=== PATIENT | male | born 1970 | race Caucasian/White ===

== ENCOUNTER 2025-03-04 07:06 | Observation (INO) | payer BC, SELFPAY ==
[2025-03-04] VITALS (16 sets, daily range): BP systolic 165–215; BP diastolic 61–99; PULSE 50–78; RESP 11–19; TEMP 36.4–37.2; O2SAT 96–99; BMI 27.1; BMI 26.1
--- NOTE | 2025-03-04 07:17 | CT_ITS ---
PROCEDURE: STROKE CTA HEAD AND NECK W/CON 03/04/2025 REASON FOR EXAM: NEURO DEFICIT, ACUTE, STROKE SUSPECTED TECHNIQUE: CTA imaging of the head and neck from the aortic arch to the skull vertex with intravenous contrast. Coronal and Sagittal reconstruction series were provided. 3D, 3D post processing, 3D reconstructions, Maximum intensity projection (MIPs) Volume rendering and Shaded surface rendering was provided. CONTRAST: Isovue 370 VOLUME: 100 mL Gauge IV One or more dose reduction techniques were used (e.g., Automated exposure control, adjustment of the mA and/or kV according to patient size, use of iterative reconstruction technique). # of known CTs in the past 12 months: 0 # of known Cardiac Nuclear Medicine Studies in the past 12 months: 0 RADIATION DOSE SUMMARY: DLP: 1505 mGycm COMPARISON: CT head performed on same date. FINDINGS: No large filling defects seen within the intracranial vessels. No evidence of thrombosis. No hemodynamically significant stenosis seen within the bilateral ICA. CT/STROKE CTA Head AND Neck W/Con IMPRESSION: No large filling defects seen within the intracranial vessels. No evidence of thrombosis. No hemodynamically significant stenosis seen within the bilateral ICA. Reading Location: [id number]
--- NOTE | 2025-03-04 07:17 | EKG12_ITS ---
Test Reason : HTN Blood Pressure : */* mmHG Vent. Rate : 58 BPM Atrial Rate : 58 BPM P-R Int : 136 ms QRS Dur : 94 ms QT Int : 458 ms P-R-T Axes : 53 9 102 degrees QTcB Int : 449 ms Sinus bradycardia Septal infarct , age undetermined T wave abnormality, consider lateral ischemia Abnormal ECG Confirmed by BENJA DUNHAM, DALLIN ([id number]), newspaper editor managing JE NG ([id number]) on 03/05/2025 8:36:03 AM Referred By: Confirmed By: DALLIN YOUSIF MD
--- NOTE | 2025-03-04 07:17 | CT_ITS ---
PROCEDURE: STROKE BRAIN/HEAD WITHOUT CONT 03/04/2025 REASON FOR EXAM: NEURO DEFICIT, ACUTE, STROKE SUSPECTED TECHNIQUE: Head CT without intravenous contrast. Coronal and Sagittal reconstruction series were provided. One or more dose reduction techniques were used (e.g., Automated exposure control, adjustment of the mA and/or kV according to patient size, use of iterative reconstruction technique. RADIATION DOSE SUMMARY: DLP: 1505 mGycm COMPARISON: None. FINDINGS: Hypodensity are seen within the left subcortical white matter best seen on image 22/43 could represent area of acute infarct. There is no intracranial hemorrhage, mass effect or midline shift. There are no abnormal extra-axial fluid collections present. The the ventricles and sulci are within normal limits. Calvarium intact intact. Visualized paranasal sinuses are unremarkable. : CT/STROKE Brain/Head without Cont IMPRESSION: Hypodensity within the left subcortical white matter could represent acute to s ubacute infarct. Correlate with MR. No intracranial hemorrhage, mass effect or midline shift. Reading Location: [id number]
--- NOTE | 2025-03-04 07:18 | EDS_ITS ---
HPI History of Present Illness Chief Complaint: Neuro S/Sx Informant: patient Onset/Context/Timing Onset: Days Context: Gradual Onset Timing: Continuous Quality and Location: Positive for Slurred Speech Onset: Sunday morning around 5:30 AM. Current Severity: Moderate Maximum Severity: Moderate Associated Symptoms Associated Symptoms: Negative for Nausea, Vomiting or Chest Pain Narrative Narrative: 54-year-old male prior history of epilepsy. But he says he has not seen a doctor or been in the hospital for years. According to his she said around 5:30 AM on Sunday the seventh 3 days ago she noticed that he started having significantly slurred speech. He denies any other complaints. No prior history of this. Occasionally has a headache. Denies any fall or head trauma. No history of stroke or mini stroke. They have also noticed recently he has elevated blood pressure but he is on no blood pressure medication. Prior similar symptoms: No Recent Illness/Hospitalization: [facility] Medical History Epilepsy Home Medications ?Medication ?Instructions ?Recorded ?Last Taken ?Type NK 03/04/25 Unknown History Allergy/AdvReac Type Severity Reaction Status Date / Time No Known Allergies Allergy Verified 03/04/25 07:07 Social History Smoking Status: Current every day smoker tobacco type: cigarettes ROS ROS ED ROS Narrative Denies recent illness. Constitutional Constitutional ED: Denies chills or fever(s) Eyes Eyes: Denies blurry vision, change in vision or diplopia ENT ENT ED: Denies ear pain Cardiovascular Cardiovascular: Denies chest pain Respiratory/Chest Respiratory/Chest: Denies cough or dyspnea Gastrointestinal Gastrointestinal: Denies abdominal pain Genitourinary Genitourinary ED: Denies dysuria Musculoskeletal Musculoskeletal: Denies arthralgias Integumentary Denies abscess Neurologic Neurologic: Reports headache(s) Psychiatric Psychiatric: Denies anxiety Endocrine Endocrinology: Denies polydipsia Hematologic/Lymphatic Hematologic/Lymphatic: Denies easy bleeding Allergic/Immunologic Allergic/Immunologic ED: Denies mouth swelling EXAM Physical Exam Narrative Exam Narrative: Well-appearing male sitting upright in bed. Vital signs are stable his blood pressure is elevated 215/96. at bedside. H EENT exam pupils round reactive light. Extra motions are intact. No facial droop. Tongue midline. O bviously slurred speech. No signs of trauma. Neck nontender. No lymphadenopathy. Lungs clear to auscultation bilaterally. Heart regular rhythm rate about 70 no murmur. Chest wall ribs nontender. Abdomen soft nontender. Moving all 4 extremities. 5 out of 5 hoop expander strength. Dorsi plantarflexion intact. Normal strength. Normal sensation. Nontender. No edema. Back nontender. Neurologically is awake and alert. Answering questions and following commands. He is obvious slurred speech. However he is no facial droop. He has normal fingertip to nose. Normal [id number]-otxy. No drift. N ormal rapid hand movements. NIH score is 1. Const Vital Signs: 03/04/25 07:07 03/04/25 07:19 03/04/25 07:19 Temperature 98.2 F 98.9 F Temperature Source Oral Oral Pulse Rate 68 62 Respiratory Rate 19 H 14 Blood Pressure 215/96 H 211/94 H Blood Pressure Mean 135 133 Pulse Ox 97 98 Oxygen Delivery Method Room Air Room Air Room Air 03/04/25 07:47 03/04/25 08:02 Temperature 98.6 F Temperature Source Oral Pulse Rate 78 64 Respiratory Rate 16 18 Blood Pressure 211/76 H 203/81 H Blood Pressure Mean 121 121 Pulse Ox 98 98 Oxygen Delivery Method Room Air Room Air Positive well nourished and well developed; Negative for obese, cachectic, contractures or unkempt General Appearance ED: well developed and NAD; Negative for unkempt, cachectic or contractures Nutritional Appearance: Negative for cachectic or obese HEENT Reports moist mucous membranes atraumatic Eyes PERRL and EOMs intact bilaterally General Eye ED: Negative for pale conjunctiva or scleral icterus Neck no lymphadenopathy, supple and no JVD General: Negative for tenderness Chest Wall inspection of chest normal and palpation of chest normal Resp normal respiratory effort and clear to auscultation bilaterally Effort and Inspection: Negative for retractions Auscultation: Negative for rales, rhonchi, wheezes or diminished lung sounds Cardio no murmurs Rate: regular rate Rhythm: regular rhythm GI normal to inspection, nondistended, normoactive bowel sounds, soft to palpation, non-tender, non-distended and no masses Palpation: Negative for tender, guarding or rebound tenderness present Back/Spine no CVA tenderness General Back: Negative for CVA tenderness or other Cervical Spine: Negative for cervical spine tenderness Thoracic Spine / Upper Back: Negative for thoracic spinal tenderness Extremity normal to inspection General Extremety ED: Negative for deformity or edema General Extremity: Negative for deformity or edema Neuro oriented x3, CN's II-XII intact bilaterally and no sensory deficits noted Neuro Narrative: Slurred speech. Sensorium / Orientation: alert, oriented to person, oriented to place and oriented to time; Negative for orientation impaired, confused or stuporous Speech: Negative for speech normal Motor Exam: strength 5/5 throughout Psych mental status grossly normal Appearance: Negative for unkempt Attitude: No agitated Mood & Affect: Negative for depressed, anxious or tearful Skin no wounds General Skin Exam: Negative for jaundice Lesions: no lesions Rashes: no rashes NIHSS NIHSS Initial: 1a Level of Consciousness: 0 1b LOC Questions (Score 2 if aphasic/stupor): 0 1c LOC Commands (Only score 1st attempt): 0 2 Best Gaze (If aphasic, use reflexive mvmts.): 0 3 Visual: 0 4 Facial Palsy: 0 5 Motor Arm Right (UN = amputation/fusion): 0 5 Motor Arm Left: 0 6 Motor Leg Right: 0 6 Motor Leg Left: 0 7 Limb ataxia (Only + if out of proportion): 0 8 Sensory (Aphasia/stupor=0 or 1, coma=2): 0 9 Best Language: 1 10 Dysarthria (mute, coma=2, intubated=UN): 0 11 Extinction and Inattention (only scored if +): 0 Total Score: 1 MDM MDM MDM Narrative Medical decision making narrative: 54-year-old male who does not have a primary care physician. Presents with 3- day history of slurred speech. Concern obviously is for stroke versus intracranial bleed. Also may have new onset hypertension. He will go through a stroke workup. Most likely need to be admitted. Repeat exam at 8:17 a.m. patient doing well. Sitting upright in bed. No change in his exam. Slurred speech has not changed. I discussed all test results about he and his . Explained him that clinically I think he had a stroke and there is findings on the plain CT. He will be admitted I have the hospitalist on page. Patient did receive labetalol for his elevated blood pressure. History & Record Review Discussion w/independent historian: Patient and Family Lab Data Lab results narrative: CBC normal. White count 8. H&H 16 and 46. Platelets 258. Chemistries show a gap of 11. BUN and creatinine are 12 and 1. Glucose 110. Initial troponin 11. Labs: Laboratory Results - last 24 hr 03/04/25 07:22 WBC 8.3 RBC 5.07 Hgb 16.3 Hct 46.2 MCV 91.1 MCH 32.1 H MCHC 35.3 RDW Std Deviation 44.8 H RDW Coeff of Juan 13.5 Plt Count 258 MPV 10.1 Immature Gran % (Auto) 0.500 Neut % (Auto) 67.2 Lymph % (Auto) 21.5 [place] % (Auto) 9.5 Eos % (Auto) 0.7 Baso % (Auto) 0.6 Absolute Neuts (auto) 5.6 Absolute Lymphs (auto) 1.79 Nucleated RBC % 0 Sodium 136 Potassium 4.1 Chloride 100 Carbon Dioxide 23.7 Anion Gap 11 BUN 12 Creatinine 1.00 Estim Creat Clear Calc 78.03 Est GFR (MDRD) Non-Af 89 BUN/Creatinine Ratio 12.0 Glucose 110 H Calcium 9.2 Troponin T High Sens 11 Radiography Chest X-Ray - ED: 2 View, Read by ED Physician, Heart, Lungs, Mediastinum, Bony Structures, No Acute Disease and Chronic Changes Diagnostic Testing: Clinical Impression(s) from Imaging Studies Brain CT 03/04/25 07:17 IMPRESSION: Hypodensity within the left subcortical white matter could represent acute to subacute infarct. Correlate with MR. No intracranial hemorrhage, mass effect or midline shift. Reading Location: [facility] Head/Neck CTA 03/04/25 07:17 IMPRESSION: No large filling defects seen within the intracranial vessels. No evidence of thrombosis. No hemodynamically significant stenosis seen within the bilateral ICA. Reading Location: [id number] Chest X-Ray 03/04/25 07:35 IMPRESSION: Mild pulmonary vascular congestion. 1 cm nodule seen within the right lower lobe. Follow-up as per Fleischner society criteria. Reading Location: [facility] Chest x-ray, 2 views, AP and lateral, interpreted by myself shows no acute abnormality. Normal cardiac silhouette. Normal mediastinum. Normal lung lopez. Chronic changes. No acute process. Rhythm Strip Rhythm Strip: Sinus bradycardia Rate: 58 Ectopy: None EKG Initial EKG: Attestation: I personally reviewed and interpreted this EKG as follows: Interpretation: No Acute Injury Pattern and Sinus Bradycardia Comments: Sinus bradycardia rate of 58 no acute signs of OR or ischemia. No ST elevation. No depression. Discharge Plan Triage Chief Complaint: Neuro S/Sx ED Provider: Cruzito Bailey Dx/Rx/DC Orders Clinical Impression: Slurred speech, Acute stroke due to ischemia, Hypertension Prescriptions: No Action NK Primary Care Provider: Care Physician,No Primary Referrals: Care Physician,No Primary [Primary Care Provider] - Print Language: Japanese
[2025-03-04 07:30] LABS: Absolute Lymphocyte Count 1.79 X10^3/uL (0.83-4.51); Absolute Neutrophil Count 5.6 X10^3/uL (2.0-7.7); Basophil# 0.05 X10^3/uL; Basophil% 0.6 % (0-1); Eosinophil# 0.06 X10^3/uL; Eosinophils% 0.7 % (0-5); Hematocrit 46.2 % (40-54); Hemoglobin 16.3 g/dL (13.0-16.5); Lymphocyte # 1.79 X10^3/ul (0.83-4.51); Lymphocyte % 21.5 % (19-41); Mean Corp Hgb Conc 35.3 g/dL (32-36); Mean Corpuscular Hgb 32.1 pg (27.0-32.0); Mean Corpuscular Volume 91.1 fL (80-94); Mean Platelet Vol. 10.1 fl (6.2-12.0); Monocyte# 0.79 X10^3/uL; Monocyte% 9.5 % (0-10); NRBC Flagged by Analyzer 0 % (0-5); Neutrophil # 5.61 X10^3/uL (2.7-7.7); Neutrophil % 67.2 % (47-70); Platelet Count 258 K/mm3 (150-450); RBC Distribution Width CV 13.5 % (11.6-14.6); RBC Distribution Width SD 44.8 fl (35.1-43.9); Red Blood Count 5.07 M/mm3 (4.6-6.2); White Blood Count 8.3 K/mm3 (4.4-11.0)
--- NOTE | 2025-03-04 07:35 | RAD_ITS ---
PROCEDURE: CHEST PA AND LATERAL 03/04/2025 REASON FOR EXAM: HIGH BP AND SLURRED SPEECH TECHNIQUE: Frontal and lateral views of the chest. COMPARISON: None. FINDINGS: The cardiac silhouette is prominent. There is mild pulmonary vascular congestion. 1 cm nodule seen within the right lower lung zone. Recommend follow-up as per Fleischner society criteria. RAD/Chest PA and Lateral IMPRESSION: Mild pulmonary vascular congestion. 1 cm nodule seen within the right lower lobe. Follow-up as per Fleischner soci ety criteria. Reading Location: [id number]
[2025-03-04 08:07] LABS: Anion Gap 11 (5-15); BUN 12 mg/dL (4-19); Calcium,Total 9.2 mg/dL (7.6-11.0); Carbon Dioxide 23.7 mmol/L (21.0-32.0); Chloride 100 mmol/L (98-108); EST Glomerular Filtration Rate 89 (>60); Estimated Creatinine Clearance 78.03 ml/min (50-250); Glucose 110 mg/dL (70-99); Potassium 4.1 mmol/L (3.3-5.1); Sodium Level 136 mmol/L (133-145); Troponin T High Sensitivity 11 ng/L (<=22)
--- NOTE | 2025-03-04 08:45 | PCM.HP.STD ---
HPI - General General Date of Service: 03/04/25 Chief Complaint: slurred speech HPI Narrative MARY ALICE NAIK, is a 54 M who presents with slurred speech. Symptoms were noticed at 0530 on March 02. Had no other symptoms. But given the lack of improvement, patient was taken to the emergency room for evaluation. Patient had a CAT scan that showed hypodensity with in the left subcortical white matter that could represent acute or subacute infarct. CTA of the head and neck showed no LVO. Given his strokelike symptoms and concern for stroke on his CAT scan, the hospital service was contacted for admission. Patient denies ever having had a stroke before. [facility] Medical History Epilepsy Home Medications ?Medication ?Instructions ?Recorded ?Last Taken ?Type NK 03/04/25 Unknown History Allergy/AdvReac Type Severity Reaction Status Date / Time No Known Allergies Allergy Verified 03/04/25 07:07 Social History (Updated 03/04/25 @ 08:[address] Todd Alfonso DO) Smoking Status: Heavy Smoker (>10/day) alcohol intake: current alcohol intake frequency: a few times a month substance use type: marijuana Vital Signs Vital Signs Vital Signs: 03/04/25 07:07 03/04/25 07:19 03/04/25 07:19 Temperature 36.8 C 37.2 C Temperature Source Oral Oral Pulse Rate 68 62 Respiratory Rate 19 H 14 Blood Pressure 215/96 H 211/94 H Blood Pressure Mean 135 133 Pulse Ox 97 98 Oxygen Delivery Method Room Air Room Air Room Air 03/04/25 07:47 03/04/25 08:02 Temperature 37.0 C Temperature Source Oral Pulse Rate 78 64 Respiratory Rate 16 18 Blood Pressure 211/76 H 203/81 H Blood Pressure Mean 121 121 Pulse Ox 98 98 Oxygen Delivery Method Room Air Room Air Weight Weight: 78.8 kg Body Mass Index (BMI) 27.1 Physical Exam Narrative - Physical Exam General: Alert, Oriented x3, Cooperative HEENT: Atraumatic, PERRLA, EOMI, Normocephalic Oral: Moist Mucosa, No Gingival or Mucosal Lesions/ Ulcerations edentulous. Neck: Supple, No JVD, Negative Carotid Bruits Lungs: Clear to auscultation, Normal air movement Cardiovascular: Regular rate, Normal S1, Normal S2, No murmurs Abdomen: Bowel Sounds Present, Soft, Non Tender, Non-Distended, No Hepato-splenomegaly Extremities: No clubbing, No cyanosis, No edema, Capillary Refill Less than 3 Seconds Skin: No rashes, No breakdown Musculoskeletal: No Tenderness to Palpation of Joints or Extremities Neurological: Cranial nerves II through XII gross intact. Strength 5-5 in upper and lower extremities bilaterally. Knqliu-ha-saal and ybqc-dv-sftn within normal limits. Sensation grossly intact. Patient does have some slurred speech but follows commands appropriately. Psych/Mental Status: Normal Affect, Appropriate Results Lab / Micro Data Attestation: I reviewed the patient's lab results. 03/04/25 07:22 03/04/25 07:22 Labs: Laboratory Results - last 24 hr 03/04/25 07:22: WBC 8.3, RBC 5.07, Hgb 16.3, Hct 46.2, MCV 91.1, MCH 32.1 H, MCHC 35.3, RDW Std Deviation 44.8 H, RDW Coeff of Juan 13.5, Plt Count 258, MPV 10.1, Immature Gran % (Auto) 0.500, Neut % (Auto) 67.2, Lymph % (Auto) 21.5, [place] % (Auto) 9.5, Eos % (Auto) 0.7, Baso % (Auto) 0.6, Absolute Neuts (auto) 5.6, Absolute Lymphs (auto) 1.79, Nucleated RBC % 0, Sodium 136, Potassium 4.1, Chloride 100, Carbon Dioxide 23.7, Anion Gap 11, BUN 12, Creatinine 1.00, Estim Creat Clear Calc 78.03, Est GFR (MDRD) Non-Af 89, BUN/Creatinine Ratio 12.0, Glucose 110 H, Calcium 9.2, Troponin T High Sens 11 Rhythm Strip Rhythm Strip: Sinus bradycardia Rate: 58 Ectopy: None EKG Initial EKG: Attestation: I personally reviewed and interpreted this EKG as follows: Prior EKG tracings: available for review EKG Rhythm Intrepretation: Sinus Bradycardia Imaging Radiology Impression Brain CT 03/04/25 07:17 IMPRESSION: Hypodensity within the left subcortical white matter could represent acute to subacute infarct. Correlate with MR. No intracranial hemorrhage, mass effect or midline shift. Reading Location: [id number] Head/Neck CTA 03/04/25 07:17 IMPRESSION: No large filling defects seen within the intracranial vessels. No evidence of thrombosis. No hemodynamically significant stenosis seen within the bilateral ICA. Reading Location: [id number] Chest X-Ray 03/04/25 07:35 IMPRESSION: Mild pulmonary vascular congestion. 1 cm nodule seen within the right lower lobe. Follow-up as per Fleischner society criteria. Reading Location: [facility] Assessment & Plan Assessment/Plan (1) CVA (cerebral vascular accident): PLAN: Patient is out of the window for TNK given delayed presentation CAT scan already showing signs of stroke in the left subcortical region. Will check an MRI to further characterize this. Additionally check an echocardiogram. PT, OT and speech therapy. Start aspirin and high intensity statin. (2) Hypertension: PLAN: Given that patient is well over 24 hours after presentation, will start initiating treatment. Patient's blood pressure is currently in the 190s. Will start amlodipine. Available as needed antihypertensives as well. PLAN: Plan Tobacco abuse: Cessation recommended VTE prophylaxis not indicated given observation status CODE STATUS: Just with the patient and his significant other. Patient is full code. Patient does not have a primary care. He will need to establish upon discharge. Charges/Coding Visit Charges Inpatient E&M: 66091 Init Hosp L3
[2025-03-04 09:40] LABS: Prothrombin Time (Protime)PT. 13.6 SECONDS (11.7-14.9)
--- NOTE | 2025-03-04 10:24 | ECHOD_ITS ---
Reason For Study Reason For Study: TIA/CVA Procedure This was a 2D Doppler, Color Flow transthoracic echocardiogram. Exam performed portable in ICU/CCU. Left Ventricle Normal LV size. Left ventricular systolic function is normal. The left ventricular ejection fraction is 60 %. Stage 1 diastolic dysfunction. No regional wall motion abnormalities noted. Right Ventricle Normal RV size. Normal systolic function. Atria The left atrium is mildly enlarged. Normal right atrium. Bubble contrast study negative for right to left interatrial shunt. Mitral Valve Bileaflet diffuse mitral valve thickening. Tricuspid Valve Normal tricuspid valve. Aortic Valve Trisinus/trileaflet aortic valve. Pulmonic Valve Normal pulmonic valve. Great Vessels Normal aortic root. The pulmonary artery is normal size. Inferior vena cava collapse with respiration. Pericardium/Pleural No pericardial effusion. Medication Performed a rapid injection of agitated mix of 9 cc saline and 1cc air to assess for atrial septal defect. MMode/2D Measurements & Calculations LVIDd: 5.5 cm IVSd: 1.2 cm Ao root diam: 3.3 cm LVIDs: 3.7 cm LVPWd: 0.93 cm RVDd: 3.0 cm FS: 32.4 % LAV(MOD-bp): 64.6 ml LVAd ap4: 35.3 cm2 SV(MOD-sp4): 77.2 ml LAV(MOD-bp) Indexed: 33.9 ml/m2 LVLd ap4: 8.8 cm SI(MOD-sp4): 40.5 ml/m2 LAV(MOD-sp2): 58.7 ml EDV(MOD-sp4): 115.1 ml LAV(MOD-sp4): 63.1 ml EDV(sp4-el): 120.1 ml LVAs ap4: 18.2 cm2 LVLs ap4: 7.3 cm ESV(MOD-sp4): 37.9 ml ESV(sp4-el): 38.4 ml EF(MOD-sp4): 67.1 % EF(sp4-el): 68.0 % SV(sp4-el): 81.7 ml LA A4 area: 21.1 cm2 LA dimension(2D): 4.1 cm RA A4 area: 16.4 cm2 TAPSE: 2.5 cm Time Measurements MV dec time: 0.20 sec Doppler Measurements & Calculations MV E max benjie: 61.2 cm/sec Lat Peak E' Benjie: 8.7 cm/sec Med Peak E' Benjie: 8.5 cm/sec MV A max benjie: 66.5 cm/sec E/E' lat: 7.0 E/E' med: 7.2 MV E/A: 0.92 MV V2 max: 89.8 cm/sec MV dec slope: 311.6 cm/sec2 Ao V2 max: 149.6 cm/sec MV max P.2 mmHg Ao max P.0 mmHg MV V2 mean: 41.2 cm/sec Ao V2 mean: 96.7 cm/sec MV mean P.81 mmHg Ao mean P.4 mmHg MV V2 VTI: 24.3 cm Ao V2 VTI: 35.0 cm AV (velocity ratio): 0.63 LV V1 max: 94.8 cm/sec PA V2 max: 93.1 cm/sec LV V1 max P.6 mmHg PA V2 mean: 66.0 cm/sec LV V1 mean P.9 mmHg LV V1 mean: 64.8 cm/sec LV V1 VTI: 22.0 cm ECHO/Echo Complete Interpretation Summary Normal LV size. Left ventricular systolic function is normal. The left ventricular ejection fraction is 60 %. The left atrium is mildly enlarged. Stage 1 diastolic dysfunction. Bubble contrast study negative for right to left interatrial shunt. Ordering Physician: Todd Alfonso Referring Physician: MICHAEL PCP Performed By: Savannah Mccoy, EM, RVT
[2025-03-04 10:42] LABS: Troponin T High Sens 2 HR 10 ng/L (<=22)
[2025-03-04] MEDS: amLODIPine 5 MG Tablet PO (11:28)
[2025-03-04] MEDS: Aspirin 325 MG Tablet PO (11:28)
--- NOTE | 2025-03-04 17:45 | STROKE.CONS ---
Assessment and Plan: Stroke Assessment/Plan Ischemic stroke, likely small vessel in etiology. Uncontrolled hypertension and smoking are likely underlying cause. Plan: Aspirin 81, clopidogrel 300mg now. Continue clopidogrel 75mg and aspirin 81mg daily x 21 days then stop clopidogrel. Continue aspirin 81mg daily indefinitely. Start atorvastatin 80mg daily. Send lipid panel and hemoglobin A1c. Obtain TTE. No need for MRI as stroke clearly seen on CT head. PT/OT/[facility]. Goal BP < 130/80. Plan for 30 day panel monitor on discharge to screen for atrial fibrillation. Follow up with neurologist as an outpatient. HPI Consult Data Date of Consult: 03/04/25 HPI Narrative HPI Narrative: MARY ALICE NAIK, is a 54M w/ epilepsy, tobacco use, previously undiagnosed HTN. 03/02/25 acute dysarthria. CTH w/ L subcortical hypodensity c/w subacute infarct. CTA negative. BP 215/96 on admission. SBP is typically in the 180s at home. [facility] Medical History Epilepsy Home Medications ?Medication ?Instructions ?Recorded ?Last Taken ?Type NK 03/04/25 Unknown History Allergy/AdvReac Type Severity Reaction Status Date / Time No Known Allergies Allergy Verified 03/04/25 07:07 Social History (Updated 03/04/25 @ 08:[address] Todd Alfonso, ) Smoking Status: Current every day smoker tobacco type: cigarettes alcohol intake: current alcohol intake frequency: a few times a month substance use type: marijuana Vital Signs Vital Signs Vital Signs: 03/04/25 07:07 03/04/25 07:19 03/04/25 07:19 Temperature 98.2 F 98.9 F Temperature Source Oral Oral Pulse Rate 68 62 Respiratory Rate 19 H 14 Blood Pressure 215/96 H 211/94 H Blood Pressure Mean 135 133 Blood Pressure Source Blood Pressure Position Blood Pressure Location Pulse Ox 97 98 Oxygen Delivery Method Room Air Room Air Room Air 03/04/25 07:47 03/04/25 08:02 03/04/25 09:46 Temperature 98.6 F 98.7 F Temperature Source Oral Pulse Rate 78 64 64 Respiratory Rate 16 18 18 Blood Pressure 211/76 H 203/81 H 180/76 H Blood Pressure Mean 121 121 110 Blood Pressure Source Blood Pressure Position Blood Pressure Location Pulse Ox 98 98 99 Oxygen Delivery Method Room Air Room Air 03/04/25 10:00 03/04/25 10:24 03/04/25 10:39 Temperature Temperature Source Pulse Rate 50 L 56 L 52 L Respiratory Rate 14 16 11 L Blood Pressure 183/61 H 192/90 H 183/81 H Blood Pressure Mean 101 124 115 Blood Pressure Source Monitor Monitor Blood Pressure Position Semi-Fowlers Semi-Fowlers Blood Pressure Location Left Arm Left Arm Pulse Ox 99 98 99 Oxygen Delivery Method Room Air Room Air Room Air 03/04/25 10:54 03/04/25 11:09 03/04/25 11:30 Temperature 98.1 F Temperature Source Temporal Pulse Rate 52 L 50 L 55 L Respiratory Rate 16 18 17 Blood Pressure 196/83 H 177/99 H 175/84 H Blood Pressure Mean 120 125 114 Blood Pressure Source Monitor Monitor Monitor Blood Pressure Position Semi-Fowlers Semi-Fowlers Semi-Fowlers Blood Pressure Location Left Arm Left Arm Left Arm Pulse Ox 98 98 99 Oxygen Delivery Method Room Air Room Air Room Air 03/04/25 12:00 03/04/25 15:07 03/04/25 17:22 Temperature 98.1 F 97.6 F L Temperature Source Temporal Temporal Pulse Rate 54 L 51 L Respiratory Rate 16 15 Blood Pressure 184/73 H 178/74 H Blood Pressure Mean 110 108 Blood Pressure Source Monitor Monitor Blood Pressure Position Semi-Fowlers Semi-Fowlers Blood Pressure Location Left Arm Left Arm Pulse Ox 99 96 98 Oxygen Delivery Method Room Air Room Air Room Air Weight Weight: 75.568 kg Body Mass Index (BMI) 26.1 EEG Results Procedure Details EEG Procedure Details: MARY ALICE NAIK is a 54 year old M with a past medical history of , who presents for evaluation of Electroencephalogram on DATE at TIME NIHSS NIHSS Nursing Documentation NIHSS Nursing Documentation: NIHSS: Ischemic Stroke/TIA Start: 03/04/25 10:24 Text: For ICU Patients: NIH sroke scale at Status: Complete presentation and every 2 hours or with change in RN caregiver Freq: [id number] Protocol: Activity Type Activity Date Activity User E-sign Co-sign Detail Recorded Client Recorded Date Recorded By Document 03/04/25 11:50 F desktop 03/04/25 11:51 [facility] 04/09/25 11:50 NIH Stroke Scale [NIHSS] A score of 0 is normal or asymptomatic . Total possible score is 42. Inpatient: RN or Physician to activate a stroke alert for onset of new stroke symptoms or with NIHSS increase >/= 3 points. Following change in neurological status, NIHSS will be performed per physician order or more frequently PRN. -1a. Level of Consciousness Alert; keenly responsive -1b. LOC Questions Answers BOTH questions correctly. -1c. LOC Commands Performs both tasks correctly . -2. Best Gaze Normal -3. Visual No visual loss -4. Facial Palsy Normal symmetrical movements -5a. Left Arm No drift; arm holds 90 (or 45 ) degrees for full 10 seconds -5b. Right Arm No drift; arm holds 90 (or 45 ) degrees for full 10 seconds -6a. Left Leg No drift; leg holds 30-degree position for full 5 seconds -6b. Right Leg No drift; leg holds 30-degree position for full 5 seconds -7. Limb Ataxia Absent -8. Sensory Normal; no sensory loss -9. Best Language No aphasia; normal -10. Dysarthria Normal -11. Extinction and Inattention No abnormality -Total 0 Query Text:A score of 0 is normal or asymptomatic. Total possible score is 42 . ED: Notify Physician for NIHSS increase by > / = 3 points. Inpatient: RN or Physician to activate a stroke alert for NIHSS increase of > / = 3 points. Physical Exam Narrative No aphasia or neglect. Conversational. Dysarthria present. Orbiting around RUE. Finger tapping symmetric. No drift in extremities. No ataxia. Sensation equal bilaterally. NIHSS 1 (dysarthria). Lab / Micro Data 03/04/25 07:22 03/04/25 07:22 Labs: Laboratory Results - last 24 hr 03/04/25 07:22: WBC 8.3, RBC 5.07, Hgb 16.3, Hct 46.2, MCV 91.1, MCH 32.1 H, MCHC 35.3, RDW Std Deviation 44.8 H, RDW Coeff of Juan 13.5, Plt Count 258, MPV 10.1, Immature Gran % (Auto) 0.500, Neut % (Auto) 67.2, Lymph % (Auto) 21.5, Nye % (Auto) 9.5, Eos % (Auto) 0.7, Baso % (Auto) 0.6, Absolute Neuts (auto) 5.6, Absolute Lymphs (auto) 1.79, Nucleated RBC % 0, PT 13.6, INR 1.0, APTT 26.0, Sodium 136, Potassium 4.1, Chloride 100, Carbon Dioxide 23.7, Anion Gap 11, BUN 12, Creatinine 1.00, Estim Creat Clear Calc 78.03, Est GFR (MDRD) Non-Af 89, BUN/Creatinine Ratio 12.0, Glucose 110 H, Calcium 9.2, Troponin T High Sens 11 03/04/25 09:55: Troponin T Hi Sens 2 Hr 10 Rhythm Strip Rhythm Strip: Sinus bradycardia Rate: 58 Ectopy: None Imaging Radiology Impression Brain CT 03/04/25 07:17 IMPRESSION: Hypodensity within the left subcortical white matter could represent acute to subacute infarct. Correlate with MR. No intracranial hemorrhage, mass effect or midline shift. Reading Location: [id number] Head/Neck CTA 03/04/25 07:17 IMPRESSION: No large filling defects seen within the intracranial vessels. No evidence of thrombosis. No hemodynamically significant stenosis seen within the bilateral ICA. Reading Location: [id number] Chest X-Ray 03/04/25 07:35 IMPRESSION: Mild pulmonary vascular congestion. 1 cm nodule seen within the right lower lobe. Follow-up as per Fleischner society criteria. Reading Location: [facility] Active Medications Active Medications Active Medications: Current Medications Generic Name Dose Route Start Last Admin Trade Name Freq PRN Reason Stop Dose Admin Acetaminophen 650 mg 03/04/25 10:24 Acetaminophen 325 Mg Tablet PO Q6H PRN PRN Pain 1-10 Or Fever>100.7 Amlodipine Besylate 5 mg 03/04/25 10:24 03/04/25 11:28 Amlodipine 5 Mg Tablet PO 5 mg DAILY [facility] Administration Protocol Aspirin 81 mg 03/05/25 08:00 Aspirin 81 Mg Tab.Chew PO BREAKFAST [facility] Atorvastatin Calcium 80 mg 03/04/25 22:00 Atorvastatin Calcium 80 Mg Tablet PO QHS [facility] Hydralazine HCl 5 mg 03/04/25 10:24 Hydralazine 20 Mg/Ml Vial IV 03/05/25 10:24 Q30M PRN maintain BP parameters with HR <60 Labetalol HCl 20 mg 03/04/25 07:17 03/04/25 07:59 Labetalol 20mg/4ml Syringe IV 03/05/25 07:17 20 mg X1 PRN Administration BLOOD PRESSURE Labetalol HCl 10 - 20 mg 03/04/25 10:24 Labetalol 20mg/4ml Syringe IV 03/05/25 10:24 Q10M PRN PRN maintain BP parameters with HR >/=60 Ondansetron HCl 4 mg 03/04/25 10:24 Ondansetron 4 Mg/2 Ml Vial IV Q8H PRN PRN NAUSEA/VOMITING Sodium Chloride 10 - 40 ml 03/04/25 10:41 0.9% Saline Lock 10 Ml Syringe IV UD PRN SALINE FLUSH
[2025-03-04] MEDS: Atorvastatin Calcium 80 MG Tablet PO (20:31)
[2025-03-05 04:18] VITALS: BP 163/63; PULSE 59; RESP 15; TEMP 36.6; O2SAT 97
[2025-03-05 05:37] LABS: Cholesterol 181 mg/dL (<=200); High Density Lipoprotein 42 mg/dL; Low Density Lipoprotein Calc. 116 mg/dL; Triglycerides 116 mg/dL; Very Low Density Lipoprotein 23 mg/dL (5-40); cholesterol:hdl ratio screen 4.34
[2025-03-05 07:00] VITALS: PULSE 56
[2025-03-05 07:17] VITALS: BMI 26.1
--- NOTE | 2025-03-05 07:23 | PCM.PN.HOSP ---
Reason for Visit Reason for Visit: Diagnoses Essential (primary) hypertension (03/04/25) Cerebral infarction, unspecified (03/04/25) Subjective Subjective Still with slurred speech, but improved. Objective Data Objective Data Vital Signs: Vital Signs Temp Pulse Resp BP Pulse Ox O2 Del Method 36.6 C 59 L 15 163/63 H 97 Room Air 03/05/25 04:18 03/05/25 04:18 03/05/25 04:18 03/05/25 04:18 03/05/25 04:18 03/05/25 04:18 Oxygen Delivery Method Room Air Weight: 75.568 kg Body Mass Index (BMI) 26.1 Intake & Output: Intake and Output for Last 24 Hours 03/03/25 03/04/25 03/05/25 23:59 23:59 23:59 Intake Total 960 / 960 480 / 480 Balance 960 / 960 480 / 480 Lab / Micro Data 03/04/25 07:22 03/04/25 07:22 Labs: Laboratory Results - last 24 hr 03/04/25 07:22: WBC 8.3, RBC 5.07, Hgb 16.3, Hct 46.2, MCV 91.1, MCH 32.1 H, MCHC 35.3, RDW Std Deviation 44.8 H, RDW Coeff of Juan 13.5, Plt Count 258, MPV 10.1, Immature Gran % (Auto) 0.500, Neut % (Auto) 67.2, Lymph % (Auto) 21.5, [place] % (Auto) 9.5, Eos % (Auto) 0.7, Baso % (Auto) 0.6, Absolute Neuts (auto) 5.6, Absolute Lymphs (auto) 1.79, Nucleated RBC % 0, PT 13.6, INR 1.0, APTT 26.0, Sodium 136, Potassium 4.1, Chloride 100, Carbon Dioxide 23.7, Anion Gap 11, BUN 12, Creatinine 1.00, Estim Creat Clear Calc 78.03, Est GFR (MDRD) Non-Af 89, BUN/Creatinine Ratio 12.0, Glucose 110 H, Calcium 9.2, Troponin T High Sens 11 03/04/25 09:55: Troponin T Hi Sens 2 Hr 10 03/05/25 04:12: Triglycerides 116, Cholesterol 181, LDL Cholesterol, Calc 116, VLDL Cholesterol 23, HDL Cholesterol 42, Cholesterol/HDL Ratio 4.34 Radiography Diagnostic Testing: Radiology Impression Brain CT 03/04/25 07:17 IMPRESSION: Hypodensity within the left subcortical white matter could represent acute to subacute infarct. Correlate with MR. No intracranial hemorrhage, mass effect or midline shift. Reading Location: [facility] Head/Neck CTA 03/04/25 07:17 IMPRESSION: No large filling defects seen within the intracranial vessels. No evidence of thrombosis. No hemodynamically significant stenosis seen within the bilateral ICA. Reading Location: [facility] Chest X-Ray 03/04/25 07:35 IMPRESSION: Mild pulmonary vascular congestion. 1 cm nodule seen within the right lower lobe. Follow-up as per Fleischner society criteria. Reading Location: [facility] Echocardiogram 03/04/25 10:24 Interpretation Summary Normal LV size. Left ventricular systolic function is normal. The left ventricular ejection fraction is 60 %. The left atrium is mildly enlarged. Stage 1 diastolic dysfunction. Bubble contrast study negative for right to left interatrial shunt. Ordering Physician: Todd Alfonso Referring Physician: NO PCP Performed By: Savannah Mccoy, EM, RVT Rhythm Strip Rhythm Strip: Sinus bradycardia Rate: 58 Ectopy: None Physical Exam Const alert and no apparent distress Constitutional Narrative: slurred speech, but more coherent today. edentulous. HEENT head/scalp atraumatic and moist oral mucous membranes Resp normal respiratory effort and no retractions Assessment & Plan Assessment/Plan (1) CVA (cerebral vascular accident): PLAN: Patient presented out of the window for TNK given delayed presentation CAT scan already showing signs of stroke in the left subcortical region. PT, OT and speech therapy. Start aspirin and high intensity statin. Neurology did not feel the need for MRI as CVA already present on CT, so MRI was cancelled. 2d echo unremarkable. (2) Hypertension: PLAN: Given that patient is well over 24 hours after presentation, will start initiating treatment. Patient's admission blood pressure in the 190s, since improved to 160s. Will start amlodipine 5mg/day. Add HCTZ 25 mg/d. Increase amlodipine to 10mg/d. PLAN: Plan Tobacco abuse: Cessation recommended VTE prophylaxis not indicated given observation status CODE STATUS: Just with the patient and his significant other. Patient is full code. Patient does not have a primary care. He will need to establish upon discharge. As well as follow up with neurology as outpt.
[2025-03-05] MEDS: amLODIPine 5 MG Tablet PO (07:58)
[2025-03-05] MEDS: Aspirin 81 MG TAB.CHEW PO (07:58)
[2025-03-05 08:00] VITALS: BP 187/76; PULSE 60; RESP 14; TEMP 36.2; O2SAT 97
[2025-03-05] MEDS: hydroCHLOROthiazide 25 MG Tablet PO (08:53)
[2025-03-05 13:28] VITALS: BP 173/86; PULSE 51; RESP 15; TEMP 36.6; O2SAT 98
--- NOTE | 2025-03-05 13:33 | DS.PCM_ITS ---
Providers Date of Admission: 03/04/25 Primary Care Physician: Naya Primary Care Phys Consultations 03/04/25 10:24 Consult: Tele-Neurology Routine Consulting Provider: [facility] Reason for Consult: Acute Ischemic Stroke/TIA EMERGENT Consult: No MD Notified: Yes Date Notified: 03/04/25 Time Notified: 08:41 Method of Notification: Answering Service Nursing Unit Staff Notify [facility] of Tele-Neurology Consult: Yes Reason For Visit: CVA Diagnosis Discharge Diagnosis (1) CVA (cerebral vascular accident): Status: Acute Code(s): I63.9 - Cerebral infarction, unspecified Plan: Patient presented out of the window for TNK given delayed presentation CAT scan already showing signs of stroke in the left subcortical region. PT, OT and speech therapy. Start aspirin and high intensity statin. Neurology did not feel the need for MRI as CVA already present on CT, so MRI was cancelled. 2d echo unremarkable. (2) Hypertension: Status: Chronic Code(s): I10 - Essential (primary) hypertension Plan: Given that patient is well over 24 hours after presentation, will start initiating treatment. Patient's admission blood pressure in the 190s, since improved to 160s. Will start amlodipine 5mg/day. Add HCTZ 25 mg/d. Increase amlodipine to 10mg/d. Plan Tobacco abuse: Cessation advised. Pt states that he plans on quitting. Advised his significant other to quit, too. VTE prophylaxis not indicated given observation status CODE STATUS: Just with the patient and his significant other. Patient is full code. Patient does not have a primary care. He will need to establish upon discharge. As well as follow up with neurology as outpt. Medications at Discharge Home Medications NK 03/04/25 amlodipine 10 mg tablet 10 mg PO DAILY #30 tabs 03/05/25 aspirin 81 mg chewable tablet 81 mg PO BREAKFAST #0 tabs 03/05/25 atorvastatin 80 mg tablet 80 mg PO QHS #30 tabs 03/05/25 hydrochlorothiazide 25 mg tablet 25 mg PO DAILY #30 tabs 03/05/25 Hospital Course Operations None Procedures 2-D Echocardiogram Summary of Care Provided Minutes Spent on Discharge: 32 Weight / BMI Weight Weight: 75.568 kg Body Mass Index (BMI) 26.1 ABG / Lab / Microbiology Data 03/04/25 07:22 03/04/25 07:22 Laboratory: Laboratory Results - last 24 hr 03/05/25 04:12: Triglycerides 116, Cholesterol 181, LDL Cholesterol, Calc 116, VLDL Cholesterol 23, HDL Cholesterol 42, Cholesterol/HDL Ratio 4.34 Radiography Diagnostic Testing: Radiology Impression Echocardiogram 03/04/25 10:24 Interpretation Summary Normal LV size. Left ventricular systolic function is normal. The left ventricular ejection fraction is 60 %. The left atrium is mildly enlarged. Stage 1 diastolic dysfunction. Bubble contrast study negative for right to left interatrial shunt. Ordering Physician: Todd Alfonso Referring Physician: NAYA PCP Performed By: Savannah Mccoy, EM, RVT D/C Instructions Discharge Diet: Low fat / Low cholesterol DC O2, CPAP, BIPAP Needs Home O2 Discharge instructions: No Meaningful Use Info Meaningful Use Meaningful Use Diagnoses (Choose all that apply): Ischemic CVA CVA Therapy Assessed for PT,OT and/or ST?: Yes Ischemic Stroke Antithrombotic order at d/c?: Yes Dx of Atrial fib/flutter?: No Anticoagulant at discharge?: No Reason anticoagulant not ordered: Treatment not Indicated Statin Dosing Therapy Reference: STATIN DOSE THERAPY REFERENCE: * Patients > 75 years receive moderate or high dose statin therapy. * Patients 75 years or YOUNGER should receive HIGH intensity statin dose unless contraindicated. You will be required to document reason for non-treatment if statin daily dose does not meet guidelines. HIGH DOSE STATIN THERAPY DAILY Atorvastatin > than or = to 40 mg Rosuvastatin > than or = to 20 mg Amlodipine + Atorvastatin > than or = to 2.5/40 mg Ezetimibe + Simvastatin 10/80 mg Simvastatin 80mg Statins at discharge?: Yes If patient is 75 or younger, pt will be discharged on HIGH intensity statin.: Y es Primary Dx Acute Ischemic CVA?: Yes IV thrombolytic ordered during stay?: No Reason IV thrombolytic not ordered: Treatment not Indicated Discharge Plan Admission Admit Date/Time: 03/04/25 08:40 Primary Reason for Your Visit: stroke Attending Provider: Todd Alfonso Primary Care Provider: Care Physician,No Primary Consulting Providers: Preston Ibarra; Ilya Brewer; Shelbi Talbot; Tati Olmstead; Mary Nettles; Jayro Skelton; Caity Daniels; Will Schroeder; Davon Lopez; Porfirio Valle; Elizabeth Arellano; Clayton Ruby; Marivel Flores; Jair Lynn; Danita Mckeon; Adan Field; Lina Bob; Mikael Hightower; Paula Ceballos; Lorelei Corona Discharge Orders/Prescriptions Prescriptions: New aspirin 81 mg Tablet,Chewable 81 mg PO BREAKFAST Qty: 0 0RF atorvastatin 80 mg Tablet 80 mg PO QHS Qty: 30 1RF hydrochlorothiazide 25 mg Tablet 25 mg PO DAILY Qty: 30 1RF amlodipine 10 mg tablet 10 mg PO DAILY Qty: 30 1RF No Action NK Referrals / Follow Up: [facility] [Provider Group] - Within 1 Month [facility] [Provider Group] - Within 2 Weeks Care Physician,No Primary [Primary Care Provider] - Disposition Disposition (needs filled in before D/C Order can be placed): Home, Self Care Charges/Coding Visit Charges Inpatient E&M: 93585 Disch Hosp >30min
--- NOTE | 2025-03-05 14:25 | CASEMGMT ---
Pt has an order for DC placed. RN CM to pt room at this time. Pt SO @ bedside. Pt up independent in the room. Pt states that he feels safe returning home today with his SO. Pt states that he is willing to attend OP ST as recommended. Pt states that he plans to go to . Pt states that he prefers to call to make his own appt. Rx signed by Dr. Alfonso and Rx given to the pt at this time. Pt denies any further DC needs. Pt RN notified.
== END 2025-03-05 14:20 | disposition home or self-care (01) ==
LOC: ED 07:54 → ICU 09:22
PROVIDERS: Emergency Provider Emergency Medicine
DX: I63.9 Cerebral infarction, unspecified (principal); G40.909 Epilepsy, unspecified, not intractable, without status epilepticus; R47.81 Slurred speech; I10 Essential (primary) hypertension; F17.210 Nicotine dependence, cigarettes, uncomplicated; Z79.82 Long term (current) use of aspirin; Z79.899 Other long term (current) drug therapy
CPT/HCPCS: 70450; 70496; 70498; 71046; 80048; 80061; 84484; 85025; 85610; 85730; 92522; 93005; 93306; 94762; 96374; 97802; 99221; 99285; 99406; Q9957; Q9967; A4216; G0378

== ENCOUNTER 2025-03-20 13:50 | Outpatient (RCR) | payer BC, SELFPAY ==
--- NOTE | 2025-03-20 15:14 | HP.SP.EVAL ---
Visit History Visit Info Date of Eval: 03/20/25 Visit: 1 Unattended Ground Sensor Specialist: AVIVA History Attending Doctor: Referring Doctor: Reason for Referral: CVA/PT HAS RX Medical Diagnosis: CVA; Dysarthria Date of Onset of Diagnosis: 03/04/25 Previous speech therapy: Yes Smoking Status: Former smoker Diagnosis Diagnosis: CVA; dysarthria Pain Is pain an issue with your current prescribed condition?: No Personal Preferred language: Thai Patient Allergies Allergies Allergies: Allergies No Known Allergies Allergy (Verified 03/19/25 10:51) N-SCARLET [place] Dysarthria Assessment Tool Intelligibility:: Intelligible w/some difficulty Phonation: Phonation: Adequate Pitch: Adequate Maximum Phonation Time: 13 S/Z Ratio: 1 Sustained Volume: Able Pitch Peyton: Able Pitch Range: Adequate Pitch Glides: Adequate Resonance: Resonance: Nasality: Adequate Prosody: Prosody: Ability to vary: Yes Articulation: Rate of speech: Adequate Phrase length: Adequate Rate of Movement: Number of repetitions in 5 seconds: 12 Sequential Motion Rates: Number of repetitions in 5 seconds: 13 Additional Information: Comment: Pt stated that he experienced some slurred speech prior to his CVA. He also stated that he does not wear dentures (edentulous) which he feels contributes to his level of intelligibility as well. Pt stated that he and his believe that his speech has improved greatly since coming home from the hospital and he feels like he is at his premorbid state. Reference: Neuro-QoL instrument Radiation Oncology Patient Plan Plan Plan: At this time, due to patient request, skilled speech therapy is not recommended. Recommendations Treatment Warranted: No Education Patient Instruction Patient Education: Diagnosis Person Taught: Patient Teaching Method: Discussion Response to teaching: Verbalize Understanding
== END 2025-03-20 19:00 | disposition home or self-care (01) ==
LOC: SP 13:50
DX: Z86.73 Personal history of transient ischemic attack (TIA), and cerebral infarction without residual deficits (principal); R47.81 Slurred speech
CPT/HCPCS: 92522

== ENCOUNTER → 2025-03-23 | Outpatient (CLI) | payer BC, SELFPAY ==
[2025-03-23 19:04] LABS: Erythrocyte Sedimentation Rate 3 mm/hr (0-20)
[2025-03-23 19:23] LABS: Hemoglobin A1c 5.8 % (<=5.6)
[2025-03-23 19:39] LABS: CRP 3.17 mg/L (0.0-3.0); Vitamin B12 408 pg/mL (180-914)
[2025-03-25 12:08] LABS: ANTINUCLEAR ANTIBODIES DIRECT Negative (Negative); HOMOCYSTEINE 27.3 umol/L (0.0-14.5)
== END | disposition home or self-care (01) ==
LOC: MTLAB 15:37
DX: G40.909 Epilepsy, unspecified, not intractable, without status epilepticus (principal); R47.81 Slurred speech; Z86.73 Personal history of transient ischemic attack (TIA), and cerebral infarction without residual deficits
CPT/HCPCS: 36415; 81240; 81241; 82607; 82747; 83036; 83090; 84425; 84443; 85014; 85300; 85301; 85302; 85303; 85305; 85306; 85652; 86038; 86140; 86147; 86160; 86162; 86225; 86235

== ENCOUNTER 2025-04-10 07:28 | Emergency (ER) | payer BC, SELFPAY ==
[2025-04-10 07:28] VITALS: BP 112/64; PULSE 62; RESP 18; TEMP 36.4; O2SAT 97; BMI 26.4
--- NOTE | 2025-04-10 07:30 | EKG12_ITS ---
Test Reason : SYNCOPE Blood Pressure : */* mmHG Vent. Rate : 63 BPM Atrial Rate : 63 BPM P-R Int : 146 ms QRS Dur : 94 ms QT Int : 450 ms P-R-T Axes : 26 25 53 degrees QTcB Int : 460 ms Normal sinus rhythm Normal ECG Confirmed by BENJA DUNHAM, DALLIN ([id number]), writer editor KAYLEIGH SANCHEZ ([id number]) on 04/13/2025 8:44:53 AM Referred By: TL Confirmed By: DALLIN YOUSIF MD
--- NOTE | 2025-04-10 07:40 | EX.ED.DYSGE1 ---
HPI History of Present Illness Chief Complaint: Syncope Informant: patient Narrative Narrative: Sent from sleep lab for concern for syncope. He was getting a sleep deprived EEG coming at 7 AM this morning less than half hour prior to arrival. Reported syncope by staff members. Lasted 45 seconds he had difficulty arousing he was sweaty. Patient feels he was just asleep. He denies chest pains. Denies cough. Denies vomiting or diarrhea. Denies any urinary symptoms. He states had a recent stroke leading to his workup. After evaluation reviewing records subacute stroke last month with hypertension back on medications.. History of epilepsy as a child follow with neurology here recently due to his epilepsy history not on medications today ordered sleep deprived EEG for further evaluation as he is hesitant to be on any medications. Apparently has history of described tonic-clonic activities. Prior similar symptoms: No PFSH PFSH Medical History Hypertension Foreign body of orbit CVA (cerebral vascular accident) Epilepsy Home Medications ?Medication ?Instructions ?Recorded ?Last Taken ?Type amlodipine 10 mg tablet 10 mg PO DAILY #30 tabs 03/05/25 Unknown Rx aspirin 81 mg chewable tablet 81 mg PO BREAKFAST #0 tabs 03/05/25 Unknown Rx atorvastatin 80 mg tablet 80 mg PO QHS #30 tabs 03/05/25 Unknown Rx hydrochlorothiazide 25 mg tablet 25 mg PO DAILY #30 tabs 03/05/25 Unknown Rx lisinopril 10 mg tablet 10 mg PO QDAY 03/19/25 Unknown History Allergy/AdvReac Type Severity Reaction Status Date / Time No Known Allergies Allergy Verified 04/10/25 07:32 Family History Mother , 65 Cancer lung & brain Social History household members: spouse current occupational 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 pets and animals: Yes pets and animals: cat(s) and dog(s) Smoking Status: Current every day smoker tobacco type: cigarettes alcohol intake: current details: on avg 1-2 a wk substance use type: marijuana caffeine: Yes Type: coffee Number of servings: 6 do you feel safe at home: Yes ROS ROS ED Constitutional Constitutional ED: Denies chills, fever(s) or sweats ENT ENT ED: Denies sore throat Cardiovascular Cardiovascular: Denies chest pain, leg edema, palpitations or racing heartbeat Respiratory/Chest Respiratory/Chest: Denies cough, dyspnea or dyspnea on exertion Gastrointestinal Gastrointestinal: Denies abdominal pain, diarrhea, nausea or vomiting Genitourinary Genitourinary ED: Denies dysuria, hematuria or urinary frequency Musculoskeletal Musculoskeletal: Denies back pain, extremity pain or neck pain Integumentary Denies rash or wounds Neurologic Neurologic: Denies headache(s), paresthesias or weakness EXAM Physical Exam Const Vital Signs: 04/10/25 07:28 04/10/25 07:35 04/10/25 07:50 Temperature 97.6 F L Temperature Source Oral Pulse Rate 62 16 L Respiratory Rate 18 62 H Respiratory Effort Normal Non-Labored Respiratory Pattern Normal Blood Pressure 112/64 112/67 Blood Pressure Mean 80 82 Pulse Ox 97 96 Oxygen Delivery Method Room Air Room Air 04/10/25 08:28 04/10/25 09:00 04/10/25 10:00 Temperature Temperature Source Pulse Rate 72 68 73 Respiratory Rate 14 16 14 Respiratory Effort Respiratory Pattern Blood Pressure 110/64 120/68 101/81 H Blood Pressure Mean 79 85 87 Pulse Ox 98 99 98 Oxygen Delivery Method Room Air Room Air Positive well nourished and well developed General Appearance ED: well developed and NAD HEENT Reports moist mucous membranes normocephalic and atraumatic Eyes General Eye ED: Yes normal appearance of both eyes Neck full ROM Chest Wall Chest: Negative for tenderness Resp normal respiratory effort and normal air movement Effort and Inspection: symmetric chest movement; Negative for respiratory distress Cardio regular rate, regular rhythm and no murmurs Peripheral Pulses: pulses 2+ throughout GI normal to inspection, nondistended, normoactive bowel sounds and non-tender Palpation: Negative for guarding or rebound tenderness present Extremity normal to inspection General Extremety ED: Negative for edema or tenderness General Extremity: Negative for edema Neuro oriented x3, CN's II-XII intact bilaterally and no sensory deficits noted Neuro Narrative: No focal deficits. Sensorium / Orientation: awake and alert Skin no rashes or lesions noted and no wounds MDM MDM MDM Narrative Medical decision making narrative: Interventions / MDM: Differential diagnosis: Syncope, sleep deprivation, hyponatremia Diagnosis considered but do not suspect: ACS however EKG and troponins negative. My EKG interpretation: Sinus rhythm 63, no ST changes. QTc 460. Imaging independently reviewed and interpreted by myself: N/A External documents reviewed: Discharge summary from hospitalization last month for stroke on CT. Neurology no March 19, 2025, seizures after head injury when he was younger. No antiepileptics. History of tobacco and marijuana. Test considered but not ordered:N/A ED course: Vital signs stable no complaints.Questionable syncope versus sleep deprivation and falling asleep this time. Reported there was diaphoresis upon awakening. He has no chest pain no shortness of breath. EKG normal with a normal QTc. Will check basic labs and cardiac labs. Will reevaluate. Stable on reevaluation troponin negative x 2. Labs significant for sodium 126 however he is asymptomatic. He is on hydrochlorothiazide which likely is causing the abnormalities. We did speak with EEG department, they can take him back up after being discharged for his EEG study. Patient agrees with this plan. He will hold his hydrochlorothiazide. All his questions were answered. I discussed with his primary care team at [facility] with Dianne, who knows the patient. She will recheck labs in the outpatient in his blood pressure of other medications needs to be added. Re-evaluation: stable Disposition discussed with patient/family/significant other: Patient and family Case discussed with consulting clinician: N/A This note was generated with [employer] dictation software. It may contain incorrect words, spelling, and punctuation that were not noted in checking the note before signing. Lab Data Labs: Laboratory Results - last 24 hr 04/10/25 04/10/25 07:30 09:30 WBC 12.3 H RBC 4.73 Hgb 14.9 Hct 39.7 L MCV 83.9 MCH 31.5 MCHC 37.5 H RDW Std Deviation 36.2 RDW Coeff of Juan 11.9 Plt Count 416 MPV 8.7 Immature Gran % (Auto) 0.700 Neut % (Auto) 61.3 Lymph % (Auto) 25.1 [place] % (Auto) 11.2 H Eos % (Auto) 1.0 Baso % (Auto) 0.7 Absolute Neuts (auto) 7.5 Absolute Lymphs (auto) 3.09 Nucleated RBC % 0 Sodium 126 L Potassium 3.4 Chloride 88 L Carbon Dioxide 26.2 Anion Gap 12 BUN 12 Creatinine 1.05 Estim Creat Clear Calc 74.32 Est GFR (MDRD) Non-Af 84 BUN/Creatinine Ratio 11.2 Glucose 131 H Calcium 9.2 Troponin T High Sens 7 D Troponin T Hi Sens 2 Hr 7 POC Glucose 133 H Discharge Plan Triage Chief Complaint: Syncope ED Provider: Kev Nash Dx/Rx/DC Orders Clinical Impression: Syncope, Epilepsy, Sleep deprivation, Acute hyponatremia Instructions: Hyponatremia Dc, ED Fainting, Uncertain Cause Prescriptions: No Action lisinopril 10 mg tablet 10 mg PO QDAY aspirin 81 mg Tablet,Chewable 81 mg PO BREAKFAST Qty: 0 0RF atorvastatin 80 mg Tablet 80 mg PO QHS Qty: 30 1RF hydrochlorothiazide 25 mg Tablet 25 mg PO DAILY Qty: 30 1RF amlodipine 10 mg tablet 10 mg PO DAILY Qty: 30 1RF Primary Care Provider: Care Physician,No Primary Referrals: Care Physician,No Primary [Primary Care Provider] - Dianne Mcknight NP-C [Non-Staff] - 3-5 Days Activity Restrictions/Additional Instructions: Cardiac workup negative. Labs sodium 126, likely from your hydrochlorothiazide. Hold this medication at this time. Monitor your blood pressure and write it down. Blood pressure in the emergency department 120/68. Follow-up with Dianne recheck blood pressure and blood work. History could be from passing out or falling asleep as you did not sleep throughout the night for your testing. Print Language: Yoruba Disposition Disposition: Home, Self Care Discharge Date/Time: 04/10/25 10:18
[2025-04-10 07:48] LABS: Bedside Glucose 133 mg/dL (74-106)
--- NOTE | 2025-04-10 07:49 | ED.RN ---
pt color imporved. calmyness gone. states feels fine
[2025-04-10 07:50] VITALS: BP 112/67; PULSE 16; RESP 62; O2SAT 96
[2025-04-10 07:51] LABS: Absolute Lymphocyte Count 3.09 X10^3/uL (0.83-4.51); Absolute Neutrophil Count 7.5 X10^3/uL (2.0-7.7); Basophil# 0.09 X10^3/uL; Basophil% 0.7 % (0-1); Eosinophil# 0.12 X10^3/uL; Hematocrit 39.7 % (40-54); Hemoglobin 14.9 g/dL (13.0-16.5); Lymphocyte # 3.09 X10^3/ul (0.83-4.51); Lymphocyte % 25.1 % (19-41); Mean Corp Hgb Conc 37.5 g/dL (32-36); Mean Corpuscular Hgb 31.5 pg (27.0-32.0); Mean Corpuscular Volume 83.9 fL (80-94); Mean Platelet Vol. 8.7 fl (6.2-12.0); Monocyte# 1.38 X10^3/uL; Monocyte% 11.2 % (0-10); NRBC Flagged by Analyzer 0 % (0-5); Neutrophil # 7.53 X10^3/uL (2.7-7.7); Neutrophil % 61.3 % (47-70); Platelet Count 416 K/mm3 (150-450); RBC Distribution Width CV 11.9 % (11.6-14.6); RBC Distribution Width SD 36.2 fl (35.1-43.9); Red Blood Count 4.73 M/mm3 (4.6-6.2); White Blood Count 12.3 K/mm3 (4.4-11.0)
[2025-04-10 08:28] VITALS: BP 110/64; PULSE 72; RESP 14; O2SAT 98
[2025-04-10 08:39] LABS: Anion Gap 12 (5-15); BUN 12 mg/dL (4-19); BUN/Creat Ratio 11.2 RATIO (10-20); Calcium,Total 9.2 mg/dL (7.6-11.0); Carbon Dioxide 26.2 mmol/L (21.0-32.0); Chloride 88 mmol/L (98-108); Creatinine, Serum 1.05 mg/dL (0.70-1.20); EST Glomerular Filtration Rate 84 (>60); Estimated Creatinine Clearance 74.32 ml/min (50-250); Glucose 131 mg/dL (70-99); Potassium 3.4 mmol/L (3.3-5.1); Sodium Level 126 mmol/L (133-145); Troponin T High Sensitivity 7 ng/L (<=22)
[2025-04-10] MEDS: 0.9% Normal Saline (500mL Bag) 500 ML 999 ML IV (08:56)
[2025-04-10 09:00] VITALS: BP 120/68; PULSE 68; RESP 16; O2SAT 99
[2025-04-10 09:57] LABS: Troponin T High Sens 2 HR 7 ng/L (<=22)
[2025-04-10 10:00] VITALS: BP 101/81; PULSE 73; RESP 14; O2SAT 98
--- NOTE | 2025-04-10 10:01 | ED.RN ---
called repiratory they are still able to to eeg. to come get pt.
== END 2025-04-10 10:18 | disposition home or self-care (01) ==
PROVIDERS: Emergency Provider Emergency Medicine; Visit Provider Emergency Medicine
DX: R55 Syncope and collapse (principal); G40.909 Epilepsy, unspecified, not intractable, without status epilepticus; I10 Essential (primary) hypertension; Z72.820 Sleep deprivation; E87.1 Hypo-osmolality and hyponatremia; Z86.73 Personal history of transient ischemic attack (TIA), and cerebral infarction without residual deficits
CPT/HCPCS: 80048; 82962; 84484; 85025; 93005; 96360; 99284; A4216

== ENCOUNTER → 2025-04-10 | Outpatient (CLI) | payer BC, SELFPAY ==
--- NOTE | 2025-04-10 07:35 | CPS ---
Patient arrived for an out patient sleep deprived EEG testing. Patient was pleasant and talkative during the 20 mins. of interaction prior to event. I transferred patient from chair to bed, about 5 feet. Patient was sitting upright on the bed as I turned my back to wash my hands. When I turned back the patient was slumped to the side and unresponsive. I was calling patient name with no response, I called for a rapid however as the repeater operator was trying to figure out location, patient came to and was responsive ultimately canceling the rapid response. Directly following the event, the patient became diaphoretic and boogie in the face. Patient was oriented to person, time and place also answered questions appropriately and states he remembered me washing my hands. Due to such change in status, it was encouraged that the patient get checked out at ER for further evaluation. Patient was brought to the ER in a wheelchair and report given to nurses.
--- NOTE | 2025-04-10 08:06 | CPS ---
Patient arrived for a scheduled sleep deprived out patient EEG. Patient was pleasant and talkative for the 20 mins. prior to the event. Patient was transferred from the chair to the bed, aprox. 5ft and was sitting in an upright position. I turned to wash my hands, as I turned back around to the patient he was slummed to the side and unresponsive. A rapid was called however as the folding rules printing machine operator was trying to pinpoint where neuro exam room 2 was, the patient came to and was responsive ultimately canceling the rapid response. Patient was diaphoretic and boogie/lose of color following the event but was oriented to person, time and place. He stated the last thing he remembered was me washing my hands which was what was happening prior/during to event. It was encouraged to the patient to get checked out at the ER for further evaluation due to change in status which he agreed. Patient was taken to ER in wheelchair and report given to ER nurses.
== END | disposition home or self-care (01) ==
LOC: PSN 06:42
DX: Z86.73 Personal history of transient ischemic attack (TIA), and cerebral infarction without residual deficits (principal); G40.909 Epilepsy, unspecified, not intractable, without status epilepticus; R47.81 Slurred speech
CPT/HCPCS: 95819

== ENCOUNTER → 2025-04-30 | Outpatient (CLI) | payer BC, SELFPAY ==
[2025-04-30 16:31] LABS: Absolute Lymphocyte Count 2.95 X10^3/uL (0.83-4.51); Absolute Neutrophil Count 6.2 X10^3/uL (2.0-7.7); Basophil# 0.05 X10^3/uL; Basophil% 0.5 % (0-1); Hematocrit 34.5 % (40-54); Hemoglobin 12.1 g/dL (13.0-16.5); Lymphocyte # 2.95 X10^3/ul (0.83-4.51); Lymphocyte % 28.1 % (19-41); Mean Corp Hgb Conc 35.1 g/dL (32-36); Mean Corpuscular Hgb 31.7 pg (27.0-32.0); Mean Corpuscular Volume 90.3 fL (80-94); Mean Platelet Vol. 9.7 fl (6.2-12.0); Monocyte# 1.02 X10^3/uL; Monocyte% 9.7 % (0-10); NRBC Flagged by Analyzer 0 % (0-5); Neutrophil # 6.22 X10^3/uL (2.7-7.7); Neutrophil % 59.3 % (47-70); Platelet Count 338 K/mm3 (150-450); RBC Distribution Width CV 13.4 % (11.6-14.6); RBC Distribution Width SD 43.9 fl (35.1-43.9); Red Blood Count 3.82 M/mm3 (4.6-6.2); White Blood Count 10.5 K/mm3 (4.4-11.0)
[2025-04-30 16:50] LABS: Hemoglobin A1c 6.3 % (<=5.6)
[2025-04-30 16:52] LABS: ALB/GLOB Ratio 1.6 RATIO (0.9-2.4); AST(SGOT) 24 U/L (<=37); Alanine Aminotransfer ALT/SGPT 21 U/L (<=46); Albumin, Serum 4.4 g/dL (3.5-5.0); Alkaline Phosphatase 74 U/L (40-129); Anion Gap 14 (5-15); BUN 12 mg/dL (4-19); BUN/Creat Ratio 10.7 RATIO (10-20); Carbon Dioxide 21.2 mmol/L (21.0-32.0); Chloride 102 mmol/L (98-108); Cholesterol 108 mg/dL (<=200); Creatinine, Serum 1.12 mg/dL (0.70-1.20); EST Glomerular Filtration Rate 78 (>60); Globulin 2.7 g/dL (2.2-4.2); Glucose 98 mg/dL (70-99); High Density Lipoprotein 51 mg/dL; Low Density Lipoprotein Calc. 40 mg/dL; Potassium 3.7 mmol/L (3.3-5.1); Protein, Total 7.1 g/dL (5.9-8.4); Sodium Level 137 mmol/L (133-145); Triglycerides 84 mg/dL; Very Low Density Lipoprotein 17 mg/dL (5-40); cholesterol:hdl ratio screen 2.11
--- OUTSIDE RECORDS SUMMARY | 2025-04-30 21:55 | XMS RPT_ITS | CCD ---
Author Organization [facility] CliniSywv Care Team Providers Care Online Content Editor Name Role Phone Care Physician, No Primary Primary Care Provider Unavailable Leo DUNHAM, Dr. East Emergency Provider Naty RUBIO, Dr. Brooks Admit Provider Dr. Todd Alfonso DO Attending Provider Stacey DUNHAM, Preston Other Provider Unavailable Osman DUNHAM, Dr. Caraballo Other Provider Antione DUNHAM, Shelbi Other Provider Unavailable Dr. Tati Olmstead DO Other Provider Tho DUNHAM, Dr. Hernandez Other Provider Costa DUNHAM, Dr. Dial Other Provider Jeremiah DUNHAM, Dr. Carolina Other Provider Dr. Will Schroeder MD Other Provider Dr. Davon Lopez MD Other Provider Leonard DUNHAM, Dr. Monroy Other Provider [phone] Elizabeth Arellano MD Other Provider Dr. Clayton Ruby MD Other Provider Mark DUNHAM, Dr. Orta Other Provider Shane DUNHAM, Dr. Adam Other Provider Dr. Danita Mckeon MD Other Provider Emir DUNHAM, Dr. Arellano Other Provider [phone] Paulino DUNHAM, Dr. Mills Other Provider [phone] Katja DUNHAM, Dr. Youssef Other Provider Tucker DUNHAM, Dr. Mitchell Other Provider Unavailable Lorelei Corona MD Other Provider Unavailable Nora DUNHAM, Dr. Bosch Attending Provider [phone] Naty RUBIO, Dr. Brooks Other Provider Care Physician, No Primary Referring Provider Un available Anton BUTTON BRADDER-C, Keyanna Attending Provider [phone] Todd Alfonso DO Referring Provider Borgregg BUTTON BRADDER-C, Keyanna Referring Provider Charity RUBIO, Dr. Angulo Emergency Provider Charity DO, Dr. Angulo Attending Provider Care Physician, No Primary Primary Care Unava ilable Todd Alfonso Referring Unavailable Todd Alfonso Attending Unavailable Keyanna Walton Referring Unavailable Keyanna Walton Attending Unavailable Care Physician, No Primary Primary Care Unava ilable Keyanna Walton Attending Unavailable Keyanna Walton Referring Unavailable Care Physician, No Primary Primary Care Unava ilable Care Physician, No Primary Primary Care Unava ilable Kev Nash Attending Unavailable Care Physician, No Primary Primary Care Unava ilable Todd Alfonso Attending Unavailable Todd Alfonso Admitting Unavailable Preston Ibarra Consulting Unavailable Adeli, Amir Consulting Unavailable Hinduja, Shelbi Consulting Unavailable Ishan, Tati Consulting Unavailable Zha, Mary Consulting Unavailable Costa, Jayro Consulting Unavailable Jeremiah, Caity Consulting Unavailable Bittar, Will Consulting Unavailable Davon Lopez Consulting Unavailable Porfirio Valle Consulting Unavailable Elizabeth Arellano Consulting Unavailable Clayton Ruby Consulting Unavailable Marivel Flores Consulting Unavailable Jair Lynn Consulting Unavailable Danita Mckeon Consulting UnavailAdan Gauthier Consulting Unavailable Paulino, Lina Consulting Unavailable Mikael Hightower Consulting Unavailable Paula Ceballos Consulting Unavailable Lorelei Corona Consulting Unavailable Keyanna Walton Referring Unavailable Keyanna Walton Attending Unavailable Care Physician, No Primary Primary Care Unava ilable Keyanna Walton Attending Unavailable Keyanna Walton Referring Unavailable Care Physician, No Primary Primary Care Unava ilable Care Physician, No Primary Primary Care Unava ilable Hiro Melendez Attending Unavailable Care Physician, No Primary Primary Care Unava ilable Todd Alfonso Attending Unavailable Care Physician, No Primary Primary Care Unava ilable Naty Todd Admitting Unavailable Todd Alfonso Attending Unavailable Preston Ibarra Consulting Unavailable AdeIlya cortes Consulting Unavailable Shelbi Talbot Consulting Unavailable Tati Olmstead Consulting Unavailable Mary Nettles Consulting Unavailable Jayro Skelton Consulting Unavailable Caity Daniels Consulting Unavailable Will Schroeder Consulting Unavailable Davon Lopez Consulting Unavailable Porfirio Valle Consulting Unavailable Elizabeth Arellano Consulting Unavailable Clayton Ruby Consulting Unavailable Marivel Flores Consulting Unavailable Jair Lynn Consulting Unavailable Danita Mckeon Consulting UnavailAdan Gauthier Consulting Unavailable Lina Bob Consulting Unavailable Mikael Hightower Consulting Unavailable Paula Ceballos Consulting Unavailable Lorelei Corona Consulting Unavailable Todd Alfonso Consulting Unavailable Care Physician, No Primary Referring Unava ilable Care Physician, No Primary Primary Care Unava ilable Keyanna Walton Attending Unavailable Medications Current Medications Medication Drug Class(es) Dates Sig (Normalized) Sig (Original) amLODIPine 10 mg oral tablet (3 sources) Dihydropyridine Calcium Channel Kimi Start: 03-05-20 take 1 tablet by mouth once daily Amlodipine 10 mg tablet Active 10 mg PO DAILY March 05, 2025 12:00am aspirin 81 mg chewable tablet (3 sources) Platelet Aggregation Inhibitor, Nonsteroidal Anti-inflammatory Drug Start: 03-05-20 take 1 tablet by mouth at breakfast Aspirin 81 mg Tablet,Chewable Active 81 mg PO WITH BREAKFAST March 05, 2025 12:00am atorvastatin 80 mg oral tablet (3 sources) HMG-CoA Reductase Inhibitor Start: 03-05-20 take 1 tablet by mouth at bedtime Atorvastatin 80 mg Tablet Active 80 mg PO AT BEDTIME March 05, 2025 12:00am hydroCHLOROthiazide 25 mg oral tablet (3 sources) Thiazide Diuretic Start: 03-05-20 take 1 tablet by mouth once daily Hydrochlorothiazide 25 mg Tablet Active 25 mg PO DAILY March 05, 2025 12:00am lisinopril 10 mg oral tablet (2 sources) Angiotensin Converting Enzyme Inhibitor Start: 03-19-20 take 1 tablet by mouth once daily Lisinopril 10 mg tablet Active 10 mg PO daily March 19, 2025 12:00am [place] (Nk) (1 source) Start: 03-04-20 [place] (Nk) Active March 04, 2025 12:00am Problems Problem Classification Problem Date Documented Date Episodic/Chronic Acute cerebrovascular disease (20 sources) Ischemic stroke; Translations: [Cerebral infarction, unspecified] Onset: 04-14-2025 03-04-2025 Chronic Comment on above: Ischemic stroke in t he left subcortical white matter with symptoms of dysarthria likely occurring in the beginning of February 2025.At this point in time, the etiology of his stroke is cryptogenic. Atrial fibrillation and a hypercoagulable state will need to be ruled out. Epilepsy; convulsions (5 sources) Epilepsy; Translations: [Epilepsy, unspecified, not intractable, without status epilepticus] Onset: 03-26-2025 03-19-2025 Chronic Comment on above: The patient reports an onset of seizures following a head injury as a child. He was never on medication to treat his epilepsy. He had them monthly as a child and he estimates once every couple of years now. He smokes marijuana daily. His last reported seizure was 1 year ago. The seizures are described as full body tremors followed by a postictal state of drowsiness and weakness.Given his seizure frequency and description, he likely will need managed with an AED. The patient is apprehensive to begin medication. We will obtain further diagnostics at this time to identify any pathological structures. Essential hypertension (11 sources) Hypertensive disorder; Translations: [Essential (primary) hypertension] Onset: 03-05-2025 03-04-2025 Chronic Comment on above: This is newly diagno sed as the patient has not had medical care in quite some time. His systolic blood pressure was maintaining>200 prior to starting antihypertensive medications. Fluid and electrolyte disorders (2 sources) Acute hyponatremia; Translations: [Hypo-osmolality and hyponatremia] 04-10-2025 Episodic Open wounds of head; neck; and trunk (2 sources) Orbital foreign body; Translations: [Penetrating wound of orbit with or without foreign body, unspecified eye, initial encounter] 03-19-2025 Episodic Other circulatory disease (1 source) Personal history of transient ischemic attack (TIA), and cerebral infarction without residual deficits; Translations: [Personal history of transient ischemic attack (TIA), and cerebral infarction without residual deficits] Onset: 04-15-2025 Episodic Other nervous system disorders (10 sources) Slurred speech; Translations: [Slurred speech] 03-04-2025 Episodic Comment on above: The patient had dysa rthria after his stroke, which has nearly resolved at present time. Other nervous system disorders (1 source) Slurred speech; Translations: [Slurred speech] Onset: 03-19-2025 Episodic Residual codes; unclassified (2 sources) Sleep deprivation; Translations: [Sleep deprivation] 04-10-2025 Episodic Substance-related disorders (4 sources) Nicotine dependence; Translations: [Nicotine dependence, unspecified, uncomplicated] 03-19-2025 Chronic Comment on above: The patient was smok ing up to 1 pack/day of cigarettes but he reduced to 2 cigarettes/day following his recent stroke. He also smokes marijuana daily. Syncope (3 sources) Syncope; Translations: [Syncope and collapse] Onset: 04-14-2025 04-10-2025 Episodic Results Test Name Value Interpretation Reference Range Facility 12 Lead EKGon 04-10-2025 12 Lead EKG [facility] [address] [place] [id number] 12 Lead EKG 04/10/25 0729 MR#: [id number] Acct: [id number] Name: MARY ALICE ESCALANTE Jr. Rep #: [id number] : 1970 54 From: Hiro Melendez MD Attending Dr: Status: DEP ER Ordering Dr: Kev Nash DO Date: 04/10/25 Location: ED Sex: M C Admitted: Test Reason : SYNCOPE Blood Pressure : */* mmHG Vent. Rate : 63 BPM Atrial Rate : 63 BPM P-R Int : 146 ms QRS Dur : 94 ms QT Int : 450 ms P-R-T Axes : 26 25 53 degrees QTcB Int : 460 ms Normal sinus rhythm Normal ECG Confirmed by HIRO MELENDEZ MD ([id number]), assignment desk editor KAYLEIGH SANCHEZ ([id number]) on 04/13/2025 8:44:53 AM Referred By: TL Confirmed By: HIRO MELENDEZ MD 04/13/25 0844 Date Hiro Melendez MD CC: Dr. Kev Nash, DO; No Primary Care Physician Signed Normal [facility] Absolute lymphocyte countOrd ered By: Kev Nash on 04-10-2025 Lymphocytes Auto (Unsp spec) [#/Vol] 3.09 10*3/uL 0.83-4.51 [facility] Absolute neutrophil countOrd ered By: Kev Nash on 04-10-2025 Neutrophils (Bld) [#/Vol] 7.5 10*3/uL 2.0-7.7 [facility] Anion gap in Serum or Plasma Ordered By: Kev Nash on 04-10-2025 Anion gap [Moles/Vol] 12 mmol/L - [facility] Automated lymphocyte count a s percentage of total leukocytesOrdered By: Kev Nash on 04-10-2025 Lymphocytes/100 WBC Auto (Unsp spec) 25.1 % - [facility] BUN/creatinine ratioOrdered By: Kev Nash on 04-10-2025 Urea nitrogen/Creatinine [Mass ratio] 11.2 mg/mg - [facility] Basic Metabolic Profile (BMP )on 04-10-2025 BUN/CRE 11.2 RATIO Normal - [facility] Comment on above: Performed By: #### L 501.4021, L500.2500, L100.0100 #### [facility] [address] [place], [address] Calcium [Mass/Vol] 9.2 mg/dL Normal 7.6-11.0 [facility] Comment on above: Performed By: #### L 501.4021, L500.2500, L100.0100 #### [facility] [address] [place], [address] Chloride [Moles/Vol] 88 mmol/L Low 98-108 [facility] Comment on above: Performed By: #### L 501.4021, L500.2500, L100.0100 #### [facility] [address], [address] CO2 [Moles/Vol] 26.2 mmol/L Normal 21.0-32.0 [facility] Comment on above: Performed By: #### L 501.4021, L500.2500, L100.0100 #### [facility] [address] [place], [address] Creatinine [Mass/Vol] 1.05 mg/dL Normal 0.70-1.20 [facility] Comment on above: Performed By: #### L 501.4021, L500.2500, L100.0100 #### [facility] [address] [place], [address] ECRCL 74.32 ml/min Normal 50-250 [facility] Comment on above: Performed By: #### L 501.4021, L500.2500, L100.0100 #### [facility] [address] [place], [address] GAP 12 Normal 5-15 [facility] Comment on above: Performed By: #### L 501.4021, L500.2500, L100.0100 #### [facility] [address] [place], [address] GFR/1.73 sq M.predicted among non-blacks MDRD (S/P/Bld) [Vol rate/Area] 84 mL/min/{1.73_m2} Normal >60 [facility] Comment on above: Result Comment: mL/m in/1.73m2 CKD-EPI Creatinine Equation (2020) Performed By: #### L 501.4021, L500.2500, L100.0100 #### [facility] [address] [place], [address] Glucose [Mass/Vol] 131 mg/dL High 70-99 [facility] Comment on above: Performed By: #### L 501.4021, L500.2500, L100.0100 #### [facility] [address] [place], [address] Potassium [Moles/Vol] 3.4 mmol/L Normal 3.3-5.1 [facility] Comment on above: Performed By: #### L 501.4021, L500.2500, L100.0100 #### [facility] [address] [place], [address] Sodium [Moles/Vol] 126 mmol/L Low 133-145 [facility] Comment on above: Performed By: #### L 501.4021, L500.2500, L100.0100 #### [facility] [address] [place], [address] Urea nitrogen [Mass/Vol] 12 mg/dL Normal 4-19 [facility] Comment on above: Performed By: #### L 501.4021, L500.2500, L100.0100 #### [facility] [address] [place], [address] Basophil percentageOrdered B y: Kev Nash on 04-10-2025 Basophils/100 WBC (Bld) 0.7 % 0-1 [facility] Bedside Glucoseon 04-10-2025 FINGERSTICK GLU 133 mg/dL High 74-106 [facility] Comment on above: Result Comment: FABÁIN FERRER OF PATIENT CARE PER NURSING PROTOCOL Performed By: #### L 500.4100 #### [facility] [address] [place], [address] CBC W/Diff, Automatedon 03-26 Absolute Lymph 3.09 X10 3/uL Normal 0.83-4.51 [facility] Comment on above: Performed By: #### L 501.4021, L500.2500, L100.0100 #### [facility] [address] [place], [address] Absolute Neut 7.5 X10 3/uL Normal 2.0-7.7 [facility] Comment on above: Performed By: #### L 501.4021, L500.2500, L100.0100 #### [facility] [address] [place], [address] Basophils/100 WBC (Bld) 0.7 % Normal 0-1 [facility] Comment on above: Performed By: #### L 501.4021, L500.2500, L100.0100 #### [facility] [address] [place], [address] Eosinophils/100 WBC (Bld) 1.0 % Normal 0-5 [facility] Comment on above: Performed By: #### L 501.4021, L500.2500, L100.0100 #### [facility] [address] [place], [address] Erythrocyte distribution width (RBC) [Ratio] 11.9 % Normal 11.6-14.6 [facility] Comment on above: Performed By: #### L 501.4021, L500.2500, L100.0100 #### [facility] [address] [place], [address] Hematocrit (Bld) [Volume fraction] 39.7 % Low 40-54 [facility] Comment on above: Performed By: #### L 501.4021, L500.2500, L100.0100 #### [facility] [address] [place], [address] Hemoglobin (Bld) [Mass/Vol] 14.9 g/dL Normal 13.0-16.5 [facility] Comment on above: Performed By: #### L 501.4021, L500.2500, L100.0100 #### [facility] [address] [place], [address] IG% 0.700 Normal 0.0-0.9 [facility] Comment on above: Result Comment: IG% - Immature Granulocytes (promyelocytes, myelocytes and metamyelocytes) > 1% indicates that a LEFT SHIFT is Present. Performed By: #### L 501.4021, L500.2500, L100.0100 #### [facility] [address] [place], [address] Lymphocytes/100 WBC (Bld) 25.1 % Normal 19-41 [facility] Comment on above: Performed By: #### L 501.4021, L500.2500, L100.0100 #### [facility] [address] [place], [address] MCH (RBC) [Entitic mass] 31.5 pg Normal 27.0-32.0 [facility] Comment on above: Performed By: #### L 501.4021, L500.2500, L100.0100 #### [facility] [address] [place], [address] MCHC (RBC) [Mass/Vol] 37.5 g/dL High 32-36 [facility] Comment on above: Performed By: #### L 501.4021, L500.2500, L100.0100 #### [facility] [address] [place], [address] MCV (RBC) [Entitic vol] 83.9 fL Normal 80-94 [facility] Comment on above: Performed By: #### L 501.4021, L500.2500, L100.0100 #### [facility] [address] [place], [address] Monocytes/100 WBC (Bld) 11.2 % High 0-10 [facility] Comment on above: Performed By: #### L 501.4021, L500.2500, L100.0100 #### [facility] [address] [place], [address] Neutrophils/100 WBC (Bld) 61.3 % Normal 47-70 [facility] Comment on above: Performed By: #### L 501.4021, L500.2500, L100.0100 #### [facility] [address] [place], [address] Nucleated RBC (Bld) [#/Vol] 0 10*3/uL Normal 0-5 [facility] Comment on above: Performed By: #### L 501.4021, L500.2500, L100.0100 #### [facility] [address] [place], [address] Platelet mean volume (Bld) [Entitic vol] 8.7 fL Normal 6.2-12.0 [facility] Comment on above: Performed By: #### L 501.4021, L500.2500, L100.0100 #### [facility] [address] [place], [address] Platelets (Bld) [#/Vol] 416 10*3/uL Normal 150-450 [facility] Comment on above: Performed By: #### L 501.4021, L500.2500, L100.0100 #### [facility] [address] [place], [address] RBC (Bld) [#/Vol] 4.73 10*6/uL Normal 4.6-6.2 [facility] Comment on above: Performed By: #### L 501.4021, L500.2500, L100.0100 #### [facility] [address] [place], [address] RDW SD 36.2 fl Normal 35.1-43.9 [facility] Comment on above: Performed By: #### L 501.4021, L500.2500, L100.0100 #### [facility] [address] [place], [address] WBC (Bld) [#/Vol] 12.3 10*3/uL High 4.4-11.0 [facility] Comment on above: Performed By: #### L 501.4021, L500.2500, L100.0100 #### [facility] [address] [place], [address] Carbon dioxide, total [Moles /volume] in Central venous bloodOrdered By: Kev Nash on 04-10-2025 CO2 [Moles/Vol] 26.2 mmol/L 21.0-32.0 [facility] Chloride assayOrdered By: Jaya Nash on 04-10-2025 Chloride [Moles/Vol] 88 mmol/L Low 98-108 [facility] Emergency Department Summary on 04-10-2025 Emergency Department Summary [facility] Medical Records Department [address] [place] [address] Emergency Department Summary 04/10/25 MR#: [id number] Acct: [id number] Name: MARY ALICE ESCALANTE JrEmily Rep #: [id number] : 1970 54 From: Kev Conklin PCP: Care Physician,No Primary Status:DEP ER Location: ED HPI History of Present Illness Chief Complaint: Syncope Informant: patient Narrative Narrative: Sent from sleep lab for concern for syncope. He was getting a sleep deprived EEG coming at 7 AM this morning less than half hour prior to arrival. Reported syncope by staff members. Lasted 45 seconds he had difficulty arousing he was sweaty. Patient feels he was just asleep. He denies chest pains. Denies cough. Denies vomiting or diarrhea. Denies any urinary symptoms. He states had a recent stroke leading to his workup. After evaluation reviewing records subacute stroke last month with hypertension back on medications.. History of epilepsy as a child follow with neurology here recently due to his epilepsy history not on medications today ordered sleep deprived EEG for further evaluation as he is hesitant to be on any medications. Apparently has history of described tonic-clonic activities. Prior similar symptoms: No PFSH PFSH Medical History Hypertension Foreign body of orbit CVA (cerebral vascular accident) Epilepsy Home Medications ???Medication ???Instructions ???Recorded ???Last Taken ???Type amlodipine 10 mg tablet 10 mg PO DAILY #30 tabs 03/05/25 U nknown Rx aspirin 81 mg chewable tablet 81 mg PO BREAKFAST #0 tabs 5 Unknown Rx atorvastatin 80 mg tablet 80 mg PO QHS #30 tabs 03/05/25 Unk nown Rx hydrochlorothiazide 25 mg tablet 25 mg PO DAILY #30 tabs 03/05/25 U nknown Rx lisinopril 10 mg tablet 10 mg PO QDAY 03/19/25 Unknown His tory Allergy/AdvReac Type Severity Reaction Status Date / Time No Known Allergies Allergy Verified 04/10/25 07:32 Family History Mother , 65 Cancer lung brain Social History household members: spouse current occupational 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 pets and animals: Yes pets and animals: cat(s) and dog(s) Smoking Status: Current every day smoker tobacco type: cigarettes alcohol intake: current details: on avg 1-2 a wk substance use type: marijuana caffeine: Yes Type: coffee Number of servings: 6 do you feel safe at home: Yes ROS ROS ED Constitutional Constitutional ED: Denies chills, fever(s) or sweats ENT ENT ED: Denies sore throat Cardiovascular Cardiovascular: Denies chest pain, leg edema, palpitations or racing heartbeat Respiratory/Chest Respiratory/Chest: Denies cough, dyspnea or dyspnea on exertion Gastrointestinal Gastrointestinal: Denies abdominal pain, diarrhea, nausea or vomiting Genitourinary Genitourinary ED: Denies dysuria, hematuria or urinary frequency Musculoskeletal Musculoskeletal: Denies back pain, extremity pain or neck pain Integumentary Denies rash or wounds Neurologic Neurologic: Denies headache(s), paresthesias or weakness EXAM Physical Exam Const Vital Signs: 04/10/25 07:28 04/10/25 07:35 04/10/25 07:50 Temperature 97.6 F L Temperature Source Oral Pulse Rate 62 16 L Respiratory Rate 18 62 H Respiratory Effort Normal Non-Labored Respiratory Pattern Normal Blood Pressure 112/64 112/67 Blood Pressure Mean 80 82 Pulse Ox 97 96 Oxygen Delivery Method Room Air Room Air 04/10/25 08:28 04/10/25 09:00 04/10/25 10:00 Temperature Temperature Source Pulse Rate 72 68 73 Respiratory Rate 14 16 14 Respiratory Effort Respiratory Pattern Blood Pressure 110/64 120/68 101/81 H Blood Pressure Mean 79 85 87 Pulse Ox 98 99 98 Oxygen Delivery Method Room Air Room Air Positive well nourished and well developed General Appearance ED: well developed and NAD HEENT Reports moist mucous membranes normocephalic and atraumatic Eyes General Eye ED: Yes normal appearance of both eyes Neck full ROM Chest Wall Chest: Negative for tenderness Resp normal respiratory effort and normal air movement Effort and Inspection: symmetric chest movement; Negative for respiratory distress Cardio regular rate, regular rhythm and no murmurs Peripheral Pulses: pulses 2+ throughout GI normal to inspection, nondistended, normoactive bowel sounds and non-tender Palpation: Negative for guarding or rebound tenderness present Extremity normal to inspection General Extremety ED: Negative for edema or tenderness General Extremity: Negative for edema Neuro oriented x3, CN's II-XII intact bilaterally and no sensory deficits (more content not included)... Normal [facility] Eosinophil percentageOrdered By: Kev Nash on 04-10-2025 Eosinophils/100 WBC (Bld) 1.0 % 0-5 [facility] Erythrocyte distribution wid th ratioOrdered By: Kev Nash on 04-10-2025 Erythrocyte distribution width (RBC) [Ratio] 11.9 % 11.6-14.6 [facility] Erythrocyte distribution wid th standard deviationOrdered By: Kev Nash on 04-10-2025 Erythrocyte distribution width (RBC) [Ratio] 36.2 fl 35.1-43.9 [facility] Glomerular filtration rate ( GFR) estimation/1.73 sq m using serum, plasma, or whole bOrdered By: Kev Nash on 04-10-2025 GFR/1.73 sq M.predicted among non-blacks MDRD (S/P/Bld) [Vol rate/Area] 84 mL/min/{1.73_m2} >60 [facility] Comment on above: mL/min/1.73m2 CKD-EP I Creatinine Equation (2020) Glucose measurement at [facility] deOrdered By: Kev Nash on 04-10-2025 Glucose [Mass/Vol] 133 mg/dL High 74-106 [facility] Comment on above: MANAGEMENT OF PATIEN T CARE PER NURSING PROTOCOL Hematocrit Auto (Bld) [Volum e fraction]Ordered By: Kev Nash on 04-10-2025 Hematocrit (Bld) [Volume fraction] 39.7 % Low 40-54 [facility] Hemoglobin measurementOrdere d By: Kev Nash on 04-10-2025 Hemoglobin (Bld) [Mass/Vol] 14.9 g/dL 13.0-16.5 [facility] Immature granulocytes/100 WB C Auto (Bld)Ordered By: Kev Nash on 04-10-2025 Immature granulocytes/100 WBC (Bld) 0.700 % 0.0-0.9 [facility] Comment on above: IG% - Immature Granu locytes (promyelocytes, myelocytes and metamyelocytes) > 1% indicates that a LEFT SHIFT is Present. L499.0042on 04-10-2025 Trop T High Sen 7 ng/L Normal <=22 [facility] Comment on above: Performed By: #### L 499.0042 ####[facility] [address] [place], [address] L499.0043on 04-10-2025 Trop T High Sen Normal <=22 [facility] Comment on above: Result Comment: Canc elled via OM: Order cancelled - Patient discharged Performed By: #### L 499.0043 #### [facility] [address] [place], [address] L501.4021on 04-10-2025 Trop T High Sen 7 ng/L Normal <=22 [facility] Comment on above: Performed By: #### L 501.4021, L500.2500, L100.0100 #### [facility] [address] [place], [address] MCV (mean corpuscular volume ) determinationOrdered By: Kev Nash on 04-10-2025 MCV (RBC) [Entitic vol] 83.9 fL 80-94 [facility] Mean corpuscular hemoglobin (MCH) determinationOrdered By: Kev Nash on 04-10-2025 MCH (RBC) [Entitic mass] 31.5 pg 27.0-32.0 [facility] Mean corpuscular hemoglobin concentration (MCHC) determinationOrdered By: Kev Nash on 04-10-2025 MCHC (RBC) [Mass/Vol] 37.5 g/dL High 32-36 [facility] Mean platelet volume determi nationOrdered By: Kev Nash on 04-10-2025 Platelet mean volume (Bld) [Entitic vol] 8.7 fL 6.2-12.0 [facility] Monocyte percentageOrdered B y: Kev Nash on 04-10-2025 Monocytes/100 WBC (Bld) 11.2 % High 0-10 [facility] Neutrophil percentageOrdered By: Kev Nash on 04-10-2025 Neutrophils/100 WBC (Bld) 61.3 % 47-70 [facility] Nucleated red blood cell per centageOrdered By: Kev Nash on 04-10-2025 Nucleated RBC/100 WBC (Bld) [Ratio] 0 % 0-5 [facility] Platelet countOrdered By: Jaya Nash on 04-10-2025 Platelets (Bld) [#/Vol] 416 10*3/uL 150-450 [facility] Potassium measurement (mass/ volume)Ordered By: Kev Nash on 04-10-2025 Potassium (Unsp spec) [Mass/Vol] 3.4 mmol/L 3.3-5.1 [facility] RBC Auto (Bld) [#/Vol]Ordere d By: Kev Nash on 04-10-2025 RBC (Bld) [#/Vol] 4.73 10*6/uL 4.6-6.2 [facility] Serum creatinine measurement (mass/volume)Ordered By: Kev Nash on 04-10-2025 Creatinine [Mass/Vol] 1.05 mg/dL 0.70-1.20 [facility] Serum glucose measurement (m ass/volume)Ordered By: Kev Nash on 04-10-2025 Glucose [Mass/Vol] 131 mg/dL High 70-99 [facility] Serum or plasma calcium rachelle urement (mass/volume)Ordered By: Kev Nash on 04-10-2025 Calcium [Mass/Vol] 9.2 mg/dL 7.6-11.0 [facility] Serum or plasma urea nitroge n measurement (mass/volume)Ordered By: Kev Nash on 04-10-2025 Urea nitrogen [Mass/Vol] 12 mg/dL 4-19 [facility] Sodium levelOrdered By: Kev Nash on 04-10-2025 Sodium [Moles/Vol] 126 mmol/L Low 133-145 [facility] Troponin T.cardiac [Mass/vol ume] in Serum or Plasma by High sensitivity methodOrdered By: Kev Nash on 04-10-2025 Troponin T.cardiac High sensitivity method [Mass/Vol] 7 ng/L <22 [facility] Troponin T.cardiac High sensitivity method [Mass/Vol] 7 ng/L <22 [facility] Comment on above: Delta: 11 on 5-0722 White blood cell (WBC) count Ordered By: Kev Nash on 04-10-2025 WBC (Bld) [#/Vol] 12.3 10*3/uL High 4.4-11.0 [facility] AT III Func / Immunolon 05-0 AT3 AG, IMMUNOL 104 Normal 72-124 [facility] Comment on above: Order Comment: Test( s) 778151-Ouopmtljsetl Antigenwas developed and its performance characteristicsdetermined by [facility]. It has not been cleared or approvedby the Food and Drug Administration. Performed By: #### L 3100.8408, L501.9985, L101.9900, L4500.0100, L501.6710, L3100.7250, L501.9520, L803.0600, L3100.7050, L3100.5800, L4500.2000, L503.0106, L3300.0450, L3100.7325, L3100.7300, L3100.5450, L3300.8000, L3100.1725, L4500.5000, L3100.5600, L3100.5700 ####[facility] [address] [place], [address] AT3 FUNCTIONAL 116 Normal 75-135 [facility] Comment on above: Order Comment: Test( s) 601393-Wrwubywpilqj Antigenwas developed and its performance characteristicsdetermined by [facility]. It has not been cleared or approvedby the Food and Drug Administration. Result Comment: Dire ct Xa inhibitor anticoagulants such as rivaroxaban, apixaban and edoxaban will lead to spuriously elevated antithrombin activity levels possibly masking a deficiency. Performed By: #### L 3100.8408, L501.9985, L101.9900, L4500.0100, L501.6710, L3100.7250, L501.9520, L803.0600, L3100.7050, L3100.5800, L4500.2000, L503.0106, L3300.0450, L3100.7325, L3100.7300, L3100.5450, L3300.8000, L3100.1725, L4500.5000, L3100.5600, L3100.5700 ####[facility] [address] [place], [place], [id number] Anticardiolipin IgA,G,Mon ANTICARDIO IgA < 9 Normal 0-11 [facility] Comment on above: Order Comment: Comme nts: NPO at [place] prior to lipid panel Result Comment: Nega tive: <12 Indeterminate: 12 - 20 Low-Med Positive: >20 - 80 High Positive: >80 Performed By: #### L 500.4100 #### [facility] [address] [place], [address] ANTICARDIO IgG < 9 Normal 0-14 [facility] Comment on above: Order Comment: Comme nts: NPO at [place] prior to lipid panel Result Comment: Nega tive: <15 Indeterminate: 15 - 20 Low-Med Positive: >20 - 80 High Positive: >80 Performed By: #### L 500.4100 #### [facility] [address] [place], [address] Anticardio.IgM 14 MPL U/mL High 0-12 [facility] Comment on above: Order Comment: Comme nts: NPO at [place] prior to lipid panel Result Comment: Nega tive: <13 Indeterminate: 13 - 20 Low-Med Positive: >20 - 80 High Positive: >80 Performed By: #### L 500.4100 #### [facility] [address] [place], [address] Complement C3on 03-30-2025 COMP C3 114 mg/dL Normal 82-167 [facility] Comment on above: Order Comment: Comme nts: NPO at [place] prior to lipid panel Performed By: #### L 500.4100 #### [facility] [address] [place], [address] Complement C4on 03-30-2025 COMPLEMENT, C4 20 mg/dL Normal 12-38 [facility] Comment on above: Order Comment: Comme nts: NPO at [place] prior to lipid panel Performed By: #### L 500.4100 #### [facility] [address] [place], [address] Complement CH50on 03-30-2025 COMPLEMENT,CH50 54 U/mL Normal >41 [facility] Comment on above: Order Comment: Test( s) 454491-Ybwxsaeqzfvm Antigenwas developed and its performance characteristicsdetermined by [facility]. It has not been cleared or approvedby the Food and Drug Administration. Result Comment: Age Male Female 1 - 30 days Not Estab. Not Estab. 31 days - 6 months >32 >20 7 months - 17 years >39 >39 >17 years >41 >41 NOTE: The adult (>17 years) reference interval range is used to flag abnormals on this report. If the patient is 17 years old or younger, use the table above to determine out of range values. Performed By: #### L 3100.8408, L501.9985, L101.9900, L4500.0100, L501.6710, L3100.7250, L501.9520, L803.0600, L3100.7050, L3100.5800, L4500.2000, L503.0106, L3300.0450, L3100.7325, L3100.7300, L3100.5450, L3300.8000, L3100.1725, L4500.5000, L3100.5600, L3100.5700 ####[facility] [address] [place], [address] Fact V Leiden Mutationon FACTOR V LEIDEN Comment Normal . [facility] Comment on above: Order Comment: Test( s) 920389-Dwqwtybtdzfc Antigenwas developed and its performance characteristicsdetermined by [facility]. It has not been cleared or approvedby the Food and Drug Administration. Result Comment: Resu lt: c.1601G>A (p.Fuo184Prh) - Not Detected This result is not associated with an increased risk for venous thromboembolism. See Additional Clinical Information and Comments. Additional Clinical Information: Venous thromboembolism is a multifactorial disease influenced by genetic, environmental, and circumstantial risk factors. The c.1601G>A (p. Nqz241Tnu) variant in the F5 gene, commonly referred to as Factor V Leiden, is a genetic risk factor for venous thromboembolism. Heterozygous carriers of this variant have a 6- to 8-fold increased risk for venous thromboembolism. Individuals homozygous for this variant (ie, with a copy of the variant on each chromosome) have an approximately 80-fold increased risk for venous thromboembolism. Individuals who carry both a c.*97G>A variant in the F2 gene and Factor V Leiden have an approximately 20-fold increased risk for venous thromboembolism. Risks are likely to be even higher in more complex genotype combinations involving the F2 c.*97G>A variant and Factor V Leiden (PMID: 57931178). Additional risk factors include but are not limited to: deficiency of protein C, protein S, or antithrombin III, age, male sex, personal or family history of deep vein thromboembolism, smoking, surgery, prolonged immobilization, malignant neoplasm, tamoxifen treatment, raloxifene treatment, oral contraceptive use, hormone replacement therapy, and . Management of thrombotic risk and thrombotic events should follow established guidelines and fit the clinical circumstance. This result cannot predict the occurrence or recurrence of a thrombotic event. Comment: Genetic counseling is recommended to discuss the potential clinical implications of positive results, as well as recommendations for testing family members. Genetic Coordinators are available for health care providers to discuss results at [phone] Test Details: Variant Analyzed: c.1601G>A (p. Fph083Ahm), referred to as Factor V Leiden Methods/Limitations: DNA analysis of the F5 gene (NM_000130.5) was performed by PCR amplification followed by restriction enzyme analysis. The diagnostic sensitivity is >99%. Results must be combined with clinical information for the most accurate interpretation. Molecular-based testing is highly accurate, but as in any laboratory test, diagnostic errors may occur. False positive or false negative results may occur for reasons that include genetic variants, blood transfusions, bone marrow transplantation, somatic or tissue-specific mosaicism, mislabeled samples, or erroneous representation of family relationships. This test was developed and its performance characteristics determined by [facility]. It has not been cleared or approved by the Food and Drug Administration. References: Alen S, Janice CASTILLO, Jesus R, Zelda WW, Thee JH; [employer] Professional Practice and Guidelines Committee. Addendum: [employer] consensus statement on factor V Leiden mutation testing. [employer]. 2020Jan 28. doi: 10.1038/[id number]-e. PMID: 63208491. Mickey SIDHU. Factor V Leiden Thrombophilia. 1998April 08 (Updated 2017Nov 29). In: Jose D MP, Jaquelin HH, Miri RA, et al., editors. Faustino(R) (Internet). [place] ([place]): [facility]; 1329-2078. Available from: https://www.ncbi.nlm.nih.gov/books/TRL0766/ Krishna Brannon, Janice CASTILLO, Mannie X, Ernesto B, Stephanie EB, Isabel P, Javi CS; [employer] Laboratory Elevator Constructor Supervisor Committee. Venous thromboembolism laboratory testing (factor V Leiden and factor II c.*97G>A), 2018 update: a technical standard of the [employer] ([employer]). [employer] Med. 2017;20(12):6173-6028. doi: 10.1038/[id number]-n. Epub 2017Aug 30. PMID: 74706755. Performed By: #### L 3100.8408, L501.9985, L101.9900, L4500.0100, L501.6710, L3100.7250, L501.9520, L803.0600, L3100.7050, L3100.5800, L4500.2000, L503.0106, L3300.0450, L3100.7325, L3100.7300, L3100.5450, L3300.8000, L3100.1725, L4500.5000, L3100.5600, L3100.5700 ####[facility] [address] [place], [address] Reviewed By Comment Normal . [facility] Comment on above: Order Comment: Test( s) 585001-Ooydkdntiong Antigenwas developed and its performance characteristicsdetermined by [facility]. It has not been cleared or approvedby the Food and Drug Administration. Result Comment: Tech nical Component performed at [facility] [place] Professional Component performed by: Martha Kaufman, PhD, [facility] [id number], [facility], [address] [place] [address] Performed By: #### L 3100.8408, L501.9985, L101.9900, L4500.0100, L501.6710, L3100.7250, L501.9520, L803.0600, L3100.7050, L3100.5800, L4500.2000, L503.0106, L3300.0450, L3100.7325, L3100.7300, L3100.5450, L3300.8000, L3100.1725, L4500.5000, L3100.5600, L3100.5700 ####[facility] [address] [place], [address] Factor II, DNA Analysison FACTOR II, DNA Comment Normal . [facility] Comment on above: Order Comment: Test( s) 380723-Cwvrumtlxbog Antigenwas developed and its performance characteristicsdetermined by [facility]. It has not been cleared or approvedby the Food and Drug Administration. Result Comment: Resu lt: c.*97G>A - Not Detected This result is not associated with an increased risk for venous thromboembolism. See Additional Clinical Information and Comments. Additional Clinical Information: Venous thromboembolism is a multifactorial disease influenced by genetic, environmental, and circumstantial risk factors. The c.*97G>A variant in the F2 gene is a genetic risk factor for venous thromboembolism. Heterozygous carriers have a 2- to 4-fold increased risk for venous thromboembolism. Homozygotes for the c.*97G>A variant are rare. The annual risk of VTE in homozygotes has been reported to be 1.1%/year. Individuals who carry both a c.*97G>A variant in the F2 gene and a c.1601G>A (p. Zys393Dch) variant in the F5 gene (commonly referred to as Factor V Leiden) have an approximately 20- fold increased risk for venous thromboembolism. Risks are likely to be even higher in more complex genotype combinations involving the F2 c.*97G>A variant and Factor V Leiden (PMID: 14501568). Additional risk factors include but are not limited to: deficiency of protein C, protein S, or antithrombin III, age, male sex, personal or family history of deep vein thromboembolism, smoking, surgery, prolonged immobilization, malignant neoplasm, tamoxifen treatment, raloxifene treatment, oral contraceptive use, hormone replacement therapy, and . Management of thrombotic risk and thrombotic events should follow established guidelines and fit the clinical circumstance. This result cannot predict the occurrence or recurrence of a thrombotic event. Comments: Genetic counseling is recommended to discuss the potential clinical implications of positive results, as well as recommendations for testing family members. Genetic Coordinators are available for health care providers to discuss results at [phone] Test Details: Variant analyzed: c.*97G>A, previously referred to as C85509D Methods/Limitations: DNA analysis of the F2 gene (NM_000506.5) was performed by PCR amplification followed by restriction enzyme analysis. The diagnostic sensitivity is >99%. Results must be combined with clinical information for the most accurate interpretation. Molecular-based testing is highly accurate, but as in any laboratory test, diagnostic errors may occur. False positive or false negative results may occur for reasons that include genetic variants, blood transfusions, bone marrow transplantation, somatic or tissue-specific mosaicism, mislabeled samples, or erroneous representation of family relationships. This test was developed and its performance characteristics determined by [facility]. It has not been cleared or approved by the Food and Drug Administration. References: Alen Brannon, Janice CASTILLO, Jesus R, Zelda WW, Thee JH; [employer] Professional Practice and Guidelines Committee. Addendum: [employer] consensus statement on factor V Leiden mutation testing. [employer] Med. 2020Jan 28. doi: 10.1038/[id number]-r. PMID: 06503096. Mickey SIDHU. Prothrombin Thrombophilia. 2005Jun 19 [Updated 2020Dec 30]. In: Jose D MP, Jaquelin HH, Miri RA, et al., editors. Faustino(R) [Internet]. [place] ([place]): [facility]; 6234-8467. Available from: https://www.ncbi.nlm.nih.gov/books/XWM8701/ Krishna S, Janice CASTILLO, Mannie X, Ernesto B, Stephanie EB, Isabel P, Javi CS; [employer] Laboratory Elevator Constructor Supervisor Committee. Venous thromboembolism laboratory testing (factor V Leiden and factor II c.*97G>A), 2018 update: a technical standard of the [employer] ([employer]). [employer] Med. 2018 Oct;20(12):7864-2327. doi: 10.1038/[id number]-q. Epub 2017Aug 30. PMID: 50850808. Performed By: #### L 3100.8408, L501.9985, L101.9900, L4500.0100, L501.6710, L3100.7250, L501.9520, L803.0600, L3100.7050, L3100.5800, L4500.2000, L503.0106, L3300.0450, L3100.7325, L3100.7300, L3100.5450, L3300.8000, L3100.1725, L4500.5000, L3100.5600, L3100.5700 ####[facility] [address] [place], [address] Folates, RBCon 03-30-2025 Fol.,Hemolysate 289.0 ng/mL Normal Not Estab. [facility] Comment on above: Order Comment: Test( s) 883204-Gshaxbgdhcme Antigenwas developed and its performance characteristicsdetermined by [facility]. It has not been cleared or approvedby the Food and Drug Administration. Performed By: #### L 3100.8408, L501.9985, L101.9900, L4500.0100, L501.6710, L3100.7250, L501.9520, L803.0600, L3100.7050, L3100.5800, L4500.2000, L503.0106, L3300.0450, L3100.7325, L3100.7300, L3100.5450, L3300.8000, L3100.1725, L4500.5000, L3100.5600, L3100.5700 ####[facility] [address] [place], [address] Folate, RBC 626 ng/mL Normal >498 [facility] Comment on above: Order Comment: Test( s) 510648-Morfsspsdznw Antigenwas developed and its performance characteristicsdetermined by [facility]. It has not been cleared or approvedby the Food and Drug Administration. Performed By: #### L 3100.8408, L501.9985, L101.9900, L4500.0100, L501.6710, L3100.7250, L501.9520, L803.0600, L3100.7050, L3100.5800, L4500.2000, L503.0106, L3300.0450, L3100.7325, L3100.7300, L3100.5450, L3300.8000, L3100.1725, L4500.5000, L3100.5600, L3100.5700 ####[facility] [address] [place], [address] Hematocrit (Bld) [Volume fraction] 46.2 % Normal 37.5-51.0 [facility] Comment on above: Order Comment: Test( s) 566682-Gyobbioopooe Antigenwas developed and its performance characteristicsdetermined by [facility]. It has not been cleared or approvedby the Food and Drug Administration. Performed By: #### L 3100.8408, L501.9985, L101.9900, L4500.0100, L501.6710, L3100.7250, L501.9520, L803.0600, L3100.7050, L3100.5800, L4500.2000, L503.0106, L3300.0450, L3100.7325, L3100.7300, L3100.5450, L3300.8000, L3100.1725, L4500.5000, L3100.5600, L3100.5700 ####[facility] [address] [place], [address] Lupus Anticoagulant Compon 0 03-30-2025 aPTT Coag (Bld) [Time] 35.5 s Normal 0.0-43.5 [facility] Comment on above: Order Comment: Test( s) 735285-Whcmizzynyxi Antigenwas developed and its performance characteristicsdetermined by [facility]. It has not been cleared or approvedby the Food and Drug Administration. Performed By: #### L 3100.8408, L501.9985, L101.9900, L4500.0100, L501.6710, L3100.7250, L501.9520, L803.0600, L3100.7050, L3100.5800, L4500.2000, L503.0106, L3300.0450, L3100.7325, L3100.7300, L3100.5450, L3300.8000, L3100.1725, L4500.5000, L3100.5600, L3100.5700 ####[facility] [address] [place], [address] DILUTE PT (dPT) 37.5 sec Normal 0.0-47.6 [facility] Comment on above: Order Comment: Test( s) 977719-Ibtprbwxatwl Antigenwas developed and its performance characteristicsdetermined by [facility]. It has not been cleared or approvedby the Food and Drug Administration. Performed By: #### L 3100.8408, L501.9985, L101.9900, L4500.0100, L501.6710, L3100.7250, L501.9520, L803.0600, L3100.7050, L3100.5800, L4500.2000, L503.0106, L3300.0450, L3100.7325, L3100.7300, L3100.5450, L3300.8000, L3100.1725, L4500.5000, L3100.5600, L3100.5700 ####[facility] [address] [facility] [place], [address] dPT Conf. Ratio 1.19 Ratio Normal 0.00-1.34 [facility] Comment on above: Order Comment: Test( s) 314002-Pcslgtallunf Antigenwas developed and its performance characteristicsdetermined by [facility]. It has not been cleared or approvedby the Food and Drug Administration. Performed By: #### L 3100.8408, L501.9985, L101.9900, L4500.0100, L501.6710, L3100.7250, L501.9520, L803.0600, L3100.7050, L3100.5800, L4500.2000, L503.0106, L3300.0450, L3100.7325, L3100.7300, L3100.5450, L3300.8000, L3100.1725, L4500.5000, L3100.5600, L3100.5700 ####[facility] [address] [place], [address] DRVVT 40.9 sec Normal 0.0-47.0 [facility] Comment on above: Order Comment: Test( s) 201795-Bhqwnwpwlwey Antigenwas developed and its performance characteristicsdetermined by [facility]. It has not been cleared or approvedby the Food and Drug Administration. Performed By: #### L 3100.8408, L501.9985, L101.9900, L4500.0100, L501.6710, L3100.7250, L501.9520, L803.0600, L3100.7050, L3100.5800, L4500.2000, L503.0106, L3300.0450, L3100.7325, L3100.7300, L3100.5450, L3300.8000, L3100.1725, L4500.5000, L3100.5600, L3100.5700 ####[facility] [address] [place], [address] Interpretation Comment: Normal . [facility] Comment on above: Order Comment: Test( s) 853092-Tyymuzfqheez Antigenwas developed and its performance characteristicsdetermined by [facility]. It has not been cleared or approvedby the Food and Drug Administration. Result Comment: No l upus anticoagulant was detected. Performed By: #### L 3100.8408, L501.9985, L101.9900, L4500.0100, L501.6710, L3100.7250, L501.9520, L803.0600, L3100.7050, L3100.5800, L4500.2000, L503.0106, L3300.0450, L3100.7325, L3100.7300, L3100.5450, L3300.8000, L3100.1725, L4500.5000, L3100.5600, L3100.5700 ####[facility] [address] [place], [address] THROMBIN TIME 19.6 sec Normal 0.0-23.0 [facility] Comment on above: Order Comment: Test( s) 368497-Cgyjdoygvmdd Antigenwas developed and its performance characteristicsdetermined by [facility]. It has not been cleared or approvedby the Food and Drug Administration. Performed By: #### L 3100.8408, L501.9985, L101.9900, L4500.0100, L501.6710, L3100.7250, L501.9520, L803.0600, L3100.7050, L3100.5800, L4500.2000, L503.0106, L3300.0450, L3100.7325, L3100.7300, L3100.5450, L3300.8000, L3100.1725, L4500.5000, L3100.5600, L3100.5700 ####[facility] [address] [place], [address] Protein C Antigenon 03-30-20 25 PROTEIN C Ag 92 Normal 60-150 [facility] Comment on above: Order Comment: Comme nts: NPO at [place] prior to lipid panel Performed By: #### L 500.4100 #### [facility] [address] [place], [address] Protein C, Functionalon 05-0 PROTEIN C,FUNC 93 Normal 73-180 [facility] Comment on above: Order Comment: Comme nts: NPO at MN prior to lipid panel Result Comment: Perf ormed at: - [facility] [id number] Food Beverage Attendant: Kajal Butler MD, Phone: [phone] Performed at: - [facility] [id number] Food Beverage Attendant: Edwardo Lopez PhD, Phone: [phone] Performed at: - [facility] [address] [place] [id number] Food Beverage Attendant: Ekta Adler [facility], Phone: [phone] Performed By: #### L 500.0660 #### [facility] [address] [place], [address] Protein S Antigenon 03-30-20 25 PROTEIN S, FREE 129 Normal 61-136 [facility] Comment on above: Order Comment: Comme nts: NPO at [place] prior to lipid panel Performed By: #### L 500.4100 #### [facility] [address] [place], [address] PROTEIN S,TOTAL 90 Normal 60-150 [facility] Comment on above: Order Comment: Comme nts: NPO at MN prior to lipid panel Result Comment: This test was developed and its performance characteristics determined by [facility]. It has not been cleared or approved by the Food and Drug Administration. Performed By: #### L 500.4100 #### [facility] [address] [place], [address] Protein S, Functionalon 05- PROTEIN S, FUNC 110 Normal 63-140 [facility] Comment on above: Order Comment: Comme nts: NPO at [place] prior to lipid panel Result Comment: Prot ein S activity may be falsely increased (masking an abnormal, low result) in patients receiving direct Xa inhibitor (e.g., rivaroxaban, apixaban, edoxaban) or a direct thrombin inhibitor (e.g., dabigatran) anticoagulant treatment due to assay interference by these drugs. Performed By: #### L 500.4100 #### [facility] [address] [place], [address] Vitamin B1, Thiamineon 03-30 VIT B1 THIAMINE 124.4 nmol/L Normal 66.5-200.0 [facility] Comment on above: Order Comment: Test( s) [id number] Antigenwas developed and its performance characteristicsdetermined by [facility]. It has not been cleared or approvedby the Food and Drug Administration. Performed By: #### L 3100.8408, L501.9985, L101.9900, L4500.0100, L501.6710, L3100.7250, L501.9520, L803.0600, L3100.7050, L3100.5800, L4500.2000, L503.0106, L3300.0450, L3100.7325, L3100.7300, L3100.5450, L3300.8000, L3100.1725, L4500.5000, L3100.5600, L3100.5700 ####[facility] [address] [place], [place], [id number] SEPIDEH w/ Reflex Mult Confirmon 03-26-2025 ANTI-DNA (DS)AB TNP Normal [facility] Comment on above: Order Comment: Reaso n for Exam: Cryptogenic stroke Performed By: #### L 3100.8408, L501.9985, L101.9900, L4500.0100, L501.6710, L3100.7250, L501.9520, L803.0600, L3100.7050, L3100.5800, L4500.2000, L503.0106, L3300.0450, L3100.7325, L3100.7300, L3100.5450, L3300.8000, L3100.1725, L4500.5000, L3100.5600, L3100.5700 ####[facility] [address] [place], [address] L803.0600on 03-25-2025 HOMOCYSTEINE 27.3 umol/L Abnormal 0.0-14.5 [facility] Comment on above: Order Comment: Reaso n for Exam: Cryptogenic stroke Performed By: #### L 3100.8408, L501.9985, L101.9900, L4500.0100, L501.6710, L3100.7250, L501.9520, L803.0600, L3100.7050, L3100.5800, L4500.2000, L503.0106, L3300.0450, L3100.7325, L3100.7300, L3100.5450, L3300.8000, L3100.1725, L4500.5000, L3100.5600, L3100.5700 ####[facility] [address] [place], [address] Blood or tissue coagulation factor II targeted mutation analysis by molecular geneticOrdered By: Keyanna Walton on 03-23-2025 F2 gene targeted mutation analysis Molgen Nom (Bld/Tiss) Comment . [facility] Comment on above: Result: c.*97G>A - N ot DetectedThis result is not associated with an increased risk for venousthromboembolism. See Additional Clinical Information andComments.Additional Clinical Information:Venous thromboembolism is a multifactorial disease influenced bygenetic, environmental, and circumstantial risk factors. The c.*97G>Avariant in the F2 gene is a genetic risk factor for venousthromboembolism. Heterozygous carriers have a 2- to 4-fold increasedrisk for venous thromboembolism. Homozygotes for the c.*97G>A variantare rare. The annual risk of VTE in homozygotes has been reported celia 1.1%/year. Individuals who carry both a c.*97G>A variant in theF2 gene and a c.1601G>A (p. Xvo417Saj) variant in the F5 gene(commonly referred to as Factor V Leiden) have an approximately 20-fold increased risk for venous thromboembolism. Risks are likely celia even higher in more complex genotype combinations involving theF2 c.*97G>A variant and Factor V Leiden (PMID: 86999329). Additionalrisk factors include but are not limited to: deficiency of protein C,protein S, or antithrombin III, age, male sex, personal or familyhistory of deep vein thromboembolism, smoking, surgery, prolongedimmobilization, malignant neoplasm, tamoxifen treatment, raloxifenetreatment, oral contraceptive use, hormone replacement therapy, andpregnancy. Management of thrombotic risk and thrombotic events shouldfollow established guidelines and fit the clinical circumstance. Thisresult cannot predict the occurrence or recurrence of a thromboticevent.Comments:Genetic counseling is recommended to discuss the potential clinicalimplications of positive results, as well as recommendations fortesting family members.Genetic Coordinators are available for health care providers to discussresults at [phone] ([phone]).Test Details:Variant analyzed: c.*97G>A, previously referred to as [id number]/Limitations:DNA analysis of the F2 gene (NM_000506.5) was performed by PCRamplification followed by restriction enzyme analysis. The diagnosticsensitivity is >99%. Results must be combined with clinicalinformation for the most accurate interpretation. Molecular-basedtesting is highly accurate, but as in any laboratory test, diagnosticerrors may occur. False positive or false negative results may occurfor reasons that include genetic variants, blood transfusions, bonemarrow transplantation, somatic or tissue-specific mosaicism,mislabeled samples, or erroneous representation of familyrelationships.This test was developed and its performance characteristics determinedby [employer]. It has not been cleared or approved by the Food and DrugAdministration.References:Alen S, Janice CASTILLO, Jesus R, Zelda WW, Thee JH; ACMG ProfessionalPractice and Guidelines Committee. Addendum: [place] [employer] consensus statement on factor V Leiden mutationtesting. Yessica Med. 2020Jan 28. doi: 10.1038/f06326-001-17107-f.PMID: 45900141.Mickey SIDHU. Prothrombin Thrombophilia. 2005Jun 19[Updated 2020Dec 30]. In: Jose D MP, Jaquelin HH, Miri RA, et al.,editors. Faustino(R) [Internet]. [place] ([place]): [facility]; 9860-0633. Available from:https://www.ncbi.nlm.nih.gov/books/IDG0554/Krishna S, Janice CASTILLO, Mannie X, Ernesto B, Stephanie EB, Isabel P, Javi CS;AC Laboratory Elevator Constructor Supervisor Committee. Venous thromboembolismlaboratory testing (factor V Leiden and factor II c.*97G>A),2018 update: a technical standard of the [place] [employer] and [employer] (ACMG). Yessica Med. 2018 Oct;20(12):2986-2511.doi: 10.1038/w63449-529-3567-u. Epub 2017Aug 30. PMID: 61719604. CRPon 03-23-2025 C-REACTIVE PROT 3.17 mg/L High 0.0-3.0 [facility] Comment on above: Performed By: #### L 3100.8408, L501.9985, L101.9900, L4500.0100, L501.6710, L3100.7250, L501.9520, L803.0600, L3100.7050, L3100.5800, L4500.2000, L503.0106, L3300.0450, L3100.7325, L3100.7300, L3100.5450, L3300.8000, L3100.1725, L4500.5000, L3100.5600, L3100.5700 ####[facility] [address] [place], [place], [id number] Dilute Venkatesh's viper venom timeOrdered By: Keyanna Walton on 03-23-2025 dRVVT Coag (PPP) [Time] 40.9 s 0.0-47.0 [facility] Erythrocyte Sed Rateon 03-23 SED RATE 3 mm/hr Normal 0-20 [facility] Comment on above: Performed By: #### L 3100.8408, L501.9985, L101.9900, L4500.0100, L501.6710, L3100.7250, L501.9520, L803.0600, L3100.7050, L3100.5800, L4500.2000, L503.0106, L3300.0450, L3100.7325, L3100.7300, L3100.5450, L3300.8000, L3100.1725, L4500.5000, L3100.5600, L3100.5700 ####[facility] [address] [place], [place], [id number] Erythrocyte folate measureme nt with hematocritOrdered By: Keyanna Walton on 03-23-2025 Hematocrit (Bld) [Volume fraction] 46.2 % 37.5-51.0 [facility] Erythrocyte sedimentation ra teOrdered By: Keyanna Walton on 03-23-2025 ESR (Bld) [Velocity] 3 mm/h 0-20 [facility] Functional protein C measure mentOrdered By: Keyanna Walton on 03-23-2025 Protein C actual/normal Chromogenic method (PPP) [Rel catalytic activity/Vol] 93 % 73-180 [facility] Comment on above: Performed at: [facility] Carlie pereira [address] [id number] Director: Kajal Butler MD, Phone: [phone] at: - [facility] [address] [id number] Director: Edwardo Lopez PhD, Phone: [phone] at: TG - [facility] [id number] [place], [place] [id number] Director: Ekta Adler [facility], Phone: [phone] Hemoglobin A1con 03-23-2025 HbA1c (Bld) [Mass fraction] 5.8 % High <=5.6 [facility] Comment on above: Result Comment: Norm al < 5.7 % Prediabetic 5.7 - 6.4 % Diabetic >or= 6.5 % Please note range changes. Performed By: #### L 3100.8408, L501.9985, L101.9900, L4500.0100, L501.6710, L3100.7250, L501.9520, L803.0600, L3100.7050, L3100.5800, L4500.2000, L503.0106, L3300.0450, L3100.7325, L3100.7300, L3100.5450, L3300.8000, L3100.1725, L4500.5000, L3100.5600, L3100.5700 ####[facility] [address] [place], [address] Hemoglobin A1c percentageOrd ered By: Keyanna Walton on 03-23-2025 HbA1c (Bld) [Mass fraction] 5.8 % High <5.7 [facility] Comment on above: Normal < 5.7 % Predi abetic 5.7 - 6.4 % Diabetic >or= 6.5 % Please note range changes. Platelet poor plasma antithr ombin actual/normal ratio by chromogenic method (relativeOrdered By: Keyanna Walton on 03-23-2025 Antithrombin actual/normal Chromogenic method (PPP) [Rel catalytic activity/Vol] 116 % 75-135 [facility] Comment on above: Direct Xa inhibitor anticoagulants such as rivaroxaban,apixaban and edoxaban will lead to spuriously elevatedantithrombin activity levels possibly masking a deficiency. Platelet poor plasma antithr ombin antigen detection by immunoassayOrdered By: Keyanna Walton on 03-23-2025 Antithrombin Ag IA Ql (PPP) 104 % 72-124 [facility] Platelet poor plasma protein S actual/normal ratio (relative time)Ordered By: Keyanna Walton on 03-23-2025 Protein S actual/normal Coag (PPP) [Relative time] 110 % 63-140 [facility] Comment on above: Protein S activity m ay be falsely increased (masking anabnormal, low result) in patients receiving direct Xainhibitor (e.g., rivaroxaban, apixaban, edoxaban) or adirect thrombin inhibitor (e.g., dabigatran) anticoagulanttreatment due to assay interference by these drugs. Protein C antigen assayOrder ed By: Keyanna Walton on 03-23-2025 Protein C Ag actual/normal IA (PPP) [Relative mass conc] 92 % 60-150 [facility] Protein S measurement in sonja telet poor plasma by coagulation assay (units/volume)Ordered By: Keyanna Walton on 03-23-2025 Protein S Coag Qn (PPP) 90 % 60-150 [facility] Comment on above: This test was develo ped and its performance characteristicsdetermined by [employer]. It has not been cleared orapproved by the Food and Drug Administration. Protein S, freeOrdered By: Rhys Walton on 03-23-2025 Protein S Free Ag IA Qn (PPP) 129 % 61-136 [facility] Serum DNA double strand anti body assay (units/volume)Ordered By: Keyanna Walton on 03-23-2025 DNA double strand Ab Qn (S) [facility] Comment on above: Test not performed Serum Scl-70 antibody assay (units/volume)Ordered By: Keyanna Walton on 03-23-2025 SCL-70 extractable nuclear Ab Qn (S) [facility] Comment on above: Test not performed Serum cardiolipin IgG antibo dy assay by immunoassay (units/volume)Ordered By: Keyanna Walton on 03-23-2025 Cardiolipin IgG IA Qn (S) < 9 GPL U/mL 0-14 [facility] Comment on above: Negative: <15 Indete rminate: 15 - 20 Low-Med Positive: >20 - 80 High Positive: >80 Serum or plasma C reactive p rotein measurement (mass/volume)Ordered By: Keyanna Walton on 03-23-2025 CRP [Mass/Vol] 3.17 mg/L High 0.0-3.0 [facility] Serum or plasma cardiolipin IgA antibody assay (units/volume)Ordered By: Keyanna Walton on 03-23-2025 Cardiolipin IgA Qn < 9 APL U/mL 0-11 [facility] Comment on above: Negative: <12 Indete rminate: 12 - 20 Low-Med Positive: >20 - 80 High Positive: >80 Serum or plasma complement C 4 measurement (mass/volume)Ordered By: Keyannaellen Walton on 03-23-2025 Complement C4 [Mass/Vol] 20 mg/dL 12-38 [facility] Serum or plasma thiamine paulette surement (mass/volume)Ordered By: Keyannaellen Walton on 03-23-2025 Thiamine [Mass/Vol] 124.4 nmol/L 66.5-200.0 [facility] TSH DL <= 0.005 mIU/L QnOrde red By: Keyanna Walton on 03-23-2025 TSH Qn 1.160 uIU/mL 0.300-4.200 [facility] Thrombin timeOrdered By: Sanya Walton on 03-23-2025 Thrombin time Coag (PPP) [Time] 19.6 sec 0.0-23.0 [facility] Thyroid Stim Hormone (TSH)on 03-23-2025 TSH 1.160 uIU/mL Normal 0.300-4.200 [facility] Comment on above: Performed By: #### L 3100.8408, L501.9985, L101.9900, L4500.0100, L501.6710, L3100.7250, L501.9520, L803.0600, L3100.7050, L3100.5800, L4500.2000, L503.0106, L3300.0450, L3100.7325, L3100.7300, L3100.5450, L3300.8000, L3100.1725, L4500.5000, L3100.5600, L3100.5700 ####[facility] [address] [place], [place], [id number] Total hemolytic (CH50) compl ement assayOrdered By: Keyanna Walton on 03-23-2025 Total hemolytic (CH50) complement assay 54 U/mL >41 [facility] Comment on above: Age Male Female 1 - 30 days Not Estab. Not Estab. 31 days - 6 months >32 >20 7 months - 17 years >39 >39 >17 years >41 >41 NOTE: The adult (>17 years) reference interval range is used to flag abnormals on this report. If the patient is 17 years old or younger, use the table above to determine out of range values. Vitamin B12on 03-23-2025 Cobalamin (Vitamin B12) [Mass/Vol] 408 pg/mL Normal 180-914 [facility] Comment on above: Performed By: #### L 3100.8408, L501.9985, L101.9900, L4500.0100, L501.6710, L3100.7250, L501.9520, L803.0600, L3100.7050, L3100.5800, L4500.2000, L503.0106, L3300.0450, L3100.7325, L3100.7300, L3100.5450, L3300.8000, L3100.1725, L4500.5000, L3100.5600, L3100.5700 ####[facility] [address] [place], [place], [id number] Vitamin B12 ser/plasOrdered By: Keyanna Walton on 03-23-2025 Cobalamin (Vitamin B12) [Mass/Vol] 408 pg/mL 180-914 [facility] SP/HP.SP.Andra 03-20-2025 SP/HP.SP.EV [facility] [place] [address] / REHABILITATION SERVICES INITIAL EVALUATION MR#: [id number] Acct: [id number] Name: MARY ALICE ESCALANTE JR Rep #: [id number] : 1970 54 From: Keo Raya Referring Dr.: Dr. Todd Alfonso DO Status: REG RCR Insurance: [employer] INSURANCE Visit History Visit Info Date of Eval: 03/20/25 Visit: 1 Client Manager: AVIVA History Attending Doctor: Referring Doctor: Reason for Referral: CVA/PT HAS RX Medical Diagnosis: CVA; Dysarthria Date of Onset of Diagnosis: 03/04/25 Previous speech therapy: Yes Smoking Status: Former smoker Diagnosis Diagnosis: CVA; dysarthria Pain Is pain an issue with your current prescribed condition?: No Personal Preferred language: Danish Patient Allergies Allergies Allergies: Allergies No Known Allergies Allergy (Verified 03/19/25 10:51) N-SCARLET [place] Dysarthria Assessment Tool Intelligibility:: Intelligible w/some difficulty Phonation: Phonation: Adequate Pitch: Adequate Maximum Phonation Time: 13 S/Z Ratio: 1 Sustained Volume: Able Pitch Concrete: Able Pitch Range: Adequate Pitch Glides: Adequate Resonance: Resonance: Nasality: Adequate Prosody: Prosody: Ability to vary: Yes Articulation: Rate of speech: Adequate Phrase length: Adequate Rate of Movement: Number of repetitions in 5 seconds: 12 Sequential Motion Rates: Number of repetitions in 5 seconds: 13 Additional Information: Comment: Pt stated that he experienced some slurred speech prior to his CVA. He also stated that he does not wear dentures (edentulous) which he feels contributes to his level of intelligibility as well. Pt stated that he and his believe that his speech has improved greatly since coming home from the hospital and he feels like he is at his premorbid state. Reference: Neuro-QoL instrument Radiation Oncology Patient Plan Plan Plan: At this time, due to patient request, skilled speech therapy is not recommended. Recommendations Treatment Warranted: No Education Patient Instruction Patient Education: Diagnosis Person Taught: Patient Teaching Method: Discussion Response to teaching: Verbalize Understanding 03/20/25 6592 CC: Dr. Todd Alfonso DO; No Primary Care Physician [facility] Signed Normal [facility] Neurology Visit Reporton Neurology Visit Report [facility] [address], [address] [place] [id number] OFFICE VISIT Date of Service: 03/19/25 MR#: [id number] Acct: [id number] Name: MARY ALICE ESCALANTE JR Rep #: [id number] : 1970 Provider: ROBERTA carlos Age/Sex: 54/M Location: [facility] [place] Status: Signed HPI HPI Chief Complaint: Establish Care Details: Mr. Escalante is a 54-year-old male who presents to neurology today to establish care following an ischemic stroke.??? He was referred by [facility] on 03/05/2025.??? He is accompanied by his significant other. The symptom onset was 03/02/2025 of acute dysarthria.??? His symptoms did not improve and he ultimately decided to present to the emergency room at [facility] on 03/04/2025.??? A CT brain was conducted demonstrating hypodensity within the left subcortical white matter, consistent with a subacute infarct.??? CTA head/neck did not demonstrate LVO, thrombosis, or hemodynamically significant stenosis within the bilateral ICAs. Given his delayed presentation, he was out of the window for antithrombotic therapy.??? An MRI was not indicated due to stroke confirmation on CT imaging. His ECG rhythm was sinus bradycardia. His transthoracic echocardiogram was unremarkable. ???There was no evidence of valve disease, PFO's, or atrial septal defects. His blood pressure was 215/96 on initial hospital presentation and he maintained hypertensive throughout his admission.??? Antihypertensive medications were initiated at discharge (amlodipine and HCTZ) and lisinopril was recently added by his newly established primary care physician. Today his blood pressure is 136/78; he has been monitoring it daily at home. He was discharged on DAPT x 21 days (aspirin 81 mg daily and clopidogrel 75 mg daily).??? He is to continue aspirin after this course is complete. A high intensity statin was also prescribed. ???His LDL is 116.??? Total cholesterol is 181. He is to continue atorvastatin to maintain an LDL goal <70. This is being monitored by his primary care. The patient has a history of epilepsy. The patient states he had a head injury from a fall at 4 or 5 years old that resulted in seizures. He states that he had seizures approximately once a month throughout his childhood. He was never on medication. He states later in life he began smoking marijuana which decreased his seizure frequency stating that he rarely has seizures now. His significant other reports that his last seizure was approximately 1 year ago. He described it as full body tremors lasting 2 minutes. Precipitating factors include stress or flashing lights. In the postictal state, he states he experiences weakness and drowsiness. He says he is usually amnesic to the 3 hours before seizure occurrence. He is a current smoker, both nicotine and marijuana.??? He consumes EtOH a few times a month which was a significant decrease.??? His BMI is 26.3%. He does not get headaches or migraines. Other past medical history is limited as he has not sought medical care in several years. He established with a primary care physician after his recent hospital stay. There is a family history of unspecified cancers. There is no family history of any neurological disorders. On exam today, there are no appreciated deficits. His NIHSS is 0. His dysarthria has improved. He does not have teeth making it more difficult to assess; however, his significant other states this is his normal speech pattern. When his stroke initially occurred, he stated that his tongue felt swollen and difficult to move. It has since returned to normal. He has no focal signs. ROS: General: No fatigue. No recent weight loss/gain. No recent illness. No fevers. No recent falls. Neuro: No headaches. No dizziness. No numbness/tingling. No weakness. No tremors. Seizure 1 year ago. Psych: No insomnia or hypersomnia. No agitation. No depressive symptoms. No memory difficulties. Cardio: No palpitations. No chest pain or discomfort. No edema. Respiratory: Current smoker. No cough. No shortness of breath. No wheezing. Musculoskeletal: No use of assistive devices. No neck pain. No back pain. HEENT: No hearing loss. No blurry vision. No diplopia. No dysphagia. GI: No hematochezia. No NVD. No constipation. No abdominal pain or discomfort. : No hematuria. No frequency or urgency. No incontinence. No dysuria. Skin: No ecchymosis. No wounds, rashes, or lesions. Physical Exam: Constitutional: Well-developed, well-nourished male in no acute distress. Psych: Cooperative. Judgement and insight good. HEENT: Normocephalic. Atraumatic. Hearing grossly normal bilaterally. Periorbital findings are normal. He has no teeth (more content not included)... Normal [facility] Calculated very low density lipoprotein (VLDL) cholesterol measurementOrdered By: Todd Alfonso on 03-05-2025 Calculated very low density lipoprotein (VLDL) cholesterol measurement 23 mg/dL 5-40 [facility] VLDL Cholesterol 23 mg/dL -40 [facility] Electrocardiogram reportOrde red By: Hiro Melendez on 03-05-2025 EKG study [facility] Cardiovascular Services [address] [place] [address] 12 Lead EKG 03/04/25 0742 MR#: [id number] Acct: [id number] Name: MARY ALICE ESCALANTE Rep #:[id number] : 1970 54 From: Hiro Melendez MD Attending Dr: Dr. Todd Alfonso, DO Status: ADM JEVON Ordering Dr: Cruzito Bailey MD Date: 08/20 Location: ICU Sex: M C Admitted: 03/04/25 Test Reason : HTN Blood Pressure : */* mmHG Vent. Rate : 58 BPM Atrial Rate : 58 BPM P-R Int : 136 ms QRS Dur : 94 ms QT Int : 458 ms P-R-T Axes : 53 9 102 degrees QTcB Int : 449 ms Sinus bradycardia Septal infarct , age undetermined T wave abnormality, consider lateral ischemia Abnormal ECG Confirmed by HIRO MELENDEZ MD ([id number]), assignment desk editor JE NG ([id number]) on 58:36:03 AM Referred By: Confirmed By: HIRO MELENDEZ MD 03/05/25 0836 Date _ Hiro Melendez MD CC: Dr. Todd Alfonso DO; Dr. Cruzito Bailey MD; No Primary Care Physician ~ Signed [facility] Work Phone: LDL calc ser/plasOrdered By: Todd Alfonso on 03-05-2025 Cholesterol in LDL [Mass/Vol] 116 mg/dL [facility] Comment on above: Kizlayoipi=097-379 m g/dL & Higher Xyay=391 mg/dL or greater LDL Cholesterol, Calculated 116 mg/dL [facility] Comment on above: Mvsmfktjmw=731-009 m g/dL & Higher Fcct=998 mg/dL or greater Lipid Profileon 03-05-2025 CHOL:HDL 4.34 Normal [facility] Comment on above: Order Comment: Comme nts: NPO at [place] prior to lipid panel Performed By: #### L 500.4100 #### [facility] [address] [place], [place], [id number] Cholesterol [Mass/Vol] 181 mg/dL Normal <=200 [facility] Comment on above: Order Comment: Comme nts: NPO at [place] prior to lipid panel Result Comment: Chol esterol level, Desirable <200 mg/dL Borderline high cholesterol 200-239 mg/dL High cholesterol >=240 mg/dL Recommendations of the NCEP Adult Treatment Panel for the following risk-cutoff thresholds for the [place] population. Performed By: #### L 500.4100 #### [facility] [address] [place], [place], [id number] Cholesterol in HDL [Mass/Vol] 42 mg/dL Normal [facility] Comment on above: Order Comment: Comme nts: NPO at [place] prior to lipid panel Result Comment: Izabel onal Cholesterol Education Program (NCEP) guidelines: <40 mg/dL: Low HDL-cholesterol (major risk factor for CHD) >= 60 mg/dL: High HDL-cholesterol (negative risk factor for CHD) HDL-cholesterol is affected by a number of factors, e.g. smoking, exercise, hormones, sex and age. Performed By: #### L 500.4100 #### [facility] [address] [place], [address] Cholesterol in LDL [Mass/Vol] 116 mg/dL Normal [facility] Comment on above: Order Comment: Comme nts: NPO at [place] prior to lipid panel Result Comment: Bord nbrzqf=489-770 mg/dL Higher Umxk=974 mg/dL or greater Performed By: #### L 500.4100 #### [facility] [address] [place], [address] Cholesterol in VLDL [Mass/Vol] 23 mg/dL Normal 5-40 [facility] Comment on above: Order Comment: Comme nts: NPO at [place] prior to lipid panel Performed By: #### L 500.4100 #### [facility] [address] [place], [address] Triglyceride [Mass/Vol] 116 mg/dL Normal [facility] Comment on above: Order Comment: Comme nts: NPO at [place] prior to lipid panel Result Comment: The drugs N-Acetylcysteine and Metamizole may falsely depress this assay. Normal range: <150 mg/dL Borderline High: 150-199 mg/dL High: 200-499 mg/dL Very High: >500 mg/dL Performed By: #### L 500.4100 #### [facility] [address] [place], [address] Screening total cholesterol/ high density lipoprotein (HDL) cholesterol ratioOrdered By: Todd Alfonso on 03-05-2025 Cholesterol.total/Chol esterol in HDL [Mass ratio] 4.34 {ratio} [facility] Serum or plasma cholesterol in HDL measurement (mass/volume)Ordered By: Todd Alfonso on 03-05-2025 Cholesterol in HDL [Mass/Vol] 42 mg/dL >40 [facility] Comment on above: National Cholesterol Education Program (NCEP) guidelines:<40 mg/dL: Low HDL-cholesterol (major risk factor for CHD)>= 60 mg/dL: High HDL-cholesterol (negative risk factor for CHD)HDL-cholesterol is affected by a number of factors, e.g. smoking, exercise, hormones, sex and age. Serum or plasma cholesterol measurement (mass/volume)Ordered By: Todd Alfonso on 03-05-2025 Cholesterol [Mass/Vol] 181 mg/dL <201 [facility] Comment on above: Cholesterol level, D esirable <200 mg/dLBorderline high cholesterol 200-239 mg/dLHigh cholesterol >=240 mg/dLRecommendations of the NCEP Adult Treatment Panel for the following risk-cutoff thresholds for the [place] population. Triglycerides measurementOrd ered By: Todd Alfonso on 03-05-2025 Triglyceride [Mass/Vol] 116 mg/dL <199 [facility] Comment on above: The drugs N-Acetylcy steine and Metamizole may falsely depress this assay. Normal range: <150 mg/dLBorderline High: 150-199 mg/dLHigh: 200-499 mg/dLVery High: >500 mg/dL 12 Lead EKGon 03-04-2025 12 Lead EKG [facility] [address] [place] [address] 12 Lead EKG 03/04/25 0742 MR#: [id number] Acct: [id number] Name: MARY ALICE ESCALANTE Rep #: [id number] : 1970 54 From: Hiro Melendez MD Attending Dr: Dr. Todd Alfonso, DO Status: ADM JEVON Ordering Dr: Cruzito Bailey MD Date: 03/04/25 Location: ICU Sex: M C Admitted: 03/04/25 Test Reason : HTN Blood Pressure : */* mmHG Vent. Rate : 58 BPM Atrial Rate : 58 BPM P-R Int : 136 ms QRS Dur : 94 ms QT Int : 458 ms P-R-T Axes : 53 9 102 degrees QTcB Int : 449 ms Sinus bradycardia Septal infarct , age undetermined T wave abnormality, consider lateral ischemia Abnormal ECG Confirmed by HIRO MELENDEZ MD ([id number]), assignment desk editor JE NG ([id number]) on 03/05/2025 8:36:03 AM Referred By: Confirmed By: HIRO MELENDEZ MD 03/05/25835 Date Hiro Melendez MD CC: Dr. Todd Alfonso DO; Dr. Cruzito Bailey MD; No Primary Care Physician Signed Normal [facility] Absolute lymphocyte countOrd ered By: Cruzito Bailey on 03-04-2025 Lymphocytes Auto (Unsp spec) [#/Vol] 1.79 10*3/uL 0.83-4.51 [facility] Absolute neutrophil countOrd ered By: Cruzito Bailey on 03-04-2025 Neutrophils (Bld) [#/Vol] 5.6 10*3/uL 2.0-7.7 [facility] Activated partial thrombopla stin time (aPTT) in platelet poor plasma by coagulation aOrdered By: Cruzito Bailey on 03-04-2025 aPTT Coag (PPP) [Time] 26.0 s 24.1-36.2 [facility] Anion gap in Serum or Plasma Ordered By: Cruzito Bailey on 03-04-2025 Anion gap [Moles/Vol] 11 mmol/L 5- [facility] Automated lymphocyte count a s percentage of total leukocytesOrdered By: Cruzito Bailey on 03-04-2025 Lymphocytes/100 WBC Auto (Unsp spec) 21.5 % - [facility] BUN/creatinine ratioOrdered By: Cruzito Bailey on 03-04-2025 Urea nitrogen/Creatinine [Mass ratio] 12.0 mg/mg - [facility] Basic Metabolic Profile (BMP )on 03-04-2025 BUN/CRE 12.0 RATIO Normal 09-14 [facility] Comment on above: Performed By: #### L 500.2500, L300.4310, L100.0100, L501.4021, L300.3900 ####[facility] [address], [address] Calcium [Mass/Vol] 9.2 mg/dL Normal 7.6-11.0 [facility] Comment on above: Performed By: #### L 500.2500, L300.4310, L100.0100, L501.4021, L300.3900 ####[facility] [address] [place], [address] Chloride [Moles/Vol] 100 mmol/L Normal 98-108 [facility] Comment on above: Performed By: #### L 500.2500, L300.4310, L100.0100, L501.4021, L300.3900 ####[facility] [address] [place], [address] CO2 [Moles/Vol] 23.7 mmol/L Normal 21.0-32.0 [facility] Comment on above: Performed By: #### L 500.2500, L300.4310, L100.0100, L501.4021, L300.3900 ####[facility] [address] [place], [address] Creatinine [Mass/Vol] 1.00 mg/dL Normal 0.70-1.20 [facility] Comment on above: Performed By: #### L 500.2500, L300.4310, L100.0100, L501.4021, L300.3900 ####[facility] [address] [place], [address] ECRCL 78.03 ml/min Normal 50-250 [facility] Comment on above: Performed By: #### L 500.2500, L300.4310, L100.0100, L501.4021, L300.3900 ####[facility] [address], [address] GAP 11 Normal 5-15 [facility] Comment on above: Performed By: #### L 500.2500, L300.4310, L100.0100, L501.4021, L300.3900 ####[facility] [address] [place], [address] GFR/1.73 sq M.predicted among non-blacks MDRD (S/P/Bld) [Vol rate/Area] 89 mL/min/{1.73_m2} Normal >60 [facility] Comment on above: Result Comment: mL/m in/1.73m2 CKD-EPI Creatinine Equation (2020) Performed By: #### L 500.2500, L300.4310, L100.0100, L501.4021, L300.3900 ####[facility] [address] [place], [address] Glucose [Mass/Vol] 110 mg/dL High 70-99 [facility] Comment on above: Performed By: #### L 500.2500, L300.4310, L100.0100, L501.4021, L300.3900 ####[facility] [address] [place], [address] Potassium [Moles/Vol] 4.1 mmol/L Normal 3.3-5.1 [facility] Comment on above: Performed By: #### L 500.2500, L300.4310, L100.0100, L501.4021, L300.3900 ####[facility] [address] [place], [address] Sodium [Moles/Vol] 136 mmol/L Normal 133-145 [facility] Comment on above: Performed By: #### L 500.2500, L300.4310, L100.0100, L501.4021, L300.3900 ####[facility] [address] [place], [address] Urea nitrogen [Mass/Vol] 12 mg/dL Normal 4-19 [facility] Comment on above: Performed By: #### L 500.2500, L300.4310, L100.0100, L501.4021, L300.3900 ####[facility] [address] [place], [address] Basophil percentageOrdered B y: Cruzito Bailey on 03-04-2025 Basophils/100 WBC (Bld) 0.6 % 0-1 [facility] CBC W/Diff, Automatedon Absolute Lymph 1.79 X10 3/uL Normal 0.83-4.51 [facility] Comment on above: Performed By: #### L 500.2500, L300.4310, L100.0100, L501.4021, L300.3900 ####[facility] [address] [place], [address] Absolute Neut 5.6 X10 3/uL Normal 2.0-7.7 [facility] Comment on above: Performed By: #### L 500.2500, L300.4310, L100.0100, L501.4021, L300.3900 ####[facility] [address] [place], [address] Basophils/100 WBC (Bld) 0.6 % Normal 0-1 [facility] Comment on above: Performed By: #### L 500.2500, L300.4310, L100.0100, L501.4021, L300.3900 ####[facility] [address] [place], [address] Eosinophils/100 WBC (Bld) 0.7 % Normal 0-5 [facility] Comment on above: Performed By: #### L 500.2500, L300.4310, L100.0100, L501.4021, L300.3900 ####[facility] [address] [place], [address] Erythrocyte distribution width (RBC) [Ratio] 13.5 % Normal 11.6-14.6 [facility] Comment on above: Performed By: #### L 500.2500, L300.4310, L100.0100, L501.4021, L300.3900 ####[facility] [address] [place], [address] Hematocrit (Bld) [Volume fraction] 46.2 % Normal 40-54 [facility] Comment on above: Performed By: #### L 500.2500, L300.4310, L100.0100, L501.4021, L300.3900 ####[facility] [address] [place], [address] Hemoglobin (Bld) [Mass/Vol] 16.3 g/dL Normal 13.0-16.5 [facility] Comment on above: Performed By: #### L 500.2500, L300.4310, L100.0100, L501.4021, L300.3900 ####[facility] [address] [place], [address] IG% 0.500 Normal 0.0-0.9 [facility] Comment on above: Result Comment: IG% - Immature Granulocytes (promyelocytes, myelocytes and metamyelocytes) > 1% indicates that a LEFT SHIFT is Present. Performed By: #### L 500.2500, L300.4310, L100.0100, L501.4021, L300.3900 ####[facility] [address] [place], [address] Lymphocytes/100 WBC (Bld) 21.5 % Normal 19-41 [facility] Comment on above: Performed By: #### L 500.2500, L300.4310, L100.0100, L501.4021, L300.3900 ####[facility] [address] [place], [address] MCH (RBC) [Entitic mass] 32.1 pg High 27.0-32.0 [facility] Comment on above: Performed By: #### L 500.2500, L300.4310, L100.0100, L501.4021, L300.3900 ####[facility] [address] [place], [address] MCHC (RBC) [Mass/Vol] 35.3 g/dL Normal 32-36 [facility] Comment on above: Performed By: #### L 500.2500, L300.4310, L100.0100, L501.4021, L300.3900 ####[facility] [address] [place], [address] MCV (RBC) [Entitic vol] 91.1 fL Normal 80-94 [facility] Comment on above: Performed By: #### L 500.2500, L300.4310, L100.0100, L501.4021, L300.3900 ####[facility] [address] [place], [address] Monocytes/100 WBC (Bld) 9.5 % Normal 0-10 [facility] Comment on above: Performed By: #### L 500.2500, L300.4310, L100.0100, L501.4021, L300.3900 ####[facility] [address] [place], [address] Neutrophils/100 WBC (Bld) 67.2 % Normal 47-70 [facility] Comment on above: Performed By: #### L 500.2500, L300.4310, L100.0100, L501.4021, L300.3900 ####[facility] [address] [place], [address] Nucleated RBC (Bld) [#/Vol] 0 10*3/uL Normal 0-5 [facility] Comment on above: Performed By: #### L 500.2500, L300.4310, L100.0100, L501.4021, L300.3900 ####[facility] [address] [place], [address] Platelet mean volume (Bld) [Entitic vol] 10.1 fL Normal 6.2-12.0 [facility] Comment on above: Performed By: #### L 500.2500, L300.4310, L100.0100, L501.4021, L300.3900 ####[facility] [address] [place], [address] Platelets (Bld) [#/Vol] 258 10*3/uL Normal 150-450 [facility] Comment on above: Performed By: #### L 500.2500, L300.4310, L100.0100, L501.4021, L300.3900 ####[facility] [address] [place], [address] RBC (Bld) [#/Vol] 5.07 10*6/uL Normal 4.6-6.2 [facility] Comment on above: Performed By: #### L 500.2500, L300.4310, L100.0100, L501.4021, L300.3900 ####[facility] [address] [place], [address] RDW SD 44.8 fl High 35.1-43.9 [facility] Comment on above: Performed By: #### L 500.2500, L300.4310, L100.0100, L501.4021, L300.3900 ####[facility] [address] [place], [address] WBC (Bld) [#/Vol] 8.3 10*3/uL Normal 4.4-11.0 [facility] Comment on above: Performed By: #### L 500.2500, L300.4310, L100.0100, L501.4021, L300.3900 ####[facility] [address] [place], [address] Carbon dioxide, total [Moles /volume] in Central venous bloodOrdered By: Cruzito Bailey on 03-04-2025 CO2 [Moles/Vol] 23.7 mmol/L 21.0-32.0 [facility] Chest PA and Lateralon 03-04 Chest PA and Lateral [facility] Imaging Services [address] [place] [address] Chest PA and Lateral MR#: [id number] Acct: [id number] Name: MARY ALICE ESCALANTE Rep #: [id number] : 1970 M 54 From: Shan Reyna i, MD PCP: Care Physician,No Primary Status: REG ER Study: Chest PA and Lateral Date of Exam: 03/04/25 Exam# [id number] Ordering Dr: Cruzito Bailey MD PROCEDURE: CHEST PA AND LATERAL 03/04/2025 REASON FOR EXAM: HIGH BP AND SLURRED SPEECH TECHNIQUE: Frontal and lateral views of the chest. COMPARISON: None. FINDINGS: The cardiac silhouette is prominent. There is mild pulmonary vascular congestion. 1 cm nodule seen within the right lower lung zone. Recommend follow-up as per Fleischner society criteria. RAD/Chest PA and Lateral IMPRESSION: Mild pulmonary vascular congestion. 1 cm nodule seen within the right lower lobe. Follow-up as per Fleischner society criteria. Reading Location: [id number] CC: Dr. Cruzito Bailey MD; No Primary Care Physician Rn Transfer: Signed Normal [facility] Chloride assayOrdered By: Omer Bailey on 03-04-2025 Chloride [Moles/Vol] 100 mmol/L 98-108 [facility] Echo Completeon 03-04-2025 Echo Complete [facility] [address] [place] [address] Echo Complete 03/04/25 1516 MR#: [id number] Acct: [id number] Name: MARY ALICE ESCALANTE Rep #: [id number] : 1970 54 From: Hiro Melendez MD Attending Dr: Dr. Todd Alfonso, DO Status: ADM JEVON Ordering Dr: Todd Alfonso DO Date: 03/04/25 Location: ICU Sex: M C Admitted: 03/04/25 Reason For Study Reason For Study: TIA/CVA Procedure This was a 2D Doppler, Color Flow transthoracic echocardiogram. Exam performed portable in ICU/CCU. Left Ventricle Normal LV size. Left ventricular systolic function is normal. The left ventricular ejection fraction is 60 %. Stage 1 diastolic dysfunction. No regional wall motion abnormalities noted. Right Ventricle Normal RV size. Normal systolic function. Atria The left atrium is mildly enlarged. Normal right atrium. Bubble contrast study negative for right to left interatrial shunt. Mitral Valve Bileaflet diffuse mitral valve thickening. Tricuspid Valve Normal tricuspid valve. Aortic Valve Trisinus/trileaflet aortic valve. Pulmonic Valve Normal pulmonic valve. Great Vessels Normal aortic root. The pulmonary artery is normal size. Inferior vena cava collapse with respiration. Pericardium/Pleural No pericardial effusion. Medication Performed a rapid injection of agitated mix of 9 cc saline and 1cc air to assess for atrial septal defect. MMode/2D Measurements Calculations LVIDd: 5.5 cm IVSd: 1.2 cm Ao root diam: 3.3 cm LVIDs: 3.7 cm LVPWd: 0.93 cm RVDd: 3.0 cm FS: 32.4 % LAV(MOD-bp): 64.6 ml LVAd ap4: 35.3 cm2 SV(MOD-sp4): 77.2 ml LAV(MOD-bp) Indexed: 33.9 ml/m2 LVLd ap4: 8.8 cm SI(MOD-sp4): 40.5 ml/m2 LAV(MOD-sp2): 58.7 ml EDV(MOD-sp4): 115.1 ml LAV(MOD-sp4): 63.1 ml EDV(sp4-el): 120.1 ml LVAs ap4: 18.2 cm2 LVLs ap4: 7.3 cm ESV(MOD-sp4): 37.9 ml ESV(sp4-el): 38.4 ml EF(MOD-sp4): 67.1 % EF(sp4-el): 68.0 % SV(sp4-el): 81.7 ml LA A4 area: 21.1 cm2 LA dimension(2D): 4.1 cm RA A4 area: 16.4 cm2 TAPSE: 2.5 cm Time Measurements MV dec time: 0.20 sec Doppler Measurements Calculations MV E max denilson: 61.2 cm/sec Lat Peak E' Denilson: 8.7 cm/sec Med Peak E' Denilson: 8.5 cm/sec MV A max denilson: 66.5 cm/sec E/E' lat: 7.0 E/E' med: 7.2 MV E/A: 0.92 MV V2 max: 89.8 cm/sec MV dec slope: 311.6 cm/sec2 Ao V2 max: 149.6 cm/sec MV max P.2 mmHg Ao max P.0 mmHg MV V2 mean: 41.2 cm/sec Ao V2 mean: 96.7 cm/sec MV mean P.81 mmHg Ao mean P.4 mmHg MV V2 VTI: 24.3 cm Ao V2 VTI: 35.0 cm AV (velocity ratio): 0.63 LV V1 max: 94.8 cm/sec PA V2 max: 93.1 cm/sec LV V1 max P.6 mmHg PA V2 mean: 66.0 cm/sec LV V1 mean P.9 mmHg LV V1 mean: 64.8 cm/sec LV V1 VTI: 22.0 cm ECHO/Echo Complete Interpretation Summary Normal LV size. Left ventricular systolic function is normal. The left ventricular ejection fraction is 60 %. The left atrium is mildly enlarged. Stage 1 diastolic dysfunction. Bubble contrast study negative for right to left interatrial shunt. Ordering Physician: Todd Alfonso Referring Physician: MICHAEL PCP Performed By: Savannah Mccoy RDCS, RVT 03/04/25 1827 Date Hiro Melendez MD CC: Dr. Todd Alfonso DO; No Primary Care Physician Date Dictated: 03/04/251515 Date Transcribed: 03/04/25 182 Rn Transfer: Signed Normal [facility] Echocardiogram study reportO rdered By: Hiro Melendez on 03-04-2025 Study report [facility] [address] [place] [address] Echo Complete 03/04/251515 MR#: [id number] Acct: [id number] Name: MARY ALICE ESCALANTE Rep #:[id number] : 1970 54 From: Hiro Torres Attending Dr: Dr. Todd Alfonso DO Status: ADM JEVON Ordering Dr: Todd Alfonso DO Date: Location: ICU Sex: M C Admitted: 03/04/25 Reason For Study Reason For Study: TIA/CVA Procedure This was a 2D Doppler, Color Flow transthoracic echocardiogram. Exam performed portable in ICU/CCU. Left Ventricle Normal LV size. Left ventricular systolic function is normal. The left ventricular ejection fraction is 60 %. Stage 1 diastolic dysfunction. No regional wall motion abnormalities noted. Right Ventricle Normal RV size. Normal systolic function. Atria The left atrium is mildly enlarged. Normal right atrium. Bubble contrast study negative for right to left interatrial shunt. Mitral Valve Bileaflet diffuse mitral valve thickening. Tricuspid Valve Normal tricuspid valve. Aortic Valve Trisinus/trileaflet aortic valve. Pulmonic Valve Normal pulmonic valve. Great Vessels Normal aortic root. The pulmonary artery is normal size. Inferior vena cava collapse with respiration. Pericardium/Pleural No pericardial effusion. Medication Performed a rapid injection of agitated mix of 9 cc saline and 1cc air to assessfor atrial septal defect. MMode/2D Measurements & Calculations LVIDd: 5.5 cm IVSd: 1.2 cm Ao root diam: 3.3 cm LVIDs: 3.7 cm LVPWd: 0.93 cm RVDd: 3.0 cm FS: 32.4 % LAV(MOD-bp): 64.6 ml LVAd ap4: 35.3 cm2 SV(MOD-sp4): 77.2 ml LAV(MOD-bp) Indexed: 33.9 ml/m2 LVLd ap4: 8.8 cm SI(MOD-sp4): 40.5 ml/m2 LAV(MOD-sp2): 58.7 ml EDV(MOD-sp4): 115.1 ml LAV(MOD-sp4): 63.1 ml EDV(sp4-el): 120.1 ml LVAs ap4: 18.2 cm2 LVLs ap4: 7.3 cm ESV(MOD-sp4): 37.9 ml ESV(sp4-el): 38.4 ml EF(MOD-sp4): 67.1 % EF(sp4-el): 68.0 % SV(sp4-el): 81.7 ml LA A4 area: 21.1 cm2 LA dimension(2D): 4.1 cm RA A4 area: 16.4 cm2 TAPSE: 2.5 cm Time Measurements MV dec time: 0.20 sec Doppler Measurements & Calculations MV E max denilson: 61.2 cm/sec Lat Peak E' Denilson: 8.7 cm/sec Med Peak E' Denilson: 8.5 cm/sec MV A max denilson: 66.5 cm/sec E/E' lat: 7.0 E/E' med: 7.2 MV E/A: 0.92 MV V2 max: 89.8 cm/sec MV dec slope: 311.6 cm/sec2 Ao V2 max: 149.6 cm/sec MV max P.2 mmHg Ao max P.0 mmHg MV V2 mean: 41.2 cm/sec Ao V2 mean: 96.7 cm/sec MV mean P.81 mmHg Ao mean P.4 mmHg MV V2 VTI: 24.3 cm Ao V2 VTI: 35.0 cm AV (velocity ratio): 0.63 LV V1 max: 94.8 cm/sec PA V2 max: 93.1 cm/sec LV V1 max P.6 mmHg PA V2 mean: 66.0 cm/sec LV V1 mean P.9 mmHg LV V1 mean: 64.8 cm/sec LV V1 VTI: 22.0 cm ECHO/Echo Complete Interpretation Summary Normal LV size. Left ventricular systolic function is normal. The left ventricular ejection fraction is 60 %. The left atrium is mildly enlarged. Stage 1 diastolic dysfunction. Bubble contrast study negative for right to left interatrial shunt. Ordering Physician: Todd Alfonso Referring Physician: MICHAEL PCP Performed By: Savannah Mccoy, EM, RVT 03/04/251826 Date _ Hiro Melendez MD CC: Dr. Todd Alfonso DO; No Primary Care Physician ~ Date Dictated: 03/04/25 1516 Date Transcribed: 03/04/251826 Rn Transfer: Signed [facility] Work Phone: Emergency Department Summary on 03-04-2025 Emergency Department Summary [facility] Medical Records Department [address] [place] [address] Emergency Department Summary 03/04/25 MR#: [id number] Acct: [id number] Name: MARY ALICE ESCALANTE Rep #: [id number] : 1970 54 From: Cruzito Bailey MD PCP: Care Physician,No Primary Status:REG ER Location: ED HPI History of Present Illness Chief Complaint: Neuro S/Sx Informant: patient Onset/Context/Timing Onset: Days Context: Gradual Onset Timing: Continuous Quality and Location: Positive for Slurred Speech Onset: Sunday morning around 5:30 AM. Current Severity: Moderate Maximum Severity: Moderate Associated Symptoms Associated Symptoms: Negative for Nausea, Vomiting or Chest Pain Narrative Narrative: 54-year-old male prior history of epilepsy. But he says he has not seen a doctor or been in the hospital for years. According to his she said around 5:30 AM on Sunday the seventh 3 days ago she noticed that he started having significantly slurred speech. He denies any other complaints. No prior history of this. Occasionally has a headache. Denies any fall or head trauma. No history of stroke or mini stroke. They have also noticed recently he has elevated blood pressure but he is on no blood pressure medication. Prior similar symptoms: No Recent Illness/Hospitalization: No [facility] Medical History Epilepsy Home Medications ???Medication ???Instructions ???Recorded ???Last Taken ???Type NK 03/04/25 Unknown History Allergy/AdvReac Type Severity Reaction Status Date / Time No Known Allergies Allergy Verified 03/04/25 07:07 Social History Smoking Status: Current every day smoker tobacco type: cigarettes ROS ROS ED ROS Narrative Denies recent illness. Constitutional Constitutional ED: Denies chills or fever(s) Eyes Eyes: Denies blurry vision, change in vision or diplopia ENT ENT ED: Denies ear pain Cardiovascular Cardiovascular: Denies chest pain Respiratory/Chest Respiratory/Chest: Denies cough or dyspnea Gastrointestinal Gastrointestinal: Denies abdominal pain Genitourinary Genitourinary ED: Denies dysuria Musculoskeletal Musculoskeletal: Denies arthralgias Integumentary Denies abscess Neurologic Neurologic: Reports headache(s) Psychiatric Psychiatric: Denies anxiety Endocrine Endocrinology: Denies polydipsia Hematologic/Lymphatic Hematologic/Lymphatic: Denies easy bleeding Allergic/Immunologic Allergic/Immunologic ED: Denies mouth swelling EXAM Physical Exam Narrative Exam Narrative: Well-appearing male sitting upright in bed. Vital signs are stable his blood pressure is elevated 215/96. at bedside. H EENT exam pupils round reactive light. Extra motions are intact. No facial droop. Tongue midline. Obviously slurred speech. No signs of trauma. Neck nontender. No lymphadenopathy. Lungs clear to auscultation bilaterally. Heart regular rhythm rate about 70 no murmur. Chest wall ribs nontender. Abdomen soft nontender. Moving all 4 extremities. 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 Dorsi plantarflexion intact. Normal strength. Normal sensation. Nontender. No edema. Back nontender. Neurologically is awake and alert. Answering questions and following commands. He is obvious slurred speech. However he is no facial droop. He has normal fingertip to nose. Normal [id number]. No drift. Normal rapid hand movements. NIH score is 1. Const Vital Signs: 03/04/25 07:07 03/04/25 07:19 03/04/25 07:19 Temperature 98.2 F 98.9 F Temperature Source Oral Oral Pulse Rate 68 62 Respiratory Rate 19 H 14 Blood Pressure 215/96 H 211/94 H Blood Pressure Mean 135 133 Pulse Ox 97 98 Oxygen Delivery Method Room Air Room Air Room Air 03/04/25 07:47 03/04/25 08:02 Temperature 98.6 F Temperature Source Oral Pulse Rate 78 64 Respiratory Rate 16 18 Blood Pressure 211/76 H 203/81 H Blood Pressure Mean 121 121 Pulse Ox 98 98 Oxygen Delivery Method Room Air Room Air Positive well nourished and well developed; Negative for obese, cachectic, contractures or unkempt General Appearance ED: well developed and NAD; Negative for unkempt, cachectic or contractures Nutritional Appearance: Negative for cachectic or obese HEENT Reports moist mucous membranes atraumatic Eyes PERRL and EOMs intact bilaterally General Eye ED: Negative for pale conjunctiva or scleral icterus Neck no lymphadenopathy, supple and no JVD General: Negative for tenderness Chest Wall inspection of chest normal and palpation of chest normal Resp normal respiratory effort and clear to auscultation bilaterally Effort and Inspection: Negative for retractions Auscultation: Negative for rales, rhonchi, wheezes or dimini (more content not included)... Normal [facility] Eosinophil percentageOrdered By: Cruzito Bailey on 03-04-2025 Eosinophils/100 WBC (Bld) 0.7 % 0-5 [facility] Erythrocyte distribution wid th (RBC) [Ratio]Ordered By: Cruzito Bailey on 03-04-2025 Erythrocyte distribution width (RBC) [Entitic vol] 44.8 fL High 35.1-43.9 [facility] Erythrocyte distribution wid th ratioOrdered By: Cruzito Bailey on 03-04-2025 Erythrocyte distribution width (RBC) [Ratio] 13.5 % 11.6-14.6 [facility] Erythrocyte distribution wid th standard deviationOrdered By: Cruzito Bailey on 03-04-2025 Erythrocyte distribution width (RBC) [Ratio] 44.8 fl High 35.1-43.9 [facility] Estimation of creatinine germán aranceOrdered By: Cruzito Bailey on 03-04-2025 Estimated Creatinine Clearance Calc 78.03 ml/min 50-250 [facility] GFR/1.73 sq M.predicted guillermina g non-blacks MDRD (S/P/Bld) [Vol rate/Area]Ordered By: Cruzito Bailey on 03-04-2025 Estimated GFR (MDRD) Non-Af Amer 89 >60 [facility] Comment on above: mL/min/1.73m2 CKD-EP I Creatinine Equation (2020) Glomerular filtration rate ( GFR) estimation/1.73 sq m using serum, plasma, or whole bOrdered By: Cruzito Bailey on 03-04-2025 GFR/1.73 sq M.predicted among non-blacks MDRD (S/P/Bld) [Vol rate/Area] 89 mL/min/{1.73_m2} >60 [facility] Comment on above: mL/min/1.73m2 CKD-EP I Creatinine Equation (2020) H AND P Exam - [facility] 03-04-2025 H&P Exam - Hospitalist [facility] Medical Records Department [address] [place] [address] H P Exam - Hospitalist 03/04/25 0845 MR#: [id number] Acct: [id number] Name: MARY ALICE ESCALANTE Rep #: [id number] : 1970 54 From: Todd Alfonso DO PCP: Care Physician,No Primary Status:REG ER Location: ED HPI - General General Date of Service: 03/04/25 Chief Complaint: slurred speech HPI Narrative MARY ALICE ESCALANTE, is a 54 M who presents with slurred speech. Symptoms were noticed at 0530 on March 02. Had no other symptoms. But given the lack of improvement, patient was taken to the emergency room for evaluation. Patient had a CAT scan that showed hypodensity with in the left subcortical white matter that could represent acute or subacute infarct. CTA of the head and neck showed no LVO. Given his strokelike symptoms and concern for stroke on his CAT scan, the hospital service was contacted for admission. Patient denies ever having had a stroke before. [facility] Medical History Epilepsy Home Medications ???Medication ???Instructions ???Recorded ???Last Taken ???Type NK 03/04/25 Unknown History Allergy/AdvReac Type Severity Reaction Status Date / Time No Known Allergies Allergy Verified 03/04/25 07:07 Social History (Updated 03/04/25 @ 08:[address] Todd Alfonso, ) Smoking Status: Heavy Smoker (>10/day) alcohol intake: current alcohol intake frequency: a few times a month substance use type: marijuana Vital Signs Vital Signs Vital Signs: 03/04/25 07:07 03/04/25 07:19 03/04/25 07:19 Temperature 36.8 C 37.2 C Temperature Source Oral Oral Pulse Rate 68 62 Respiratory Rate 19 H 14 Blood Pressure 215/96 H 211/94 H Blood Pressure Mean 135 133 Pulse Ox 97 98 Oxygen Delivery Method Room Air Room Air Room Air 03/04/25 07:47 03/04/25 08:02 Temperature 37.0 C Temperature Source Oral Pulse Rate 78 64 Respiratory Rate 16 18 Blood Pressure 211/76 H 203/81 H Blood Pressure Mean 121 121 Pulse Ox 98 98 Oxygen Delivery Method Room Air Room Air Weight Weight: 78.8 kg Body Mass Index (BMI) 27.1 Physical Exam Narrative - Physical Exam General: Alert, Oriented x3, Cooperative HEENT: Atraumatic, PERRLA, EOMI, Normocephalic Oral: Moist Mucosa, No Gingival or Mucosal Lesions/ Ulcerations edentulous. Neck: Supple, No JVD, Negative Carotid Bruits Lungs: Clear to auscultation, Normal air movement Cardiovascular: Regular rate, Normal S1, Normal S2, No murmurs Abdomen: Bowel Sounds Present, Soft, Non Tender, Non-Distended, No Hepato-splenomegaly Extremities: No clubbing, No cyanosis, No edema, Capillary Refill Less than 3 Seconds Skin: No rashes, No breakdown Musculoskeletal: No Tenderness to Palpation of Joints or Extremities Neurological: Cranial nerves II through XII gross intact. Strength 5-5 in upper and lower extremities bilaterally. [id number] and [id number] within normal limits. Sensation grossly intact. Patient does have some slurred speech but follows commands appropriately. Psych/Mental Status: Normal Affect, Appropriate Results Lab / Micro Data Attestation: I reviewed the patient's lab results. 03/04/25 07:22 03/04/25 07:22 Labs: Laboratory Results - last 24 hr 03/04/25 07:22: WBC 8.3, RBC 5.07, Hgb 16.3, Hct 46.2, MCV 91.1, MCH 32.1 H, MCHC 35.3, RDW Std Deviation 44.8 H, RDW Coeff of Juan 13.5, Plt Count 258, MPV 10.1, Immature Gran % (Auto) 0.500, Neut % (Auto) 67.2, Lymph % (Auto) 21.5, [place] % (Auto) 9.5, Eos % (Auto) 0.7, Baso % (Auto) 0.6, Absolute Neuts (auto) 5.6, Absolute Lymphs (auto) 1.79, Nucleated RBC % 0, Sodium 136, Potassium 4.1, Chloride 100, Carbon Dioxide 23.7, Anion Gap 11, BUN 12, Creatinine 1.00, Estim Creat Clear Calc 78.03, Est GFR (MDRD) Non-Af 89, BUN/Creatinine Ratio 12.0, Glucose 110 H, Calcium 9.2, Troponin T High Sens 11 Rhythm Strip Rhythm Strip: Sinus bradycardia Rate: 58 Ectopy: None EKG Initial EKG: Attestation: I personally reviewed and interpreted this EKG as follows: Prior EKG tracings: available for review EKG Rhythm Intrepretation: Sinus Bradycardia Imaging Radiology Impression Brain CT 03/04/25 07:17 IMPRESSION: Hypodensity within the left subcortical white matter could represent acute to subacute infarct. Correlate with MR. No intracranial hemorrhage, mass effect or midline shift. Reading Location: [id number] Head/Neck CTA 03/04/25 07:17 IMPRESSION: No large filling defects seen within the intracranial vessels. No evidence of thrombosis. No hemodynamically significant stenosis seen within the bilateral ICA. Reading Loc (more content not included)... Normal [facility] Hematocrit Auto (Bld) [Volum e fraction]Ordered By: Cruzito Bailey on 03-04-2025 Hematocrit (Bld) [Volume fraction] 46.2 % 40-54 [facility] Hemoglobin measurementOrdere d By: Cruzito Bailey on 03-04-2025 Hemoglobin (Bld) [Mass/Vol] 16.3 g/dL 13.0-16.5 [facility] Immature granulocytes/100 WB C Auto (Bld)Ordered By: Cruzito Bailey on 03-04-2025 Immature granulocytes/100 WBC (Bld) 0.500 % 0.0-0.9 [facility] Comment on above: IG% - Immature Granu locytes (promyelocytes, myelocytes and metamyelocytes) > 1% indicates that a LEFT SHIFT is Present. International normalized rat io (INR) calculationOrdered By: Cruzito Bailey on 03-04-2025 INR Coag (Bld) [Relative time] 1.0 {INR} [facility] L499.0042on 03-04-2025 Trop T High Sen 10 ng/L Normal <=22 [facility] Comment on above: Performed By: #### L 499.0042 #### [facility] Laboratory [address] [place], [address] L499.0043on 03-04-2025 Trop T High Sen Normal <=22 [facility] Comment on above: Result Comment: REQU EST TO CANCEL PER ICU STAFF Performed By: #### L 499.0043 #### [facility] [address] [place], [address] L501.4021on 03-04-2025 Trop T High Sen 11 ng/L Normal <=22 [facility] Comment on above: Performed By: #### L 500.2500, L300.4310, L100.0100, L501.4021, L300.3900 ####[facility] [id number] [facility] [place], [address] Lymphocytes Auto (Unsp spec) [#/Vol]Ordered By: Cruzito Bailey on 03-04-2025 Lymphocytes (Bld) [#/Vol] 1.79 10*3/uL 0.83-4.51 [facility] Lymphocytes/100 WBC Auto (Un sp spec)Ordered By: Cruzito Bailey on 03-04-2025 Lymphocytes/100 WBC (Bld) 21.5 % 19-41 [facility] MCV (mean corpuscular volume ) determinationOrdered By: Cruzito Bailey on 03-04-2025 MCV (RBC) [Entitic vol] 91.1 fL 80-94 [facility] MR/CON.PCM.NEon 03-04-2025 MR/CON.PCM.NE [facility] Medical Records Department [address] [place] [address] Consultation - Neurology 03/04/25 2535 MR#: [id number] Acct: [id number] Name: MARY ALICE ESCALANTE Rep #: [id number] : 1970 54 From: Clayton Ruby MD PCP: Care Physician,No Primary Status:ADM JEVON Location: ICU ICU- Assessment and Plan: Stroke Assessment/Plan Ischemic stroke, likely small vessel in etiology. Uncontrolled hypertension and smoking are likely underlying cause. Plan: Aspirin 81, clopidogrel 300mg now. Continue clopidogrel 75mg and aspirin 81mg daily x 21 days then stop clopidogrel. Continue aspirin 81mg daily indefinitely. Start atorvastatin 80mg daily. Send lipid panel and hemoglobin A1c. Obtain TTE. No need for MRI as stroke clearly seen on CT head. 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 Goal BP < 130/80. Plan for 30 day engineering and development director on discharge to screen for atrial fibrillation. Follow up with neurologist as an outpatient. HPI Consult Data Date of Consult: 03/04/25 HPI Narrative HPI Narrative: MARY ALICE ESCALANTE, is a 54M w/ epilepsy, tobacco use, previously undiagnosed HTN. 03/02/25 acute dysarthria. CTH w/ L subcortical hypodensity c/w subacute infarct. CTA negative. BP 215/96 on admission. SBP is typically in the 180s at home. [facility] Medical History Epilepsy Home Medications ???Medication ???Instructions ???Recorded ???Last Taken ???Type NK 03/04/25 Unknown History Allergy/AdvReac Type Severity Reaction Status Date / Time No Known Allergies Allergy Verified 03/04/25 07:07 Social History (Updated 03/04/25 @ 08:[address] Todd Alfonso, DO) Smoking Status: Current every day smoker tobacco type: cigarettes alcohol intake: current alcohol intake frequency: a few times a month substance use type: marijuana Vital Signs Vital Signs Vital Signs: 03/04/25 07:07 03/04/25 07:19 03/04/25 07:19 Temperature 98.2 F 98.9 F Temperature Source Oral Oral Pulse Rate 68 62 Respiratory Rate 19 H 14 Blood Pressure 215/96 H 211/94 H Blood Pressure Mean 135 133 Blood Pressure Source Blood Pressure Position Blood Pressure Location Pulse Ox 97 98 Oxygen Delivery Method Room Air Room Air Room Air 03/04/25 07:47 03/04/25 08:02 03/04/25 09:46 Temperature 98.6 F 98.7 F Temperature Source Oral Pulse Rate 78 64 64 Respiratory Rate 16 18 18 Blood Pressure 211/76 H 203/81 H 180/76 H Blood Pressure Mean 121 121 110 Blood Pressure Source Blood Pressure Position Blood Pressure Location Pulse Ox 98 98 99 Oxygen Delivery Method Room Air Room Air 03/04/25 10:00 03/04/25 10:24 03/04/25 10:39 Temperature Temperature Source Pulse Rate 50 L 56 L 52 L Respiratory Rate 14 16 11 L Blood Pressure 183/61 H 192/90 H 183/81 H Blood Pressure Mean 101 124 115 Blood Pressure Source Monitor Monitor Blood Pressure Position Semi-Fowlers Semi-Fowlers Blood Pressure Location Left Arm Left Arm Pulse Ox 99 98 99 Oxygen Delivery Method Room Air Room Air Room Air 03/04/25 10:54 03/04/25 11:09 03/04/25 11:30 Temperature 98.1 F Temperature Source Temporal Pulse Rate 52 L 50 L 55 L Respiratory Rate 16 18 17 Blood Pressure 196/83 H 177/99 H 175/84 H Blood Pressure Mean 120 125 114 Blood Pressure Source Monitor Monitor Monitor Blood Pressure Position Semi-Fowlers Semi-Fowlers Semi-Fowlers Blood Pressure Location Left Arm Left Arm Left Arm Pulse Ox 98 98 99 Oxygen Delivery Method Room Air Room Air Room Air 03/04/25 12:00 03/04/25 15:07 03/04/25 17:22 Temperature 98.1 F 97.6 F L Temperature Source Temporal Temporal Pulse Rate 54 L 51 L Respiratory Rate 16 15 Blood Pressure 184/73 H 178/74 H Blood Pressure Mean 110 108 Blood Pressure Source Monitor Monitor Blood Pressure Position Semi-Fowlers Semi-Fowlers Blood Pressure Location Left Arm Left Arm Pulse Ox 99 96 98 Oxygen Delivery Method Room Air Room Air Room Air Weight Weight: 75.568 kg Body Mass Index (BMI) 26.1 EEG Results Procedure Details EEG Procedure Details: MARY ALICE ESCALANTE is a 54 year old M with a past medical history of , who presents for evaluation of Electroencephalogram on DATE at TIME NIHSS NIHSS Nursing Documentation NIHSS Nursing Documentation: NIHSS: Ischemic Stroke/TIA Start: 03/04/25 10:24 Text: For ICU Patients: NIH sroke scale at Status: Complete presentation and every 2 hours or with change in RN caregiver Freq: [id number] Protocol: Activity Type Activity Date Activity User E-sign Co-sign Detail Recorded Client Recorded Date Recorded By Document 03/04/25 11:50 F desktop 03/04/25 11:51 F 03/04/25 11:50 NIH Stro (more content not included)... Normal [facility] Mean corpuscular hemoglobin (MCH) determinationOrdered By: Cruzito Bailey on 03-04-2025 MCH (RBC) [Entitic mass] 32.1 pg High 27.0-32.0 [facility] Mean corpuscular hemoglobin concentration (MCHC) determinationOrdered By: Cruzito Bailey on 03-04-2025 MCHC (RBC) [Mass/Vol] 35.3 g/dL 32-36 [facility] Mean platelet volume determi nationOrdered By: Cruzito Bailey on 03-04-2025 Platelet mean volume (Bld) [Entitic vol] 10.1 fL 6.2-12.0 [facility] Monocyte percentageOrdered B y: Cruzito Bailey on 03-04-2025 Monocytes/100 WBC (Bld) 9.5 % 0-10 [facility] Neutrophil percentageOrdered By: Cruzito Bailey on 03-04-2025 Neutrophils/100 WBC (Bld) 67.2 % 47-70 [facility] Nucleated red blood cell per centageOrdered By: Cruzito Bailey on 03-04-2025 Nucleated RBC/100 WBC (Bld) [Ratio] 0 % 0-5 [facility] Partial Thromboplast Timeon 03-04-2025 aPTT Coag (Bld) [Time] 26.0 s Normal 24.1-36.2 [facility] Comment on above: Performed By: #### L 500.2500, L300.4310, L100.0100, L501.4021, L300.3900 ####[facility] [id number] [place], [address] Platelet countOrdered By: Omer Bailey on 03-04-2025 Platelets (Bld) [#/Vol] 258 10*3/uL 150-450 [facility] Potassium (Unsp spec) [Mass/ Vol]Ordered By: Cruzito Bailey on 03-04-2025 Potassium [Moles/Vol] 4.1 mmol/L 3.3-5.1 [facility] Potassium measurement (mass/ volume)Ordered By: Cruzito Bailey on 03-04-2025 Potassium (Unsp spec) [Mass/Vol] 4.1 mmol/L 3.3-5.1 [facility] Prothrombin Time w/INRon INR Coag (PPP) [Relative time] 1.0 {INR} Normal [facility] Comment on above: Performed By: #### L 500.2500, L300.4310, L100.0100, L501.4021, L300.3900 ####[facility] [id number] [place], [address] PT Coag (PPP) [Time] 13.6 s Normal 11.7-14.9 [facility] Comment on above: Performed By: #### L 500.2500, L300.4310, L100.0100, L501.4021, L300.3900 ####[facility] [id number] [place], [address] Prothrombin timeOrdered By: Cruzito Bailey on 03-04-2025 PT Coag (PPP) [Time] 13.6 s 11.7-14.9 [facility] RBC Auto (Bld) [#/Vol]Ordere d By: Cruzito Bailey on 03-04-2025 RBC (Bld) [#/Vol] 5.07 10*6/uL 4.6-6.2 [facility] STROKE Brain/Head without Co nton 03-04-2025 STROKE Brain/Head without Cont [facility] Imaging Services [address] [place] [address] STROKE Brain/Head without Cont MR#: [id number] Acct: [id number] Name: MARY ALICE ESCALANTE Rep #: [id number] : 1970 M 54 From: Shan Reyna i, MD PCP: Care Physician,No Primary Status: REG ER Study: STROKE Brain/Head without Cont Date of Exam: 0 03/04/25 Exam# [id number] Ordering Dr: Cruzito Bailey MD PROCEDURE: STROKE BRAIN/HEAD WITHOUT CONT 03/04/2025 REASON FOR EXAM: NEURO DEFICIT, ACUTE, STROKE SUSPECTED TECHNIQUE: Head CT without intravenous contrast. Coronal and Sagittal reconstruction series were provided. One or more dose reduction techniques were used (e.g., Automated exposure control, adjustment of the mA and/or kV according to patient size, use of iterative reconstruction technique. RADIATION DOSE SUMMARY: DLP: 1505 mGycm COMPARISON: None. FINDINGS: Hypodensity are seen within the left subcortical white matter best seen on image 22/43 could represent area of acute infarct. There is no intracranial hemorrhage, mass effect or midline shift. There are no abnormal extra- axial fluid collections present. The the ventricles and sulci are within normal limits. Calvarium intact intact. Visualized paranasal sinuses are unremarkable. : CT/STROKE Brain/Head without Cont IMPRESSION: Hypodensity within the left subcortical white matter could represent acute to subacute infarct. Correlate with MR. No intracranial hemorrhage, mass effect or midline shift. Reading Location: [facility] CC: Dr. Cruzito Bailey MD; No Primary Care Physician Rn Transfer: Signed Normal [facility] STROKE CTA Head AND Neck W/C onon 03-04-2025 STROKE CTA Head AND Neck W/Con [facility] Imaging Services [address] [place] [id number] STROKE CTA Head AND Neck W/Con MR#: [id number] Acct: [id number] Name: MARY ALICE ESCALANTE Rep #: [id number] : 1970 M 54 From: Shan Reyna i, MD PCP: Care Physician,No Primary Status: REG ER Study: STROKE CTA Head AND Neck W/Con Date of Exam: 0 03/04/25 Exam# [id number] Ordering Dr: Cruzito Bailey MD PROCEDURE: STROKE CTA HEAD AND NECK W/CON 03/04/2025 REASON FOR EXAM: NEURO DEFICIT, ACUTE, STROKE SUSPECTED TECHNIQUE: CTA imaging of the head and neck from the aortic arch to the skull vertex with intravenous contrast. Coronal and Sagittal reconstruction series were provided. 3D, 3D post processing, 3D reconstructions, Maximum intensity projection (MIPs) Volume rendering and Shaded surface rendering was provided. CONTRAST: Isovue 370 VOLUME: 100 mL Gauge IV One or more dose reduction techniques were used (e.g., Automated exposure control, adjustment of the mA and/or kV according to patient size, use of iterative reconstruction technique). # of known CTs in the past 12 months: 0 # of known Cardiac Nuclear Medicine Studies in the past 12 months: 0 RADIATION DOSE SUMMARY: DLP: 1505 mGycm COMPARISON: CT head performed on same date. FINDINGS: No large filling defects seen within the intracranial vessels. No evidence of thrombosis. No hemodynamically significant stenosis seen within the bilateral ICA. CT/STROKE CTA Head AND Neck W/Con IMPRESSION: No large filling defects seen within the intracranial vessels. No evidence of thrombosis. No hemodynamically significant stenosis seen within the bilateral ICA. Reading Location: [facility] CC: Dr. Cruizto Bailey MD; No Primary Care Physician Rn Transfer: Signed Normal [facility] Serum creatinine measurement (mass/volume)Ordered By: Cruzito Bailey on 03-04-2025 Creatinine [Mass/Vol] 1.00 mg/dL 0.70-1.20 [facility] Serum glucose measurement (m ass/volume)Ordered By: Cruzito Bailey on 03-04-2025 Glucose [Mass/Vol] 110 mg/dL High 70-99 [facility] Serum or plasma calcium rachelle urement (mass/volume)Ordered By: Cruzito Bailey on 03-04-2025 Calcium [Mass/Vol] 9.2 mg/dL 7.6-11.0 [facility] Serum or plasma urea nitroge n measurement (mass/volume)Ordered By: Cruzito Bailey on 03-04-2025 Urea nitrogen [Mass/Vol] 12 mg/dL 4-19 [facility] Sodium levelOrdered By: Cruzito Bailey on 03-04-2025 Sodium [Moles/Vol] 136 mmol/L 133-145 [facility] Troponin T.cardiac High sens itivity method [Mass/Vol]Ordered By: Cruzito Bailey on 03-04-2025 Troponin T High Sensitivity 2 Hour 10 ng/L <22 [facility] Troponin T High Sensitivity 11 ng/L <22 [facility] Troponin T.cardiac [Mass/vol ume] in Serum or Plasma by High sensitivity methodOrdered By: Cruzito Bailey on 03-04-2025 Troponin T.cardiac High sensitivity method [Mass/Vol] 10 ng/L <22 [facility] [facility] Troponin T.cardiac High sensitivity method [Mass/Vol] 11 ng/L <22 [facility] White blood cell (WBC) count Ordered By: Cruzito Bailey on 03-04-2025 WBC (Bld) [#/Vol] 8.3 10*3/uL 4.4-11.0 [facility] aPTT Coag (PPP) [Time]Ordere d By: Cruzito Bailey on 03-04-2025 aPTT Coag (Bld) [Time] 26.0 s 24.1-36.2 [facility] Vital Signs Date Time Vital Sign Value Performing Clinician Syed león 04-10-2025 10:00-0400 Diastolic blood pressure 81 mm[Hg] No Primary Care Physician [facility] 04-10-2025 10:00-0400 Heart rate 73 /min No Primary Care Physician [facility] 04-10-2025 10:00-0400 Respiratory rate 14 /min No Primary Care Physician [facility] 04-10-2025 10:00-0400 SaO2% (BldA) [Mass fraction] 98 % No Primary Care Physician [facility] 04-10-2025 10:00-0400 Systolic blood pressure 101 mm[Hg] No Primary Care Physician [facility] 04-10-2025 07:28-0400 Body height 170.18 cm No Primary Care Physician [facility] 04-10-2025 07:28-0400 Body mass index (BMI) [Ratio] 26.4 kg/m2 No Primary Care Physician [facility] 04-10-2025 07:28-0400 Body temperature 97.6 [degF] No Primary Care Physician [facility] 04-10-2025 07:28-0400 Body weight 76.5 kg No Primary Care Physician [facility] 03-19-2025 10:47-0400 Body mass index (BMI) [Ratio] 26.3 kg/m2 No Primary Care Physician [facility] 03-19-2025 10:47-0400 Body temperature 98.6 [degF] No Primary Care Physician [facility] 03-19-2025 10:47-0400 Body weight 76.2 kg No Primary Care Physician [facility] 03-19-2025 10:47-0400 Diastolic blood pressure 78 mm[Hg] No Primary Care Physician [facility] 03-19-2025 10:47-0400 Heart rate 76 /min No Primary Care Physician [facility] 03-19-2025 10:47-0400 Respiratory rate 16 /min No Primary Care Physician [facility] 03-19-2025 10:47-0400 SaO2% (BldA) [Mass fraction] 97 % No Primary Care Physician [facility] 03-19-2025 10:47-0400 Systolic blood pressure 136 mm[Hg] No Primary Care Physician [facility] 03-05-2025 13:28-0400 Body temperature 97.8 [degF] No Primary Care Physician [facility] 03-05-2025 13:28-0400 Diastolic blood pressure 86 mm[Hg] No Primary Care Physician [facility] 03-05-2025 13:28-0400 Heart rate 51 /min No Primary Care Physician [facility] 03-05-2025 13:28-0400 Respiratory rate 15 /min No Primary Care Physician [facility] 03-05-2025 13:28-0400 SaO2% (BldA) [Mass fraction] 98 % No Primary Care Physician [facility] 03-05-2025 13:28-0400 Systolic blood pressure 173 mm[Hg] No Primary Care Physician [facility] 03-05-2025 07:17-0400 Body mass index (BMI) [Ratio] 26.1 kg/m2 No Primary Care Physician [facility] 03-04-2025 14:12-0400 Body height 170.18 cm No Primary Care Physician [facility] 03-04-2025 14:12-0400 Body weight 75.56 kg No Primary Care Physician [facility] 03-04-2025 10:00-0400 Diastolic blood pressure 61 mm[Hg] No Primary Care Physician [facility] 03-04-2025 10:00-0400 Heart rate 50 /min No Primary Care Physician [facility] 03-04-2025 10:00-0400 Respiratory rate 14 /min No Primary Care Physician [facility] 03-04-2025 10:00-0400 SaO2% (BldA) [Mass fraction] 99 % No Primary Care Physician [facility] 03-04-2025 10:00-0400 Systolic blood pressure 183 mm[Hg] No Primary Care Physician [facility] 03-04-2025 09:46-0400 Body temperature 98.7 [degF] No Primary Care Physician [facility] 03-04-2025 07:07-0400 Body height 170.18 cm No Primary Care Physician [facility] 03-04-2025 07:07-0400 Body mass index (BMI) [Ratio] 27.1 kg/m2 No Primary Care Physician [facility] 03-04-2025 07:07-0400 Body weight 78.8 kg No Primary Care Physician [facility] Encounters Encounter Date Encounter Type Care Provider Facility Start: 04-10-2025 End: 04-10-2025 Emergency department patient visit No Primary Care Physician -Emergency Department Work Phone: Start: 04-10-2025 End: 04-10-2025 ambulatory No Primary Care Physician [facility] Work Phone: Start: 04-10-2025 End: 04-10-2025 Patient encounter procedure Keyanna Walton BUTTON BRADDER-C -Pulmonary Services/Neurology Work Phone: Start: 04-10-2025 End: 04-10-2025 ambulatory Keyanna Walton Facility:[facility] Start: 03-27-2025 ambulatory Keyanna Walton Facility: [facility] Start: 03-27-2025 Registered Referred Keyanna Berrios -Cardiovascular Services Work Phone: Start: 03-23-2025 End: 03-23-2025 Patient encounter procedure Keyanna GRANADOS -[facility] Work Phone: Start: 03-23-2025 End: 03-23-2025 ambulatory Keyanna Walton Facility:[facility] Start: 03-20-[address] Todd Hale i DO -Speech Therapy Work Phone: Start: 03-20-2025 ambulatory No Primary Car e Physician Facility:[facility] Start: 03-19-2025 End: 03-19-2025 Patient encounter procedure Keyanna GRANADOS -[facility] Work Phone: Start: 03-19-2025 End: 03-19-2025 ambulatory No Primary Care Physician Facility[place] Start: 03-05-2025 Non-patient / Non-visit Dr. Todd casey DO -[facility] Work Phone: Start: 03-04-2025 ambulatory No Primary Car e Physician Facility:[facility] Start: 03-04-2025 Non-patient / Non-visit [facility]. James [facility] Start: 03-04-2025 Non-patient / Non-visit Dr. Todd casey DO -[facility] Work Phone: Start: 03-04-2025 End: 03-05-2025 ambulatory No Primary Care Physician Facility:[facility] Start: 03-04-2025 End: 03-05-2025 Evaluation and management of inpatient Dr. Todd Alfonso DO -Intensive Care Unit Work Phone: Start: 03-04-2025 End: 03-05-2025 observation encounter No Primary Care Physician [facility] Work Phone: Procedures Date Procedure Procedure Detail Performing Clinician Start: 04-10-2025 Estimated creatinine clearance No Primar y Care Physician Start: 03-23-2025 SEPIDEH measurement No Primary Care Physician Comment on above: Performed at: [address], [place], [place] [id number] Director: Edwardo Lopez PhD, Phone: [phone] Start: 03-23-2025 Antibody to extractable nuclear antigen measurement No Primary Care Physician Comment on above: Test not performed Start: 03-23-2025 Antibody to DAVID-1 measurement No Primary Care Physician Comment on above: Test not performed Start: 03-23-2025 Antibody to lupus La protein measurement No Primary Care Physician Comment on above: Test not performed Start: 03-23-2025 Antibody to SS-A measurement No Primary Care Physician Comment on above: Test not performed Start: 03-23-2025 Autoantibody measurement No Primary Care Physician Comment on above: Test not performed Start: 03-23-2025 C>3< complement assay No Primary Care Physician Start: 03-23-2025 Factor V Leiden genotype No Primary Care Physician Comment on above: Result: c.1601G>A (p.[id number]) - Not De tectedThis result is not associated with an increased risk for venousthromboembolism. See Additional Clinical Information andComments.Additional Clinical Information:Venous thromboembolism is a multifactorial diseaseinfluenced by genetic, environmental, and circumstantialrisk factors. The c.1601G>A (p. Elt314Mvp) variant in theF5 gene, commonly referred to as Factor V Leiden, is agenetic risk factor for venous thromboembolism.Heterozygous carriers of this variant have a 6- to 8-foldincreased risk for venous thromboembolism. Individualshomozygous for this variant (ie, with a copy of the varianton each chromosome) have an approximately 80-fold increasedrisk for venous thromboembolism. Individuals who carry chadwick c.*97G>A variant in the F2 gene and Factor V Leiden havean approximately 20-fold increased risk for venousthromboembolism. Risks are likely to be even higher in morecomplex genotype combinations involving the F2 c.*97G>Avariant and Factor V Leiden (PMID: 31823799). Additionalrisk factors include but are not limited to: deficiency ofprotein C, protein S, or antithrombin III, age, male sex,personal or family history of deep vein thromboembolism,smoking, surgery, prolonged immobilization, malignantneoplasm, tamoxifen treatment, raloxifene treatment, oralcontraceptive use, hormone replacement therapy, andpregnancy. Management of thrombotic risk and thromboticevents should follow established guidelines and fit theclinical circumstance. This result cannot predict theoccurrence or recurrence of a thrombotic event.Comment:Genetic counseling is recommended to discuss thepotential clinical implications of positive results, aswell as recommendations for testing family members.Genetic Coordinators are available for health careproviders to discuss results at [phone]).Test Details:Variant Analyzed: c.1601G>A (p. [id number]), referred toas Factor V LeidenMethods/Limitations:DNA analysis of the F5 gene (NM_000130.5) was performedby PCR amplification followed by restriction enzymeanalysis. The diagnostic sensitivity is >99%. Results mustbe combined with clinical information for the most accurateinterpretation. Molecular-based testing is highly accurate,but as in any laboratory test, diagnostic errors may occur.False positive or false negative results may occur forreasons that include genetic variants, blood transfusions,bone marrow transplantation, somatic or tissue-specificmosaicism, mislabeled samples, or erroneous representationof family relationships.This test was developed and its performance characteristicsdetermined by [employer]. It has not been cleared orapproved by the Food and Drug Administration.References:Alen Brannon, Janice CASTILLO, Jesus R, Zelda WW, Thee RUCKER; MGProfessional Practice and Guidelines Committee. Addendum:[employer] [employer] consensus statement onfactor V Leiden mutation testing. Yessica Med. 2020Jan 28.doi: 10.1038/g65705-913-10745-p. PMID: 61283955.Mickey SIDHU. Factor V Leiden Thrombophilia. 1998April 08(Updated 2017Nov 29). In: Jose D MP, Jaquelin HH, Miri RA,et al., editors. Faustino(R) (Internet). [place] ([place]):[facility], [place]; 2057-6754. Availablefrom: https://www.ncbi.nlm.nih.gov/books/YXT3868/Krishna Brannon, Janice CASTILLO, Mannie X, Ernesto B, Stephanie EB, Isabel P,Javi CS; [facility] Laboratory Elevator Constructor Supervisor Committee.Venous thromboembolism laboratory testing (factor V Leidenand factor II c.*97G>A), 2018 update: a technical standardof the [place] [employer] and [employer](ACMG). Yessica Med. 2018 Oct;20(12):3140-8802. doi:10.1038/y25205-563-2664-z. Epub 2017Aug 30. PMID: 36335983. Start: 03-23-2025 Folic acid measurement, RBC No Primary C are Physician Start: 03-23-2025 Homocysteine measurement No Primary Care Physician Start: 03-23-2025 Laboratory data interpretation No Primar y Care Physician Comment on above: No lupus anticoagulant was detected. Start: 03-23-2025 Lupus anticoagulant assay, platelet neutralization method No Primary Care Physician Start: 03-23-2025 Lupus anticoagulant screening test No Pr imary Care Physician Start: 03-23-2025 Prothrombin time No Primary Care Physician Start: 03-23-2025 PSYCHIATRIC CLINICAL NURSE SPECIALIST antibody measurement No Primary Care Physician Comment on above: Test not performed Start: 03-23-2025 Serum IgM anticardiolipin measurement No Primary Care Physician Comment on above: Negative: <13 Indeterminate: 13 - 20 Low -Med Positive: >20 - 80 High Positive: >80 Start: 03-04-2025 X-ray of chest, PA and lateral views No Primary Care Physician Start: 03-04-2025 Estimated creatinine clearance No Primar y Care Physician Start: 03-04-2025 CT angiography of head and neck No Prima ry Care Physician Start: 03-04-2025 CT of head without contrast No Primary C are Physician Plan of Treatment Date Care Activity Detail Author Start: 05-05-2025 ambulatory Ambulatory Facility:[facility] Start: 04-10-2025 [facility] Start: 04-10-2025 [facility] Start: 04-10-2025 Sleep electroencephalogram in sleep-deprived patient [facility] Start: 03-05-2025 Patient discharge [facility] Start: 03-04-2025 Following clinical pathway protocol [facility] Start: 03-04-2025 Ambulation without limitation [facility] Start: 03-04-2025 Assessment of risk of venous thromboembolism [facility] Start: 03-04-2025 Cardiac monitoring [facility] Start: 03-04-2025 Catheterization of vein [facility] Start: 03-04-2025 Consultation [facility] Start: 03-04-2025 Continuous pulse oximetry [facility] Start: 03-04-2025 Elevation of head of bed [facility] Start: 03-04-2025 Exercises [facility] Start: 03-04-2025 Insertion of catheter into peripheral vein [facility] Start: 03-04-2025 Measuring intake and output [facility] Start: 03-04-2025 Notification of physician [facility] Start: 03-04-2025 Oxygen therapy [facility] Start: 03-04-2025 Patient referral to dietitian [facility] Start: 03-04-2025 Providing care according to standard [facility] Start: 03-04-2025 Referral to occupational therapist [facility] Start: 03-04-2025 Referral to service [facility] Start: 03-04-2025 Speech therapy assessment [facility] Start: 03-04-2025 Telemedicine consultation with patient [facility] Start: 03-04-2025 Tobacco use cessation education [facility] Start: 03-04-2025 Vital signs measurements [facility] Start: 03-04-2025 End: 03-04-2025 [facility] Start: 03-04-2025 Verification routine [facility] Start: 03-04-2025 Admission procedure [facility] Start: 03-04-2025 Hospital admission, emergency, from emergency room, medical nature [facility] Start: 03-04-2025 Oxygen therapy [facility] Start: 03-04-2025 End: 03-04-2025 [facility] MR Brain WO and W contrast IV [facility] Patient Education Hyponatremia D c ED Fainting, Uncertain Cause [facility] Work Phone: Patient referral [facility] Work Phone: Troponin T.cardiac [Mass/volume] in Serum or Plasma by High sensitivity method [facility] Troponin T.cardiac [Mass/volume] in Serum or Plasma by High sensitivity method [facility] Vitamin B6 measurement [facility] XR Orbit - bilateral Views for foreign body [facility] Payers Date Payer Category Payer Self-pay 2024 Unknown [id number] Unknown [id number] 2.16.8 [id number] Unknown [id number] 2.16.8 [id number] Unknown [id number] 2.16.8 [id number] Unknown [id number] 2.16.8 [id number] Unknown [id number] 2.16.8 [id number] Unknown [id number] 2.16.8 [id number] Unknown [id number] 2.16.8 [id number] Unknown [id number] 2.16.8 [id number] Unknown [id number] 2.16.8 [id number] Unknown [id number] 2.16.8 [id number] Unknown [id number] 2.16.8 [id number] Social History Date Type Detail Facility Start: 03-04-2025 Tobacco smoking stat us [facility] Current Heavy tobacco smoker [facility] Start: 03-04-2025 End: 03-05-2025 Sex Male (finding) [facility] Start: 1970 Sex Assigned At Male [facility] Start: 03-05-2025 End: 04-10-2025 Tobacco smoking status FLIS Smokes tobacco daily (finding) [facility] Start: 03-05-2025 Cigarettes Cigarettes [facility] Goals Date Patient Goal Desired Activity /State Functional Status Date Assessment Result Facility 03-05-2025 Functional status Ambulates [facility] Work Phone: Mental Status Date Assessment Result Facility 04-10-2025 Cognitive function Level Of Consciousness Awake [facility] Work Phone: 03-05-2025 Cognitive function Voice/Name [facility] Work Phone: 03-04-2025 Cognitive function Voice/Name [facility] Work Phone: Clinical Notes 03-04-2025 to 03-05-2025 Note Date & Type Note Facility 03-05-2025 Discharge summary [facility] 03-05-2025 Note [facility] Medical Records Department [address] [place] [address] Discharge Summary 03/05/25 1333 MR#: [id number] Acct: [id number] Name: MAR YALICE ESCALANTE Rep #: [id number] : 1970 54 From: Todd Alfonso DO PCP: Care Physician,No Primary Status:ADM JEVON [facility] Prov[facility] Date of Admission: 03/04/25 Primary Care Physician: No Primary Care Phys Consultations 03/04/25 10:24 Consult: Tele-Neurology Routine Consulting Provider: [facility] Reason for Consult: Acute Ischemic Stroke/TIA EMERGENT Consult: No MD Notified: Yes Date Notified: 03/04/25 Time Notified: 08:41 Method of Notification: Answering Service Nursing Unit Staff Notify [facility] of Tele-Neurology Consult: Yes Reason For Visit: CVA Diagnosis Discharge Diagnosis (1) CVA (cerebral vascular accident): Status: Acute Code(s): I63.9 - Cerebral infarction, unspecified Plan: Patient presented out of the window for TNK given delayed presentation CAT scan already showing signs of stroke in the left subcortical region. PT, OT and speech therapy. Start aspirin and high intensity statin. Neurology did not feel the need for MRI as CVA already present on CT, so MRI was cancelled. 2d echo unremarkable. (2) Hypertension: Status: Chronic Code(s): I10 - Essential (primary) hypertension Plan: Given that patient is well over 24 hours after presentation, will start initiating treatment. Patient's admission blood pressure in the 190s, since improved to 160s. Will start amlodipine 5mg/day. Add HCTZ 25 mg/d. Increase amlodipine to 10mg/d. Plan Tobacco abuse: Cessation advised. Pt states that he plans on quitting. Advised his significant other to quit, too. VTE prophylaxis not indicated given observation status CODE STATUS: Just with the patient and his significant other. Patient is full code. Patient does not have a primary care. He will need to establish upon discharge. As well as follow up with neurology as outpt. Medications at Discharge Home Medications NK 03/04/25 amlodipine 10 mg tablet 10 mg PO DAILY #30 tabs 03/05/25 aspirin 81 mg chewable tablet 81 mg PO BREAKFAST #0 tabs 03/05/25 atorvastatin 80 mg tablet 80 mg PO QHS #30 tabs 03/05/25 hydrochlorothiazide 25 mg tablet 25 mg PO DAILY #30 tabs 03/05/25 Hospital Course Operations None Procedures 2-D Echocardiogram Summary of Care Provided Minutes Spent on Discharge: 32 Weight / BMI Weight Weight: 75.568 kg Body Mass Index (BMI) 26.1 ABG / Lab / Microbiology Data 03/04/25 07:22 03/04/25 07:22 Laboratory: Laboratory Results - last 24 hr 03/05/25 04:12: Triglycerides 116, Cholesterol 181, LDL Cholesterol, Calc 116, VLDL Cholesterol 23, HDL Cholesterol 42, Cholesterol/HDL Ratio 4.34 Radiography Diagnostic Testing: Radiology Impression Echocardiogram 03/04/25 10:24 Interpretation Summary Normal LV size. Left ventricular systolic function is normal. The left ventricular ejection fraction is 60 %. The left atrium is mildly enlarged. Stage 1 diastolic dysfunction. Bubble contrast study negative for right to left interatrial shunt. Ordering Physician: Todd Alfonso Referring Physician: NO PCP Performed By: Savannah Mccoy, EM, RVT D/C Instructions Discharge Diet: Low fat / Low cholesterol DC O2, CPAP, BIPAP Needs Home O2 Discharge instructions: No Meaningful Use Info Meaningful Use Meaningful Use Diagnoses (Choose all that apply): Ischemic CVA CVA Therapy Assessed for PT,OT and/or ST?: Yes Ischemic Stroke Antithrombotic order at d/c?: Yes Dx of Atrial fib/flutter?: No Anticoagulant at discharge?: No Reason anticoagulant not ordered: Treatment not Indicated Statin Dosing Therapy Reference: STATIN DOSE THERAPY REFERENCE: * Patients > 75 years receive moderate or high dose statin therapy. * Patients 75 years or YOUNGER should receive HIGH intensity statin dose unless contraindicated. You will be required to document reason for non-treatment if statin daily dose does not meet guidelines. HIGH DOSE STATIN THERAPY DAILY Atorvastatin > than or = to 40 mg Rosuvastatin > than or = to 20 mg Amlodipine + Atorvastatin > than or = to 2.5/40 mg Ezetimibe + Simvastatin 10/80 mg Simvastatin 80mg Statins at discharge?: Yes If patient is 75 or younger, pt will be discharged on HIGH intensity statin.: Yes Primary Dx Acute Ischemic CVA?: Yes IV thrombolytic ordered during stay?: No Reason IV thrombolytic not ordered: Treatment not Indicated Discharge Plan Admission Admit Date/Time: 03/04/25 08:40 Primary Reason for Your Visit: stroke Attend (more content not included)... [facility] 03-05-2025 Progress note [facility] 03-05-2025 Progress note Note Date/Time March 05, 2025 1:33pm [facility] Medical Records Department [address] [place] [address] Progress Note - Hospitalist 03/05/25 0723 MR#: [id number] Acct: [id number] Name: MARY ALICE ESCALANTE Rep #:[id number] : 1970 54 From: Todd Alfonso DO PCP: Care Physician,No Primary Status :ADM JEVON Location: ICU ICU05-1 Reason for Visit Reason for Visit: Diagnoses Essential (primary) hypertension (03/04/25) Cerebral infarction, unspecified (03/04/25) Subjective Subjective Still with slurred speech, but improved. Objective Data Objective Data Vital Signs: Vital Signs Temp Pulse Resp BP Pulse Ox O2 Del Method 36.6 C 59 L 15 163/63 H 97 Room Air 03/05/25 04:18 03/05/25 04:18 03/05/25 04:18 03/05/25 04:18 03/05/25 04:18 03/05/25 04:18 Oxygen Delivery Method Room Air Weight: 75.568 kg Body Mass Index (BMI) 26.1 Intake & Output: Intake and Output for Last 24 Hours 03/03/25 03/04/25 03/05/25 23:59 23:59 23:59 Intake Total 960 / 960 480 / 480 Balance 960 / 960 480 / 480 Lab / Micro Data 03/04/25 07:22 03/04/25 07:22 Labs: Laboratory Results - last 24 hr 03/04/25 07:22: WBC 8.3, RBC 5.07, Hgb 16.3, Hct 46.2, MCV 91.1, MCH 32.1 H, MCHC 35.3, RDW Std Deviation 44.8 H, RDW Coeff of Juan 13.5, Plt Count 258, MPV 10.1, Immature Gran % (Auto) 0.500, Neut % (Auto) 67.2, Lymph % (Auto) 21.5, [place] % (Auto) 9.5, Eos % (Auto) 0.7, Baso % (Auto) 0.6, Absolute Neuts (auto) 5.6, Absolute Lymphs (auto) 1.79, Nucleated RBC % 0, PT 13.6, INR 1.0, APTT 26.0, Sodium 136, Potassium 4.1, Chloride 100, Carbon Dioxide 23.7, Anion Gap 11, BUN 12, Creatinine 1.00, Estim Creat Clear Calc 78.03, Est GFR (MDRD) Non-Af89, BUN/Creatinine Ratio 12.0, Glucose 110 H, Calcium 9.2, Troponin T High Sens 11 03/04/25 09:55: Troponin T Hi Sens 2 Hr 10 03/05/25 04:12: Triglycerides 116, Cholesterol 181, LDL Cholesterol, Calc 116, VLDL Cholesterol 23, HDL Cholesterol 42, Cholesterol/HDL Ratio 4.34 Radiography Diagnostic Testing: Radiology Impression Brain CT 03/04/25 07:17 IMPRESSION: Hypodensity within the left subcortical white matter could represent acute to subacute infarct. Correlate with MR. No intracranial hemorrhage, mass effect or midline shift. Reading Location: [facility] Head/Neck CTA 03/04/25 07:17 IMPRESSION: No large filling defects seen within the intracranial vessels. No evidence of thrombosis. No hemodynamically significant stenosis seen within the bilateral ICA. Reading Location: [facility] Chest X-Ray 03/04/25 07:35 IMPRESSION: Mild pulmonary vascular congestion. 1 cm nodule seen within the right lower lobe. Follow-up as per Fleischner society criteria. Reading Location: [facility] Echocardiogram 03/04/25 10:24 Interpretation Summary Normal LV size. Left ventricular systolic function is normal. The left ventricular ejection fraction is 60 %. The left atrium is mildly enlarged. Stage 1 diastolic dysfunction. Bubble contrast study negative for right to left interatrial shunt. Ordering Physician: Todd Alfonso Referring Physician: MICHAEL PCP Performed By: Savannah Mccoy, EM, RVT Rhythm Strip Rhythm Strip: Sinus bradycardia Rate: 58 Ectopy: None Physical Exam Const alert and no apparent distress Constitutional Narrative: slurred speech, but more coherent today. edentulous. HEENT head/scalp atraumatic and moist oral mucous membranes Resp normal respiratory effort and no retractions Assessment & Plan Assessment/Plan (1) CVA (cerebral vascular accident): PLAN: Patient presented out of the window for TNK given delayed presentation CAT scan already showing signs of stroke in the left subcortical region. PT, OTand speech therapy. Start aspirin and high intensity statin. Neurology did not feel the need for MRI as CVA already present on CT, so MRI wascancelled. 2d echo unremarkable. (2) Hypertension: PLAN: Given that patient is well over 24 hours after presentation, will start initiating treatment. Patient's admission blood pressure in the 190s, since improved to 160s. Will start amlodipine 5mg/day. Add HCTZ 25 mg/d. Increase amlodipine to 10mg/d. PLAN: Plan Tobacco abuse: Cessation recommended VTE prophylaxis not indicated given observation status CODE STATUS: Just with the patient and his significant other. Patient is full code. Patient does not have a primary care. He will need to establish upon discharge.As well as follow up with neurology as outpt. 03/05/25 1333 <Electronically signed by Todd Alfonso DO> Cosigner Signature (if applicable): CC: ~ Signed [facility] Work Phone: 1(640) 889-617604-09-2025 Consult note Author Clayton Ruby [facility] Note Date/Time March 04, 2025 5:55 pm [facility] Medical Records Department [address] [place] [address] Consultation - Neurology 03/04/25 1745 MR#: [id number] Acct: [id number] Name: MARY ALICE ESCALANTE Rep #:[id number] 1 : 1970 54 From: Clayton Ruby MD PCP: Care Physician,No Primary Status :ADM JEVON Location: ICU ICU05-1 Assessment and Plan: Stroke Assessment/Plan Ischemic stroke, likely small vessel in etiology. Uncontrolled hypertension and smoking are likely underlying cause. Plan: Aspirin 81, clopidogrel 300mg now. Continue clopidogrel 75mg and aspirin 81mg daily x 21 days then stop clopidogrel. Continue aspirin 81mg daily indefinitely. Start atorvastatin 80mg daily. Send lipid panel and hemoglobin A1c. Obtain TTE. No need for MRI as stroke clearly seen on CT head. 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 Goal BP < 130/80. Plan for 30 day engineering and development director on discharge to screen for atrial fibrillation. Follow up with neurologist as an outpatient. HPI Consult Data Date of Consult: 03/04/25 HPI Narrative HPI Narrative: MARY ALICE ESCALANTE, is a 54M w/ epilepsy, tobacco use, previously undiagnosed HTN. 03/02/25 acute dysarthria. CTH w/ L subcortical hypodensity c/w subacute infarct. CTA negative. BP 215/96 on admission. SBP is typically in the 180s at home. [facility] Medical History Epilepsy Home Medications ?Medication ?Instructions ?Recorded ?Last Taken ?Type NK 03/04/25 Unknown History Allergy/AdvReac Type Severity Reaction Status Date / Time No Known Allergies Allergy Verified 03/04/25 07:07 Social History (Updated 03/04/25 @ 08:[address] Todd Alfonso DO) Smoking Status: Current every day smoker tobacco type: cigarettes alcohol intake: current alcohol intake frequency: a few times a month substance use type: marijuana Vital Signs Vital Signs Vital Signs: 03/04/25 07:07 03/04/25 07:19 03/04/25 07:19 Temperature 98.2 F 98.9 F Temperature Source Oral Oral Pulse Rate 68 62 Respiratory Rate 19 H 14 Blood Pressure 215/96 H 211/94 H Blood Pressure Mean 135 133 Blood Pressure Source Blood Pressure Position Blood Pressure Location Pulse Ox 97 98 Oxygen Delivery Method Room Air Room Air Room Air 03/04/25 07:47 03/04/25 08:02 03/04/25 09:46 Temperature 98.6 F 98.7 F Temperature Source Oral Pulse Rate 78 64 64 Respiratory Rate 16 18 18 Blood Pressure 211/76 H 203/81 H 180/76 H Blood Pressure Mean 121 121 110 Blood Pressure Source Blood Pressure Position Blood Pressure Location Pulse Ox 98 98 99 Oxygen Delivery Method Room Air Room Air 03/04/25 10:00 03/04/25 10:24 03/04/25 10:39 Temperature Temperature Source Pulse Rate 50 L 56 L 52 L Respiratory Rate 14 16 11 L Blood Pressure 183/61 H 192/90 H 183/81 H Blood Pressure Mean 101 124 115 Blood Pressure Source Monitor Monitor Blood Pressure Position Semi-Fowlers Semi-Fowlers Blood Pressure Location Left Arm Left Arm Pulse Ox 99 98 99 Oxygen Delivery Method Room Air Room Air Room Air 03/04/25 10:54 03/04/25 11:09 03/04/25 11:30 Temperature 98.1 F Temperature Source Temporal Pulse Rate 52 L 50 L 55 L Respiratory Rate 16 18 17 Blood Pressure 196/83 H 177/99 H 175/84 H Blood Pressure Mean 120 125 114 Blood Pressure Source Monitor Monitor Monitor Blood Pressure Position Semi-Fowlers Semi-Fowlers Semi-Fowlers Blood Pressure Location Left Arm Left Arm Left Arm Pulse Ox 98 98 99 Oxygen Delivery Method Room Air Room Air Room Air 03/04/25 12:00 03/04/25 15:07 03/04/25 17:22 Temperature 98.1 F 97.6 F L Temperature Source Temporal Temporal Pulse Rate 54 L 51 L Respiratory Rate 16 15 Blood Pressure 184/73 H 178/74 H Blood Pressure Mean 110 108 Blood Pressure Source Monitor Monitor Blood Pressure Position Semi-Fowlers Semi-Fowlers Blood Pressure Location Left Arm Left Arm Pulse Ox 99 96 98 Oxygen Delivery Method Room Air Room Air Room Air Weight Weight: 75.568 kg Body Mass Index (BMI) 26.1 EEG Results Procedure Details EEG Procedure Details: MARY ALICE ESCALANTE is a 54 year old M with a past medical history of , who presents for evaluation of Electroencephalogram on DATE at TIME NIHSS NIHSS Nursing Documentation NIHSS Nursing Documentation: NIHSS: Ischemic Stroke/TIA Start: 03/04/25 10:24 Text: For ICU Patients: NIH sroke scale at Status: Complete presentation and every 2 hours or with change in RN caregiver Freq: [id number] Protocol: Activity Type Activity Date Activity User E-sign Co-sign Detail Recorded Client Recorded Date Recorded By Document 03/04/25 11:50 [facility] desktop 03/04/25 11:51 [facility] 03/04/25 11:50 NIH Stroke Scale [NIHSS] A score of 0 is normal or asymptomatic . Total possible score is 42. Inpatient: RN or Physician to activate a stroke alert for onset of new stroke symptoms or with NIHSS increase >/= 3 points. Following change in neurological status, NIHSS will be performed per physician order or more frequently PRN. -1a. Level of Consciousness Alert; keenly responsive -1b. LOC Questions Answers BOTH questions correctly. -1c. LOC Commands Performs both tasks correctly . -2. Best Gaze Normal -3. Visual No visual loss -4. Facial Palsy Normal symmetrical movements -5a. Left Arm No drift; arm holds 90 (or 45 ) degrees for full 10 seconds -5b. Right Arm No drift; arm holds 90 (or 45 ) degrees for full 10 seconds -6a. Left Leg No drift; leg holds 30-degree position for full 5 seconds -6b. Right Leg No drift; leg holds 30-degree position for full 5 seconds -7. Limb Ataxia Absent -8. Sensory Normal; no sensory loss -9. Best Language No aphasia; normal -10. Dysarthria Normal -11. Extinction and Inattention No abnormality -Total 0 Query Text:A score of 0 is normal or asymptomatic. Total possible score is 42 . ED: Notify Physician for NIHSS increase by > / = 3 points. Inpatient: RN or Physician to activate a stroke alert for NIHSS increase of > / = 3 points. Physical Exam Narrative No aphasia or neglect. Conversational. Dysarthria present. Orbiting around RUE. Finger tapping symmetric. No drift in extremities. No ataxia. Sensation equal bilaterally. NIHSS 1 (dysarthria). Lab / Micro Data 03/04/25 07:22 03/04/25 07:22 Labs: Laboratory Results - last 24 hr 03/04/25 07:22: WBC 8.3, RBC 5.07, Hgb 16.3, Hct 46.2, MCV 91.1, MCH 32.1 H, MCHC 35.3, RDW Std Deviation 44.8 H, RDW Coeff of Juan 13.5, Plt Count 258, MPV 10.1, Immature Gran % (Auto) 0.500, Neut % (Auto) 67.2, Lymph % (Auto) 21.5, [place] % (Auto) 9.5, Eos % (Auto) 0.7, Baso % (Auto) 0.6, Absolute Neuts (auto) 5.6, Absolute Lymphs (auto) 1.79, Nucleated RBC % 0, PT 13.6, INR 1.0, APTT 26.0, Sodium 136, Potassium 4.1, Chloride 100, Carbon Dioxide 23.7, Anion Gap 11, BUN 12, Creatinine 1.00, Estim Creat Clear Calc 78.03, Est GFR (MDRD) Non-Af 89, BUN/Creatinine Ratio 12.0, Glucose 110 H, Calcium 9.2, Troponin T High Sens 11 03/04/25 09:55: Troponin T Hi Sens 2 Hr 10 Rhythm Strip Rhythm Strip: Sinus bradycardia Rate: 58 Ectopy: None Imaging Radiology Impression Brain CT 03/04/25 07:17 IMPRESSION: Hypodensity within the left subcortical white matter could represent acute to subacute infarct. Correlate with MR. No intracranial hemorrhage, mass effect or midline shift. Reading Location: [id number] Head/Neck CTA 03/04/25 07:17 IMPRESSION: No large filling defects seen within the intracranial vessels. No evidence of thrombosis. No hemodynamically significant stenosis seen within the bilateral ICA. Reading Location: [facility] Chest X-Ray 03/04/25 07:35 IMPRESSION: Mild pulmonary vascular congestion. 1 cm nodule seen within the right lower lobe. Follow-up as per Fleischner society criteria. Reading Location: [facility] Active Medications Active Medications Active Medications: Current Medications Generic Name Dose Route Start Last Admin Trade Name Freq PRN Reason Stop Dose Admin Acetaminophen 650 mg 03/04/25 10:24 Acetaminophen 325 Mg Tablet PO Q6H PRN PRN Pain 1-10 Or Fever>100.7 Amlodipine Besylate 5 mg 03/04/25 10:24 03/04/25 11:28 Amlodipine 5 Mg Tablet PO 5 mg DAILY [facility] Administration Protocol Aspirin 81 mg 03/05/25 08:00 Aspirin 81 Mg Tab.Chew PO BREAKFAST [facility] Atorvastatin Calcium 80 mg 03/04/25 22:00 Atorvastatin Calcium 80 Mg Tablet PO QHS [facility] Hydralazine HCl 5 mg 03/04/25 10:24 Hydralazine 20 Mg/Ml Vial IV 03/05/25 10:24 Q30M PRN maintain BP parameters with HR <60 Labetalol HCl 20 mg 03/04/25 07:17 03/04/25 07:59 Labetalol 20mg/4ml Syringe IV 03/05/25 07:17 20 mg X1 PRN Administration BLOOD PRESSURE Labetalol HCl 10 - 20 mg 03/04/25 10:24 Labetalol 20mg/4ml Syringe IV 03/05/25 10:24 Q10M PRN PRN maintain BP parameters with HR >/=60 Ondansetron HCl 4 mg 03/04/25 10:24 Ondansetron 4 Mg/2 Ml Vial IV Q8H PRN PRN NAUSEA/VOMITING Sodium Chloride 10 - 40 ml 03/04/25 10:41 0.9% Saline Lock 10 Ml Syringe IV UD PRN SALINE FLUSH 04/09/25 1755 <Electronically signed by Clayton Ruby MD> Cosigner Signature (if applicable): CC: No Primary Care Physician~ Signed [facility] Work Phone: [phone]) 497-369404-09-2025 Consult note [facility] Medical Records Department [address] [place] [address] Consultation - Neurology 03/04/25 174 MR#: [id number] Acct: [id number] Name: MARY ALICE ESCALANTE Rep #:[id number] 1 : 1970 54 From: Clayton Ruby MD PCP: Care Physician,No Primary Status :ADM JEVON Location: ICU ICU05-1 Assessment and Plan: Stroke Assessment/Plan Ischemic stroke, likely small vessel in etiology. Uncontrolled hypertension and smoking are likely underlying cause. Plan: Aspirin 81, clopidogrel 300mg now. Continue clopidogrel 75mg and aspirin 81mg daily x 21 daysthen stop clopidogrel. Continue aspirin 81mg daily indefinitely. Start atorvastatin 80mg daily. Send lipid panel and hemoglobin A1c. Obtain TTE. No need for MRI as stroke clearly seen on CT head. 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 Goal BP < 130/80. Plan for 30 day engineering and development director on discharge to screen for atrial fibrillation. Follow up with neurologist as an outpatient. HPI Consult Data Date of Consult: 03/04/25 HPI Narrative HPI Narrative: MARY ALICE ESCALANTE, is a 54M w/ epilepsy, tobacco use, previously undiagnosed HTN. 03/02/25 acute dysarthria. CTH w/ L subcortical hypodensity c/w subacute infarct. CTA negative. BP 215/96 on admission. SBP is typically in the 180s at home. [facility] Medical History Epilepsy Home Medications ?Medication ?Instructions ?Recorded ?Last Taken ?Type NK 03/04/25 Unknown History Allergy/AdvReac Type Severity Reaction Status Date / Time No Known Allergies Allergy Verified 03/04/25 07:07 Social History (Updated 03/04/25 @ 08:[address] Todd Alfonso DO) Smoking Status: Current every day smoker tobacco type: cigarettes alcohol intake: current alcohol intake frequency: a few times a month substance use type: marijuana Vital Signs Vital Signs Vital Signs: 03/04/25 07:07 03/04/25 07:19 03/04/25 07:19 Temperature 98.2 F 98.9 F Temperature Source Oral Oral Pulse Rate 68 62 Respiratory Rate 19 H 14 Blood Pressure 215/96 H 211/94 H Blood Pressure Mean 135 133 Blood Pressure Source Blood Pressure Position Blood Pressure Location Pulse Ox 97 98 Oxygen Delivery Method Room Air Room Air Room Air 03/04/25 07:47 03/04/25 08:02 03/04/25 09:46 Temperature 98.6 F 98.7 F Temperature Source Oral Pulse Rate 78 64 64 Respiratory Rate 16 18 18 Blood Pressure 211/76 H 203/81 H 180/76 H Blood Pressure Mean 121 121 110 Blood Pressure Source Blood Pressure Position Blood Pressure Location Pulse Ox 98 98 99 Oxygen Delivery Method Room Air Room Air 03/04/25 10:00 03/04/25 10:24 03/04/25 10:39 Temperature Temperature Source Pulse Rate 50 L 56 L 52 L Respiratory Rate 14 16 11 L Blood Pressure 183/61 H 192/90 H 183/81 H Blood Pressure Mean 101 124 115 Blood Pressure Source Monitor Monitor Blood Pressure Position Semi-Fowlers Semi-Fowlers Blood Pressure Location Left Arm Left Arm Pulse Ox 99 98 99 Oxygen Delivery Method Room Air Room Air Room Air 03/04/25 10:54 03/04/25 11:09 03/04/25 11:30 Temperature 98.1 F Temperature Source Temporal Pulse Rate 52 L 50 L 55 L Respiratory Rate 16 18 17 Blood Pressure 196/83 H 177/99 H 175/84 H Blood Pressure Mean 120 125 114 Blood Pressure Source Monitor Monitor Monitor Blood Pressure Position Semi-Fowlers Semi-Fowlers Semi-Fowlers Blood Pressure Location Left Arm Left Arm Left Arm Pulse Ox 98 98 99 Oxygen Delivery Method Room Air Room Air Room Air 03/04/25 12:00 03/04/25 15:07 03/04/25 17:22 Temperature 98.1 F 97.6 F L Temperature Source Temporal Temporal Pulse Rate 54 L 51 L Respiratory Rate 16 15 Blood Pressure 184/73 H 178/74 H Blood Pressure Mean 110 108 Blood Pressure Source Monitor Monitor Blood Pressure Position Semi-Fowlers Semi-Fowlers Blood Pressure Location Left Arm Left Arm Pulse Ox 99 96 98 Oxygen Delivery Method Room Air Room Air Room Air Weight Weight: 75.568 kg Body Mass Index (BMI) 26.1 EEG Results Procedure Details EEG Procedure Details: MARY ALICE ESCALANTE is a 54 year old M with a past medical history of , who presents for evaluation of Electroencephalogram on DATE at TIME NIHSS NIHSS Nursing Documentation NIHSS Nursing Documentation: NIHSS: Ischemic Stroke/TIA Start: 03/04/25 10:24 Text: For ICU Patients: NIH sroke scale at Status: Complete presentation and every 2 hours or with change in RN caregiver Freq: [id number] Protocol: Activity Type Activity Date Activity User E-sign Co-sign Detail Recorded Client Recorded Date Recorded By Document 03/04/25 11:50 [facility] desktop 03/04/25 11:51 [facility] 03/04/25 11:50 NIH Stroke Scale [NIHSS] A score of 0 is normal or asymptomatic . Total possible score is 42. Inpatient: RN or Physician to activate a stroke alert for onset of new stroke symptoms or with NIHSS increase >/= 3 points. Following change in neurological status, NIHSS will be performed per physician order or more frequently PRN. -1a. Level of Consciousness Alert; keenly responsive -1b. LOC Questions Answers BOTH questions correctly. -1c. LOC Commands Performs both tasks correctly . -2. Best Gaze Normal -3. Visual No visual loss -4. Facial Palsy Normal symmetrical movements -5a. Left Arm No drift; arm holds 90 (or 45 ) degrees for full 10 seconds -5b. Right Arm No drift; arm holds 90 (or 45 ) degrees for full 10 seconds -6a. Left Leg No drift; leg holds 30-degree position for full 5 seconds -6b. Right Leg No drift; leg holds 30-degree position for full 5 seconds -7. Limb Ataxia Absent -8. Sensory Normal; no sensory loss -9. Best Language No aphasia; normal -10. Dysarthria Normal -11. Extinction and Inattention No abnormality -Total 0 Query Text:A score of 0 is normal or asymptomatic. Total possible score is 42 . ED: Notify Physician for NIHSS increase by > / = 3 points. Inpatient: RN or Physician to activate a stroke alert for NIHSS increase of > / = 3 points. Physical Exam Narrative No aphasia or neglect. Conversational. Dysarthria present. Orbiting around RUE. Finger tapping symmetric. No drift in extremities. No ataxia. Sensation equal bilaterally. NIHSS 1 (dysarthria). Lab / Micro Data 03/04/25 07:22 03/04/25 07:22 Labs: Laboratory Results - last 24 hr 03/04/25 07:22: WBC 8.3, RBC 5.07, Hgb 16.3, Hct 46.2, MCV 91.1, MCH 32.1 H, MCHC 35.3, RDW Std Deviation 44.8 H, RDW Coeff of Juan 13.5, Plt Count 258, MPV 10.1, Immature Gran % (Auto) 0.500, Neut % (Auto) 67.2, Lymph % (Auto) 21.5, [place] % (Auto) 9.5, Eos % (Auto) 0.7, Baso % (Auto) 0.6, Absolute Neuts (auto) 5.6, Absolute Lymphs (auto) 1.79, Nucleated RBC % 0, PT 13.6, INR 1.0, APTT 26.0, [id number], Potassium 4.1, Chloride 100, Carbon Dioxide 23.7, Anion Gap 11, BUN 12, Creatinine 1.00, EstimCreat Clear Calc 78.03, Est GFR (MDRD) Non-Af 89, BUN/Creatinine Ratio 12.0, Glucose 110 H, Calcium9.2, Troponin T High Sens 11 03/04/25 09:55: Troponin T Hi Sens 2 Hr 10 Rhythm Strip Rhythm Strip: Sinus bradycardia Rate: 58 Ectopy: None Imaging Radiology Impression Brain CT 03/04/25 07:17 IMPRESSION: Hypodensity within the left subcortical white matter could represent acute to subacute infarct. Correlate with MR. No intracranial hemorrhage, mass effect or midline shift. Reading Location: [facility] Head/Neck CTA 03/04/25 07:17 IMPRESSION: No large filling defects seen within the intracranial vessels. No evidence of thrombosis. No hemodynamically significant stenosis seen within the bilateral ICA. Reading Location: [facility] Chest X-Ray 03/04/25 07:35 IMPRESSION: Mild pulmonary vascular congestion. 1 cm nodule seen within the right lower lobe. Follow-up as per Fleischner society criteria. Reading Location: [id number] Active Medications Active Medications Active Medications: Current Medications Generic Name Dose Route Start Last Admin Trade Name Freq PRN Reason Stop Dose Admin Acetaminophen 650 mg 03/04/25 10:24 Acetaminophen 325 Mg Tablet PO Q6H PRN PRN Pain 1-10 Or Fever>100.7 Amlodipine Besylate 5 mg 03/04/25 10:24 03/04/25 11:28 Amlodipine 5 Mg Tablet PO 5 mg DAILY [facility] Administration Protocol Aspirin 81 mg 03/05/25 08:00 Aspirin 81 Mg Tab.Chew PO BREAKFAST [facility] Atorvastatin Calcium 80 mg 03/04/25 22:00 Atorvastatin Calcium 80 Mg Tablet PO QHS [facility] Hydralazine HCl 5 mg 03/04/25 10:24 Hydralazine 20 Mg/Ml Vial IV 03/05/25 10:24 Q30M PRN maintain BP parameters with HR <60 Labetalol HCl 20 mg 03/04/25 07:17 03/04/25 07:59 Labetalol 20mg/4ml Syringe IV 03/05/25 07:17 20 mg X1 PRN Administration BLOOD PRESSURE Labetalol HCl 10 - 20 mg 03/04/25 10:24 Labetalol 20mg/4ml Syringe IV 03/05/25 10:24 Q10M PRN PRN maintain BP parameters with HR >/=60 Ondansetron HCl 4 mg 03/04/25 10:24 Ondansetron 4 Mg/2 Ml Vial IV Q8H PRN PRN NAUSEA/VOMITING Sodium Chloride 10 - 40 ml 03/04/25 10:41 0.9% Saline Lock 10 Ml Syringe IV UD PRN SALINE FLUSH 03/04/251754 Cosigner Signature (if applicable): CC: No Primary Care Physician~ Signed [facility]04-09-2025 History and physical note Author Todd Alfonso [facility] Note Date/Time March 04, 2025 8:51 am [facility] Medical Records Department [address] [place] [address] H&P Exam - Hospitalist 03/04/25 0845 MR#: [id number] Acct: [id number] Name: MARY ALICE ESCALANTE Rep #:[id number] 2 : 1970 54 From: Todd Alfonso DO PCP: Care Physician,No Primary Status :REG ER Location: ED HPI - General General Date of Service: 03/04/25 Chief Complaint: slurred speech HPI Narrative MARY ALICE ESCALANTE, is a 54 M who presents with slurred speech. Symptoms were noticedat 0530 on March 02. Had no other symptoms. But given the lack of improvement, patient was taken to the emergency room for evaluation. Patient had a CAT scan that showed hypodensity with in the left subcortical white matter that could represent acute or subacute infarct. CTA of the head and neck showed no LVO. Given his strokelike symptoms and concern for stroke on his CAT scan, the hospital service was contacted for admission. Patient denies ever having had a stroke before. [facility] Medical History Epilepsy Home Medications ?Medication ?Instructions ?Recorded ?Last Taken ?Type NK 03/04/25 Unknown History Allergy/AdvReac Type Severity Reaction Status Date / Time No Known Allergies Allergy Verified 03/04/25 07:07 Social History (Updated 03/04/25 @ 08:[address] Todd Alfonso DO) Smoking Status: Heavy Smoker (>10/day) alcohol intake: current alcohol intake frequency: a few times a month substance use type: marijuana Vital Signs Vital Signs Vital Signs: 03/04/25 07:07 03/04/25 07:19 03/04/25 07:19 Temperature 36.8 C 37.2 C Temperature Source Oral Oral Pulse Rate 68 62 Respiratory Rate 19 H 14 Blood Pressure 215/96 H 211/94 H Blood Pressure Mean 135 133 Pulse Ox 97 98 Oxygen Delivery Method Room Air Room Air Room Air 03/04/25 07:47 03/04/25 08:02 Temperature 37.0 C Temperature Source Oral Pulse Rate 78 64 Respiratory Rate 16 18 Blood Pressure 211/76 H 203/81 H Blood Pressure Mean 121 121 Pulse Ox 98 98 Oxygen Delivery Method Room Air Room Air Weight Weight: 78.8 kg Body Mass Index (BMI) 27.1 Physical Exam Narrative - Physical Exam General: Alert, Oriented x3, Cooperative HEENT: Atraumatic, PERRLA, EOMI, Normocephalic Oral: Moist Mucosa, No Gingival or Mucosal Lesions/ Ulcerations edentulous. Neck: Supple, No JVD, Negative Carotid Bruits Lungs: Clear to auscultation, Normal air movement Cardiovascular: Regular rate, Normal S1, Normal S2, No murmurs Abdomen: Bowel Sounds Present, Soft, Non Tender, Non-Distended, No Hepato-splenomegaly Extremities: No clubbing, No cyanosis, No edema, Capillary Refill Less than 3 Seconds Skin: No rashes, No breakdown Musculoskeletal: No Tenderness to Palpation of Joints or Extremities Neurological: Cranial nerves II through XII gross intact. Strength 5-5 in upperand lower extremities bilaterally. [id number] and [id number] within normal limits. Sensation grossly intact. Patient does have some slurred speechbut follows commands appropriately. Psych/Mental Status: Normal Affect, Appropriate Results Lab / Micro Data Attestation: I reviewed the patient's lab results. 03/04/25 07:22 03/04/25 07:22 Labs: Laboratory Results - last 24 hr 03/04/25 07:22: WBC 8.3, RBC 5.07, Hgb 16.3, Hct 46.2, MCV 91.1, MCH 32.1 H, MCHC 35.3, RDW Std Deviation 44.8 H, RDW Coeff of Juan 13.5, Plt Count 258, MPV 10.1, Immature Gran % (Auto) 0.500, Neut % (Auto) 67.2, Lymph % (Auto) 21.5, [place] % (Auto) 9.5, Eos % (Auto) 0.7, Baso % (Auto) 0.6, Absolute Neuts (auto) 5.6, Absolute Lymphs (auto) 1.79, Nucleated RBC % 0, Sodium 136, Potassium 4.1, Chloride 100, Carbon Dioxide 23.7, Anion Gap 11, BUN 12, Creatinine 1.00, Estim Creat Clear Calc 78.03, Est GFR (MDRD) Non-Af 89, BUN/Creatinine Ratio 12.0, Glucose 110 H, Calcium 9.2, Troponin T High Sens 11 Rhythm Strip Rhythm Strip: Sinus bradycardia Rate: 58 Ectopy: None EKG Initial EKG: Attestation: I personally reviewed and interpreted this EKG as follows: Prior EKG tracings: available for review EKG Rhythm Intrepretation: Sinus Bradycardia Imaging Radiology Impression Brain CT 03/04/25 07:17 IMPRESSION: Hypodensity within the left subcortical white matter could represent acute to subacute infarct. Correlate with MR. No intracranial hemorrhage, mass effect or midline shift. Reading Location: [facility] Head/Neck CTA 03/04/25 07:17 IMPRESSION: No large filling defects seen within the intracranial vessels. No evidence of thrombosis. No hemodynamically significant stenosis seen within the bilateral ICA. Reading Location: [facility] Chest X-Ray 03/04/25 07:35 IMPRESSION: Mild pulmonary vascular congestion. 1 cm nodule seen within the right lower lobe. Follow-up as per Fleischner society criteria. Reading Location: [facility] Assessment & Plan Assessment/Plan (1) CVA (cerebral vascular accident): PLAN: Patient is out of the window for TNK given delayed presentation CAT scan already showing signs of stroke in the left subcortical region. Will check an MRI to further characterize this. Additionally check an echocardiogram. PT, OT and speech therapy. Start aspirin and high intensity statin. (2) Hypertension: PLAN: Given that patient is well over 24 hours after presentation, will start initiating treatment. Patient's blood pressure is currently in the 190s. Will start amlodipine. Available as needed antihypertensives as well. PLAN: Plan Tobacco abuse: Cessation recommended VTE prophylaxis not indicated given observation status CODE STATUS: Just with the patient and his significant other. Patient is full code. Patient does not have a primary care. He will need to establish upon discharge. Charges/Coding Visit Charges Inpatient E&M: 78005 Init Hosp L3 03/04/25 0851 <Electronically signed by Todd Alfonso DO> Cosigner Signature (if applicable): CC: Dr. Todd Alfonso DO; No Primary Care Physician~ Signed [facility] Work Phone: 1(527) 684-788004-09-2025 Evaluation note* Diagnosis Onset Date Resolution Status Admit Date Acute stroke due to ischemia acute March 04, 2025 8:40am CVA (cerebral vascular accident) acu te March 04, 2025 8:40am Slurred speech acute March 04, 2025 8:40am Hypertension chronic March 04, 025 8:40am [facility] Work Phone: [phone]) 294-611904-09-2025 Evaluation note* Diagnosis Onset Date Resolution Status Admit Date Hypertension acute March 04, 2 025 8:40am Slurred speech acute March 04, 2025 8:40am Acute stroke due to ischemia resolve d March 04, 2025 8:40am CVA (cerebral vascular accident) inactive March 04, 2025 8:40am Hypertension acute March 19, 2025 10:47am Ischemic stroke acute February 10:47am Nicotine dependence acute March 19, 2025 10:47am Slurred speech acute February 10:47am Epilepsy chronic March 19 10:47am [facility] Work Phone: [phone] 778-582404-09-2025 Discharge summary Author Cruzito Bailey [facility] Note Date/Time March 04, 2025 8:33 am [facility] Medical Records Department [address] [place] [address] Emergency Department Summary 03/04/25 MR#: [id number] Acct: [id number] Name: MARY ALICE ESCALANTE Rep #:[id number] : 1970 54 From: Cruzito Bailey MD PCP: Care Physician,No Primary Status :REG ER Location: ED HPI History of Present Illness Chief Complaint: Neuro S/Sx Informant: patient Onset/Context/Timing Onset: Days Context: Gradual Onset Timing: Continuous Quality and Location: Positive for Slurred Speech Onset: Sunday morning around 5:30 AM. Current Severity: Moderate Maximum Severity: Moderate Associated Symptoms Associated Symptoms: Negative for Nausea, Vomiting or Chest Pain Narrative Narrative: 54-year-old male prior history of epilepsy. But he says he has not seen a doctor or been in the hospital for years. According to his she said around5:30 AM on Sunday the seventh 3 days ago she noticed that he started having significantly slurred speech. He denies any other complaints. No prior historyof this. Occasionally has a headache. Denies any fall or head trauma. No history of stroke or mini stroke. They have also noticed recently he has elevated blood pressure but he is on no blood pressure medication. Prior similar symptoms: No Recent Illness/Hospitalization: No [facility] Medical History Epilepsy Home Medications ?Medication ?Instructions ?Recorded ?Last Taken ?Type NK 03/04/25 Unknown History Allergy/AdvReac Type Severity Reaction Status Date / Time No Known Allergies Allergy Verified 03/04/25 07:07 Social History Smoking Status: Current every day smoker tobacco type: cigarettes ROS ROS ED ROS Narrative Denies recent illness. Constitutional Constitutional ED: Denies chills or fever(s) Eyes Eyes: Denies blurry vision, change in vision or diplopia ENT ENT ED: Denies ear pain Cardiovascular Cardiovascular: Denies chest pain Respiratory/Chest Respiratory/Chest: Denies cough or dyspnea Gastrointestinal Gastrointestinal: Denies abdominal pain Genitourinary Genitourinary ED: Denies dysuria Musculoskeletal Musculoskeletal: Denies arthralgias Integumentary Denies abscess Neurologic Neurologic: Reports headache(s) Psychiatric Psychiatric: Denies anxiety Endocrine Endocrinology: Denies polydipsia Hematologic/Lymphatic Hematologic/Lymphatic: Denies easy bleeding Allergic/Immunologic Allergic/Immunologic ED: Denies mouth swelling EXAM Physical Exam Narrative Exam Narrative: Well-appearing male sitting upright in bed. Vital signs are stable his blood pressure is elevated 215/96. at bedside. H EENT exam pupils round reactive light. Extra motions are intact. No facial droop. Tongue midline. Obviously slurred speech. No signs of trauma. Neck nontender. No lymphadenopathy. Lungs clear to auscultation bilaterally. Heart regular rhythmrate about 70 no murmur. Chest wall ribs nontender. Abdomen soft nontender. Moving all 4 extremities. 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 Dorsi plantarflexion intact. Normal strength. Normal sensation. Nontender. No edema. Back nontender. Neurologically is awake and alert. Answering questions and following commands. He is obvious slurred speech. However he is no facial droop. He has normal fingertip to nose. Normal [id number]. No drift. Normal rapid hand movements. NIH score is 1. Const Vital Signs: 03/04/25 07:07 03/04/25 07:19 03/04/25 07:19 Temperature 98.2 F 98.9 F Temperature Source Oral Oral Pulse Rate 68 62 Respiratory Rate 19 H 14 Blood Pressure 215/96 H 211/94 H Blood Pressure Mean 135 133 Pulse Ox 97 98 Oxygen Delivery Method Room Air Room Air Room Air 03/04/25 07:47 03/04/25 08:02 Temperature 98.6 F Temperature Source Oral Pulse Rate 78 64 Respiratory Rate 16 18 Blood Pressure 211/76 H 203/81 H Blood Pressure Mean 121 121 Pulse Ox 98 98 Oxygen Delivery Method Room Air Room Air Positive well nourished and well developed; Negative for obese, cachectic, contractures or unkempt General Appearance ED: well developed and NAD; Negative for unkempt, cachectic or contractures Nutritional Appearance: Negative for cachectic or obese HEENT Reports moist mucous membranes atraumatic Eyes PERRL and EOMs intact bilaterally General Eye ED: Negative for pale conjunctiva or scleral icterus Neck no lymphadenopathy, supple and no JVD General: Negative for tenderness Chest Wall inspection of chest normal and palpation of chest normal Resp normal respiratory effort and clear to auscultation bilaterally Effort and Inspection: Negative for retractions Auscultation: Negative for rales, rhonchi, wheezes or diminished lung sounds Cardio no murmurs Rate: regular rate Rhythm: regular rhythm GI normal to inspection, nondistended, normoactive bowel sounds, soft to palpation,non-tender, non-distended and no masses Palpation: Negative for tender, guarding or rebound tenderness present Back/Spine no CVA tenderness General Back: Negative for CVA tenderness or other Cervical Spine: Negative for cervical spine tenderness Thoracic Spine / Upper Back: Negative for thoracic spinal tenderness Extremity normal to inspection General Extremety ED: Negative for deformity or edema General Extremity: Negative for deformity or edema Neuro oriented x3, CN's II-XII intact bilaterally and no sensory deficits noted Neuro Narrative: Slurred speech. Sensorium / Orientation: alert, oriented to person, oriented to place and oriented to time; Negative for orientation impaired, confused or stuporous Speech: Negative for speech normal Motor Exam: strength 5/5 throughout Psych mental status grossly normal Appearance: Negative for unkempt Attitude: No agitated Mood & Affect: Negative for depressed, anxious or tearful Skin no wounds General Skin Exam: Negative for jaundice Lesions: no lesions Rashes: no rashes NIHSS NIHSS Initial: 1a Level of Consciousness: 0 1b LOC Questions (Score 2 if aphasic/stupor): 0 1c LOC Commands (Only score 1st attempt): 0 2 Best Gaze (If aphasic, use reflexive mvmts.): 0 3 Visual: 0 4 Facial Palsy: 0 5 Motor Arm Right (UN = amputation/fusion): 0 5 Motor Arm Left: 0 6 Motor Leg Right: 0 6 Motor Leg Left: 0 7 Limb ataxia (Only + if out of proportion): 0 8 Sensory (Aphasia/stupor=0 or 1, coma=2): 0 9 Best Language: 1 10 Dysarthria (mute, coma=2, intubated=UN): 0 11 Extinction and Inattention (only scored if +): 0 Total Score: 1 MDM MDM MDM Narrative Medical decision making narrative: 54-year-old male who does not have a primary care physician. Presents with 3-day history of slurred speech. Concern obviously is for stroke versus intracranial bleed. Also may have new onset hypertension. He will go through astroke workup. Most likely need to be admitted. Repeat exam at 8:17 a.m. patient doing well. Sitting upright in bed. No changein his exam. Slurred speech has not changed. I discussed all test results about he and his . Explained him that clinically I think he had a stroke and there is findings on the plain CT. He will be admitted I have the hospitalist on page. Patient did receive labetalol for his elevated blood pressure. History & Record Review Discussion w/independent historian: Patient and Family Lab Data Lab results narrative: CBC normal. White count 8. H&H 16 and 46. Platelets 258. Chemistries show a gap of 11. BUN and creatinine are 12 and 1. Glucose 110. Initial troponin 11. Labs: Laboratory Results - last 24 hr 03/04/25 07:22 WBC 8.3 RBC 5.07 Hgb 16.3 Hct 46.2 MCV 91.1 MCH 32.1 H MCHC 35.3 RDW Std Deviation 44.8 H RDW Coeff of Juan 13.5 Plt Count 258 MPV 10.1 Immature Gran % (Auto) 0.500 Neut % (Auto) 67.2 Lymph % (Auto) 21.5 [place] % (Auto) 9.5 Eos % (Auto) 0.7 Baso % (Auto) 0.6 Absolute Neuts (auto) 5.6 Absolute Lymphs (auto) 1.79 Nucleated RBC % 0 Sodium 136 Potassium 4.1 Chloride 100 Carbon Dioxide 23.7 Anion Gap 11 BUN 12 Creatinine 1.00 Estim Creat Clear Calc 78.03 Est GFR (MDRD) Non-Af 89 BUN/Creatinine Ratio 12.0 Glucose 110 H Calcium 9.2 Troponin T High Sens 11 Radiography Chest X-Ray - ED: 2 View, Read by ED Physician, Heart, Lungs, Mediastinum, Bony Structures, No Acute Disease and Chronic Changes Diagnostic Testing: Clinical Impression(s) from Imaging Studies Brain CT 03/04/25 07:17 IMPRESSION: Hypodensity within the left subcortical white matter could represent acute to subacute infarct. Correlate with MR. No intracranial hemorrhage, mass effect or midline shift. Reading Location: [facility] Head/Neck CTA 03/04/25 07:17 IMPRESSION: No large filling defects seen within the intracranial vessels. No evidence of thrombosis. No hemodynamically significant stenosis seen within the bilateral ICA. Reading Location: [facility] Chest X-Ray 03/04/25 07:35 IMPRESSION: Mild pulmonary vascular congestion. 1 cm nodule seen within the right lower lobe. Follow-up as per Fleischner society criteria. Reading Location: [facility] Chest x-ray, 2 views, AP and lateral, interpreted by myself shows no acute abnormality. Normal cardiac silhouette. Normal mediastinum. Normal lung lopez. Chronic changes. No acute process. Rhythm Strip Rhythm Strip: Sinus bradycardia Rate: 58 Ectopy: None EKG Initial EKG: Attestation: I personally reviewed and interpreted this EKG as follows: Interpretation: No Acute Injury Pattern and Sinus Bradycardia Comments: Sinus bradycardia rate of 58 no acute signs of NM or ischemia. No ST elevation. No depression. Discharge Plan Triage Chief Complaint: Neuro S/Sx ED Provider: Cruzito Bailey Dx/Rx/DC Orders Clinical Impression: Slurred speech, Acute stroke due to ischemia, Hypertension Prescriptions: No Action NK Primary Care Provider: Care Physician,No Primary Referrals: Care Physician,No Primary [Primary Care Provider] - Print Language: Danish What to do if you have Problems For any increased pain, shortness of breath, bleeding, nausea or vomiting, chestpain, or any unexpected problems, contact your Primary Care Provider. Call [facility] ([phone]) or report to the closest Emergency Room. Call 911 if necessary. 03/04/25832 <Electronically signed by Cruzito Bailey MD> Cosigner Signature (if applicable): CC: No Primary Care Physician ~ Signed [facility] Work Phone: 1(852) 845-486504-09-2025 History and physical note [facility] Medical Records Department [address] [place] [address] H&P Exam - Hospitalist 03/04/2545 MR#: [id number] Acct: [id number] Name: MARY ALICE ESCALANTE Rep #:[id number] : 1970 54 From: Todd Alfonso DO PCP: Care Physician,No Primary Status :REG ER Location: ED HPI - General General Date of Service: 03/04/25 Chief Complaint: slurred speech HPI Narrative MARY ALICE ESCALANTE, is a 54 M who presents with slurred speech. Symptoms were noticedat 529 on March 02. Had no other symptoms. But given the lack of improvement, patient was taken to the emergency room for evaluation. Patient had a CAT scan that showed hypodensity with in the left subcortical white matter that could represent acute or subacute infarct. CTA of the head and neck showed no LVO. Given hisstrokelike symptoms and concern for stroke on his CAT scan, the hospital service was contacted for admission. Patient denies ever having had a stroke before. [facility] Medical History Epilepsy Home Medications ?Medication ?Instructions ?Recorded ?Last Taken ?Type NK 03/04/25 Unknown History Allergy/AdvReac Type Severity Reaction Status Date / Time No Known Allergies Allergy Verified 03/04/25 07:07 Social History (Updated 03/04/25 @ 08:[address] Todd Alfonso DO) Smoking Status: Heavy Smoker (>10/day) alcohol intake: current alcohol intake frequency: a few times a month substance use type: marijuana Vital Signs Vital Signs Vital Signs: 03/04/25 07:07 03/04/25 07:19 03/04/25 07:19 Temperature 36.8 C 37.2 C Temperature Source Oral Oral Pulse Rate 68 62 Respiratory Rate 19 H 14 Blood Pressure 215/96 H 211/94 H Blood Pressure Mean 135 133 Pulse Ox 97 98 Oxygen Delivery Method Room Air Room Air Room Air 03/04/25 07:47 03/04/25 08:02 Temperature 37.0 C Temperature Source Oral Pulse Rate 78 64 Respiratory Rate 16 18 Blood Pressure 211/76 H 203/81 H Blood Pressure Mean 121 121 Pulse Ox 98 98 Oxygen Delivery Method Room Air Room Air Weight Weight: 78.8 kg Body Mass Index (BMI) 27.1 Physical Exam Narrative - Physical Exam General: Alert, Oriented x3, Cooperative HEENT: Atraumatic, PERRLA, EOMI, Normocephalic Oral: Moist Mucosa, No Gingival or Mucosal Lesions/ Ulcerations edentulous. Neck: Supple, No JVD, Negative Carotid Bruits Lungs: Clear to auscultation, Normal air movement Cardiovascular: Regular rate, Normal S1, Normal S2, No murmurs Abdomen: Bowel Sounds Present, Soft, Non Tender, Non-Distended, No Hepato-splenomegaly Extremities: No clubbing, No cyanosis, No edema, Capillary Refill Less than 3 Seconds Skin: No rashes, No breakdown Musculoskeletal: No Tenderness to Palpation of Joints or Extremities Neurological: Cranial nerves II through XII gross intact. Strength 5-5 in upperand lower extremities bilaterally. [id number] and [id number] within normal limits. Sensation grossly intact. Patient does have some slurred speechbut follows commands appropriately. Psych/Mental Status: Normal Affect, Appropriate Results Lab / Micro Data Attestation: I reviewed the patient's lab results. 03/04/25 07:22 03/04/25 07:22 Labs: Laboratory Results - last 24 hr 03/04/25 07:22: WBC 8.3, RBC 5.07, Hgb 16.3, Hct 46.2, MCV 91.1, MCH 32.1 H, MCHC 35.3, RDW Std Deviation 44.8 H, RDW Coeff of Juan 13.5, Plt Count 258, MPV 10.1, Immature Gran % (Auto) 0.500, Neut % (Auto) 67.2, Lymph % (Auto) 21.5, [place] % (Auto) 9.5, Eos % (Auto) 0.7, Baso % (Auto) 0.6, Absolute Neuts (auto) 5.6, Absolute Lymphs (auto) 1.79, Nucleated RBC % 0, Sodium 136, Potassium 4.1, [id number], Carbon Dioxide 23.7, Anion Gap 11, BUN 12, Creatinine 1.00, Estim Creat Clear Calc 78.03, Est GFR (MDRD) Non-Af 89, BUN/Creatinine Ratio 12.0, Glucose 110 H, Calcium 9.2, Troponin T High Sens 11 Rhythm Strip Rhythm Strip: Sinus bradycardia Rate: 58 Ectopy: None EKG Initial EKG: Attestation: I personally reviewed and interpreted this EKG as follows: Prior EKG tracings: available for review EKG Rhythm Intrepretation: Sinus Bradycardia Imaging Radiology Impression Brain CT 03/04/25 07:17 IMPRESSION: Hypodensity within the left subcortical white matter could represent acute to subacute infarct. Correlate with MR. No intracranial hemorrhage, mass effect or midline shift. Reading Location: [facility] Head/Neck CTA 03/04/25 07:17 IMPRESSION: No large filling defects seen within the intracranial vessels. No evidence of thrombosis. No hemodynamically significant stenosis seen within the bilateral ICA. Reading Location: [facility] Chest X-Ray 03/04/25 07:35 IMPRESSION: Mild pulmonary vascular congestion. 1 cm nodule seen within the right lower lobe. Follow-up as per Fleischner society criteria. Reading Location: [id number] Assessment & Plan Assessment/Plan (1) CVA (cerebral vascular accident): PLAN: Patient is out of the window for TNK given delayed presentation CAT scan already showing signs of stroke in the left subcortical region. Will check an MRI to further characterize this. Additionally check an echocardiogram. PT, OT and speech therapy. Start aspirin and high intensity statin. (2) Hypertension: PLAN: Given that patient is well over 24 hours after presentation, will start initiating treatment.Patient's blood pressure is currently in the 190s. Will start amlodipine. Available as needed antihypertensives as well. PLAN: Plan Tobacco abuse: Cessation recommended VTE prophylaxis not indicated given observation status CODE STATUS: Just with the patient and his significant other. Patient is full code. Patient does not have a primary care. He will need to establish upon discharge. Charges/Coding Visit Charges Inpatient E&M: 91776 Init Hosp L3 03/04/25 0851 Cosigner Signature (if applicable): CC: Dr. Todd Alfonso, ; No Primary Care Physician~ Signed [facility]04-09-2025 Discharge summary [facility] Medical Records Department [address] [place] [address] Emergency Department Summary 03/04/25 MR#: [id number] Acct: [id number] Name: MARY ALICE ESCALANTE Rep #:[id number] : 1970 54 From: Cruzito Bailey MD PCP: Care Physician,No Primary Status :REG ER Location: ED HPI History of Present Illness Chief Complaint: Neuro S/Sx Informant: patient Onset/Context/Timing Onset: Days Context: Gradual Onset Timing: Continuous Quality and Location: Positive for Slurred Speech Onset: Sunday morning around 5:30 AM. Current Severity: Moderate Maximum Severity: Moderate Associated Symptoms Associated Symptoms: Negative for Nausea, Vomiting or Chest Pain Narrative Narrative: 54-year-old male prior history of epilepsy. But he says he has not seen a doctor or been in the hospital for years. According to his she said around5:30 AM on Sunday the seventh 3 days ago she noticed that he started having significantly slurred speech. He denies any other complaints. No priorhistoryof this. Occasionally has a headache. Denies any fall or head trauma. No history of stroke or mini stroke. They have also noticed recently he has elevated blood pressure but he is on no blood pressure medication. Prior similar symptoms: No Recent Illness/Hospitalization: No [facility] Medical History Epilepsy Home Medications ?Medication ?Instructions ?Recorded ?Last Taken ?Type NK 03/04/25 Unknown History Allergy/AdvReac Type Severity Reaction Status Date / Time No Known Allergies Allergy Verified 03/04/25 07:07 Social History Smoking Status: Current every day smoker tobacco type: cigarettes ROS ROS ED ROS Narrative Denies recent illness. Constitutional Constitutional ED: Denies chills or fever(s) Eyes Eyes: Denies blurry vision, change in vision or diplopia ENT ENT ED: Denies ear pain Cardiovascular Cardiovascular: Denies chest pain Respiratory/Chest Respiratory/Chest: Denies cough or dyspnea Gastrointestinal Gastrointestinal: Denies abdominal pain Genitourinary Genitourinary ED: Denies dysuria Musculoskeletal Musculoskeletal: Denies arthralgias Integumentary Denies abscess Neurologic Neurologic: Reports headache(s) Psychiatric Psychiatric: Denies anxiety Endocrine Endocrinology: Denies polydipsia Hematologic/Lymphatic Hematologic/Lymphatic: Denies easy bleeding Allergic/Immunologic Allergic/Immunologic ED: Denies mouth swelling EXAM Physical Exam Narrative Exam Narrative: Well-appearing male sitting upright in bed. Vital signs are stable his blood pressure is elevated 215/96. at bedside. H EENT exam pupils round reactive light. Extra motions are intact. No facialdroop. Tongue midline. Obviously slurred speech. No signs of trauma. Neck nontender. No lymphadenopathy. Lungs clear to auscultation bilaterally. Heart regular rhythmrate about 70 no murmur. Chest wall ribs nontender. Abdomen soft nontender. Moving all 4 extremities. 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 Dorsiplantarflexion intact. Normal strength. Normal sensation. Nontender. No edema. Back nontender. Neurologically is awake and alert. Answering questions and following commands. He is obvious slurred speech. However he is no facial droop. He has normal fingertip to nose. Normal [id number]. No drift. Normal rapid hand movements. NIH score is 1. Const Vital Signs: 03/04/25 07:07 03/04/25 07:19 03/04/25 07:19 Temperature 98.2 F 98.9 F Temperature Source Oral Oral Pulse Rate 68 62 Respiratory Rate 19 H 14 Blood Pressure 215/96 H 211/94 H Blood Pressure Mean 135 133 Pulse Ox 97 98 Oxygen Delivery Method Room Air Room Air Room Air 03/04/25 07:47 03/04/25 08:02 Temperature 98.6 F Temperature Source Oral Pulse Rate 78 64 Respiratory Rate 16 18 Blood Pressure 211/76 H 203/81 H Blood Pressure Mean 121 121 Pulse Ox 98 98 Oxygen Delivery Method Room Air Room Air Positive well nourished and well developed; Negative for obese, cachectic, contractures or unkempt General Appearance ED: well developed and NAD; Negative for unkempt, cachectic or contractures Nutritional Appearance: Negative for cachectic or obese HEENT Reports moist mucous membranes atraumatic Eyes PERRL and EOMs intact bilaterally General Eye ED: Negative for pale conjunctiva or scleral icterus Neck no lymphadenopathy, supple and no JVD General: Negative for tenderness Chest Wall inspection of chest normal and palpation of chest normal Resp normal respiratory effort and clear to auscultation bilaterally Effort and Inspection: Negative for retractions Auscultation: Negative for rales, rhonchi, wheezes or diminished lung sounds Cardio no murmurs Rate: regular rate Rhythm: regular rhythm GI normal to inspection, nondistended, normoactive bowel sounds, soft to palpation,non-tender, non-distended and no masses Palpation: Negative for tender, guarding or rebound tenderness present Back/Spine no CVA tenderness General Back: Negative for CVA tenderness or other Cervical Spine: Negative for cervical spine tenderness Thoracic Spine / Upper Back: Negative for thoracic spinal tenderness Extremity normal to inspection General Extremety ED: Negative for deformity or edema General Extremity: Negative for deformity or edema Neuro oriented x3, CN's II-XII intact bilaterally and no sensory deficits noted Neuro Narrative: Slurred speech. Sensorium / Orientation: alert, oriented to person, oriented to place and oriented to time; Negative for orientation impaired, confused or stuporous Speech: Negative for speech normal Motor Exam: strength 5/5 throughout Psych mental status grossly normal Appearance: Negative for unkempt Attitude: No agitated Mood & Affect: Negative for depressed, anxious or tearful Skin no wounds General Skin Exam: Negative for jaundice Lesions: no lesions Rashes: no rashes NIHSS NIHSS Initial: 1a Level of Consciousness: 0 1b LOC Questions (Score 2 if aphasic/stupor): 0 1c LOC Commands (Only score 1st attempt): 0 2 Best Gaze (If aphasic, use reflexive mvmts.): 0 3 Visual: 0 4 Facial Palsy: 0 5 Motor Arm Right (UN = amputation/fusion): 0 5 Motor Arm Left: 0 6 Motor Leg Right: 0 6 Motor Leg Left: 0 7 Limb ataxia (Only + if out of proportion): 0 8 Sensory (Aphasia/stupor=0 or 1, coma=2): 0 9 Best Language: 1 10 Dysarthria (mute, coma=2, intubated=UN): 0 11 Extinction and Inattention (only scored if +): 0 Total Score: 1 MDM MDM MDM Narrative Medical decision making narrative: 54-year-old male who does not have a primary care physician. Presents with 3-day history of slurredspeech. Concern obviously is for stroke versus intracranial bleed. Also may have new onset hypertension. He will go through astroke workup. Most likely need to be admitted. Repeat exam at 8:17 a.m. patient doing well. Sitting upright in bed. No changein his exam. Slurred speech has not changed. I discussed all test results about he and his . Explained him that clinically I think he had a stroke and there is findings on the plain CT. He will be admitted I have the hospitalist on page. Patient did receive labetalol for his elevated blood pressure. History & Record Review Discussion w/independent historian: Patient and Family Lab Data Lab results narrative: CBC normal. White count 8. H&H 16 and 46. Platelets 258. Chemistries show a gap of 11. BUN and creatinine are 12 and 1. Glucose 110. Initial troponin 11. Labs: Laboratory Results - last 24 hr 03/04/25 07:22 WBC 8.3 RBC 5.07 Hgb 16.3 Hct 46.2 MCV 91.1 MCH 32.1 H MCHC 35.3 RDW Std Deviation 44.8 H RDW Coeff of Juan 13.5 Plt Count 258 MPV 10.1 Immature Gran % (Auto) 0.500 Neut % (Auto) 67.2 Lymph % (Auto) 21.5 [place] % (Auto) 9.5 Eos % (Auto) 0.7 Baso % (Auto) 0.6 Absolute Neuts (auto) 5.6 Absolute Lymphs (auto) 1.79 Nucleated RBC % 0 Sodium 136 Potassium 4.1 Chloride 100 Carbon Dioxide 23.7 Anion Gap 11 BUN 12 Creatinine 1.00 Estim Creat Clear Calc 78.03 Est GFR (MDRD) Non-Af 89 BUN/Creatinine Ratio 12.0 Glucose 110 H Calcium 9.2 Troponin T High Sens 11 Radiography Chest X-Ray - ED: 2 View, Read by ED Physician, Heart, Lungs, Mediastinum, Bony Structures, No Acute Disease and Chronic Changes Diagnostic Testing: Clinical Impression(s) from Imaging Studies Brain CT 03/04/25 07:17 IMPRESSION: Hypodensity within the left subcortical white matter could represent acute to subacute infarct. Correlate with MR. No intracranial hemorrhage, mass effect or midline shift. Reading Location: [facility] Head/Neck CTA 03/04/25 07:17 IMPRESSION: No large filling defects seen within the intracranial vessels. No evidence of thrombosis. No hemodynamically significant stenosis seen within the bilateral ICA. Reading Location: [facility] Chest X-Ray 03/04/25 07:35 IMPRESSION: Mild pulmonary vascular congestion. 1 cm nodule seen within the right lower lobe. Follow-up as per Fleischner society criteria. Reading Location: [facility] Chest x-ray, 2 views, AP and lateral, interpreted by myself shows no acute abnormality. Normal cardiac silhouette. Normal mediastinum. Normal lung lopez. Chronic changes. No acute process. Rhythm Strip Rhythm Strip: Sinus bradycardia Rate: 58 Ectopy: None EKG Initial EKG: Attestation: I personally reviewed and interpreted this EKG as follows: Interpretation: No Acute Injury Pattern and Sinus Bradycardia Comments: Sinus bradycardia rate of 58 no acute signs of NM or ischemia. No ST elevation. No depression. Discharge Plan Triage Chief Complaint: Neuro S/Sx ED Provider: Cruzito Bailey Dx/Rx/DC Orders Clinical Impression: Slurred speech, Acute stroke due to ischemia, Hypertension Prescriptions: No Action NK Primary Care Provider: Care Physician,No Primary Referrals: Care Physician,No Primary [Primary Care Provider] - Print Language: Danish What to do if you have Problems For any increased pain, shortness of breath, bleeding, nausea or vomiting, chestpain, or any unexpected problems, contact your Primary Care Provider. Call [facility] ([phone]) or report tothe closest Emergency Room. Call 911 if necessary. 03/04/25 [id number] Cosigner Signature (if applicable): CC: No Primary Care Physician ~ Signed [facility]04-09-2025 Radiology Diagnostic study note [facility] Imaging Services [address] [place] [address] STROKE CTA Head AND Neck W/Con MR#: [id number] Acct: [id number] Name: MARY ALICE ESCALANTE Rep #: [id number] : 1970 M 54 From: Marcus Mayorga MD PCP: Care Physician,No Primary Status: REG ER Study:STROKE CTA Head AND Neck W/Con Date of Exam: 03/04/25 Exam# [id number] Ordering Dr: Shobha Baliey MD PROCEDURE: STROKE CTA HEAD AND NECK W/CON 03/04/2025 REASON FOR EXAM: NEURO DEFICIT, ACUTE, STROKE SUSPECTED TECHNIQUE: CTA imaging of the head and neck from the aortic arch to the skull vertex with intravenous contrast. Coronal and Sagittal reconstruction series were provided. 3D, 3D post processing, 3D reconstructions, Maximum intensity projection (MIPs) Volume rendering and Shaded surface rendering was provided. CONTRAST: Isovue 370 VOLUME: 100 mL Gauge IV One or more dose reduction techniques were used (e.g., Automated exposure control, adjustment of the mA and/or kV according to patient size, use of iterative reconstruction technique). # of known CTs in the past 12 months: 0 # of known Cardiac Nuclear Medicine Studies in the past 12 months: 0 RADIATION DOSE SUMMARY: DLP: 1505 mGycm COMPARISON: CT head performed on same date. FINDINGS: No large filling defects seen within the intracranial vessels. No evidence of thrombosis. No hemodynamically significant stenosis seen within the bilateral ICA. CT/STROKE CTA Head AND Neck W/Con IMPRESSION: No large filling defects seen within the intracranial vessels. No evidence of thrombosis. No hemodynamically significant stenosis seen within the bilateral ICA. Reading Location: [id number] CC: Dr. Cruzito Bailey MD; No Primary Care Physician ~ Rn Transfer: Signed [facility]04-09-2025 Radiology Diagnostic study note [facility] Imaging Services [address] [place] [id number] STROKE Brain/Head without Cont MR#: [id number] Acct: [id number] Name: MARY ALICE ESCALANTE Rep #: [id number] : 1970 M 54 From: Marcus Mayorga MD PCP: Care Physician,No Primary Status: REG ER Study:STROKE Brain/Head without Cont Date of Exam: 03/04/25 Exam# [id number] Ordering Dr: Shobha Bailey MD PROCEDURE: STROKE BRAIN/HEAD WITHOUT CONT 03/04/2025 REASON FOR EXAM: NEURO DEFICIT, ACUTE, STROKE SUSPECTED TECHNIQUE: Head CT without intravenous contrast. Coronal and Sagittal reconstruction serieswere provided. One or more dose reduction techniques were used (e.g., Automated exposure control, adjustment of the mA and/or kV according to patient size, use of iterative reconstruction technique. RADIATION DOSE SUMMARY: DLP: 1505 mGycm COMPARISON: None. FINDINGS: Hypodensity are seen within the left subcortical white matter best seen on image22/43 could represent area of acute infarct. There is no intracranial hemorrhage, mass effect or midline shift. There are noabnormal extra-axialfluid collections present. The the ventricles and sulci are within normal limits. Calvarium intact intact. Visualized paranasal sinuses are unremarkable. : CT/STROKE Brain/Head without Cont IMPRESSION: Hypodensity within the left subcortical white matter could represent acute to subacute infarct. Correlate with MR. No intracranial hemorrhage, mass effect or midline shift. Reading Location: [facility] CC: Dr. Cruzito Bailey MD; No Primary Care Physician ~ Rn Transfer: Signed [facility]04-09-2025 Radiology Diagnostic study note [facility] Imaging Services [address] [place] [address] Chest PA and Lateral MR#: [id number] Acct: [id number] Name: MARY ALICE ESCALANTE Rep #: [id number] : 1970 M 54 From: Marcus Mayorga MD PCP: Care Physician,No Primary Status: REG ER Study:Chest PA and Lateral Date of Exam: 03/04/25 Exam# [id number] Ordering Dr: Shobha Bailey MD PROCEDURE: CHEST PA AND LATERAL 03/04/2025 REASON FOR EXAM: HIGH BP AND SLURRED SPEECH TECHNIQUE: Frontal and lateral views of the chest. COMPARISON: None. FINDINGS: The cardiac silhouette is prominent. There is mild pulmonary vascular congestion. 1 cm nodule seen within the right lower lung zone. Recommend follow-up as per Fleischner society criteria. RAD/Chest PA and Lateral IMPRESSION: Mild pulmonary vascular congestion. 1 cm nodule seen within the right lower lobe. Follow-up as per Fleischner society criteria. Reading Location: [id number] CC: Dr. Cruzito Bailey MD; No Primary Care Physician ~ Rn [facility]: [facility] Cruzito [facility] Note Date/Time March 04, 2025 8:33 am [facility] Medical Records Department [address] [facility] [place] [address] Emergency Department Summary 03/04/25 MR#: [id number] Acct: [id number] Name: MARY ALICE ESCALANTE Rep #:[id number] : 1970 54 From: Cruzito Bailey MD PCP: Care Physician,No Primary Status :REG ER Location: ED HPI History of Present Illness Chief Complaint: Neuro S/Sx Informant: patient Onset/Context/Timing Onset: Days Context: Gradual Onset Timing: Continuous Quality and Location: Positive for Slurred Speech Onset: Sunday morning around 5:30 AM. Current Severity: Moderate Maximum Severity: Moderate Associated Symptoms Associated Symptoms: Negative for Nausea, Vomiting or Chest Pain Narrative Narrative: 54-year-old male prior history of epilepsy. But he says he has not seen a doctor or been in the hospital for years. According to his she said around5:30 AM on Sunday the seventh 3 days ago she noticed that he started having significantly slurred speech. He denies any other complaints. No prior historyof this. Occasionally has a headache. Denies any fall or head trauma. No history of stroke or mini stroke. They have also noticed recently he has elevated blood pressure but he is on no blood pressure medication. Prior similar symptoms: No Recent Illness/Hospitalization: No PFSH PFS Medical History Epilepsy Home Medications ?Medication ?Instructions ?Recorded ?Last Taken ?Type NK 03/04/25 Unknown History Allergy/AdvReac Type Severity Reaction Status Date / Time No Known Allergies Allergy Verified 03/04/25 07:07 Social History Smoking Status: Current every day smoker tobacco type: cigarettes ROS ROS ED ROS Narrative Denies recent illness. Constitutional Constitutional ED: Denies chills or fever(s) Eyes Eyes: Denies blurry vision, change in vision or diplopia ENT ENT ED: Denies ear pain Cardiovascular Cardiovascular: Denies chest pain Respiratory/Chest Respiratory/Chest: Denies cough or dyspnea Gastrointestinal Gastrointestinal: Denies abdominal pain Genitourinary Genitourinary ED: Denies dysuria Musculoskeletal Musculoskeletal: Denies arthralgias Integumentary Denies abscess Neurologic Neurologic: Reports headache(s) Psychiatric Psychiatric: Denies anxiety Endocrine Endocrinology: Denies polydipsia Hematologic/Lymphatic Hematologic/Lymphatic: Denies easy bleeding Allergic/Immunologic Allergic/Immunologic ED: Denies mouth swelling EXAM Physical Exam Narrative Exam Narrative: Well-appearing male sitting upright in bed. Vital signs are stable his blood pressure is elevated 215/96. at bedside. H EENT exam pupils round reactive light. Extra motions are intact. No facial droop. Tongue midline. Obviously slurred speech. No signs of trauma. Neck nontender. No lymphadenopathy. Lungs clear to auscultation bilaterally. Heart regular rhythmrate about 70 no murmur. Chest wall ribs nontender. Abdomen soft nontender. Moving all 4 extremities. 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 Dorsi plantarflexion intact. Normal strength. Normal sensation. Nontender. No edema. Back nontender. Neurologically is awake and alert. Answering questions and following commands. He is obvious slurred speech. However he is no facial droop. He has normal fingertip to nose. Normal [id number]. No drift. Normal rapid hand movements. NIH score is 1. Const Vital Signs: 03/04/25 07:07 03/04/25 07:19 03/04/25 07:19 Temperature 98.2 F 98.9 F Temperature Source Oral Oral Pulse Rate 68 62 Respiratory Rate 19 H 14 Blood Pressure 215/96 H 211/94 H Blood Pressure Mean 135 133 Pulse Ox 97 98 Oxygen Delivery Method Room Air Room Air Room Air 03/04/25 07:47 03/04/25 08:02 Temperature 98.6 F Temperature Source Oral Pulse Rate 78 64 Respiratory Rate 16 18 Blood Pressure 211/76 H 203/81 H Blood Pressure Mean 121 121 Pulse Ox 98 98 Oxygen Delivery Method Room Air Room Air Positive well nourished and well developed; Negative for obese, cachectic, contractures or unkempt General Appearance ED: well developed and NAD; Negative for unkempt, cachectic or contractures Nutritional Appearance: Negative for cachectic or obese HEENT Reports moist mucous membranes atraumatic Eyes PERRL and EOMs intact bilaterally General Eye ED: Negative for pale conjunctiva or scleral icterus Neck no lymphadenopathy, supple and no JVD General: Negative for tenderness Chest Wall inspection of chest normal and palpation of chest normal Resp normal respiratory effort and clear to auscultation bilaterally Effort and Inspection: Negative for retractions Auscultation: Negative for rales, rhonchi, wheezes or diminished lung sounds Cardio no murmurs Rate: regular rate Rhythm: regular rhythm GI normal to inspection, nondistended, normoactive bowel sounds, soft to palpation,non-tender, non-distended and no masses Palpation: Negative for tender, guarding or rebound tenderness present Back/Spine no CVA tenderness General Back: Negative for CVA tenderness or other Cervical Spine: Negative for cervical spine tenderness Thoracic Spine / Upper Back: Negative for thoracic spinal tenderness Extremity normal to inspection General Extremety ED: Negative for deformity or edema General Extremity: Negative for deformity or edema Neuro oriented x3, CN's II-XII intact bilaterally and no sensory deficits noted Neuro Narrative: Slurred speech. Sensorium / Orientation: alert, oriented to person, oriented to place and oriented to time; Negative for orientation impaired, confused or stuporous Speech: Negative for speech normal Motor Exam: strength 5/5 throughout Psych mental status grossly normal Appearance: Negative for unkempt Attitude: No agitated Mood & Affect: Negative for depressed, anxious or tearful Skin no wounds General Skin Exam: Negative for jaundice Lesions: no lesions Rashes: no rashes NIHSS NIHSS Initial: 1a Level of Consciousness: 0 1b LOC Questions (Score 2 if aphasic/stupor): 0 1c LOC Commands (Only score 1st attempt): 0 2 Best Gaze (If aphasic, use reflexive mvmts.): 0 3 Visual: 0 4 Facial Palsy: 0 5 Motor Arm Right (UN = amputation/fusion): 0 5 Motor Arm Left: 0 6 Motor Leg Right: 0 6 Motor Leg Left: 0 7 Limb ataxia (Only + if out of proportion): 0 8 Sensory (Aphasia/stupor=0 or 1, coma=2): 0 9 Best Language: 1 10 Dysarthria (mute, coma=2, intubated=UN): 0 11 Extinction and Inattention (only scored if +): 0 Total Score: 1 MDM MDM MDM Narrative Medical decision making narrative: 54-year-old male who does not have a primary care physician. Presents with 3-day history of slurred speech. Concern obviously is for stroke versus intracranial bleed. Also may have new onset hypertension. He will go through astroke workup. Most likely need to be admitted. Repeat exam at 8:17 a.m. patient doing well. Sitting upright in bed. No changein his exam. Slurred speech has not changed. I discussed all test results about he and his . Explained him that clinically I think he had a stroke and there is findings on the plain CT. He will be admitted I have the hospitalist on page. Patient did receive labetalol for his elevated blood pressure. History & Record Review Discussion w/independent historian: Patient and Family Lab Data Lab results narrative: CBC normal. White count 8. H&H 16 and 46. Platelets 258. Chemistries show a gap of 11. BUN and creatinine are 12 and 1. Glucose 110. Initial troponin 11. Labs: Laboratory Results - last 24 hr 03/04/25 07:22 WBC 8.3 RBC 5.07 Hgb 16.3 Hct 46.2 MCV 91.1 MCH 32.1 H MCHC 35.3 RDW Std Deviation 44.8 H RDW Coeff of Juan 13.5 Plt Count 258 MPV 10.1 Immature Gran % (Auto) 0.500 Neut % (Auto) 67.2 Lymph % (Auto) 21.5 [place] % (Auto) 9.5 Eos % (Auto) 0.7 Baso % (Auto) 0.6 Absolute Neuts (auto) 5.6 Absolute Lymphs (auto) 1.79 Nucleated RBC % 0 Sodium 136 Potassium 4.1 Chloride 100 Carbon Dioxide 23.7 Anion Gap 11 BUN 12 Creatinine 1.00 Estim Creat Clear Calc 78.03 Est GFR (MDRD) Non-Af 89 BUN/Creatinine Ratio 12.0 Glucose 110 H Calcium 9.2 Troponin T High Sens 11 Radiography Chest X-Ray - ED: 2 View, Read by ED Physician, Heart, Lungs, Mediastinum, Bony Structures, No Acute Disease and Chronic Changes Diagnostic Testing: Clinical Impression(s) from Imaging Studies Brain CT 03/04/25 07:17 IMPRESSION: Hypodensity within the left subcortical white matter could represent acute to subacute infarct. Correlate with MR. No intracranial hemorrhage, mass effect or midline shift. Reading Location: [facility] Head/Neck CTA 03/04/25 07:17 IMPRESSION: No large filling defects seen within the intracranial vessels. No evidence of thrombosis. No hemodynamically significant stenosis seen within the bilateral ICA. Reading Location: [id number] Chest X-Ray 03/04/25 07:35 IMPRESSION: Mild pulmonary vascular congestion. 1 cm nodule seen within the right lower lobe. Follow-up as per Fleischner society criteria. Reading Location: [id number] Chest x-ray, 2 views, AP and lateral, interpreted by myself shows no acute abnormality. Normal cardiac silhouette. Normal mediastinum. Normal lung lopez. Chronic changes. No acute process. Rhythm Strip Rhythm Strip: Sinus bradycardia Rate: 58 Ectopy: None EKG Initial EKG: Attestation: I personally reviewed and interpreted this EKG as follows: Interpretation: No Acute Injury Pattern and Sinus Bradycardia Comments: Sinus bradycardia rate of 58 no acute signs of NM or ischemia. No ST elevation. No depression. Discharge Plan Triage Chief Complaint: Neuro S/Sx ED Provider: Cruzito Bailey Dx/Rx/DC Orders Clinical Impression: Slurred speech, Acute stroke due to ischemia, Hypertension Prescriptions: No Action NK Primary Care Provider: Care Physician,No Primary Referrals: Care Physician,No Primary [Primary Care Provider] - Print Language: Danish What to do if you have Problems For any increased pain, shortness of breath, bleeding, nausea or vomiting, chestpain, or any unexpected problems, contact your Primary Care Provider. Call [employer] ([phone]) or report to the closest Emergency Room. Call 911 if necessary. 03/04/25 0833 <Electronically signed by Cruzito Bailey MD> Cosigner Signature (if applicable): CC: No Primary Care Physician ~ Signed [facility] Work Phone: Discharge summary Author Todd Alfonso [facility] Note Date/Time March 05, 2025 1:3 9pm [facility] Medical Records Department [address] [place] [address] Discharge Summary 03/05/25 1333 MR#: [id number] Acct: [id number] Name: MARY ALICE ESCALANTE Rep #:[id number] : 1970 54 From: Todd Alfonso DO PCP: Care Physician,No Primary Status :[facility]M JEVON [facility] Date of Admission: 03/04/25 Primary Care Physician: No Primary Care Phys Consultations 03/04/25 10:24 Consult: Tele-Neurology Routine Consulting Provider: [facility] Reason for Consult: Acute Ischemic Stroke/TIA EMERGENT Consult: No MD Notified: Yes Date Notified: 03/04/25 Time Notified: 08:41 Method of Notification: Answering Service Nursing Unit Staff Notify [facility] of Tele-Neurology Consult: Yes Reason For Visit: CVA Diagnosis Discharge Diagnosis (1) CVA (cerebral vascular accident): Status: Acute Code(s): I63.9 - Cerebral infarction, unspecified Plan: Patient presented out of the window for TNK given delayed presentation CAT scan already showing signs of stroke in the left subcortical region. PT, OTand speech therapy. Start aspirin and high intensity statin. Neurology did not feel the need for MRI as CVA already present on CT, so MRI wascancelled. 2d echo unremarkable. (2) Hypertension: Status: Chronic Code(s): I10 - Essential (primary) hypertension Plan: Given that patient is well over 24 hours after presentation, will start initiating treatment. Patient's admission blood pressure in the 190s, since improved to 160s. Will start amlodipine 5mg/day. Add HCTZ 25 mg/d. Increase amlodipine to 10mg/d. Plan Tobacco abuse: Cessation advised. Pt states that he plans on quitting. Advised his significant other to quit, too. VTE prophylaxis not indicated given observation status CODE STATUS: Just with the patient and his significant other. Patient is full code. Patient does not have a primary care. He will need to establish upon discharge.As well as follow up with neurology as outpt. Medications at Discharge Home Medications NK 03/04/25 amlodipine 10 mg tablet 10 mg PO DAILY #30 tabs 03/05/25 aspirin 81 mg chewable tablet 81 mg PO BREAKFAST #0 tabs 03/05/25 atorvastatin 80 mg tablet 80 mg PO QHS #30 tabs 03/05/25 hydrochlorothiazide 25 mg tablet 25 mg PO DAILY #30 tabs 03/05/25 Hospital Course Operations None Procedures 2-D Echocardiogram Summary of Care Provided Minutes Spent on Discharge: 32 Weight / BMI Weight Weight: 75.568 kg Body Mass Index (BMI) 26.1 ABG / Lab / Microbiology Data 03/04/25 07:22 03/04/25 07:22 Laboratory: Laboratory Results - last 24 hr 03/05/25 04:12: Triglycerides 116, Cholesterol 181, LDL Cholesterol, Calc 116, VLDL Cholesterol 23, HDL Cholesterol 42, Cholesterol/HDL Ratio 4.34 Radiography Diagnostic Testing: Radiology Impression Echocardiogram 03/04/25 10:24 Interpretation Summary Normal LV size. Left ventricular systolic function is normal. The left ventricular ejection fraction is 60 %. The left atrium is mildly enlarged. Stage 1 diastolic dysfunction. Bubble contrast study negative for right to left interatrial shunt. Ordering Physician: Todd Alfonso Referring Physician: MICHAEL PCP Performed By: Savannah Mccoy, EM, RVT D/C Instructions Discharge Diet: Low fat / Low cholesterol DC O2, CPAP, BIPAP Needs Home O2 Discharge instructions: No Meaningful Use Info Meaningful Use Meaningful Use Diagnoses (Choose all that apply): Ischemic CVA CVA Therapy Assessed for PT,OT and/or ST?: Yes Ischemic Stroke Antithrombotic order at d/c?: Yes Dx of Atrial fib/flutter?: No Anticoagulant at discharge?: No Reason anticoagulant not ordered: Treatment not Indicated Statin Dosing Therapy Reference: STATIN DOSE THERAPY REFERENCE: * Patients > 75 years receive moderate or high dose statin therapy. * Patients 75 years or YOUNGER should receive HIGH intensity statin dose unless contraindicated. You will be required to document reason for non-treatment if statin daily dose does not meet guidelines. HIGH DOSE STATIN THERAPY DAILY Atorvastatin > than or = to 40 mg Rosuvastatin > than or = to 20 mg Amlodipine + Atorvastatin > than or = to 2.5/40 mg Ezetimibe + Simvastatin 10/80 mg Simvastatin 80mg Statins at discharge?: Yes If patient is 75 or younger, pt will be discharged on HIGH intensity statin.: Yes Primary Dx Acute Ischemic CVA?: Yes IV thrombolytic ordered during stay?: No Reason IV thrombolytic not ordered: Treatment not Indicated Discharge Plan Admission Admit Date/Time: 03/04/25 08:40 Primary Reason for Your Visit: stroke Attending Provider: Todd Alfonso Primary Care Provider: Care Physician,No Primary Consulting Providers: Preston Ibarra; Ilya Brewer; Shelbi Talbot; Tati Olmstead; Mary Nettles; Jayro Skelton; Caity Daniels; Will Schroeder; Davon Lopez; Porfirio Valle; Elizabeth Arellano; Clayton Ruby; Marivel Flores; Jair Lynn; Danita Mckeon; Adan Field; Lina Bob; Mikael Hightower; Paula Ceballos; Lorelei Corona Discharge Orders/Prescriptions Prescriptions: New aspirin 81 mg Tablet,Chewable 81 mg PO BREAKFAST Qty: 0 0RF atorvastatin 80 mg Tablet 80 mg PO QHS Qty: 30 1RF hydrochlorothiazide 25 mg Tablet 25 mg PO DAILY Qty: 30 1RF amlodipine 10 mg tablet 10 mg PO DAILY Qty: 30 1RF No Action NK Referrals / Follow Up: [facility] [Provider Group] - Within 1 Month [facility] [Provider Group] - Within 2 Weeks Care Physician,No Primary [Primary Care Provider] - Disposition Disposition (needs filled in before D/C Order can be placed): Home, Self Care Charges/Coding Visit Charges Inpatient E&M: 83486 Disch Hosp >30min 03/05/25 1339 <Electronically signed by Todd Alfonso DO> Cosigner Signature (if applicable): CC: Dr. Todd Alfonso DO; No Primary Care Physician~ Signed [facility] Work Phone: Evaluation note* Diagnosis Onset Date Resolution Status Admit Date Acute stroke due to ischemia acute March 04, 2025 8:40am CVA (cerebral vascular accident) acu te March 04, 2025 8:40am Slurred speech acute March 04, 2025 8:40am Hypertension chronic March 04, 8:40am [facility] Work Phone: History and physical note Author Todd Alfonso [facility] Note Date/Time March 04, 2025 8:51 am [facility] Medical Records Department [address] [place] [address] H&P Exam - Hospitalist 03/04/25 0845 MR#: [id number] Acct: [id number] Name: MARY ALICE ESCALANTE Rep #:[id number] 2 : 1970 54 From: Todd Alfonso DO PCP: Care Physician,No Primary Status :REG ER Location: ED HPI - General General Date of Service: 03/04/25 Chief Complaint: slurred speech HPI Narrative MARY ALICE ESCALANTE, is a 54 M who presents with slurred speech. Symptoms were noticedat 0530 on March 02. Had no other symptoms. But given the lack of improvement, patient was taken to the emergency room for evaluation. Patient had a CAT scan that showed hypodensity with in the left subcortical white matter that could represent acute or subacute infarct. CTA of the head and neck showed no LVO. Given his strokelike symptoms and concern for stroke on his CAT scan, the hospital service was contacted for admission. Patient denies ever having had a stroke before. [facility] Medical History Epilepsy Home Medications ?Medication ?Instructions ?Recorded ?Last Taken ?Type NK 03/04/25 Unknown History Allergy/AdvReac Type Severity Reaction Status Date / Time No Known Allergies Allergy Verified 03/04/25 07:07 Social History (Updated 03/04/25 @ 08:[address] Todd Alfonso, DO) Smoking Status: Heavy Smoker (>10/day) alcohol intake: current alcohol intake frequency: a few times a month substance use type: marijuana Vital Signs Vital Signs Vital Signs: 03/04/25 07:07 03/04/25 07:19 03/04/25 07:19 Temperature 36.8 C 37.2 C Temperature Source Oral Oral Pulse Rate 68 62 Respiratory Rate 19 H 14 Blood Pressure 215/96 H 211/94 H Blood Pressure Mean 135 133 Pulse Ox 97 98 Oxygen Delivery Method Room Air Room Air Room Air 03/04/25 07:47 03/04/25 08:02 Temperature 37.0 C Temperature Source Oral Pulse Rate 78 64 Respiratory Rate 16 18 Blood Pressure 211/76 H 203/81 H Blood Pressure Mean 121 121 Pulse Ox 98 98 Oxygen Delivery Method Room Air Room Air Weight Weight: 78.8 kg Body Mass Index (BMI) 27.1 Physical Exam Narrative - Physical Exam General: Alert, Oriented x3, Cooperative HEENT: Atraumatic, PERRLA, EOMI, Normocephalic Oral: Moist Mucosa, No Gingival or Mucosal Lesions/ Ulcerations edentulous. Neck: Supple, No JVD, Negative Carotid Bruits Lungs: Clear to auscultation, Normal air movement Cardiovascular: Regular rate, Normal S1, Normal S2, No murmurs Abdomen: Bowel Sounds Present, Soft, Non Tender, Non-Distended, No Hepato-splenomegaly Extremities: No clubbing, No cyanosis, No edema, Capillary Refill Less than 3 Seconds Skin: No rashes, No breakdown Musculoskeletal: No Tenderness to Palpation of Joints or Extremities Neurological: Cranial nerves II through XII gross intact. Strength 5-5 in upperand lower extremities bilaterally. Asorsa-el-tgra and vnsh-au-xykl within normal limits. Sensation grossly intact. Patient does have some slurred speechbut follows commands appropriately. Psych/Mental Status: Normal Affect, Appropriate Results Lab / Micro Data Attestation: I reviewed the patient's lab results. 03/04/25 07:22 03/04/25 07:22 Labs: Laboratory Results - last 24 hr 03/04/25 07:22: WBC 8.3, RBC 5.07, Hgb 16.3, Hct 46.2, MCV 91.1, MCH 32.1 H, MCHC 35.3, RDW Std Deviation 44.8 H, RDW Coeff of Juan 13.5, Plt Count 258, MPV 10.1, Immature Gran % (Auto) 0.500, Neut % (Auto) 67.2, Lymph % (Auto) 21.5, [place] % (Auto) 9.5, Eos % (Auto) 0.7, Baso % (Auto) 0.6, Absolute Neuts (auto) 5.6, Absolute Lymphs (auto) 1.79, Nucleated RBC % 0, Sodium 136, Potassium 4.1, Chloride 100, Carbon Dioxide 23.7, Anion Gap 11, BUN 12, Creatinine 1.00, Estim Creat Clear Calc 78.03, Est GFR (MDRD) Non-Af 89, BUN/Creatinine Ratio 12.0, Glucose 110 H, Calcium 9.2, Troponin T High Sens 11 Rhythm Strip Rhythm Strip: Sinus bradycardia Rate: 58 Ectopy: None EKG Initial EKG: Attestation: I personally reviewed and interpreted this EKG as follows: Prior EKG tracings: available for review EKG Rhythm Intrepretation: Sinus Bradycardia Imaging Radiology Impression Brain CT 03/04/25 07:17 IMPRESSION: Hypodensity within the left subcortical white matter could represent acute to subacute infarct. Correlate with MR. No intracranial hemorrhage, mass effect or midline shift. Reading Location: [facility] Head/Neck CTA 03/04/25 07:17 IMPRESSION: No large filling defects seen within the intracranial vessels. No evidence of thrombosis. No hemodynamically significant stenosis seen within the bilateral ICA. Reading Location: [facility] Chest X-Ray 03/04/25 07:35 IMPRESSION: Mild pulmonary vascular congestion. 1 cm nodule seen within the right lower lobe. Follow-up as per Fleischner society criteria. Reading Location: [facility] Assessment & Plan Assessment/Plan (1) CVA (cerebral vascular accident): PLAN: Patient is out of the window for TNK given delayed presentation CAT scan already showing signs of stroke in the left subcortical region. Will check an MRI to further characterize this. Additionally check an echocardiogram. PT, OT and speech therapy. Start aspirin and high intensity statin. (2) Hypertension: PLAN: Given that patient is well over 24 hours after presentation, will start initiating treatment. Patient's blood pressure is currently in the 190s. Will start amlodipine. Available as needed antihypertensives as well. PLAN: Plan Tobacco abuse: Cessation recommended VTE prophylaxis not indicated given observation status CODE STATUS: Just with the patient and his significant other. Patient is full code. Patient does not have a primary care. He will need to establish upon discharge. Charges/Coding Visit Charges Inpatient E&M: 98003 Init Hosp L3 03/04/25 0851 <Electronically signed by Todd Alfonso DO> Cosigner Signature (if applicable): CC: Dr. Todd Alfonso DO; No Primary Care Physician~ Signed [facility] Work Phone: Hospital Discharge instructions Additional Instructions Cardiac workup negative. Labs sodium 126, likely from your hydrochlorothiazide. Hold this medication at this time. Monitor your blood pressure and write it down. Blood pressure in the emergency department 120/68. Follow-up with Dianne recheck blood pressure and blood work. History could be from passing out or falling asleep as you did not sleep throughout the night for your testing.[facility] Work Phone: Reason for referral (narrative)No reason for referral information availableWMarietta [facility] Work Phone: Chief Complaint and Reason for Visit Chief Complaint Admit Date CVA March 04, 2025 8:40 am slurred speech March 04, 2025 8:45 am Reason for Visit Admit Date Acute stroke due to ischemia March 04, 2025 8:40am CVA (cerebral vascular accident) March 042024 8:40am Slurred speech March 04, 2025 8:40 am Hypertension March 04, 2025 8:40 am Chief Complaint Admit Date CVA March 04, 2025 8:40 am slurred speech March 04, 2025 8:45 am Cerebrovascular accident March 05 7:23am Chief Complaint Admit Date CVA Leta 9th, 2025 8:40 am slurred speech March 04, 2025 8:45 am Cerebrovascular accident March 05 7:23am STROKE March 19, 2025 10: 47am CVA/PT HAS RX March 20, 2025 1:5 0pm EORDERS March 23, 2025 3:3 6pm I63.9 - Cerebral infarction, unspecified March 27, 2025 6:37am Cerebral infarction, unspecified March 6:41am syncope April 10, 2025 7:28a m Reason for Visit Admit Date Hypertension March 04, 2025 8:40 am Slurred speech March 04, 2025 8:40 am Acute stroke due to ischemia March 04, 2025 8:40am CVA (cerebral vascular accident) March 042024 8:40am Hypertension March 19, 2025 10: 47am Ischemic stroke March 19, 2025 10: 47am Nicotine dependence March 19, 2025 10: 47am Slurred speech March 19, 2025 10: 47am Epilepsy March 19, 2025 10: 47am Advance Directives No Advanced Directives Records Found Advance Directive Response Recorded Date/ Time Living Will No March 04, 2025 7:07am Do you have a Healthcare Power of Yard Motor Operator? No March 04, 2025 7:07am Advance Directive Response Recorded Date/ Time Living Will No March 04, 2025 10:24am Do you have a Healthcare Power of Yard Motor Operator? No March 04, 2025 10:24am Advance Directive Response Recorded Date/ Time Do you have a Healthcare Power of Yard Motor Operator? No April 10, 2025 7:32am Living Will No March 04, 2025 10:24am Do you have a Healthcare Power of Yard Motor Operator? No March 04, 2025 10:24am Summary Purpose Family History No Family History Records Found Additional Source Comments Care Teams (unrecognized sec tion and content) Team Status: Active Member Role Status Dates No Primary Care Physician Primary Care Provider Active Team Status: Inactive Member Role Status Dates No Primary Care Physician Primary Care Provider Active Start: March 04, 2025 End: March 05, 2025 Dr. Cruzito Bailey MD Emergency Provider Active S tart: March 04, 2025 End: March 05, 2025 Dr. Todd Alfonso , Admit Provider Active Star t: March 04, 2025 End: March 05, 2025 Dr. Todd Alfonso DO Attending Provider Active Start: March 04, 2025 End: March 05, 2025 Preston Ibarra MD Other Provider Active Start: 2024 End: March 05, 2025 Dr. Ilya Brewer MD Other Provider Active Start: March 04, 2025 End: March 05, 2025 Shelbi Talbot MD Other Provider Active Start : March 04, 2025 End: March 05, 2025 Dr. Tati Olmstead DO Other Provider Active St art: March 04, 2025 End: March 05, 2025 Dr. Mary Nettles MD Other Provider Active Start: March 04, 2025 End: March 05, 2025 Dr. Jayro Skelton MD Other Provider Active Sta rt: March 04, 2025 End: March 05, 2025 Dr. Caity Daniels MD Other Provider Active Start : March 04, 2025 End: March 05, 2025 Dr. Will Schroeder MD Other Provider Active Start: March 04, 2025 End: March 05, 2025 Dr. Davon Lopez MD Other Provider Active Start : March 04, 2025 End: March 05, 2025 Dr. Porfirio Valle MD Other Provider Active Sta rt: March 04, 2025 End: March 05, 2025 Elizabeth Arellano MD Other Provider Active Start : March 04, 2025 End: March 05, 2025 Dr. Clayton Ruby MD Other Provider Active St art: March 04, 2025 End: March 05, 2025 Dr. Marivel Flores MD Other Provider Active Start : March 04, 2025 End: March 05, 2025 Dr. Jair Lynn MD Other Provider Active Sta rt: March 04, 2025 End: March 05, 2025 Dr. Danita Mckeon MD Other Provider Active Start: March 04, 2025 End: March 05, 2025 Dr. Adan Field MD Other Provider Active St art: March 04, 2025 End: March 05, 2025 Dr. Lina Bob MD Other Provider Active Star t: March 04, 2025 End: March 05, 2025 Dr. Mikael Hightower MD Other Provider Active St art: March 04, 2025 End: March 05, 2025 Dr. Paula Ceballos MD Other Provider Active Start: March 04, 2025 End: March 05, 2025 Lorelei Corona MD Other Provider Active Start: March 04, 2025 End: March 05, 2025 Team Status: Active Member Role Status Dates No Primary Care Physician Primary Care Provider Active Start: March 04, 2025 Dr. Cruzito Bailey MD Emergency Provider Active S tart: March 04, 2025 Dr. Todd Alfonso DO Attending Provider Active Start: March 04, 2025 Team Status: Active Member Role Status Dates No Primary Care Physician Primary Care Provider Active Start: March 04, 2025 Dr. Hiro Melendez MD Attending Provider Active S tart: March 04, 2025 Team Status: Active Member Role Status Dates No Primary Care Physician Primary Care Provider Active Start: March 05, 2025 Dr. Cruzito Bailey MD Emergency Provider Active S tart: March 05, 2025 Dr. Todd Alfonso DO Admit Provider Active Star t: March 05, 2025 Dr. Todd Alfonso DO Attending Provider Active Start: March 05, 2025 Dr. Todd Alfonso DO Other Provider Active Star t: March 05, 2025 Preston Ibarra MD Other Provider Active Start: 2024 Dr. Ilya Brewer MD Other Provider Active Start: March 05, 2025 Shelbi Talbot MD Other Provider Active Start : March 05, 2025 Dr. Tati Olmstead DO Other Provider Active St art: March 05, 2025 Dr. Mary Nettles MD Other Provider Active Start: March 05, 2025 Dr. Jayro Skelton MD Other Provider Active Sta rt: March 05, 2025 Dr. Caity Daniels MD Other Provider Active Start : March 05, 2025 Dr. Will Schroeder MD Other Provider Active Start: March 05, 2025 Dr. Davon Lopez MD Other Provider Active Start : March 05, 2025 Dr. Porfirio Valle MD Other Provider Active Sta rt: March 05, 2025 Elizabeth Arellano MD Other Provider Active Start : March 05, 2025 Dr. Clayton Ruby MD Other Provider Active St art: March 05, 2025 Dr. Marivel Flores MD Other Provider Active Start : March 05, 2025 Dr. Jair Lynn MD Other Provider Active Sta rt: March 05, 2025 Dr. Danita Mckeon MD Other Provider Active Start: March 05, 2025 Dr. Adan Field MD Other Provider Active St art: March 05, 2025 Dr. Lina Bob MD Other Provider Active Star t: March 05, 2025 Dr. Mikael Hightower MD Other Provider Active St art: March 05, 2025 Dr. Paula Ceballos MD Other Provider Active Start: March 05, 2025 Lorelei Corona MD Other Provider Active Start: March 05, 2025 Team Status: Active Member Role Status Dates No Primary Care Physician Primary Care Provider Active Start: March 04, 2025 Dr. Cruzito Bailey MD Emergency Provider Active S tart: March 04, 2025 Dr. Todd Alfonso DO Admit Provider Active Star t: March 04, 2025 Dr. Todd Alfonso DO Attending Provider Active Start: March 04, 2025 Team Status: Inactive Member Role Status Dates No Primary Care Physician Primary Care Provider Active Start: March 19, 2025 End: March 19, 2025 No Primary Care Physician Referring Provider Active Start: March 19, 2025 End: March 19, 2025 ORBERTA Slacido Attending Provider Active S tart: March 19, 2025 End: March 19, 2025 Team Status: Active Member Role Status Dates No Primary Care Physician Primary Care Provider Active Start: March 20, 2025 Dr. Todd Alfonso DO Attending Provider Active Start: March 20, 2025 Dr. Todd Alfonso DO Referring Provider Active Start: March 20, 2025 Team Status: Inactive Member Role Status Dates No Primary Care Physician Primary Care Provider Active Start: March 23, 2025 End: March 23, 2025 ROBERTA Salcido Attending Provider Active S tart: March 23, 2025 End: March 23, 2025 ROBERTA Salcido Referring Provider Active S tart: March 23, 2025 End: March 23, 2025 Team Status: Active Member Role Status Dates No Primary Care Physician Primary Care Provider Active Start: March 27, 2025 Keyanna Walton NP-C Attending Provider Active S tart: March 27, 2025 Keyanna Walton BUTTON BRADDER-C Referring Provider Active S tart: March 27, 2025 Team Status: Active Member Role Status Dates No Primary Care Physician Primary Care Provider Active Start: April 10, 2025 Keyanna Walton BUTTON BRADDER-C Attending Provider Active S tart: April 10, 2025 Keyanna Walton NP-C Referring Provider Active S tart: April 10, 2025 Team Status: Inactive Member Role Status Dates No Primary Care Physician Primary Care Provider Active Start: April 10, 2025 End: April 10, 2025 Dr. Kev Nash DO Emergency Provider Active Start : April 10, 2025 End: April 10, 2025 Team Status: Inactive Member Role Status Dates No Primary Care Physician Primary Care Provider Active Start: April 10, 2025 End: April 10, 2025 Keyanna Walton NP-C Attending Provider Active S tart: April 10, 2025 End: April 10, 2025 Keyanna Walton NP-C Referring Provider Active S tart: April 10, 2025 End: April 10, 2025 Team Status: Inactive Member Role Status Dates No Primary Care Physician Primary Care Provider Active Start: April 10, 2025 End: April 10, 2025 Dr. Kev Nash DO Attending Provider Active Start : April 10, 2025 End: April 10, 2025 Dr. Kev Nash DO Emergency Provider Active Start : April 10, 2025 End: April 10, 2025 Goals (unrecognized section and content) Goals may be documented in a n alternate section (unrecognized sect ion and content) No Status Records Found INFORMATION SOURCE (unrecogn ized section and content) DATE CREATED AUTHOR 04/22/2025 [facility] FOR RECORDS PERTAINING TO PATIENTS WHO ARE OR HAVE BEEN ENROLLED IN A CHEMICAL DEPENDENCY/SUBSTANCEABUSE PROGRAM, SOME INFORMATION MAY BE OMITTED. This clinical summary was aggregated from multiple sources. Caution should be exercised in using it in the provision of clinical care. This summary normalizes information from multiple sources, and as a consequence, information in this document may materially change the coding, format and clinical context of patient data. In addition, data may be omitted in some cases. CLINICAL DECISIONS SHOULD BE BASED ON THE PRIMARY CLINICAL RECORDS. [facility]. provides no warranty or guarantee of the accuracy or completeness of information in this document.
== END | disposition home or self-care (01) ==
LOC: VSLAB 15:30
PROVIDERS: PCP Nurse Practitioner Family; Visit Provider Nurse Practitioner Family
DX: E78.5 Hyperlipidemia, unspecified (principal); R73.09 Other abnormal glucose; Z86.73 Personal history of transient ischemic attack (TIA), and cerebral infarction without residual deficits
CPT/HCPCS: 36415; 80053; 80061; 83036; 85025

== ENCOUNTER → 2025-05-05 | Outpatient (CLI) | payer BC, SELFPAY ==
--- NOTE | 2025-05-05 16:05 | RAD_ITS ---
PROCEDURE: ORBITS FOR FOREIGN BODY 05/05/2025 REASON FOR EXAM: HX: OF METAL TO EYES TECHNIQUE: 2 view(s) of the facial bones COMPARISON: None. FINDINGS: Bones: No acute process is seen. Sinuses: Cyst or polyp is seen in the inferolateral left maxillary sinus. The remaining visualized paranasal sinuses appear clear. Additional findings: No intraorbital metal is noted. RAD/Orbits for Foreign Body IMPRESSION: No evidence of intraorbital metal. Reading Location: [address]
--- NOTE | 2025-05-05 16:08 | MRI_ITS ---
PROCEDURE: BRAIN W/WO CONTRAST 05/05/2025 REASON FOR EXAM: STROKE; EPILEPSY. TECHNIQUE: Routine brain MRI without and with intravenous contrast. Multiplanar and multisequence images were obtained. CONTRAST: Clariscan VOLUME: 15 mL COMPARISON: CT scan on 03/04/2025. FINDINGS: Multiple T2 hyperintense foci in the periventricular and subcortical white matter suggestive of moderate chronic ischemic white matter disease. Chronic ischemic encephalomalacia in the left coronal radiata extending to the left basal ganglia measuring 3.2 x 1.2 cm in its largest craniocaudal and anteroposterior dimensions respectively. Mild chronic mucosal inflammatory changes of the maxillary sinuses and ethmoid air cells. No abnormal postcontrast enhancement is noted. The ventricles and extra-axial spaces are normal for the patient's age. No other abnormality is identified in the basal ganglia and thalami. No other abnormality is identified in the brainstem. No other abnormality is identified in the cerebellum. There is no midline shift or brain herniation. There is no demonstrated extra-axial, intraparenchymal, or intraventricular hemorrhage. There are no abnormal intra-or extra-axial fluid collections. There are no areas of restricted diffusion to suggest acute ischemia. The cerebellopontine angles, internal auditory canals and the cisternal portions of the accoustico - facial nerves are unremarkable. Unremarkable exam of the skull. Normal soft tissue structures. The visualized mastoid air cells are clear. The visualized portions of the orbits are unremarkable. MRI/Brain W/WO Contrast IMPRESSION: Multiple T2 hyperintense foci in the periventricular and subcortical white reji er suggestive of moderate chronic ischemic white matter disease. Chronic ischemic encephalomalacia in the left coronal radiata extending to the left basal ganglia measuring 3.2 x 1.2 cm in its largest craniocaudal and anteroposterior dimensions respectively. Mild chronic mucosal inflammatory changes of the maxillary sinuses and ethmoid air cells. No abnormal postcontrast enhancement is noted. Reading Location: [facility]
== END | disposition home or self-care (01) ==
LOC: MRI 16:00
PROVIDERS: PCP Nurse Practitioner Family
DX: G40.909 Epilepsy, unspecified, not intractable, without status epilepticus (principal); Z86.73 Personal history of transient ischemic attack (TIA), and cerebral infarction without residual deficits
CPT/HCPCS: 70030; 70553; A9575

== ENCOUNTER → 2025-07-21 | Outpatient (CLI) | payer BC, SELFPAY ==
[2025-07-21 16:40] LABS: Hematocrit 35.7 % (40-54); Hemoglobin 12.6 g/dL (13.0-16.5); Immature Granulocytes Count 0.020 X10^3/uL (0.0-0.0); Mean Corp Hgb Conc 35.3 g/dL (32-36); Mean Corpuscular Volume 93.5 fL (80-94); Mean Platelet Vol. 10.1 fl (6.2-12.0); NRBC Flagged by Analyzer 0 % (0-5); Platelet Count 326 K/mm3 (150-450); RBC Distribution Width CV 12.4 % (11.6-14.6); RBC Distribution Width SD 42.8 fl (35.1-43.9); Red Blood Count 3.82 M/mm3 (4.6-6.2); White Blood Count 10.1 K/mm3 (4.4-11.0)
[2025-07-21 17:14] LABS: Ferritin 635 ng/mL (37-417); Iron 57 ug/dL (65-175); Iron Binding Capacity,Total 253 ug/dL (250-450); Iron Binding Capacity,Unsat 196 ug/dL (228-428)
== END | disposition home or self-care (01) ==
LOC: VSLAB 15:26
PROVIDERS: PCP Nurse Practitioner Family; Referring Provider Nurse Practitioner Family; Visit Provider Nurse Practitioner Family
DX: D64.9 Anemia, unspecified (principal)
CPT/HCPCS: 36415; 82728; 83540; 83550; 85025

== ENCOUNTER → 2025-07-25 | Outpatient (CLI) | payer BC, SELFPAY ==
--- OUTSIDE RECORDS SUMMARY | 2025-07-25 11:17 | XMS RPT_ITS | CCD ---
Author Organization [facility] Care Team Providers Care Quill Skinner Name Role Phone Care Physician, No Primary Primary Care Provider Unavailable Leo DUNHAM, Dr. East Emergency Provider [phone] Dr. Todd Alfonso DO Admit Provider Dr. Todd Alfonso DO Attending Provider Preston Ibarra MD Other Provider Unavailable Dr. Ilya Brewer MD Other Provider [phone] Shelbi Talbot MD Other Provider Unavailable Dr. Tati Olmstead DO Other Provider Dr. Mary Nettles MD Other Provider Dr. Jayro Skelton MD Other Provider Dr. Caity Daniels MD Other Provider [phone] Will Schroeder MD Other Provider Dr. Davon Lopez MD Other Provider [phone] Leonard DUNHAM, Dr. Monroy Other Provider Elizabeth Arellano MD Other Provider Tung DUNHAM, Dr. Arnold Other Provider Mark DUNHAM, Dr. Orta Other Provider Shane DUNHAM, Dr. Adam Other Provider [phone] Linda DUNHAM, Dr. Danita Talbot Other Provider Emir DUNHAM, Dr. Arellano Other Provider [phone] Paulino DUNHAM, Dr. Mills Other Provider Katja DUNHAM, Dr. Youssef Other Provider [phone] Tucker DUNHAM, Dr. Mitchell Other Provider Unavailable Chloe DUNHAM, Lorelei Other Provider Unavailable Nora DUNHAM, Dr. Bosch Attending Provider Naty RUBIO, Dr. Brooks Other Provider Care Physician, No Primary Referring Provider Un available Anton DIRECTOR PROCESS ENGINEERING-C, Keyanna Attending Provider Naty RUBIO, Dr. Brooks Referring Provider Antno DIRECTOR PROCESS ENGINEERING-C, Keyanna Referring Provider Charity RUBIO, Dr. Angulo Emergency Provider Charity RUBIO, Dr. Angulo Attending Provider [phone] [facility] DIRECTOR PROCESS ENGINEERING-C, Dianne Primary Care Provider [facility] DIRECTOR PROCESS ENGINEERING-C, Dianne Attending Provider Porter DUNHAM, Dr. Miles Attending Provider Ariel DUNHAM, Dr. Vieira Attending Provider Keyanna Walton Attending Unavailable Care Physician, No Primary Referring Unava ilable Care Physician, No Primary Primary Care Unava ilable Keyanna Walton Referring Unavailable Keyanna Walton Attending [...] Primary Primary Care Unava ilable Todd Alfonso Admitting Unavailable Todd Alfonso Attending Unavailable Preston Ibarra Consulting Unavailable Adeli, Amir Consulting Unavailable Hinduja, Shelbi Consulting Unavailable Ishan, Tati Consulting Unavailable Zha, Mary Consulting Unavailable Costa, Jayro Consulting Unavailable Jeremiah, Caity Consulting Unavailable Will Schroeder Consulting Unavailable Davon Lopez Consulting Unavailable Porfirio Valle Consulting Unavailable Elizabeth Arellano Consulting Unavailable Clayton Ruby Consulting Unavailable Marivel Flores Consulting Unavailable Jair Lynn Consulting Unavailable Danita Mckeon Consulting UnavailAdan Gauthier Consulting Unavailable Paulino, Lina Consulting Unavailable Mikael Hightower Consulting Unavailable Paula Ceballos Consulting Unavailable Chloe, Pratikf Consulting Unavailable Naty, Todd Consulting Unavailable Tannhof, Dianne Attending Unavailable Tannhof, Dianne Primary Care Unavailable Care Physician, No Primary Primary Care Unava ilable Jopperi, Todd Referring Unavailable Jopperi, Todd Attending Unavailable Tannhof, Dianne Primary Care Unavailable Tannhof, Dianne Referring Unavailable Tannhof, Dianne Attending Unavailable Tannhof, Dianne Primary Care Unavailable Manolohof, Dianne Referring Unavailable Emoryf, Dianne Attending Unavailable Keyanna Walton Referring Unavailable Keyanna Walton Attending Unavailable Care Physician, No Primary Primary Care Unava ilable Manolohof, Dianne Primary Care Unavailable Dariel George Attending Unavailable Care Physician, No Primary Referring Unava ilable Keyanna Walton Referring Unavailable Care Physician, No Primary Primary Care Unava ilable Jd Buenrostro Attending Unavailable Keyanna Walton Referring Unavailable Kyeanna Walton Attending Unavailable Tannhof, Dianne Primary Care Unavailable Kev Nash Attending Unavailable Care Physician, No Primary Primary Care Unava ilable Jopperi, Todd Attending Unavailable Care Physician, No Primary Primary Care Unava ilable Jopperi, Todd Admitting Unavailable Preston Ibarra Consulting Unavailable Adeli, Amir Consulting Unavailable Hinduja, Shelbi Consulting Unavailable Ishan, Tati Consulting Unavailable Zha, Mary Consulting Unavailable Costa, Jayro Consulting Unavailable Jeremiah, Caity Consulting Unavailable BittaWill yao Consulting Unavailable Davon Lopez Consulting Unavailable Porfirio Valle Consulting Unavailable Elizabeth Arellano Consulting Unavailable Clayton Ruby Consulting Unavailable Marivel Flores Consulting Unavailable Jair Lynn Consulting Unavailable Danita Mckeon Consulting UnavailAdan Gauthier Consulting Unavailable Paulino, Rami Consulting Unavailable Mikael Hightower Consulting Unavailable Tucker, Paula Consulting Unavailable Chloe, Yousef Consulting Unavailable Medications Current Medications Medication Drug Class(es) Dates Sig (Normalized) Sig (Original) amLODIPine 10 mg oral tablet (7 sources) Dihydropyridine Calcium Channel Kimi Start: 03-05-2025 take 1 tablet by mouth once daily Amlodipine 10 mg tablet Active 10 mg PO DAILY 30 March 05, 2025 12:00am aspirin 81 mg chewable tablet (7 sources) Platelet Aggregation Inhibitor, Nonsteroidal Anti-inflammatory Drug Start: 03-05-2025 take 1 tablet by mouth at breakfast Aspirin 81 mg Tablet,Chewable Active 81 mg PO WITH BREAKFAST 0 0 March 05, 2025 12:00am atorvastatin 80 mg oral tablet (7 sources) HMG-CoA Reductase Inhibitor Start: 03-05-2025 take 1 tablet by mouth at bedtime Atorvastatin 80 mg Tablet Active 80 mg PO AT BEDTIME 30 March 05, 2025 12:00am lisinopril 10 mg oral tablet (6 sources) Angiotensin Converting Enzyme Inhibitor Start: 03-19-2025 take 1 tablet by mouth once daily Lisinopril 10 mg tablet Active 10 mg PO daily March 19, 2025 12:00am [place] (Nk) (1 source) Start: 03-04-2025 [place] (Nk) Active March 04, 2025 12:00am Completed/Discontinued Medications Medication Drug Class(es) Dates Sig (Normalized) Sig (Original) hydroCHLOROthiazide 25 mg oral tablet (7 sources) Thiazide Diuretic Start: End: take 1 tablet by mouth once daily Hydrochlorothiazide 25 mg Tablet Discontinued 25 mg PO DAILY 30 March 05, 2025 12:00am June 30, 2025 12:58pm Problems Active Problems Problem Classification Problem Date Documented Date Episodic/Chronic Acute cerebrovascular disease (20 sources) Ischemic stroke; Translations: [Cerebral infarction, unspecified] Onset: 03-30-2025 03-04-2025 Chronic Comment on above: Ischemic stroke in t he left subcortical white matter with symptoms of dysarthria likely occurring in the beginning of February 2025.At this point in time, the etiology of his stroke is cryptogenic. Atrial fibrillation and a hypercoagulable state will need to be ruled out. Deficiency and other anemia (1 source) Anemia, unspecified; Translations: [Anemia, unspecified] Onset: 07-21-2025 Episodic Disorders of lipid metabolism (1 source) Hyperlipidemia, unspecified; Translations: [Hyperlipidemia, unspecified] Onset: 05-05-2025 Chronic Epilepsy; convulsions (13 sources) Epilepsy; Translations: [Epilepsy, unspecified, not intractable, without status epilepticus] Onset: 05-12-2025 03-19-2025 Chronic Comment on above: The patient [...] to identify any pathological structures. Essential hypertension (20 sources) Hypertensive disorder; Translations: [Essential (primary) hypertension] Onset: 03-05-2025 03-04-2025 Chronic Comment on above: This is newly diagno sed as the patient has not had medical care in quite some time. His systolic blood pressure was maintaining>200 prior to starting antihypertensive medications. Fluid and electrolyte disorders (6 sources) Acute hyponatremia; Translations: [Hypo-osmolality and hyponatremia] 04-10-2025 Episodic Open wounds of head; neck; and trunk (6 sources) Orbital foreign body; Translations: [Penetrating wound of orbit with or without foreign body, unspecified eye, initial encounter] 03-19-2025 Episodic Other circulatory disease (1 source) Personal history of transient ischemic attack (TIA), and cerebral infarction without residual deficits; Translations: [Personal history of transient ischemic attack (TIA), and cerebral infarction without residual deficits] Onset: 05-12-2025 Episodic Other nervous system disorders (20 sources) Slurred speech; Translations: [Slurred speech] 03-04-2025 Episodic Comment on above: The patient had dysa rthria after his stroke, which has nearly resolved at present time. Residual codes; unclassified (6 sources) Sleep deprivation; Translations: [Sleep deprivation] 04-10-2025 Episodic Substance-related disorders (12 sources) Nicotine dependence; Translations: [Nicotine dependence, unspecified, uncomplicated] 03-19-2025 Chronic Comment on above: The patient was smok ing up to 1 pack/day of cigarettes but he reduced to 2 cigarettes/day following his recent stroke. He also smokes marijuana daily. Past or Other Problems Problem Classification Problem Date Documented Da te Episodic/Chronic Other nervous system disorders (1 source) Slurred speech; Translations: [Slurred speech] Onset: 03-19-2025 Episodic Syncope (7 sources) Syncope; Translations: [Syncope and collapse] Onset: 04-14-2025 04-10-2025 Episodic Results Test Name Value Interpretation Reference Range Facility CBC W/Diff, Automatedon 06-27 Absolute Lymph 2.36 X10 3/uL Normal 0.83-4.51 [facility] Comment on above: Performed By: #### L 501.4021, L500.2500, L100.0100 #### [facility] [address] [place], [address] Absolute Neut 6.6 X10 3/uL Normal 2.0-7.7 [facility] Comment on above: Performed By: #### L 501.4021, L500.2500, L100.0100 #### [facility] [address] [place], [address] Basophils/100 WBC (Bld) 0.5 % Normal 0-1 [facility] Comment on above: Performed By: #### L 501.4021, L500.2500, L100.0100 #### [facility] [address] [place], [address] Eosinophils/100 WBC (Bld) 1.2 % Normal 0-5 [facility] Comment on above: Performed By: #### L 501.4021, L500.2500, L100.0100 #### [facility] [address] [place], [address] Erythrocyte distribution width (RBC) [Ratio] 12.4 % Normal 11.6-14.6 [facility] Comment on above: Performed By: #### L 501.4021, L500.2500, L100.0100 #### [facility] [address] [place], [address] Hematocrit (Bld) [Volume fraction] 35.7 % Low 40-54 [facility] Comment on above: Performed By: #### L 501.4021, L500.2500, L100.0100 #### [facility] [address] [place], [address] Hemoglobin (Bld) [Mass/Vol] 12.6 g/dL Low 13.0-16.5 [facility] Comment on above: Performed By: #### L 501.4021, L500.2500, L100.0100 #### [facility] [address] [place], [address] IG% 0.200 Normal 0.0-0.9 [facility] Comment on above: Result Comment: IG% - Immature Granulocytes (promyelocytes, myelocytes and metamyelocytes) > 1% indicates that a LEFT SHIFT is Present. Performed By: #### L 501.4021, L500.2500, L100.0100 #### [facility] [address] [place], [address] Lymphocytes/100 WBC (Bld) 23.3 % Normal 19-41 [facility] Comment on above: Performed By: #### L 501.4021, L500.2500, L100.0100 #### [facility] [address] [place], [address] MCH (RBC) [Entitic mass] 33.0 pg High 27.0-32.0 [facility] Comment on above: Performed By: #### L 501.4021, L500.2500, L100.0100 #### [facility] [address] [place], [address] MCHC (RBC) [Mass/Vol] 35.3 g/dL Normal 32-36 [facility] Comment on above: Performed By: #### L 501.4021, L500.2500, L100.0100 #### [facility] [address] [place], [address] MCV (RBC) [Entitic vol] 93.5 fL Normal 80-94 [facility] Comment on above: Performed By: #### L 501.4021, L500.2500, L100.0100 #### [facility] [address] [place], [address] Monocytes/100 WBC (Bld) 9.3 % Normal 0-10 [facility] Comment on above: Performed By: #### L 501.4021, L500.2500, L100.0100 #### [facility] [address] [place], [address] Neutrophils/100 WBC (Bld) 65.5 % Normal 47-70 [facility] Comment on above: Performed By: #### L 501.4021, L500.2500, L100.0100 #### [facility] [address] [place], [address] Nucleated RBC (Bld) [#/Vol] 0 10*3/uL Normal 0-5 [facility] Comment on above: Performed By: #### L 501.4021, L500.2500, L100.0100 #### [facility] [address] [place], [address] Platelet mean volume (Bld) [Entitic vol] 10.1 fL Normal 6.2-12.0 [facility] Comment on above: Performed By: #### L 501.4021, L500.2500, L100.0100 #### [facility] [address] [place], [address] Platelets (Bld) [#/Vol] 326 10*3/uL Normal 150-450 [facility] Comment on above: Performed By: #### L 501.4021, L500.2500, L100.0100 #### [facility] [address] [place], [address] RBC (Bld) [#/Vol] 3.82 10*6/uL Low 4.6-6.2 [facility] Comment on above: Performed By: #### L 501.4021, L500.2500, L100.0100 #### [facility] [address] [place], [address] RDW SD 42.8 fl Normal 35.1-43.9 [facility] Comment on above: Performed By: #### L 501.4021, L500.2500, L100.0100 #### [facility] [address] [place], [address] WBC (Bld) [#/Vol] 10.1 10*3/uL Normal 4.4-11.0 [facility] Comment on above: Performed By: #### L 501.4021, L500.2500, L100.0100 #### [facility] [address] [place], [address] Ferritinon 07-21-2025 Ferritin [Mass/Vol] 635 ng/mL High 37-417 [facility] Comment on above: Performed By: #### L 501.4021, L500.2500, L100.0100 #### [facility] [address] [place], [address] Iron+Iron Binding Capacityon 07-21-2025 Iron [Mass/Vol] 57 ug/dL Low 65-175 [facility] Comment on above: Performed By: #### L 501.4021, L500.2500, L100.0100 #### [facility] [address] [place], [address] IRON SATURATION 23.0 Normal 9-55 [facility] Comment on above: Performed By: #### L 501.4021, L500.2500, L100.0100 #### [facility] [address] [place], [address] TIBC 253 ug/dL Normal 250-450 [facility] Comment on above: Performed By: #### L 501.4021, L500.2500, L100.0100 #### [facility] [address] [place], [address] UIBC 196 ug/dL Low 228-428 [facility] Comment on above: Performed By: #### L 501.4021, L500.2500, L100.0100 #### [facility] [address] [place], [address] Neurology Visit Reporton Neurology Visit Report [facility] [address], [address] [place] [address] OFFICE VISIT Date of Service: 06/30/25 MR#: [id number] Acct: [id number] Name: MARY ALICE ESCALANTE JrEmily Rep #: [id number] : 1970 Provider: Dr. Dariel ndiaye MD Age/Sex: 54/M Location: [facility] [place].[facility] Status: Signed HPI HPI Details: The patient is a 54-year-old right-handed male who presents for a 4 month follow up on ischemic stroke, epilepsy, and slurred speech. This patient presents by himself for follow-up evaluation regarding the sequelae of a stroke. Patient was initially seen by neurology on 03/19/2025 posthospitalization for strokelike symptoms. Patient had symptom of dysarthria on 03/02/2025. Initial CT on 03/04/2020 25-day of presentation showed a hypodensity in the left subcortical white matter consistent with subacute infarct. CTA head and neck demonstrated no large vessel occlusion or stenoses. Patient was not within the window for thrombolytics. Patient was hypertensive on presentation. Patient did have cardiac echo and EKGs performed which demonstrated no actionable findings. Patient was treated with DAPT x 21 days and is currently on aspirin 81 mg a day. His blood pressure has been controlled by his primary care physician. Patient appears to be stable. With regard to his history of epilepsy he indicated that he had a head injury 5 or 6 years ago which resulted in seizures. It is difficult to say what his seizure frequency is. He tells me he has not had a seizure for years. He had frequent seizures as a child but apparently seizure frequency had decreased substantially when he became older. He uses marijuana for management of his seizures although no seizure-like episodes have been defined. He does not have headaches or migraines. Since his last visit has been completely asymptomatic. He does drive a car. Does drive motorcycles. He is currently employed. He did have an MRI of the brain performed 05/05/2025. Patient had multiple T2 hyperintensities in periventricular and subcortical white matter suggestive of moderate chronic small vessel white matter disease. Chronic ischemic encephalomalacia in the left hammond radiata extending to the left basal ganglia noted and appeared to be consistent with patient's prior stroke. No postcontrast abnormalities identified. Sinus mucosal thickening noted. ROS: General patient feels well has had no recent respiratory illnesses. HEENT: No headaches vision intact hearing intact patient able to swallow Respiratory: No shortness of breath cough hemoptysis Cardiac: No palpitations chest pain myocardial infarction's Abdomen: No abdominal pain does not follow blood or passed blood in stool : No hematuria Extremities without trauma or injury. Skin intact. Neurologic no recent neurologic deficits or seizures noted except for noted above. Psychiatric: Intact Exam Const Other: Blood pressure 151/85 pulse 75 respiration 16 temperature 98.6 O2 sat 95% on room air. BMI is 26.7%. General appearance well-developed well-nourished male no acute distress. Neurologic examination: Mental status: Patient is awake alert oriented x 3. Memory is grossly intact. 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 Insight and judgment appears adequate. Mood and affect appropriate. No hallucinations or delusions noted. CN II-XII: Pupils equal round approximately 4 mm in size. Reactive. No visual field defect to confrontation. Funduscopic exam not done. Extraocular muscles intact. Motor and sensory function of face normal. No facial droop. Hearing intact. Oropharynx shows he is edentulous has some speech alteration due to being edentulous but otherwise cannot phonate swallow and stick tongue out normally. Motor examination: No focal weakness identified. No drift. Cerebellar testing shows no cogwheeling rigidity tremor bradykinesia or ataxia. Reflexes 1+ at biceps 1+ at knees Babinski deferred at this time. Sensory exam: Intact to tactile and vibratory sense all 4 extremities. Station gait is normal. Romberg is negative. Assessment and Plan Assessment and Plan (1) History of stroke: Status: Resolved Comment: Patient did have a stroke on or about 03/02/2025. He did have deficits associated with that stroke but appears to have resolved his deficits and now has a history of stroke without residual. Plan: 1. Continue aspirin 81 mg p.o. daily indefinitely. 2. Patient's hypertension is being treated by primary care physician. 3. Patient may follow-up with neurology as needed. He can otherwise follow-up with his primary care physician at this time. (2) History of seizures: Status: Resolved Comment: Patient has a history of seizures as a child which were frequent. He is apparently improved to the point that he has not had a seizure for years. He treats himself with marijuana for his seizures and is (more content not included)... Normal [facility] Magnetic resonance imaging r eportOrdered By: Eleuterio Carpenter on 05-06-2025 Study report [facility] Services [address] [place] [address] Brain W/WO Contrast MR#: [id number] Acct: [id number] Name: MARY ALICE ESCALANTE Rep #: [id number] : 1970 M 54 From: Mark Carpenter MD PCP: ROBERTA Landry Status: REG C LI Study:Brain W/WO Contrast Date of Exam: 05/05/25 Exam# [id number] Ordering Dr: Keyanna Walton PROCEDURE: BRAIN W/WO CONTRAST 05/05/2025 REASON FOR EXAM: STROKE; EPILEPSY. TECHNIQUE: Routine brain MRI without and with intravenous contrast. Multiplanar and multisequence images were obtained. CONTRAST: Clariscan VOLUME: 15 mL COMPARISON: CT scan on 03/04/2025. FINDINGS: Multiple T2 hyperintense foci in the periventricular and subcortical white matter suggestive of moderate chronic ischemic white matter disease. Chronic ischemic encephalomalacia in the left coronal radiata extending to the left basal ganglia measuring 3.2 x 1.2 cm in its largest craniocaudal and anteroposterior dimensions respectively. Mild chronic mucosal inflammatory changes of the maxillary sinuses and ethmoid air cells. No abnormal postcontrast enhancement is noted. The ventricles and extra-axial spaces are normal for the patient's age. No otherabnormality is identified in the basal ganglia and thalami. No other abnormality is identified in the brainstem. No other abnormality is identified in the cerebellum. There is no midline shift or brain herniation. There is no demonstrated extra-axial, intraparenchymal, or intraventricular hemorrhage. There are no abnormal intra-or extra-axial fluid collections. There are no areas of restricted diffusion to suggest acute ischemia. The cerebellopontine angles, internal auditory canals and the cisternal portionsof the accoustico - facial nerves are unremarkable. Unremarkable exam of the skull. Normal soft tissue structures. The visualized mastoid air cells are clear. The visualized portions of the orbits are unremarkable. MRI/Brain W/WO Contrast IMPRESSION: Multiple T2 hyperintense foci in the periventricular and subcortical white matter suggestive of moderate chronic ischemic white matter disease. Chronic ischemic encephalomalacia in the left coronal radiata extending to the left basal ganglia measuring 3.2 x 1.2 cm in its largest craniocaudal and anteroposterior dimensions respectively. Mild chronic mucosal inflammatory changes of the maxillary sinuses and ethmoid air cells. No abnormal postcontrast enhancement is noted. Reading Location: [place] [address] CC: ROBERTA Mcknight; ROBERTA Walton ~ E Learning Coordinator: Signed [facility] Brain W/WO Contraston 2024 Brain W/WO Contrast [facility] Imaging Services [address] [place] [address] Brain W/WO Contrast MR#: [id number] Acct: [id number] Name: MARY ALICE ESCALANTE Jr. Rep #: [id number] : 1970 M 54 From: Eleuterio fuller MD PCP: ROBERTA Landry Status: REG CLI Study: Brain W/WO Contrast Date of Exam: 05/05/25 Exam# [id number] Ordering Dr: Keyanna Walton PROCEDURE: BRAIN W/WO CONTRAST 05/05/2025 REASON FOR EXAM: STROKE; EPILEPSY. TECHNIQUE: Routine brain MRI without and with intravenous contrast. Multiplanar and multisequence images were obtained. CONTRAST: Clariscan VOLUME: 15 mL COMPARISON: CT scan on 03/04/2025. FINDINGS: Multiple T2 hyperintense foci in the periventricular and subcortical white matter suggestive of moderate chronic ischemic white matter disease. Chronic ischemic encephalomalacia in the left coronal radiata extending to the left basal ganglia measuring 3.2 x 1.2 cm in its largest craniocaudal and anteroposterior dimensions respectively. Mild chronic mucosal inflammatory changes of the maxillary sinuses and ethmoid air cells. No abnormal postcontrast enhancement is noted. The ventricles and extra-axial spaces are normal for the patient's age. No other abnormality is identified in the basal ganglia and thalami. No other abnormality is identified in the brainstem. No other abnormality is identified in the cerebellum. There is no midline shift or brain herniation. There is no demonstrated extra-axial, intraparenchymal, or intraventricular hemorrhage. There are no abnormal intra-or extra-axial fluid collections. There are no areas of restricted diffusion to suggest acute ischemia. The cerebellopontine angles, internal auditory canals and the cisternal portions of the accoustico - facial nerves are unremarkable. Unremarkable exam of the skull. Normal soft tissue structures. The visualized mastoid air cells are clear. The visualized portions of the orbits are unremarkable. MRI/Brain W/WO Contrast IMPRESSION: Multiple T2 hyperintense foci in the periventricular and subcortical white matter suggestive of moderate chronic ischemic white matter disease. Chronic ischemic encephalomalacia in the left coronal radiata extending to the left basal ganglia measuring 3.2 x 1.2 cm in its largest craniocaudal and anteroposterior dimensions respectively. Mild chronic mucosal inflammatory changes of the maxillary sinuses and ethmoid air cells. No abnormal postcontrast enhancement is noted. Reading Location: [id number][facility] CC: ROBERTA Mcknight; ROBERTA Walton E Learning Coordinator: Signed Normal [facility] Orbits for Foreign Bodyon Orbits for Foreign Body [facility] Imaging Services [address], [place] [address] Orbits for Foreign Body MR#: [id number] Acct: [id number] Name: MARY ALICE ESCALANTE Jr. Rep #: [id number] : 1970 M 54 From: Miah Torres PCP: ROBERTA Landry Status: REG CLI Study: Orbits for Foreign Body Date of Exam: 05/05/25 Exam# [id number] Ordering Dr: Keyanna Walton PROCEDURE: ORBITS FOR FOREIGN BODY 05/05/2025 REASON FOR EXAM: HX: OF METAL TO EYES TECHNIQUE: 2 view(s) of the facial bones COMPARISON: None. FINDINGS: Bones: No acute process is seen. Sinuses: Cyst or polyp is seen in the inferolateral left maxillary sinus. The remaining visualized paranasal sinuses appear clear. Additional findings: No intraorbital metal is noted. RAD/Orbits for Foreign Body IMPRESSION: No evidence of intraorbital metal. Reading Location: [address] CC: ROBERTA Mcknight; ROBERTA Walton E Learning Coordinator: Signed Normal [facility] Absolute lymphocyte countOrd ered By: Dianne Mcknight on 04-30-2025 Lymphocytes Auto (Unsp spec) [#/Vol] 2.95 10*3/uL 0.83-4.51 [facility] Absolute neutrophil countOrd ered By: Dianne Mcknight on 04-30-2025 Neutrophils (Bld) [#/Vol] 6.2 10*3/uL 2.0-7.7 [facility] Anion gap in Serum or Plasma Ordered By: Dianne Mcknight on 04-30-2025 Anion gap [Moles/Vol] 14 mmol/L 5-15 [facility] Automated lymphocyte count a s percentage of total leukocytesOrdered By: Dianne Mcknight on 04-30-2025 Lymphocytes/100 WBC Auto (Unsp spec) 28.1 % 19-41 [facility] BUN/creatinine ratioOrdered By: Dianne Mcknight on 04-30-2025 Urea nitrogen/Creatinine [Mass ratio] 10.7 mg/mg 10-20 [facility] Basophil percentageOrdered B y: Dianne Mcknight on 04-30-2025 Basophils/100 WBC (Bld) 0.5 % 0-1 [facility] Bilirubin, totalOrdered By: Dianne Mcknight on 04-30-2025 Bilirubin [Mass/Vol] 0.60 mg/dL 0.00-1.30 [facility] CBC W/Diff, Automatedon Absolute Lymph 2.95 X10 3/uL Normal 0.83-4.51 [facility] Comment on above: Performed By: #### L 501.9985, L500.4100, L500.4050, L100.0100 #### [facility] [address] [place], [address] Absolute Neut 6.2 X10 3/uL Normal 2.0-7.7 [facility] Comment on above: Performed By: #### L 501.9985, L500.4100, L500.4050, L100.0100 #### [facility] [address] [place], [address] Basophils/100 WBC (Bld) 0.5 % Normal 0-1 [facility] Comment on above: Performed By: #### L 501.9985, L500.4100, L500.4050, L100.0100 #### [facility] [address] [place], [address] Eosinophils/100 WBC (Bld) 1.0 % Normal 0-5 [facility] Comment on above: Performed By: #### L 501.9985, L500.4100, L500.4050, L100.0100 #### [facility] [address] [place], [address] Erythrocyte distribution width (RBC) [Ratio] 13.4 % Normal 11.6-14.6 [facility] Comment on above: Performed By: #### L 501.9985, L500.4100, L500.4050, L100.0100 #### [facility] [address] [place], [address] Hematocrit (Bld) [Volume fraction] 34.5 % Low 40-54 [facility] Comment on above: Performed By: #### L 501.9985, L500.4100, L500.4050, L100.0100 #### [facility] [address] [place], [address] Hemoglobin (Bld) [Mass/Vol] 12.1 g/dL Low 13.0-16.5 [facility] Comment on above: Performed By: #### L 501.9985, L500.4100, L500.4050, L100.0100 #### [facility] [address] [place], [address] IG% 1.400 High 0.0-0.9 [facility] Comment on above: Result Comment: IG% - Immature Granulocytes (promyelocytes, myelocytes and metamyelocytes) > 1% indicates that a LEFT SHIFT is Present. Performed By: #### L 501.9985, L500.4100, L500.4050, L100.0100 #### [facility] [address] [place], [address] Lymphocytes/100 WBC (Bld) 28.1 % Normal 19-41 [facility] Comment on above: Performed By: #### L 501.9985, L500.4100, L500.4050, L100.0100 #### [facility] [address] [place], [address] MCH (RBC) [Entitic mass] 31.7 pg Normal 27.0-32.0 [facility] Comment on above: Performed By: #### L 501.9985, L500.4100, L500.4050, L100.0100 #### [facility] [address] [place], [address] MCHC (RBC) [Mass/Vol] 35.1 g/dL Normal 32-36 [facility] Comment on above: Performed By: #### L 501.9985, L500.4100, L500.4050, L100.0100 #### [facility] [address] [place], [address] MCV (RBC) [Entitic vol] 90.3 fL Normal 80-94 [facility] Comment on above: Performed By: #### L 501.9985, L500.4100, L500.4050, L100.0100 #### [facility] [address] [place], [address] Monocytes/100 WBC (Bld) 9.7 % Normal 0-10 [facility] Comment on above: Performed By: #### L 501.9985, L500.4100, L500.4050, L100.0100 #### [facility] [address] [place], [address] Neutrophils/100 WBC (Bld) 59.3 % Normal 47-70 [facility] Comment on above: Performed By: #### L 501.9985, L500.4100, L500.4050, L100.0100 #### [facility] [address] [place], [address] Nucleated RBC (Bld) [#/Vol] 0 10*3/uL Normal 0-5 [facility] Comment on above: Performed By: #### L 501.9985, L500.4100, L500.4050, L100.0100 #### [facility] [address] [place], [address] Platelet mean volume (Bld) [Entitic vol] 9.7 fL Normal 6.2-12.0 [facility] Comment on above: Performed By: #### L 501.9985, L500.4100, L500.4050, L100.0100 #### [facility] [address] [place], [address] Platelets (Bld) [#/Vol] 338 10*3/uL Normal 150-450 [facility] Comment on above: Performed By: #### L 501.9985, L500.4100, L500.4050, L100.0100 #### [facility] [address] [place], [address] RBC (Bld) [#/Vol] 3.82 10*6/uL Low 4.6-6.2 [facility] Comment on above: Performed By: #### L 501.9985, L500.4100, L500.4050, L100.0100 #### [facility] [address] [place], [address] RDW SD 43.9 fl Normal 35.1-43.9 [facility] Comment on above: Performed By: #### L 501.9985, L500.4100, L500.4050, L100.0100 #### [facility] [address] [place], [address] WBC (Bld) [#/Vol] 10.5 10*3/uL Normal 4.4-11.0 [facility] Comment on above: Performed By: #### L 501.9985, L500.4100, L500.4050, L100.0100 #### [facility] [address] [place], [address] Calculated very low density lipoprotein (VLDL) cholesterol measurementOrdered By: Dianne Mcknight on 04-30-2025 Calculated very low density lipoprotein (VLDL) cholesterol measurement 17 mg/dL 5-40 [facility] Carbon dioxide, total [Moles /volume] in Central venous bloodOrdered By: Dianne Mcknight on 04-30-2025 CO2 [Moles/Vol] 21.2 mmol/L 21.0-32.0 [facility] Chloride assayOrdered By: Radha Mcknight on 04-30-2025 Chloride [Moles/Vol] 102 mmol/L 98-108 [facility] Comprehensive Metabolic Prof ilon 04-30-2025 Albumin [Mass/Vol] 4.4 g/dL Normal 3.5-5.0 [facility] Comment on above: Performed By: #### L 501.9985, L500.4100, L500.4050, L100.0100 #### [facility] [address] [place], [address] Albumin/Globulin [Mass ratio] 1.6 {ratio} Normal 0.9-2.4 [facility] Comment on above: Performed By: #### L 501.9985, L500.4100, L500.4050, L100.0100 #### [facility] [address] [place], [address] ALK PHOS 74 U/L Normal 40-129 [facility] Comment on above: Performed By: #### L 501.9985, L500.4100, L500.4050, L100.0100 #### [facility] [address] [place], [address] ALT [Catalytic activity/Vol] 21 U/L Normal <=46 [facility] Comment on above: Performed By: #### L 501.9985, L500.4100, L500.4050, L100.0100 #### [facility] [address] [place], [address] AST [Catalytic activity/Vol] 24 U/L Normal <=37 [facility] Comment on above: Performed By: #### L 501.9985, L500.4100, L500.4050, L100.0100 #### [facility] [address] [place], [address] Bilirubin [Mass/Vol] 0.60 mg/dL Normal 0.00-1.30 [facility] Comment on above: Performed By: #### L 501.9985, L500.4100, L500.4050, L100.0100 #### [facility] [address] [place], [address] BUN/CRE 10.7 RATIO Normal 10-20 [facility] Comment on above: Performed By: #### L 501.9985, L500.4100, L500.4050, L100.0100 #### [facility] [address] [place], [address] Calcium [Mass/Vol] 9.0 mg/dL Normal 7.6-11.0 [facility] Comment on above: Performed By: #### L 501.9985, L500.4100, L500.4050, L100.0100 #### [facility] [address] [place], [address] Chloride [Moles/Vol] 102 mmol/L Normal 98-108 [facility] Comment on above: Performed By: #### L 501.9985, L500.4100, L500.4050, L100.0100 #### [facility] [address] [place], [address] CO2 [Moles/Vol] 21.2 mmol/L Normal 21.0-32.0 [facility] Comment on above: Performed By: #### L 501.9985, L500.4100, L500.4050, L100.0100 #### [facility] [address] [place], [address] Creatinine [Mass/Vol] 1.12 mg/dL Normal 0.70-1.20 [facility] Comment on above: Performed By: #### L 501.9985, L500.4100, L500.4050, L100.0100 #### [facility] [address] [place], [address] GAP 14 Normal 5-15 [facility] Comment on above: Performed By: #### L 501.9985, L500.4100, L500.4050, L100.0100 #### [facility] [address] [place], [address] GFR/1.73 sq M.predicted among non-blacks MDRD (S/P/Bld) [Vol rate/Area] 78 mL/min/{1.73_m2} Normal >60 [facility] Comment on above: Result Comment: mL/m in/1.73m2 CKD-EPI Creatinine Equation (2020) Performed By: #### L 501.9985, L500.4100, L500.4050, L100.0100 #### [facility] [address] [place], [address] Globulin (S) [Mass/Vol] 2.7 g/dL Normal 2.2-4.2 [facility] Comment on above: Performed By: #### L 501.9985, L500.4100, L500.4050, L100.0100 #### [facility] [address] [place], [address] Glucose [Mass/Vol] 98 mg/dL Normal 70-99 [facility] Comment on above: Performed By: #### L 501.9985, L500.4100, L500.4050, L100.0100 #### [facility] [address] [place], [address] Potassium [Moles/Vol] 3.7 mmol/L Normal 3.3-5.1 [facility] Comment on above: Performed By: #### L 501.9985, L500.4100, L500.4050, L100.0100 #### [facility] [address] [place], [address] Sodium [Moles/Vol] 137 mmol/L Normal 133-145 [facility] Comment on above: Performed By: #### L 501.9985, L500.4100, L500.4050, L100.0100 #### [facility] [address] [place], [address] T PROT 7.1 g/dL Normal 5.9-8.4 [facility] Comment on above: Performed By: #### L 501.9985, L500.4100, L500.4050, L100.0100 #### [facility] [address] [place], [address] Urea nitrogen [Mass/Vol] 12 mg/dL Normal 4-19 [facility] Comment on above: Performed By: #### L 501.9985, L500.4100, L500.4050, L100.0100 #### [facility] [address] [place], [address] Eosinophil percentageOrdered By: Dianne Mcknight on 04-30-2025 Eosinophils/100 WBC (Bld) 1.0 % 0-5 [facility] Erythrocyte distribution wid th ratioOrdered By: Dianne Mcknight on 04-30-2025 Erythrocyte distribution width (RBC) [Ratio] 13.4 % 11.6-14.6 [facility] Erythrocyte distribution wid th standard deviationOrdered By: Dianneandrea Mcknight on 04-30-2025 Erythrocyte distribution width (RBC) [Ratio] 43.9 fl 35.1-43.9 [facility] Glomerular filtration rate ( GFR) estimation/1.73 sq m using serum, plasma, or whole bOrdered By: Dianne Mcknight on 04-30-2025 GFR/1.73 sq M.predicted among non-blacks MDRD (S/P/Bld) [Vol rate/Area] 78 mL/min/{1.73_m2} >60 [facility] Comment on above: mL/min/1.73m2 CKD-EP I Creatinine Equation (2020) Hematocrit Auto (Bld) [Volum e fraction]Ordered By: Dianne Mcknight on 04-30-2025 Hematocrit (Bld) [Volume fraction] 34.5 % Low 40-54 [facility] Hemoglobin A1con 04-30-2025 HbA1c (Bld) [Mass fraction] 6.3 % High <=5.6 [facility] Comment on above: Result Comment: Norm al < 5.7 % Prediabetic 5.7 - 6.4 % Diabetic >or= 6.5 % Please note range changes. Performed By: #### L 501.9985, L500.4100, L500.4050, L100.0100 #### [facility] [address] [place], [address] Hemoglobin A1c percentageOrd ered By: Dianne Mcknight on 04-30-2025 HbA1c (Bld) [Mass fraction] 6.3 % High <5.7 [facility] Comment on above: Normal < 5.7 % Predi abetic 5.7 - 6.4 % Diabetic >or= 6.5 % Please note range changes. Hemoglobin measurementOrdere d By: Dianne Mcknight on 04-30-2025 Hemoglobin (Bld) [Mass/Vol] 12.1 g/dL Low 13.0-16.5 [facility] Immature granulocytes/100 WB C Auto (Bld)Ordered By: Dianne Mcknight on 04-30-2025 Immature granulocytes/100 WBC (Bld) 1.400 % High 0.0-0.9 [facility] Comment on above: IG% - Immature Granu locytes (promyelocytes, myelocytes and metamyelocytes) > 1% indicates that a LEFT SHIFT is Present. LDL calc ser/plasOrdered By: Dianne Mcknight on 04-30-2025 Cholesterol in LDL [Mass/Vol] 40 mg/dL [facility] Comment on above: Oabhinsfnd=546-911 m g/dL & Higher Eqmq=809 mg/dL or greater Laboratory - Chemistry and C hemistry - challengeOrdered By: Dianne Mcknight on 04-30-2025 AST [Catalytic activity/Vol] 24 U/L <38 [facility] Lipid Profileon 04-30-2025 CHOL:HDL 2.11 Normal [facility] Comment on above: Performed By: #### L 501.9985, L500.4100, L500.4050, L100.0100 #### [facility] [address] [place], [address] Cholesterol [Mass/Vol] 108 mg/dL Normal <=200 [facility] Comment on above: Result Comment: Chol esterol level, Desirable <200 mg/dL Borderline high cholesterol 200-239 mg/dL High cholesterol >=240 mg/dL Recommendations of the NCEP Adult Treatment Panel for the following risk-cutoff thresholds for the [place] population. Performed By: #### L 501.9985, L500.4100, L500.4050, L100.0100 #### [facility] [address] [place], [address] Cholesterol in HDL [Mass/Vol] 51 mg/dL Normal [facility] Comment on above: Result Comment: Izabel onal Cholesterol Education Program (NCEP) guidelines: <40 mg/dL: Low HDL-cholesterol (major risk factor for CHD) >= 60 mg/dL: High HDL-cholesterol (negative risk factor for CHD) HDL-cholesterol is affected by a number of factors, e.g. smoking, exercise, hormones, sex and age. Performed By: #### L 501.9985, L500.4100, L500.4050, L100.0100 #### [facility] [address] [place], [address] Cholesterol in LDL [Mass/Vol] 40 mg/dL Normal [facility] Comment on above: Result Comment: Bord tgnsvq=848-714 mg/dL Higher Kcke=862 mg/dL or greater Performed By: #### L 501.9985, L500.4100, L500.4050, L100.0100 #### [facility] [address] [place], [address] Cholesterol in VLDL [Mass/Vol] 17 mg/dL Normal 5-40 [facility] Comment on above: Performed By: #### L 501.9985, L500.4100, L500.4050, L100.0100 #### [facility] [address] [place], [place], [address] Triglyceride [Mass/Vol] 84 mg/dL Normal [facility] Comment on above: Result Comment: The drugs N-Acetylcysteine and Metamizole may falsely depress this assay. Normal range: <150 mg/dL Borderline High: 150-199 mg/dL High: 200-499 mg/dL Very High: >500 mg/dL Performed By: #### L 501.9985, L500.4100, L500.4050, L100.0100 #### [facility] [address] [place], [place], [address] MCV (mean corpuscular volume ) determinationOrdered By: Dianne Mcknight on 04-30-2025 MCV (RBC) [Entitic vol] 90.3 fL 80-94 [facility] Mean corpuscular hemoglobin (MCH) determinationOrdered By: Dianne Mcknight on 04-30-2025 MCH (RBC) [Entitic mass] 31.7 pg 27.0-32.0 [facility] Mean corpuscular hemoglobin concentration (MCHC) determinationOrdered By: Dianne Mcknight on 04-30-2025 MCHC (RBC) [Mass/Vol] 35.1 g/dL 32-36 [facility] Mean platelet volume determi nationOrdered By: Dianne Mcknight on 04-30-2025 Platelet mean volume (Bld) [Entitic vol] 9.7 fL 6.2-12.0 [facility] Monocyte percentageOrdered B y: Dianne Mcknight on 04-30-2025 Monocytes/100 WBC (Bld) 9.7 % 0-10 [facility] Neutrophil percentageOrdered By: Dianne Mcknight on 04-30-2025 Neutrophils/100 WBC (Bld) 59.3 % 47-70 [facility] Nucleated red blood cell per centageOrdered By: Dianne Mcknight on 04-30-2025 Nucleated RBC/100 WBC (Bld) [Ratio] 0 % 0-5 [facility] Platelet countOrdered By: Radha Mcknight on 04-30-2025 Platelets (Bld) [#/Vol] 338 10*3/uL 150-450 [facility] Potassium measurement (mass/ volume)Ordered By: Dianne Mcknight on 04-30-2025 Potassium (Unsp spec) [Mass/Vol] 3.7 mmol/L 3.3-5.1 [facility] RBC Auto (Bld) [#/Vol]Ordere d By: Dianne Mcknight on 04-30-2025 RBC (Bld) [#/Vol] 3.82 10*6/uL Low 4.6-6.2 [facility] Screening total cholesterol/ high density lipoprotein (HDL) cholesterol ratioOrdered By: Dianne Mcknight on 04-30-2025 Cholesterol.total/Chol esterol in HDL [Mass ratio] 2.11 {ratio} [facility] Serum creatinine measurement (mass/volume)Ordered By: Dianne Mcknight on 04-30-2025 Creatinine [Mass/Vol] 1.12 mg/dL 0.70-1.20 [facility] Serum globulin measurementOr dered By: Dianne Mcknight on 04-30-2025 Globulin (S) [Mass/Vol] 2.7 g/dL 2.2-4.2 [facility] Serum glucose measurement (m ass/volume)Ordered By: Dianne Mcnkight on 04-30-2025 Glucose [Mass/Vol] 98 mg/dL 70-99 [facility] Serum or plasma alanine horner otransferase (ALT) measurementOrdered By: Dianne Mcknight on 04-30-2025 ALT [Catalytic activity/Vol] 21 U/L <47 [facility] Serum or plasma albumin rachelle urement (mass/volume)Ordered By: Dianne Mcknight on 04-30-2025 Albumin [Mass/Vol] 4.4 g/dL 3.5-5.0 [facility] Serum or plasma albumin/glob ulin mass ratioOrdered By: Dianne Mcknight on 04-30-2025 Albumin/Globulin [Mass ratio] 1.6 {ratio} 0.9-2.4 [facility] Serum or plasma alkaline toy sphatase measurementOrdered By: Dianne Mcknight on 04-30-2025 ALP [Catalytic activity/Vol] 74 U/L 40-129 [facility] Serum or plasma calcium rachelle urement (mass/volume)Ordered By: Dianne Mcknight on 04-30-2025 Calcium [Mass/Vol] 9.0 mg/dL 7.6-11.0 [facility] Serum or plasma cholesterol in HDL measurement (mass/volume)Ordered By: Dianne Mcknight on 04-30-2025 Cholesterol in HDL [Mass/Vol] 51 mg/dL >40 [facility] Comment on above: National Cholesterol Education Program (NCEP) guidelines:<40 mg/dL: Low HDL-cholesterol (major risk factor for CHD)>= 60 mg/dL: High HDL-cholesterol (negative risk factor for CHD)HDL-cholesterol is affected by a number of factors, e.g. smoking, exercise, hormones, sex and age. Serum or plasma cholesterol measurement (mass/volume)Ordered By: Dianne Mcknight on 04-30-2025 Cholesterol [Mass/Vol] 108 mg/dL <201 [facility] Comment on above: Cholesterol level, D esirable <200 mg/dLBorderline high cholesterol 200-239 mg/dLHigh cholesterol >=240 mg/dLRecommendations of the NCEP Adult Treatment Panel for the following risk-cutoff thresholds for the [place] population. Serum or plasma urea nitroge n measurement (mass/volume)Ordered By: Dianne Mcknight on 04-30-2025 Urea nitrogen [Mass/Vol] 12 mg/dL 4-19 [facility] Sodium levelOrdered By: Jagdeep Mcknight on 04-30-2025 Sodium [Moles/Vol] 137 mmol/L 133-145 [facility] Total proteinOrdered By: Jean Carlos Mcknight on 04-30-2025 Protein [Mass/Vol] 7.1 g/dL 5.9-8.4 [facility] Triglycerides measurementOrd ered By: Dianne Mcknight on 04-30-2025 Triglyceride [Mass/Vol] 84 mg/dL <199 [facility] Comment on above: The drugs N-Acetylcy steine and Metamizole may falsely depress this assay. Normal range: <150 mg/dLBorderline High: 150-199 mg/dLHigh: 200-499 mg/dLVery High: >500 mg/dL White blood cell (WBC) count Ordered By: Dianne Mcknight on 04-30-2025 WBC (Bld) [#/Vol] 10.5 10*3/uL 4.4-11.0 [facility] 12 Lead EKGon 04-10-2025 12 Lead EKG [facility] Cardiovascular Services [address] [place] [address] 12 Lead EKG 04/10/25 0729 MR#: [id number] Acct: [id number] Name: MARY ALICE ESCALANTE Jr. Rep #: [id number] : 1970 54 From: Hiro Melendez MD [...] Normal ECG Confirmed by HIRO MELENDEZ MD ([id number]), subeditor KAYLEIGH SANCHEZ ([id number]) on 04/13/2025 8:44:53 AM Referred By: TL Confirmed By: HIRO MELENDEZ MD 04/13/25 0844 Date Hiro Melendez MD CC: Dr. Kev Nash DO; No Primary Care Physician Signed Normal [facility] Absolute lymphocyte countOrd ered By: Kev Nash on 04-10-2025 Lymphocytes Auto (Unsp spec) [#/Vol] 3.09 10*3/uL 0.83-4.51 [facility] Absolute neutrophil countOrd ered By: Kev Nash on 04-10-2025 Neutrophils (Bld) [#/Vol] 7.5 10*3/uL 2.0-7.7 [facility] Anion gap in Serum or Plasma Ordered By: Kev Nash on 04-10-2025 Anion gap [Moles/Vol] 12 mmol/L 04-09 [facility] Automated lymphocyte count a s percentage of total leukocytesOrdered By: Kev Nash on 04-10-2025 Lymphocytes/100 WBC Auto (Unsp spec) 25.1 % [facility] BUN/creatinine ratioOrdered By: Kev Nash on 04-10-2025 Urea nitrogen/Creatinine [Mass ratio] 11.2 mg/mg - [facility] Basic Metabolic Profile (BMP )on 04-10-2025 BUN/CRE 11.2 RATIO Normal 09-14 [facility] Comment on above: Performed By: #### L 501.4021, L500.2500, L100.0100 #### [facility] [address] [place], [address] Calcium [Mass/Vol] 9.2 mg/dL Normal 7.6-11.0 [facility] Comment on above: Performed By: #### L 501.4021, L500.2500, L100.0100 #### [facility] [address] [place], [address] Chloride [Moles/Vol] 88 mmol/L Low 98-108 [facility] Comment on above: Performed By: #### L 501.4021, L500.2500, L100.0100 #### [facility] [address] [place], [address] CO2 [Moles/Vol] 26.2 mmol/L Normal 21.0-32.0 [facility] Comment on above: Performed By: #### L 501.4021, L500.2500, L100.0100 #### [facility] [address] [place], [address] Creatinine [Mass/Vol] 1.05 mg/dL Normal 0.70-1.20 [facility] Comment on above: Performed By: #### L 501.4021, L500.2500, L100.0100 #### [facility] [address] [place], [address] ECRCL 74.32 ml/min Normal 50-250 [facility] Comment on above: Performed By: #### L 501.4021, L500.2500, L100.0100 #### [facility] [address] [place], [address] GAP 12 Normal 5-15 [facility] Comment on above: Performed By: #### L 501.4021, L500.2500, L100.0100 #### [facility] [address] [place], [address] GFR/1.73 sq M.predicted among non-blacks MDRD (S/P/Bld) [Vol rate/Area] 84 mL/min/{1.73_m2} Normal >60 [facility] Comment on above: Result Comment: mL/m in/1.73m2 CKD-EPI Creatinine Equation (2020) Performed By: #### L 501.4021, L500.2500, L100.0100 #### [facility] [address] [place], [address] Glucose [Mass/Vol] 131 mg/dL High 70-99 [facility] [facility] Comment on above: Performed By: #### L 501.4021, L500.2500, L100.0100 #### [facility] [address] [place], [address] Potassium [Moles/Vol] 3.4 mmol/L Normal 3.3-5.1 [facility] Comment on above: Performed By: #### L 501.4021, L500.2500, L100.0100 #### [facility] [address] [place], [address] Sodium [Moles/Vol] 126 mmol/L Low 133-145 [facility] Comment on above: Performed By: #### L 501.4021, L500.2500, L100.0100 #### [facility] [address] [place], [address] Urea nitrogen [Mass/Vol] 12 mg/dL Normal 4-19 [facility] Comment on above: Performed By: #### L 501.4021, L500.2500, L100.0100 #### [facility] [address] [place], [address] Basophil percentageOrdered B y: Kev Nash on 04-10-2025 Basophils/100 WBC (Bld) 0.7 % 0-1 [facility] Bedside Glucoseon 04-10-2025 FINGERSTICK GLU 133 mg/dL High 74-106 [facility] Comment on above: Result Comment: FABIÁN FERRER OF PATIENT CARE PER NURSING PROTOCOL Performed By: #### L 501.4021, L500.2500, L100.0100 #### [facility] [address] [place], [address] CBC W/Diff, Automatedon 03-26 Absolute Lymph 3.09 X10 3/uL Normal 0.83-4.51 [facility] Comment on above: Performed By: #### L 501.4021, L500.2500, L100.0100 #### [facility] [address] [place], [address] Absolute Neut 7.5 X10 3/uL Normal 2.0-7.7 [facility] Comment on above: Performed By: #### L 501.4021, L500.2500, L100.0100 #### [facility] [address] [place], [address] Basophils/100 WBC (Bld) 0.7 % Normal 0-1 [facility] Comment on above: Performed By: #### L 501.4021, L500.2500, L100.0100 #### [facility] [address] [place], [address] Eosinophils/100 WBC (Bld) 1.0 % Normal 0-5 [facility] Comment on above: Performed By: #### L 501.4021, L500.2500, L100.0100 #### [facility] [address] [place], [address] Erythrocyte distribution width (RBC) [Ratio] 11.9 % Normal 11.6-14.6 [facility] Comment on above: Performed By: #### L 501.4021, L500.2500, L100.0100 #### [facility] [address] [place], [address] Hematocrit (Bld) [Volume fraction] 39.7 % Low 40-54 [facility] Comment on above: Performed By: #### L 501.4021, L500.2500, L100.0100 #### [facility] [address] [place], [address] Hemoglobin (Bld) [Mass/Vol] 14.9 g/dL Normal 13.0-16.5 [facility] Comment on above: Performed By: #### L 501.4021, L500.2500, L100.0100 #### [facility] [address] [place], [address] IG% 0.700 Normal 0.0-0.9 [facility] Comment on above: Result Comment: IG% - Immature Granulocytes (promyelocytes, myelocytes and metamyelocytes) > 1% indicates that a LEFT SHIFT is Present. Performed By: #### L 501.4021, L500.2500, L100.0100 #### [facility] [address] [place], [address] Lymphocytes/100 WBC (Bld) 25.1 % Normal 19-41 [facility] Comment on above: Performed By: #### L 501.4021, L500.2500, L100.0100 #### [facility] [address] [place], [address] MCH (RBC) [Entitic mass] 31.5 pg Normal 27.0-32.0 [facility] Comment on above: Performed By: #### L 501.4021, L500.2500, L100.0100 #### [facility] [address] [place], [address] MCHC (RBC) [Mass/Vol] 37.5 g/dL High 32-36 [facility] Comment on above: Performed By: #### L 501.4021, L500.2500, L100.0100 #### [facility] [address] [place], [address] MCV (RBC) [Entitic vol] 83.9 fL Normal 80-94 [facility] Comment on above: Performed By: #### L 501.4021, L500.2500, L100.0100 #### [facility] [address] [place], [address] Monocytes/100 WBC (Bld) 11.2 % High 0-10 [facility] Comment on above: Performed By: #### L 501.4021, L500.2500, L100.0100 #### [facility] [address] [place], [address] Neutrophils/100 WBC (Bld) 61.3 % Normal 47-70 [facility] Comment on above: Performed By: #### L 501.4021, L500.2500, L100.0100 #### [facility] [address] [place], [address] Nucleated RBC (Bld) [#/Vol] 0 10*3/uL Normal 0-5 [facility] Comment on above: Performed By: #### L 501.4021, L500.2500, L100.0100 #### [facility] [address] [place], [address] Platelet mean volume (Bld) [Entitic vol] 8.7 fL Normal 6.2-12.0 [facility] Comment on above: Performed By: #### L 501.4021, L500.2500, L100.0100 #### [facility] [address] [place], [address] Platelets (Bld) [#/Vol] 416 10*3/uL Normal 150-450 [facility] Comment on above: Performed By: #### L 501.4021, L500.2500, L100.0100 #### [facility] [address] [place], [address] RBC (Bld) [#/Vol] 4.73 10*6/uL Normal 4.6-6.2 [facility] Comment on above: Performed By: #### L 501.4021, L500.2500, L100.0100 #### [facility] [address] [place], [address] RDW SD 36.2 fl Normal 35.1-43.9 [facility] Comment on above: Performed By: #### L 501.4021, L500.2500, L100.0100 #### [facility] [address] [place], [address] WBC (Bld) [#/Vol] 12.3 10*3/uL High 4.4-11.0 [facility] Comment on above: Performed By: #### L 501.4021, L500.2500, L100.0100 #### [facility] [address] [place], [address] Carbon dioxide, total [Moles /volume] in Central venous bloodOrdered By: Kev Nash on 04-10-2025 CO2 [Moles/Vol] 26.2 mmol/L 21.0-32.0 [facility] Chloride assayOrdered By: Jaya Nash on 04-10-2025 Chloride [Moles/Vol] 88 mmol/L Low 98-108 [facility] Emergency Department Summary on 04-10-2025 Emergency Department Summary [facility] Medical Records Department [address] [place] [address] Emergency Department Summary 04/10/25 MR#: [id number] Acct: [id number] Name: MARY ALICE ESCALANTE Jr. Rep #: [id number] : 1970 54 From: Kev Conklin PCP: [...] sensory deficits (more content not included)... Normal [facility] Eosinophil percentageOrdered By: Kev Nash on 04-10-2025 Eosinophils/100 WBC (Bld) 1.0 % 0-5 [facility] Erythrocyte distribution wid th ratioOrdered By: Kev Nash on 04-10-2025 Erythrocyte distribution width (RBC) [Ratio] 11.9 % 11.6-14.6 [facility] Erythrocyte distribution wid th standard deviationOrdered By: Kev Nash on 04-10-2025 Erythrocyte distribution width (RBC) [Ratio] 36.2 fl 35.1-43.9 [facility] Glomerular filtration rate ( GFR) estimation/1.73 sq m using serum, plasma, or whole bOrdered By: Kev Nash on 04-10-2025 GFR/1.73 sq M.predicted among non-blacks MDRD (S/P/Bld) [Vol rate/Area] 84 mL/min/{1.73_m2} >60 [facility] Comment on above: mL/min/1.73m2 CKD-EP I Creatinine Equation (2020) [facility] By: [facility]ev [facility] on 04-10-2025 Glucose [Mass/Vol] 133 mg/dL High 74-106 [facility] Comment on above: MANAGEMENT OF PATIEN T CARE PER NURSING PROTOCOL Hematocrit Auto (Bld) [Volum e fraction]Ordered By: Kev Nash on 04-10-2025 Hematocrit (Bld) [Volume fraction] 39.7 % Low 40-54 [facility] Hemoglobin measurementOrdere d By: Kev Nash on 04-10-2025 Hemoglobin (Bld) [Mass/Vol] 14.9 g/dL 13.0-16.5 [facility] Immature granulocytes/100 WB C Auto (Bld)Ordered By: Kev Nash on 04-10-2025 Immature granulocytes/100 WBC (Bld) 0.700 % 0.0-0.9 [facility] Comment on above: IG% - Immature Granu locytes (promyelocytes, myelocytes and metamyelocytes) > 1% indicates that a LEFT SHIFT is Present. L499.0042on 04-10-2025 Trop T High Sen 7 ng/L Normal <=22 [facility] Comment on above: Performed By: #### L 501.4021, L500.2500, L100.0100 #### [facility] [address] [place], [address] L499.0043on 04-10-2025 Trop T High Sen Normal <=22 [facility] Comment on above: Result Comment: Canc elled via OM: Order cancelled - Patient discharged Performed By: #### L 499.0042 #### [facility] [address] [place], [address] L501.4021on 04-10-2025 Trop T High Sen 7 ng/L Normal <=22 [facility] Comment on above: Performed By: #### L 501.4021, L500.2500, L100.0100 #### [facility] [address] [place], [address] MCV (mean corpuscular volume ) determinationOrdered By: Kev Nash on 04-10-2025 MCV (RBC) [Entitic vol] 83.9 fL 80-94 [facility] Mean corpuscular hemoglobin (MCH) determinationOrdered By: Kev Nash on 04-10-2025 MCH (RBC) [Entitic mass] 31.5 pg 27.0-32.0 [facility] Mean corpuscular hemoglobin concentration (MCHC) determinationOrdered By: Kev Nash on 04-10-2025 MCHC (RBC) [Mass/Vol] 37.5 g/dL High 32-36 [facility] Mean platelet volume determi nationOrdered By: Kev Nash on 04-10-2025 Platelet mean volume (Bld) [Entitic vol] 8.7 fL 6.2-12.0 [facility] Monocyte percentageOrdered B y: Kev Nash on 04-10-2025 Monocytes/100 WBC (Bld) 11.2 % High 0-10 [facility] Neutrophil percentageOrdered By: Kev Nash on 04-10-2025 Neutrophils/100 WBC (Bld) 61.3 % 47-70 [facility] Nucleated red blood cell per centageOrdered By: Kev Le on 04-10-2025 Nucleated RBC/100 WBC (Bld) [Ratio] 0 % 0-5 [facility] Platelet countOrdered By: Jaya Nash on 04-10-2025 Platelets (Bld) [#/Vol] 416 10*3/uL 150-450 [facility] Potassium measurement (mass/ volume)Ordered By: Kev Nash on 04-10-2025 Potassium (Unsp spec) [Mass/Vol] 3.4 mmol/L 3.3-5.1 [facility] RBC Auto (Bld) [#/Vol]Ordere d By: Kev Nash on 04-10-2025 RBC (Bld) [#/Vol] 4.73 10*6/uL 4.6-6.2 [facility] Serum creatinine measurement (mass/volume)Ordered By: Kev Nash on 04-10-2025 Creatinine [Mass/Vol] 1.05 mg/dL 0.70-1.20 [facility] Serum glucose measurement (m ass/volume)Ordered By: Kev Nash on 04-10-2025 Glucose [Mass/Vol] 131 mg/dL High 70-99 [facility] Serum or plasma calcium rachelle urement (mass/volume)Ordered By: Kev Nash on 04-10-2025 Calcium [Mass/Vol] 9.2 mg/dL 7.6-11.0 [facility] Serum or plasma urea nitroge n measurement (mass/volume)Ordered By: Kev Nash on 04-10-2025 Urea nitrogen [Mass/Vol] 12 mg/dL 4-19 [facility] Sodium levelOrdered By: Kev Nash on 04-10-2025 Sodium [Moles/Vol] 126 mmol/L Low 133-145 [facility] Troponin T.cardiac [Mass/vol ume] in Serum or Plasma by High sensitivity methodOrdered By: Kev Nash on 04-10-2025 Troponin T.cardiac High sensitivity method [Mass/Vol] 7 ng/L <22 [facility] Troponin T.cardiac High sensitivity method [Mass/Vol] 7 ng/L <22 [facility] Comment on above: Delta: 11 on 5-0722 White blood cell (WBC) count Ordered By: eKv Nash on 04-10-2025 WBC (Bld) [#/Vol] 12.3 10*3/uL High 4.4-11.0 [facility] AT III Func / Immunolon 05-0 AT3 AG, IMMUNOL 104 Normal 72-124 [facility] Comment on above: Order Comment: Test( s) 125139-Wtrsmoutbhqy Antigenwas developed and its performance characteristicsdetermined by [employer]. It has not been cleared or approvedby the Food and Drug Administration. Performed By: #### L 499.0042 #### [facility] [address] [place], [place], [address] AT3 FUNCTIONAL 116 Normal 75-135 [facility] Comment on above: Order Comment: Test( s) 737613-Fnrjvyzhsrym Antigenwas developed and its performance characteristicsdetermined by [facility]. It has not been cleared or approvedby the Food and Drug Administration. Result Comment: Dire ct Xa inhibitor anticoagulants such as rivaroxaban, apixaban and edoxaban will lead to spuriously elevated antithrombin activity levels possibly masking a deficiency. Performed By: #### L 499.0042 #### [facility] [address] [place], [place], [address] Anticardiolipin IgA,G,Mon ANTICARDIO IgA < 9 Normal 0-11 [facility] Comment on above: Order Comment: Test( s) 415808-Ogecjupjdqcc Antigenwas developed and its performance characteristicsdetermined by [employer]. It has not been cleared or approvedby the Food and Drug Administration. Result Comment: Nega tive: <12 Indeterminate: 12 - 20 Low-Med Positive: >20 - 80 High Positive: >80 Performed By: #### L 501.4021, L500.2500, L100.0100 #### [facility] [address] [place], [place], [id number] [phone] ANTICARDIO IgG < 9 Normal 0-14 [facility] Comment on above: Order Comment: Test( s) 488234-Aqcavddyxabe Antigenwas developed and its performance characteristicsdetermined by [facility]. It has not been cleared or approvedby the Food and Drug Administration. Result Comment: Nega tive: <15 Indeterminate: 15 - 20 Low-Med Positive: >20 - 80 High Positive: >80 Performed By: #### L 501.4021, L500.2500, L100.0100 #### [facility] [address] [place], [address] Anticardio.IgM 14 MPL U/mL High 0-12 [facility] Comment on above: Order Comment: Test( s) 362345-Qqvewxncvjzz Antigenwas developed and its performance characteristicsdetermined by [facility]. It has not been cleared or approvedby the Food and Drug Administration. Result Comment: Nega tive: <13 Indeterminate: 13 - 20 Low-Med Positive: >20 - 80 High Positive: >80 Performed By: #### L 501.4021, L500.2500, L100.0100 #### [facility] [address] [place], [address] Complement C3on 03-30-2025 COMP C3 114 mg/dL Normal 82-167 [facility] Comment on above: Order Comment: Test( s) 975045-Xofmftjqaflm Antigenwas developed and its performance characteristicsdetermined by [employer]. It has not been cleared or approvedby the Food and Drug Administration. Performed By: #### L 501.4021, L500.2500, L100.0100 #### [facility] [address] [place], [address] Complement C4on 03-30-2025 COMPLEMENT, C4 20 mg/dL Normal 12-38 [facility] Comment on above: Order Comment: Test( s) 444626-Npmpzhezfxqc Antigenwas developed and its performance characteristicsdetermined by [employer]. It has not been cleared or approvedby the Food and Drug Administration. Performed By: #### L 501.4021, L500.2500, L100.0100 #### [facility] [address] [place], [address] Complement CH50on 03-30-2025 COMPLEMENT,CH50 54 U/mL Normal >41 [facility] Comment on above: Order Comment: Test( s) 351513-Wfhlfhklruif Antigenwas developed and its performance characteristicsdetermined by [facility]. It has not been cleared or approvedby [...] of range values. Performed By: #### L 501.4021, L500.2500, L100.0100 #### [facility] [address] [place], [address] Fact V Leiden Mutationon FACTOR V LEIDEN Comment Normal . [facility] Comment on above: Order Comment: Test( s) 183685-Lmhmyqrfllem Antigenwas developed and its performance characteristicsdetermined by [employer]. It has not been cleared or approvedby the Food and Drug Administration. Result Comment: Resu lt: c.1601G>A (p.Pxw476Pyz) - Not Detected This result is not associated with an increased risk for venous thromboembolism. See Additional Clinical Information and Comments. Additional Clinical Information: Venous thromboembolism is a multifactorial disease influenced by genetic, environmental, and circumstantial risk factors. The c.1601G>A (p. Uwv481Piy) variant in the F5 gene, commonly referred [...] c.*97G>A variant and Factor V Leiden (PMID: 39026720). Additional risk factors include but are not [...] health care providers to discuss results at [phone] ([phone]). Test Details: Variant Analyzed: c.1601G>A (p. Rqr203Qhk), referred to as Factor V Leiden Methods/Limitations: [...] developed and its performance characteristics determined by [employer]. It has not been cleared or approved by the Food and Drug Administration. References: Laen S, Janice AK, Jesus R, Zelda WW, Thee JH; [employer] Professional Practice and Guidelines Committee. Addendum: [employer] consensus statement on factor V Leiden mutation testing. [employer]. 2020Jan 28. doi: 10.1038/s48845-006-21685-g. PMID: 81836001. Mickey SIDHU. Factor V Leiden Thrombophilia. 1998April 08 (Updated 2017Nov 29). In: Jose D MP, Jaquelin HH, Pagon RA, et al., editors. Faustino(Sohail) (Internet). [place] ([place]): [facility], [place]; 6494-1159. Available from: https://www.ncbi.nlm.nih.gov/books/XQK4049/ Krishna S, Janice AK, Mannie X, Ernesto B, Stephanie EB, Isabel P, Javi CS; [facility] Laboratory Insurance Agency Manager Committee. Venous thromboembolism laboratory testing (factor V Leiden and factor II c.*97G>A), 2018 update: a technical standard of the [employer] ([employer]MG). [employer]ess[employer] Med. 2018 Oct;20(12):6678-2091. doi: 10.1038/[id number]-o. Epub 2017Aug 30. PMID: 97643607. Performed By: #### L 501.4021, L500.2500, L100.0100 #### [facility] [address] [place], [address] Reviewed By Comment Normal . [facility] Comment on above: Order Comment: Test( s) 778414-Hdiuaplenaqv Antigenwas developed and its performance characteristicsdetermined by [employer]. It has not been cleared or approvedby the Food and Drug Administration. Result Comment: Tech nical Component performed at [facility] Professional Component performed by: Martha Kaufman, PhD, [facility] [id number], [facility], [address] [facility] [place] [address] Performed By: #### L 501.4021, L500.2500, L100.0100 #### [facility] [address] [place], [address] Factor II, DNA Analysison FACTOR II, DNA Comment Normal . [facility] Comment on above: Order Comment: Test( s) 868962-Saycbkwmzenc Antigenwas developed and its performance characteristicsdetermined by [facility]. It has not been cleared or approvedby [...] the F2 gene and a c.1601G>A (p. Tqd027Igy) variant in the F5 gene (commonly referred to as Factor V Leiden) have an approximately 20- fold increased risk for venous thromboembolism. Risks are likely to be even higher in more complex genotype combinations involving the F2 c.*97G>A variant and Factor V Leiden (PMID: 11287913). Additional risk factors include but are not [...] health care providers to discuss results at [phone] ([phone]). Test Details: Variant analyzed: c.*97G>A, previously referred to as Q05989V Methods/Limitations: DNA analysis of the F2 gene [...] developed and its performance characteristics determined by [employer]. It has not been cleared or approved by the Food and Drug Administration. References: Alen Brannon, Janice CASTILLO, Jesus R, Zelda WW, Thee JH; [employer] Professional Practice and Guidelines Committee. Addendum: [employer] consensus statement on factor V Leiden mutation testing. [employer] Med. 2020Jan 28. doi: 10.1038/e25082-229-28279-r. PMID: 55453066. Mickey SIDHU. Prothrombin Thrombophilia. 2005Jun 19 [Updated 2020Dec 30]. In: Jose D MP, Jaquelin HH, Miri RA, et al., editors. Faustino(R) [Internet]. [place] ([place]): [facility]; [phone]. Available from: https://www.ncbi.nlm.nih.gov/books/KNR0748/ Krishna S, Janice CASTILLO, Mannie X, Ernesto B, Stephanie EB, Isabel P, Javi CS; [employer] Laboratory Insurance Agency Manager Committee. Venous thromboembolism laboratory testing (factor V Leiden and factor II c.*97G>A), 2018 update: a technical standard of the [employer] (ACMG). Yessica Med. 2018 Oct;20(12):5968-1483. doi: 10.1038/[id number]-y. Epub 2017Aug 30. PMID: 83613739. Performed By: #### L 501.4021, L500.2500, L100.0100 #### [facility] [address] [place], [place], [address] Folates, RBCon 03-30-2025 Fol.,Hemolysate 289.0 ng/mL Normal Not Estab. [facility] Comment on above: Order Comment: Test( s) 950768-Imdrsxvcraak Antigenwas developed and its performance characteristicsdetermined by [facility]. It has not been cleared or approvedby the Food and Drug Administration. Performed By: #### L 499.0042 #### [facility] [address] [place], [address] Folate, RBC 626 ng/mL Normal >498 [facility] Comment on above: Order Comment: Test( s) 906754-Kahrzebuzdwd Antigenwas developed and its performance characteristicsdetermined by [employer]. It has not been cleared or approvedby the Food and Drug Administration. Performed By: #### L 499.0042 #### [facility] [address] [place], [place], [id number] (456) Hematocrit (Bld) [Volume fraction] 46.2 % Normal 37.5-51.0 [facility] Comment on above: Order Comment: Test( s) 315489-Lroqpmsxvxnd Antigenwas developed and its performance characteristicsdetermined by [employer]. It has not been cleared or approvedby the Food and Drug Administration. Performed By: #### L 499.0042 #### [facility] [address] [place], [address] Lupus Anticoagulant Compon 0 - aPTT Coag (Bld) [Time] 35.5 s Normal 0.0-43.5 [facility] Comment on above: Order Comment: Test( s) 945808-Bzsfwpbchvrx Antigenwas developed and its performance characteristicsdetermined by [employer]. It has not been cleared or approvedby the Food and Drug Administration. Performed By: #### L 501.4021, L500.2500, L100.0100 #### [facility] [address] [place], [address] DILUTE PT (dPT) 37.5 sec Normal 0.0-47.6 [facility] Comment on above: Order Comment: Test( s) 273714-Finfjgftktaf Antigenwas developed and its performance characteristicsdetermined by [employer]. It has not been cleared or approvedby the Food and Drug Administration. Performed By: #### L 501.4021, L500.2500, L100.0100 #### [facility] [address] [place], [address] dPT Conf. Ratio 1.19 Ratio Normal 0.00-1.34 [facility] Comment on above: Order Comment: Test( s) 938389-Suvolclgmblt Antigenwas developed and its performance characteristicsdetermined by [facility] [employer]. It has not been cleared or approvedby the Food and Drug Administration. Performed By: #### L 501.4021, L500.2500, L100.0100 #### [facility] [address] [place], [place], [id number] DRVVT 40.9 sec Normal 0.0-47.0 [facility] Comment on above: Order Comment: Test( s) 901685-Asdzhnqkwghu Antigenwas developed and its performance characteristicsdetermined by [facility]. It has not been cleared or approvedby the Food and Drug Administration. Performed By: #### L 501.4021, L500.2500, L100.0100 #### [facility] [address] [place], [place], [address] Interpretation Comment: Normal . [facility] Comment on above: Order Comment: Test( s) 547272-Fkxjffyvwqqx Antigenwas developed and its performance characteristicsdetermined by [facility]. It has not been cleared or approvedby the Food and Drug Administration. Result Comment: No l upus anticoagulant was detected. Performed By: #### L 501.4021, L500.2500, L100.0100 #### [facility] [address] [place], [address] THROMBIN TIME 19.6 sec Normal 0.0-23.0 [facility] Comment on above: Order Comment: Test( s) 729726-Hsupacrfzjqi Antigenwas developed and its performance characteristicsdetermined by [facility] [employer]. It has not been cleared or approvedby the Food and Drug Administration. Performed By: #### L 501.4021, L500.2500, L100.0100 #### [facility] [address] [place], [address] Protein C Antigenon 0505-20 25 PROTEIN C Ag 92 Normal 60-150 [facility] Comment on above: Order Comment: Test( s) 773288-Xhdslybbechc Antigenwas developed and its performance characteristicsdetermined by [employer]. It has not been cleared or approvedby the Food and Drug Administration. Performed By: #### L 501.4021, L500.2500, L100.0100 #### [facility] [address] [place], [address] Protein C, Functionalon 05-0 5 PROTEIN C,FUNC 93 Normal 73-180 [facility] Comment on above: Order Comment: Test( s) 399412-Gisywrfxbyyw Antigenwas developed and its performance characteristicsdetermined by [facility]. It has not been cleared or approvedby the Food and Drug Administration. Result Comment: Perf ormed at: [address] [id number] Tractor Driver: Kajal Butler MD, Phone: [phone] Performed at: [address] [id number] Tractor Driver: Edwardo Lopez PhD, Phone: [phone] Performed at: [facility] [address] [place], [place] [id number] Tractor Driver: Ekta Adler [facility], Phone: [phone] Performed By: #### L 501.4021, L500.2500, L100.0100 #### [facility] [address] [place], [place], [id number] (420) Protein S Antigenon 03-30-20 25 PROTEIN S, FREE 129 Normal 61-136 [facility] Comment on above: Order Comment: Test( s) 687309-Oittjzqkssjs Antigenwas developed and its performance characteristicsdetermined by [facility]. It has not been cleared or approvedby the Food and Drug Administration. Performed By: #### L 501.4021, L500.2500, L100.0100 #### [facility] [address] [place], [address] PROTEIN S,TOTAL 90 Normal 60-150 [facility] Comment on above: Order Comment: Test( s) 349137-Ybnrnmmoaxdj Antigenwas developed and its performance characteristicsdetermined by [facility] [employer]. It has not been cleared or approvedby the Food and Drug Administration. Result Comment: This test was developed and its performance characteristics determined by [facility]. It has not been cleared or approved by the Food and Drug Administration. Performed By: #### L 501.4021, L500.2500, L100.0100 #### [facility] [address] [place], [address] Protein S, Functionalon PROTEIN S, FUNC 110 Normal 63-140 [facility] Comment on above: Order Comment: Test( s) 549750-Bgkackydnmny Antigenwas developed and its performance characteristicsdetermined by [facility]. It has not been cleared or approvedby the Food and Drug Administration. Result Comment: Prot ein S activity may be falsely increased (masking an abnormal, low result) in patients receiving direct Xa inhibitor (e.g., rivaroxaban, apixaban, edoxaban) or a direct thrombin inhibitor (e.g., dabigatran) anticoagulant treatment due to assay interference by these drugs. Performed By: #### L 501.4021, L500.2500, L100.0100 #### [facility] [address] [place], [address] Vitamin B1, Thiamineon 03-30 VIT B1 THIAMINE 124.4 nmol/L Normal 66.5-200.0 [facility] Comment on above: Order Comment: Test( s) 662389-Angojnzklncv Antigenwas developed and its performance characteristicsdetermined by [facility]. It has not been cleared or approvedby the Food and Drug Administration. Performed By: #### L 501.4021, L500.2500, L100.0100 #### [facility] [address] [place], [address] SEPIDEH w/ Reflex Mult Confirmon 03-26-2025 ANTI-DNA (DS)AB TNP Normal [facility] Comment on above: Order Comment: Reaso n for Exam: Cryptogenic stroke Performed By: #### L 499.0042 #### [facility] [address] [place], [place], [address] L803.0600on 03-25-2025 HOMOCYSTEINE 27.3 umol/L Abnormal 0.0-14.5 [facility] Comment on above: Order Comment: Reaso n for Exam: Cryptogenic stroke Performed By: #### L 499.0042 #### [facility] [address] [place], [address] Blood or tissue coagulation factor II targeted mutation analysis by molecular geneticOrdered By: Keyanna Walton on 03-23-2025 F2 gene targeted mutation analysis [facility] Nom (Bld/Tiss) Comment . [facility] Comment on above: Result: c.*97G>A [...] in theF2 gene and a c.1601G>A (p. Nix933Iqo) variant in the F5 gene(commonly referred to as Factor V Leiden) have an approximately 20-fold increased risk for venous thromboembolism. Risks are likely celia even higher in more complex genotype combinations involving theF2 c.*97G>A variant and Factor V Leiden (PMID: 38917868). Additionalrisk factors include but are not limited [...] for health care providers to discussresults at [phone] ([phone]).Test Details:Variant analyzed: c.*97G>A, previously referred to as [id number]/Limitations:DNA analysis of the F2 gene (NM_000506.5) was [...] was developed and its performance characteristics determinedby [employer]. It has not been cleared or approved by the Food and DrugAdministration.References:Alen S, Janice CASTILLO, Jesus R, Zelda WW, Thee JH; [employer] ProfessionalPractice and Guidelines Committee. Addendum: [employer] consensus statement on factor V Leiden mutationtesting. Yessica Med. 2020Jan 28. doi: 10.1038/e66346-051-65495-o.PMID: 67857202.Mickey SIDHU. Prothrombin Thrombophilia. 2005Jun 19[Updated 2020Dec 30]. In: Jose D MP, Jaquelin HH, Miri RA, et al.,editors. Faustino(R) [Internet]. [place] ([place]): [facility]; 4819-3022. Available from:https://www.ncbi.nlm.nih.gov/books/HBZ4898/Krishna Brannon, Janice CASTILLO, Mannie X, Ernesto B, Stephanie EB, Isabel P, Javi CS;[employer] Laboratory Insurance Agency Manager Committee. Venous thromboembolismlaboratory testing (factor V Leiden and factor II c.*97G>A),2018 update: a technical standard of the [place] [employer] ([employer]). Yessica Med. 2018 Oct;20(12):7034-4803.doi: 10.1038/q02762-799-2700-m. Epub 2017Aug 30. PMID: 77267158. CRPon 03-23-2025 C-REACTIVE PROT 3.17 mg/L High 0.0-3.0 [facility] Comment on above: Performed By: #### L 499.0042 #### [facility] [address] [place], [place], [address] Dilute Venkatesh's viper venom timeOrdered By: Keyanna Walton on 03-23-2025 dRVVT Coag (PPP) [Time] 40.9 s 0.0-47.0 [facility] Erythrocyte Sed Rateon 03-23 SED RATE 3 mm/hr Normal 0-20 [facility] Comment on above: Performed By: #### L 499.0042 #### [facility] [address] [facility] [place], [place], [address] Erythrocyte folate measureme nt with hematocritOrdered By: Keyanna Walton on 03-23-2025 Hematocrit (Bld) [Volume fraction] 46.2 % 37.5-51.0 [facility] Erythrocyte sedimentation ra teOrdered By: Keyanna Walton on 03-23-2025 ESR (Bld) [Velocity] 3 mm/h 0-20 [facility] Functional protein C measure mentOrdered By: Keyanna Walton on 03-23-2025 Protein C actual/normal Chromogenic method (PPP) [Rel catalytic activity/Vol] 93 % 73-180 [facility] Comment on above: Performed at: - kelli [address] [id number] Director: Kajal Butler MD, Phone: [phone] at: CB - [facility] [id number] [place], [place] [id number] Director: Edwardo Lopez PhD, Phone: [phone] at: TG - [facility] [id number] [place], [place] [id number] Director: Ekta Adler [facility], Phone: [phone] Hemoglobin A1con 03-23-2025 HbA1c (Bld) [Mass fraction] 5.8 % High <=5.6 [facility] Comment on above: Result Comment: Norm al < 5.7 % Prediabetic 5.7 - 6.4 % Diabetic >or= 6.5 % Please note range changes. Performed By: #### L 499.0042 #### [facility] [address] [place], [address] Hemoglobin A1c percentageOrd ered By: Keyanna Walton on 03-23-2025 HbA1c (Bld) [Mass fraction] 5.8 % High <5.7 [facility] Comment on above: Normal < 5.7 % Predi abetic 5.7 - 6.4 % Diabetic >or= 6.5 % Please note range changes. Platelet poor plasma antithr ombin actual/normal ratio by chromogenic method (relativeOrdered By: Keyanna Walton on 03-23-2025 Antithrombin actual/normal Chromogenic method (PPP) [Rel catalytic activity/Vol] 116 % 75-135 [facility] Comment on above: Direct Xa inhibitor anticoagulants such as rivaroxaban,apixaban and edoxaban will lead to spuriously elevatedantithrombin activity levels possibly masking a deficiency. Platelet poor plasma antithr ombin antigen detection by immunoassayOrdered By: Keyanna Walton on 03-23-2025 Antithrombin Ag IA Ql (PPP) 104 % 72-124 [facility] Platelet poor plasma protein S actual/normal ratio (relative time)Ordered By: Keyanna Walton on 03-23-2025 Protein S actual/normal Coag (PPP) [Relative time] 110 % 63-140 [facility] Comment on above: Protein S activity m ay be falsely increased (masking anabnormal, low result) in patients receiving direct Xainhibitor (e.g., rivaroxaban, apixaban, edoxaban) or adirect thrombin inhibitor (e.g., dabigatran) anticoagulanttreatment due to assay interference by these drugs. Protein C antigen assayOrder ed By: Keyanna Walton on 03-23-2025 Protein C Ag actual/normal IA (PPP) [Relative mass conc] 92 % 60-150 [facility] Protein S measurement in sonja telet poor plasma by coagulation assay (units/volume)Ordered By: Keyanna Walton on 03-23-2025 Protein S Coag Qn (PPP) 90 % 60-150 [facility] Comment on above: This test was develo ped and its performance characteristicsdetermined by [employer]. It has not been cleared orapproved by the Food and Drug Administration. Protein S, freeOrdered By: Rhys Walton on 03-23-2025 Protein S Free Ag IA Qn (PPP) 129 % 61-136 [facility] Serum DNA double strand anti body assay (units/volume)Ordered By: Keyanna Walton on 03-23-2025 DNA double strand Ab Qn (S) [facility] Comment on above: Test not performed Serum Scl-70 antibody assay (units/volume)Ordered By: Keyanna Walton on 03-23-2025 SCL-70 extractable nuclear Ab Qn (S) [facility] Comment on above: Test not performed Serum cardiolipin IgG antibo dy assay by immunoassay (units/volume)Ordered By: Keyanna Walton on 03-23-2025 Cardiolipin IgG IA Qn (S) < 9 GPL U/mL 0-14 [facility] Comment on above: Negative: <15 Indete rminate: 15 - 20 Low-Med Positive: >20 - 80 High Positive: >80 Serum or plasma C reactive p rotein measurement (mass/volume)Ordered By: Keyanna Walton on 03-23-2025 CRP [Mass/Vol] 3.17 mg/L High 0.0-3.0 [facility] Serum or plasma cardiolipin IgA antibody assay (units/volume)Ordered By: Keyanna Walton on 03-23-2025 Cardiolipin IgA Qn < 9 APL U/mL 0-11 [facility] Comment on above: Negative: <12 Indete rminate: 12 - 20 Low-Med Positive: >20 - 80 High Positive: >80 Serum or plasma complement C 4 measurement (mass/volume)Ordered By: Keyanna Walton on 03-23-2025 Complement C4 [Mass/Vol] 20 mg/dL 12-38 [facility] Serum or plasma thiamine paulette surement (mass/volume)Ordered By: Keyanna Walton on 03-23-2025 Thiamine [Mass/Vol] 124.4 nmol/L 66.5-200.0 [facility] TSH DL <= 0.005 mIU/L QnOrde red By: Keyanna Walton on 03-23-2025 TSH Qn 1.160 uIU/mL 0.300-4.200 [facility] Thrombin timeOrdered By: Sanya Walton on 03-23-2025 Thrombin time Coag (PPP) [Time] 19.6 sec 0.0-23.0 [facility] Thyroid Stim Hormone (TSH)on 03-23-2025 TSH 1.160 uIU/mL Normal 0.300-4.200 [facility] Comment on above: Performed By: #### L 499.0042 #### [facility] [address] [place], [place], [id number] Total hemolytic (CH50) compl ement assayOrdered By: Keyanna Walton on 03-23-2025 Total hemolytic (CH50) complement assay 54 U/mL >41 [facility] Comment on above: Age Male [...] (Vitamin B12) [Mass/Vol] 408 pg/mL Normal 180-914 [facility] Comment on above: Performed By: #### L 499.0042 #### [facility] [address] [place], [place], [address] Vitamin B12 ser/plasOrdered By: Keyanna Walton on 03-23-2025 Cobalamin (Vitamin B12) [Mass/Vol] 408 pg/mL 180-914 [facility] SP/HP.SP.Andra 03-20-2025 SP/HP.SP.EV [facility] Speech Pathology [facility] [address] [place] [address] / REHABILITATION SERVICES INITIAL EVALUATION MR#: [id number] Acct: [id number] Name: MARY ALICE ESCALANTE JR Rep #: [id number] : 1970 54 From: Keo Raya Referring Dr.: Dr. 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 History Attending Doctor: Referring Doctor: Reason for Referral: CVA/PT HAS RX Medical Diagnosis: CVA; Dysarthria Date of Onset of Diagnosis: 03/04/25 Previous speech therapy: Yes Smoking Status: Former smoker Diagnosis Diagnosis: CVA; dysarthria Pain Is pain an issue with your current prescribed condition?: No Personal Preferred language: Paraguayan Patient Allergies Allergies Allergies: Allergies No Known Allergies Allergy (Verified 03/19/25 10:51) N-SCARLET [place] Dysarthria Assessment Tool Intelligibility:: Intelligible w/some difficulty Phonation: Phonation: Adequate Pitch: Adequate Maximum Phonation Time: 13 S/Z Ratio: 1 Sustained Volume: Able Pitch Ogden: Able Pitch Range: Adequate Pitch Glides: Adequate [...] Discussion Response to teaching: Verbalize Understanding 03/20/25 8009 CC: Dr. Todd Alfonso, DO; No Primary Care Physician [facility] Signed Normal [facility] Neurology Visit Reporton Neurology Visit Report [facility] [address] [place] [address] OFFICE VISIT Date of Service: 03/19/25 MR#: [id number] Acct: [id number] Name: MARY ALICE ESCALANTE JR Rep #: [id number] : 1970 Provider: ROBERTA carlos Age/Sex: 54/M Location: [facility]. Status: Signed HPI HPI Chief Complaint: Establish Care Details: Mr. Escalante is a 54-year-old male who presents to neurology today to establish care following an ischemic stroke.??? He was referred by [facility] on 03/05/2025.??? He is accompanied by his significant other. The symptom onset was 03/02/2025 of acute dysarthria.??? His symptoms did not improve and he ultimately decided to present to the emergency room at [facility] on 03/04/2025.??? A CT brain was conducted [...] no teeth (more content not included)... Normal [facility] Calculated very low density lipoprotein (VLDL) cholesterol measurementOrdered By: Todd Alfonso on 03-05-2025 Calculated very low density lipoprotein (VLDL) cholesterol measurement 23 mg/dL -40 [facility] VLDL Cholesterol 23 mg/dL -40 [facility] Electrocardiogram reportOrde red By: Hiro Melendez on 03-05-2025 EKG study [facility] Cardiovascular Services [address] [place] [address] 12 Lead EKG 03/04/25 0742 MR#: [id number] Acct: [id number] Name: GUMAROMARY ALICE LONG Rep #:[id number] : 1970 54 From: Hiro Melendez MD Attending Dr: Dr. Todd Alfonso DO Status: ADM JEVON Ordering Dr: Cruzito [...] consider lateral ischemia Abnormal ECG Confirmed by NORA DUNHAM, HIRO ([id number]), subeditor JE NG ([id number]) on 58:36:03 AM Referred By: Confirmed By: HIRO MELENDEZ MD 03/05/25 0836 Date _ Hiro Melendez MD CC: Dr. Todd Alfonso DO; Dr. Cruzito Bailey MD; No Primary Care Physician ~ Signed [facility] Work Phone: LDL calc ser/plasOrdered By: Todd Alfonso on 03-05-2025 Cholesterol in LDL [Mass/Vol] 116 mg/dL [facility] Comment on above: Wsswmibgok=480-540 m g/dL & Higher Lynt=452 mg/dL or greater LDL Cholesterol, Calculated 116 mg/dL [facility] Comment on above: Rauuuqgmsh=686-947 m g/dL & Higher Xbmc=248 mg/dL or greater Lipid Profileon 03-05-2025 CHOL:HDL 4.34 Normal [facility] Comment on above: Order Comment: Comme nts: NPO at [place] prior to lipid panel Performed By: #### L 500.4100 #### [facility] [place], [address] Cholesterol [Mass/Vol] 181 mg/dL Normal <=200 [facility] Comment on above: Order Comment: Comme nts: NPO at [place] prior to lipid panel Result Comment: Chol esterol level, Desirable <200 mg/dL Borderline high cholesterol 200-239 mg/dL High cholesterol >=240 mg/dL Recommendations of the NCEP Adult Treatment Panel for the following risk-cutoff thresholds for the [place] population. Performed By: #### L 500.4100 #### [facility] [address] [place], [address] Cholesterol in HDL [Mass/Vol] 42 mg/dL Normal [facility] Comment on above: Order Comment: [...] age. Performed By: #### L 500.4100 #### [facility] [address] [place], [address] Cholesterol in LDL [Mass/Vol] 116 mg/dL Normal [facility] Comment on above: Order Comment: Comme nts: NPO at [place] prior to lipid panel Result Comment: Bord nigmvs=489-889 mg/dL Higher Lytw=174 mg/dL or greater Performed By: #### L 500.4100 #### [facility] [address] [place], [address] Cholesterol in VLDL [Mass/Vol] 23 mg/dL Normal 5-40 [facility] Comment on above: Order Comment: Comme nts: NPO at [place] prior to lipid panel Performed By: #### L 500.4100 #### [facility] [address] [place], [address] Triglyceride [Mass/Vol] 116 mg/dL Normal [facility] Comment on above: Order Comment: Comme nts: NPO at [place] prior to lipid panel Result Comment: The drugs N-Acetylcysteine and Metamizole may falsely depress this assay. Normal range: <150 mg/dL Borderline High: 150-199 mg/dL High: 200-499 mg/dL Very High: >500 mg/dL Performed By: #### L 500.4100 #### [facility] [address] [place], [address] Screening total cholesterol/ high density lipoprotein (HDL) cholesterol ratioOrdered By: Todd Alfonso on 03-05-2025 Cholesterol.total/Chol esterol in HDL [Mass ratio] 4.34 {ratio} [facility] Serum or plasma cholesterol in HDL measurement (mass/volume)Ordered By: Todd Alfonso on 03-05-2025 Cholesterol in HDL [Mass/Vol] 42 mg/dL >40 [facility] Comment on above: National Cholesterol Education Program (NCEP) guidelines:<40 mg/dL: Low HDL-cholesterol (major risk factor for CHD)>= 60 mg/dL: High HDL-cholesterol (negative risk factor for CHD)HDL-cholesterol is affected by a number of factors, e.g. smoking, exercise, hormones, sex and age. Serum or plasma cholesterol measurement (mass/volume)Ordered By: Todd Alfonso on 03-05-2025 Cholesterol [Mass/Vol] 181 mg/dL <201 [facility] Comment on above: Cholesterol level, D esirable <200 mg/dLBorderline high cholesterol 200-239 mg/dLHigh cholesterol >=240 mg/dLRecommendations of the NCEP Adult Treatment Panel for the following risk-cutoff thresholds for the [place] population. Triglycerides measurementOrd ered By: Todd Alfonso on 03-05-2025 Triglyceride [Mass/Vol] 116 mg/dL <199 [facility] Comment on above: The drugs N-Acetylcy steine and Metamizole may falsely depress this assay. Normal range: <150 mg/dLBorderline High: 150-199 mg/dLHigh: 200-499 mg/dLVery High: >500 mg/dL 12 Lead EKGon 03-04-2025 12 Lead EKG [facility] Cardiovascular Services [address] [place] [address] 12 Lead EKG 03/04/25 0742 MR#: [id number] Acct: [id number] Name: MARY ALICE ESCALANTE Rep #: [id number] : 1970 54 From: Hiro Melendez MD Attending Dr: Dr. Todd Alfonso DO Status: ADM JEVON Ordering Dr: Cruzito [...] Abnormal ECG Confirmed by HIRO MELENDEZ MD ([id number]), subeditor JE NG ([id number]) on 03/05/2025 8:36:03 AM Referred By: Confirmed By: HIRO MELENDEZ MD 03/05/25 0836 Date Hiro Melendez MD CC: Dr. Todd Alfonso DO; Dr. Cruzito Bailey MD; No Primary Care Physician Signed Normal [facility] Absolute lymphocyte countOrd ered By: Cruzito Bailey on 03-04-2025 Lymphocytes Auto (Unsp spec) [#/Vol] 1.79 10*3/uL 0.83-4.51 [facility] Absolute neutrophil countOrd ered By: Cruzito Bailey on 03-04-2025 Neutrophils (Bld) [#/Vol] 5.6 10*3/uL 2.0-7.7 [facility] Activated partial thrombopla stin time (aPTT) in platelet poor plasma by coagulation aOrdered By: Cruzito Bailey on 03-04-2025 aPTT Coag (PPP) [Time] 26.0 s 24.1-36.2 [facility] Anion gap in Serum or Plasma Ordered By: Cruzito Bailey on 03-04-2025 Anion gap [Moles/Vol] 11 mmol/L 5-15 [facility] Automated lymphocyte count a s percentage of total leukocytesOrdered By: Cruzito Bailey on 03-04-2025 Lymphocytes/100 WBC Auto (Unsp spec) 21.5 % 19-41 [facility] BUN/creatinine ratioOrdered By: Cruzito Bailey on 03-04-2025 Urea nitrogen/Creatinine [Mass ratio] 12.0 mg/mg - [facility] Basic Metabolic Profile (BMP )on 03-04-2025 BUN/CRE 12.0 RATIO Normal - [facility] Comment on above: Performed By: #### L 501.4021, L500.2500, L100.0100 #### [facility] [address] [place], [address] Calcium [Mass/Vol] 9.2 mg/dL Normal 7.6-11.0 [facility] Comment on above: Performed By: #### L 501.4021, L500.2500, L100.0100 #### [facility] [address] [place], [address] Chloride [Moles/Vol] 100 mmol/L Normal 98-108 [facility] Comment on above: Performed By: #### L 501.4021, L500.2500, L100.0100 #### [facility] [address] [place], [address] CO2 [Moles/Vol] 23.7 mmol/L Normal 21.0-32.0 [facility] Comment on above: Performed By: #### L 501.4021, L500.2500, L100.0100 #### [facility] [address] [place], [address] Creatinine [Mass/Vol] 1.00 mg/dL Normal 0.70-1.20 [facility] Comment on above: Performed By: #### L 501.4021, L500.2500, L100.0100 #### [facility] [address] [place], [address] ECRCL 78.03 ml/min Normal 50-250 [facility] Comment on above: Performed By: #### L 501.4021, L500.2500, L100.0100 #### [facility] [address] [place], [address] GAP 11 Normal 5-15 [facility] Comment on above: Performed By: #### L 501.4021, L500.2500, L100.0100 #### [facility] [address] [place], [address] GFR/1.73 sq M.predicted among non-blacks MDRD (S/P/Bld) [Vol rate/Area] 89 mL/min/{1.73_m2} Normal >60 [facility] Comment on above: Result Comment: mL/m in/1.73m2 CKD-EPI Creatinine Equation (2020) Performed By: #### L 501.4021, L500.2500, L100.0100 #### [facility] [address] [place], [address] Glucose [Mass/Vol] 110 mg/dL High 70-99 [facility] Comment on above: Performed By: #### L 501.4021, L500.2500, L100.0100 #### [facility] [address] [place], [address] Potassium [Moles/Vol] 4.1 mmol/L Normal 3.3-5.1 [facility] Comment on above: Performed By: #### L 501.4021, L500.2500, L100.0100 #### [facility] [address] [place], [address] Sodium [Moles/Vol] 136 mmol/L Normal 133-145 [facility] Comment on above: Performed By: #### L 501.4021, L500.2500, L100.0100 #### [facility] [address] [place], [address] Urea nitrogen [Mass/Vol] 12 mg/dL Normal 4-19 [facility] Comment on above: Performed By: #### L 501.4021, L500.2500, L100.0100 #### [facility] [address] [place], [address] Basophil percentageOrdered B y: Cruzito Bailey on 03-04-2025 Basophils/100 WBC (Bld) 0.6 % 0-1 [facility] CBC W/Diff, Automatedon Absolute Lymph 1.79 X10 3/uL Normal 0.83-4.51 [facility] Comment on above: Performed By: #### L 501.4021, L500.2500, L100.0100 #### [facility] [address] [place], [address] Absolute Neut 5.6 X10 3/uL Normal 2.0-7.7 [facility] Comment on above: Performed By: #### L 501.4021, L500.2500, L100.0100 #### [facility] [address] [place], [address] Basophils/100 WBC (Bld) 0.6 % Normal 0-1 [facility] Comment on above: Performed By: #### L 501.4021, L500.2500, L100.0100 #### [facility] [address] [place], [address] Eosinophils/100 WBC (Bld) 0.7 % Normal 0-5 [facility] Comment on above: Performed By: #### L 501.4021, L500.2500, L100.0100 #### [facility] [address] [place], [address] Erythrocyte distribution width (RBC) [Ratio] 13.5 % Normal 11.6-14.6 [facility] Comment on above: Performed By: #### L 501.4021, L500.2500, L100.0100 #### [facility] [address] [place], [address] Hematocrit (Bld) [Volume fraction] 46.2 % Normal 40-54 [facility] Comment on above: Performed By: #### L 501.4021, L500.2500, L100.0100 #### [facility] [address] [place], [address] Hemoglobin (Bld) [Mass/Vol] 16.3 g/dL Normal 13.0-16.5 [facility] Comment on above: Performed By: #### L 501.4021, L500.2500, L100.0100 #### [facility] [address] [place], [address] IG% 0.500 Normal 0.0-0.9 [facility] Comment on above: Result Comment: IG% - Immature Granulocytes (promyelocytes, myelocytes and metamyelocytes) > 1% indicates that a LEFT SHIFT is Present. Performed By: #### L 501.4021, L500.2500, L100.0100 #### [facility] [address] [place], [address] Lymphocytes/100 WBC (Bld) 21.5 % Normal 19-41 [facility] Comment on above: Performed By: #### L 501.4021, L500.2500, L100.0100 #### [facility] [address] [place], [address] MCH (RBC) [Entitic mass] 32.1 pg High 27.0-32.0 [facility] Comment on above: Performed By: #### L 501.4021, L500.2500, L100.0100 #### [facility] [address] [place], [address] MCHC (RBC) [Mass/Vol] 35.3 g/dL Normal 32-36 [facility] Comment on above: Performed By: #### L 501.4021, L500.2500, L100.0100 #### [facility] [address] [place], [address] MCV (RBC) [Entitic vol] 91.1 fL Normal 80-94 [facility] Comment on above: Performed By: #### L 501.4021, L500.2500, L100.0100 #### [facility] [address] [place], [address] Monocytes/100 WBC (Bld) 9.5 % Normal 0-10 [facility] Comment on above: Performed By: #### L 501.4021, L500.2500, L100.0100 #### [facility] [address] [place], [address] Neutrophils/100 WBC (Bld) 67.2 % Normal 47-70 [facility] Comment on above: Performed By: #### L 501.4021, L500.2500, L100.0100 #### [facility] [address] [place], [address] Nucleated RBC (Bld) [#/Vol] 0 10*3/uL Normal 0-5 [facility] Comment on above: Performed By: #### L 501.4021, L500.2500, L100.0100 #### [facility] [address] [place], [address] Platelet mean volume (Bld) [Entitic vol] 10.1 fL Normal 6.2-12.0 [facility] Comment on above: Performed By: #### L 501.4021, L500.2500, L100.0100 #### [facility] [address] [place], [address] Platelets (Bld) [#/Vol] 258 10*3/uL Normal 150-450 [facility] Comment on above: Performed By: #### L 501.4021, L500.2500, L100.0100 #### [facility] [address] [place], [address] RBC (Bld) [#/Vol] 5.07 10*6/uL Normal 4.6-6.2 [facility] Comment on above: Performed By: #### L 501.4021, L500.2500, L100.0100 #### [facility] [address] [place], [address] RDW SD 44.8 fl High 35.1-43.9 [facility] Comment on above: Performed By: #### L 501.4021, L500.2500, L100.0100 #### [facility] [address] [place], [address] WBC (Bld) [#/Vol] 8.3 10*3/uL Normal 4.4-11.0 [facility] Comment on above: Performed By: #### L 501.4021, L500.2500, L100.0100 #### [facility] [address] [place], [address] Carbon dioxide, total [Moles /volume] in Central venous bloodOrdered By: Cruzito Bailey on 03-04-2025 CO2 [Moles/Vol] 23.7 mmol/L 21.0-32.0 [facility] Chest PA and Lateralon 03-04 Chest PA and Lateral [facility] Imaging Services [address] [place] [address] Chest PA and Lateral MR#: [id number] Acct: [id number] Name: MARY ALICE ESCALANTE Rep #: [id number] : 1970 M 54 From: Shan Reyna i, MD PCP: Care Physician,No Primary Status: [facility] ER Study: Chest PA and Lateral Date of Exam: 03/04/25 Exam# [id number] Ordering Dr: Cruzito Bailey MD PROCEDURE: CHEST [...] as per Fleischner society criteria. Reading Location: [id number] CC: Dr. Cruzito Bailey MD; No Primary Care Physician E Learning Coordinator: Signed Normal [facility] Chloride assayOrdered By: Omer Bailey on 03-04-2025 Chloride [Moles/Vol] 100 mmol/L 98-108 [facility] Echo Completeon 03-04-2025 Echo Complete [facility] [address] [place] [address] Echo Complete 03/04/25 1516 MR#: [id number] Acct: [id number] Name: MARY ALICE ESCALANTE Rep #: [id number] : 1970 54 From: Hiro Melendez MD Attending Dr: Dr. Todd Alfonso DO Status: [...] PCP Performed By: Savannah Mccoy RDCS, RVT 03/04/251826 Date Hiro Melendez MD CC: Dr. Todd Alfonso DO; No Primary Care Physician Date Dictated: 03/04/251515 Date Transcribed: 03/04/251826 E Learning Coordinator: Signed Normal [facility] Echocardiogram study reportO rdered By: Hiro Melendez on 03-04-2025 Study report [facility] Cardiovascular Services [address] [facility] [place] [address] Echo Complete 03/04/251515 MR#: [id number] Acct: [id number] Name: MARY ALICE ESCALANTE Rep #:[id number] : 1970 54 From: Hiro Torres [...] Physician: NO PCP Performed By: Savannah Mccoy, KENCS, RVT 03/04/251826 Date _ Hiro Melendez MD CC: Dr. Todd Alfonso DO; No Primary Care Physician ~ Date Dictated: 03/04/25 1516 Date Transcribed: 03/04/251826 E Learning Coordinator: Signed [facility] Work Phone: Emergency Department Summary on 03-04-2025 Emergency Department Summary [facility] Medical Records Department [address] [place] [address] Emergency Department Summary 03/04/25 MR#: [id number] Acct: [id number] Name: MARY ALICE SECALANTE Rep #: [id number] : 1970 54 From: Cruzito Bailey MD [...] Prior similar symptoms: No Recent Illness/Hospitalization: No [facility] Medical History Epilepsy Home Medications ???Medication ???Instructions [...] all 4 extremities. 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 Dorsi plantarflexion intact. Normal strength. Normal sensation. Nontender. No edema. Back nontender. Neurologically is awake and alert. Answering questions and following commands. He is obvious slurred speech. However he is no facial droop. He has normal fingertip to nose. Normal yavu-gm-zcjr. No drift. Normal rapid hand movements. NIH [...] or dimini (more content not included)... Normal [facility] Eosinophil percentageOrdered By: Cruzito Bailey on 03-04-2025 Eosinophils/100 WBC (Bld) 0.7 % 0-5 [facility] Erythrocyte distribution wid th (RBC) [Ratio]Ordered By: Cruzito Bailey on 03-04-2025 Erythrocyte distribution width (RBC) [Entitic vol] 44.8 fL High 35.1-43.9 [facility] Erythrocyte distribution wid th ratioOrdered By: Cruzito Bailey on 03-04-2025 Erythrocyte distribution width (RBC) [Ratio] 13.5 % 11.6-14.6 [facility] Erythrocyte distribution wid th standard deviationOrdered By: Cruzito Bailey on 03-04-2025 Erythrocyte distribution width (RBC) [Ratio] 44.8 fl High 35.1-43.9 [facility] Estimation of creatinine germán aranceOrdered By: Cruzito Bailey on 03-04-2025 Estimated Creatinine Clearance Calc 78.03 ml/min 50-250 [facility] GFR/1.73 sq M.predicted guillermina g non-blacks MDRD (S/P/Bld) [Vol rate/Area]Ordered By: Cruzito Bailey on 03-04-2025 Estimated GFR (MDRD) Non-Af Amer 89 >60 [facility] Comment on above: mL/min/1.73m2 CKD-EP I Creatinine Equation (2020) Glomerular filtration rate ( GFR) estimation/1.73 sq m using serum, plasma, or whole bOrdered By: Cruzito Bailey on 03-04-2025 GFR/1.73 sq M.predicted among non-blacks MDRD (S/P/Bld) [Vol rate/Area] 89 mL/min/{1.73_m2} >60 [facility] Comment on above: mL/min/1.73m2 CKD-EP I Creatinine Equation (2020) H AND P Exam - Hospitaliston 03-04-2025 H&P Exam - Hospitalist [facility] Medical Records Department [address] [place] [address] H P Exam - Hospitalist 03/04/25 0845 MR#: [id number] Acct: [id number] Name: MARY ALICE ESCALANTE Rep #: [id number] : 1970 54 From: Todd Alfonso DO [...] denies ever having had a stroke before. [facility] Medical History Epilepsy Home Medications ???Medication ???Instructions [...] 5-5 in upper and lower extremities bilaterally. Updyth-tn-nbuq and qqms-kd-ozli within normal limits. Sensation grossly intact. Patient [...] % (Auto) 67.2, Lymph % (Auto) 21.5, Mcdonough % (Auto) 9.5, Eos % (Auto) 0.7, [...] mass effect or midline shift. Reading Location: [id number] Head/Neck CTA 03/04/25 07:17 IMPRESSION: No large filling defects seen within the intracranial vessels. No evidence of thrombosis. No hemodynamically significant stenosis seen within the bilateral ICA. Reading Loc (more content not included)... Normal [facility] Hematocrit Auto (Bld) [Volum e fraction]Ordered By: Cruzito Bailey on 03-04-2025 Hematocrit (Bld) [Volume fraction] 46.2 % 40-54 [facility] Hemoglobin measurementOrdere d By: Cruzito Bailey on 03-04-2025 Hemoglobin (Bld) [Mass/Vol] 16.3 g/dL 13.0-16.5 [facility] Immature granulocytes/100 WB C Auto (Bld)Ordered By: Cruzito Bailey on 03-04-2025 Immature granulocytes/100 WBC (Bld) 0.500 % 0.0-0.9 [facility] Comment on above: IG% - Immature Granu locytes (promyelocytes, myelocytes and metamyelocytes) > 1% indicates that a LEFT SHIFT is Present. International normalized rat io (INR) calculationOrdered By: Cruzito Bailey on 03-04-2025 INR Coag (Bld) [Relative time] 1.0 {INR} [facility] L499.0042on 03-04-2025 Trop T High Sen 10 ng/L Normal <=22 [facility] Comment on above: Performed By: #### L 499.0042 #### [facility] [place], [address] L499.0043on 03-04-2025 Trop T High Sen Normal <=22 [facility] Comment on above: Result Comment: REQU EST TO CANCEL PER ICU STAFF Performed By: #### L 501.4021, L500.2500, L100.0100 #### [facility] [address] [place], [address] L501.4021on 03-04-2025 Trop T High Sen 11 ng/L Normal <=22 [facility] Comment on above: Performed By: #### L 501.4021, L500.2500, L100.0100 #### [facility] [address] [place], [address] Lymphocytes Auto (Unsp spec) [#/Vol]Ordered By: Cruzito Bailey on 03-04-2025 Lymphocytes (Bld) [#/Vol] 1.79 10*3/uL 0.83-4.51 [facility] Lymphocytes/100 WBC Auto (Un sp spec)Ordered By: Cruzito Bailey on 03-04-2025 Lymphocytes/100 WBC (Bld) 21.5 % 19-41 [facility] MCV (mean corpuscular volume ) determinationOrdered By: Cruzito Bailey on 03-04-2025 MCV (RBC) [Entitic vol] 91.1 fL 80-94 [facility] MR/CON.PCM.NEon 03-04-2025 MR/CON.PCM.NE [facility] Medical Records Department [address] [place] [address] Consultation - Neurology 03/04/25 1745 MR#: [id number] Acct: [id number] Name: MARY ALICE ESCALANTE Rep #: [id number] : 1970 54 From: Clayton Ruby MD PCP: Care Physician,No Primary Status:ADM JEVON Location: ICU ICU05-1 Assessment and Plan: [...] as stroke clearly seen on CT head. 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 Goal BP < 130/80. Plan for 30 day investment executive on discharge to screen for atrial fibrillation. Follow up with neurologist as an outpatient. HPI Consult Data Date of Consult: 03/04/25 HPI Narrative HPI Narrative: MARY ALICE ESCALANTE, is a 54M w/ epilepsy, tobacco use, previously undiagnosed HTN. 03/02/25 acute dysarthria. CTH w/ L subcortical hypodensity c/w subacute infarct. CTA negative. BP 215/96 on admission. SBP is typically in the 180s at home. [facility] Medical History Epilepsy Home Medications ???Medication ???Instructions [...] or with change in RN caregiver Freq: [id number] Protocol: Activity Type Activity Date Activity User E-sign Co-sign Detail Recorded Client Recorded Date Recorded By Document 03/04/25 11:50 F desktop 03/04/25 11:51 F 03/04/25 11:50 [facility] Stro (more content not included)... Normal [facility] Mean corpuscular hemoglobin (MCH) determinationOrdered By: Cruzito Bailey on 03-04-2025 MCH (RBC) [Entitic mass] 32.1 pg High 27.0-32.0 [facility] Mean corpuscular hemoglobin concentration (MCHC) determinationOrdered By: Cruzito Bailey on 03-04-2025 MCHC (RBC) [Mass/Vol] 35.3 g/dL 32-36 [facility] Mean platelet volume determi nationOrdered By: Cruzito Bailey on 03-04-2025 Platelet mean volume (Bld) [Entitic vol] 10.1 fL 6.2-12.0 [facility] Monocyte percentageOrdered B y: Cruzito Bailey on 03-04-2025 Monocytes/100 WBC (Bld) 9.5 % 0-10 [facility] Neutrophil percentageOrdered By: Cruzito Bailey on 03-04-2025 Neutrophils/100 WBC (Bld) 67.2 % 47-70 [facility] Nucleated red blood cell per centageOrdered By: Cruzito Bailey on 03-04-2025 Nucleated RBC/100 WBC (Bld) [Ratio] 0 % 0-5 [facility] Partial Thromboplast Timeon 03-04-2025 aPTT Coag (Bld) [Time] 26.0 s Normal 24.1-36.2 [facility] Comment on above: Performed By: #### L 501.4021, L500.2500, L100.0100 #### [facility] [address] [facility] [place], [place], [address] Platelet countOrdered By: Omer Bailey on 03-04-2025 Platelets (Bld) [#/Vol] 258 10*3/uL 150-450 [facility] Potassium (Unsp spec) [Mass/ Vol]Ordered By: Cruzito Bailey on 03-04-2025 Potassium [Moles/Vol] 4.1 mmol/L 3.3-5.1 [facility] Potassium measurement (mass/ volume)Ordered By: Cruzito Bailey on 03-04-2025 Potassium (Unsp spec) [Mass/Vol] 4.1 mmol/L 3.3-5.1 [facility] Prothrombin Time w/INRon INR Coag (PPP) [Relative time] 1.0 {INR} Normal [facility] Comment on above: Performed By: #### L 501.4021, L500.2500, L100.0100 #### [facility] [address] [place], [place], [address] PT Coag (PPP) [Time] 13.6 s Normal 11.7-14.9 [facility] Comment on above: Performed By: #### L 501.4021, L500.2500, L100.0100 #### [facility] [address] [place], [place], [address] Prothrombin timeOrdered By: Cruzito Bailey on 03-04-2025 PT Coag (PPP) [Time] 13.6 s 11.7-14.9 [facility] RBC Auto (Bld) [#/Vol]Ordere d By: Cruzito Bailey on 03-04-2025 RBC (Bld) [#/Vol] 5.07 10*6/uL 4.6-6.2 [facility] STROKE Brain/Head without Co nton 03-04-2025 STROKE Brain/Head without Cont [facility] Imaging Services [address] [place], [place] [address] STROKE Brain/Head without Cont MR#: [id number] Acct: [id number] Name: MARY ALICE ESCALANTE Rep #: [id number] : 1970 M 54 From: Shan Reyna i, MD PCP: Care Physician,No Primary Status: REG ER Study: STROKE Brain/Head without Cont Date of Exam: 0 03/04/25 Exam# [id number] Ordering Dr: Cruzito Bailey MD PROCEDURE: STROKE [...] mass effect or midline shift. Reading Location: [id number] CC: Dr. Cruzito Bailey MD; No Primary Care Physician E Learning Coordinator: Signed Normal [facility] STROKE CTA Head AND Neck W/C onon 03-04-2025 STROKE CTA Head AND Neck W/Con [facility] Imaging Services [address] [place], [place] [id number] STROKE CTA Head AND Neck W/Con MR#: [id number] Acct: [id number] Name: MARY ALICE ESCALANTE Rep #: [id number] : 1970 M 54 From: Shan Reyna i, MD PCP: Care Physician,No Primary Status: REG ER Study: STROKE CTA Head AND Neck W/Con Date of Exam: 0 03/04/25 Exam# [id number] Ordering Dr: Cruzito Bailey MD PROCEDURE: STROKE [...] seen within the bilateral ICA. Reading Location: [id number] CC: Dr. Cruzito Bailey MD; No Primary Care Physician E Learning Coordinator: Signed Normal [facility] Serum creatinine measurement (mass/volume)Ordered By: Cruzito Bailey on 03-04-2025 Creatinine [Mass/Vol] 1.00 mg/dL 0.70-1.20 [facility] Serum glucose measurement (m ass/volume)Ordered By: Cruzito Bailey on 03-04-2025 Glucose [Mass/Vol] 110 mg/dL High 70-99 [facility] Serum or plasma calcium rachelle urement (mass/volume)Ordered By: Cruzito Bailey on 03-04-2025 Calcium [Mass/Vol] 9.2 mg/dL 7.6-11.0 [facility] Serum or plasma urea nitroge n measurement (mass/volume)Ordered By: Cruzito Bailey on 03-04-2025 Urea nitrogen [Mass/Vol] 12 mg/dL 4-19 [facility] Sodium levelOrdered By: Cruzito Bailey on 03-04-2025 Sodium [Moles/Vol] 136 mmol/L 133-145 [facility] Troponin T.cardiac High sens itivity method [Mass/Vol]Ordered By: Cruzito Bailey on 03-04-2025 Troponin T High Sensitivity 2 Hour 10 ng/L <22 [facility] Troponin T High Sensitivity 11 ng/L <22 [facility] Troponin T.cardiac [Mass/vol ume] in Serum or Plasma by High sensitivity methodOrdered By: Cruzito Bailey on 03-04-2025 Troponin T.cardiac High sensitivity method [Mass/Vol] 10 ng/L <22 [facility] Troponin T.cardiac High sensitivity method [Mass/Vol] 11 ng/L <22 [facility] White blood cell (WBC) count Ordered By: Cruzito Bailey on 03-04-2025 WBC (Bld) [#/Vol] 8.3 10*3/uL 4.4-11.0 [facility] aPTT Coag (PPP) [Time]Ordere d By: Cruzito Bailey on 03-04-2025 aPTT Coag (Bld) [Time] 26.0 s 24.1-36.2 [facility] Vital Signs Date Time Vital Sign Value Performing Clinician Faci lity 06-30-2025 12:57-0400 Body height 170.18 cm No Primary Care Physician [facility] 06-30-2025 12:57-0400 Body mass index (BMI) [Ratio] 26.7 kg/m2 No Primary Care Physician [facility] 06-30-2025 12:57-0400 Body temperature 98.6 [degF] No Primary Care Physician [facility] 06-30-2025 12:57-0400 Body weight 77.56 kg No Primary Care Physician [facility] 06-30-2025 12:57-0400 Diastolic blood pressure 85 mm[Hg] No Primary Care Physician [facility] 06-30-2025 12:57-0400 Heart rate 75 /min No Primary Care Physician [facility] 06-30-2025 12:57-0400 Respiratory rate 16 /min No Primary Care Physician [facility] 06-30-2025 12:57-0400 SaO2% (BldA) [Mass fraction] 95 % No Primary Care Physician [facility] 06-30-2025 12:57-0400 Systolic blood pressure 151 mm[Hg] No Primary Care Physician [facility] 04-10-2025 10:00-0400 Diastolic blood pressure 81 mm[Hg] No Primary Care Physician [facility] 04-10-2025 10:00-0400 Heart rate 73 /min No Primary Care Physician [facility] 04-10-2025 10:00-0400 Respiratory rate 14 /min No Primary Care Physician [facility] 04-10-2025 10:00-0400 SaO2% (BldA) [Mass fraction] 98 % No Primary Care Physician [facility] 04-10-2025 10:00-0400 Systolic blood pressure 101 mm[Hg] No Primary Care Physician [facility] 04-10-2025 07:28-0400 Body height 170.18 cm No Primary Care Physician [facility] 04-10-2025 07:28-0400 Body mass index (BMI) [Ratio] 26.4 kg/m2 No Primary Care Physician [facility] 04-10-2025 07:28-0400 Body temperature 97.6 [degF] No Primary Care Physician [facility] 04-10-2025 07:28-0400 Body weight 76.5 kg No Primary Care Physician [facility] 03-19-2025 10:47-0400 Body mass index (BMI) [Ratio] 26.3 kg/m2 No Primary Care Physician [facility] 03-19-2025 10:47-0400 Body temperature 98.6 [degF] No Primary Care Physician [facility] 03-19-2025 10:47-0400 Body weight 76.2 kg No Primary Care Physician [facility] 03-19-2025 10:47-0400 Diastolic blood pressure 78 mm[Hg] No Primary Care Physician [facility] 03-19-2025 10:47-0400 Heart rate 76 /min No Primary Care Physician [facility] 03-19-2025 10:47-0400 Respiratory rate 16 /min No Primary Care Physician [facility] 03-19-2025 10:47-0400 SaO2% (BldA) [Mass fraction] 97 % No Primary Care Physician [facility] 03-19-2025 10:47-0400 Systolic blood pressure 136 mm[Hg] No Primary Care Physician [facility] 03-05-2025 13:28-0400 Body temperature 97.8 [degF] No Primary Care Physician [facility] 03-05-2025 13:28-0400 Diastolic blood pressure 86 mm[Hg] No Primary Care Physician [facility] 03-05-2025 13:28-0400 Heart rate 51 /min No Primary Care Physician [facility] 03-05-2025 13:28-0400 Respiratory rate 15 /min No Primary Care Physician [facility] 03-05-2025 13:28-0400 SaO2% (BldA) [Mass fraction] 98 % No Primary Care Physician [facility] 03-05-2025 13:28-0400 Systolic blood pressure 173 mm[Hg] No Primary Care Physician [facility] 03-05-2025 07:17-0400 Body mass index (BMI) [Ratio] 26.1 kg/m2 No Primary Care Physician [facility] 03-04-2025 14:12-0400 Body height 170.18 cm No Primary Care Physician [facility] 03-04-2025 14:12-0400 Body weight 75.56 kg No Primary Care Physician [facility] 03-04-2025 10:00-0400 Diastolic blood pressure 61 mm[Hg] No Primary Care Physician [facility] 03-04-2025 10:00-0400 Heart rate 50 /min No Primary Care Physician [facility] 03-04-2025 10:00-0400 Respiratory rate 14 /min No Primary Care Physician [facility] 03-04-2025 10:00-0400 SaO2% (BldA) [Mass fraction] 99 % No Primary Care Physician [facility] 03-04-2025 10:00-0400 Systolic blood pressure 183 mm[Hg] No Primary Care Physician [facility] 03-04-2025 09:46-0400 Body temperature 98.7 [degF] No Primary Care Physician [facility] 03-04-2025 07:07-0400 Body height 170.18 cm No Primary Care Physician [facility] 03-04-2025 07:07-0400 Body mass index (BMI) [Ratio] 27.1 kg/m2 No Primary Care Physician [facility] 03-04-2025 07:07-0400 Body weight 78.8 kg No Primary Care Physician [facility] Encounters Encounter Date Encounter Type Care Provider Facility Start: 07-25-2025 ambulatory [facility] Facility :[facility] Start: 07-21-2025 ambulatory [facility] Facility :[facility] Start: 06-30-2025 End: 06-30-[address] Dariel George MD -[facility] Work Phone: Start: 06-30-2025 End: 06-30-2025 ambulatory No Primary Care Physician -[facility] Start: 05-05-2025 End: 05-05-2025 ambulatory No Primary Care Physician [facility] Work Phone: Start: 05-05-2025 End: 05-05-2025 Patient encounter procedure Keyanna Walton DIRECTOR PROCESS ENGINEERING-C -MRI - [facility] Work Phone: Start: 05-05-2025 End: 05-05-2025 ambulatory Keyanna Walton Facility:[facility] Start: 04-30-2025 End: 04-30-2025 ambulatory No Primary Care Physician [facility] Work Phone: Start: 04-30-2025 End: 04-30-2025 Patient encounter procedure Dianne Frenchmackenzie DIRECTOR PROCESS ENGINEERING-C -Laboratory [facility] Start: 04-30-2025 End: 04-30-2025 ambulatory Dianne Mcknight Facility:[facility] Start: 04-10-2025 End: 04-10-2025 Emergency department patient visit No Primary Care Physician -Emergency Department Work Phone: Start: 04-10-2025 End: 04-10-2025 ambulatory No Primary Care Physician [facility] Work Phone: Start: 04-10-2025 End: 04-10-2025 Patient encounter procedure Keyanna Walton DIRECTOR PROCESS ENGINEERING-C -Pulmonary Services/Neurology Work Phone: Start: 04-10-2025 End: 04-10-2025 ambulatory [facility] Facility:[facility] Start: 03-27-2025 Non-patient / Non-visit Dr. Jd yang MD -[facility] Work Phone: Start: 03-27-2025 [facility] Start: 03-27-2025 Registered Referred Keyanna Walton DIRECTOR PROCESS ENGINEERING -C -Cardiovascular Services Work Phone: Start: 03-23-2025 End: 03-23-2025 Patient encounter procedure Keyanna Walton DIRECTOR PROCESS ENGINEERING-C -Laboratory [place] Work Phone: Start: 03-23-2025 End: 03-23-2025 ambulatory Keyanna Walton Facility:[facility] Start: 03-20-2025 End: 03-20-[address] Todd Alfonso DO -[facility] Work Phone: Start: 03-20-[address] Todd Hale i DO -[facility] Work Phone: Start: 03-20-2025 End: 03-20-2025 ambulatory No Primary Care Physician -Speech Therapy Start: 03-19-2025 End: 03-19-2025 Patient encounter procedure Keyanna Walton DIRECTOR PROCESS ENGINEERING-C -[facility] Work Phone: Start: 03-19-2025 End: 03-19-2025 ambulatory Keyanna Walton Facility:[facility] Start: 03-05-2025 Non-patient / Non-visit Dr. Todd Fry [facility] Work Phone: Start: 03-04-2025 ambulatory No Primary Car e Physician Facility:[facility] Start: 03-04-2025 Non-patient / Non-visit [facility]. Bosch [facility] Start: 03-04-2025 Non-patient / Non-visit Dr. Todd Fry [facility] Work Phone: Start: 03-04-2025 End: 03-05-2025 ambulatory Todd Alfonso Facility:[facility] Start: 03-04-2025 End: 03-05-2025 Evaluation and management of inpatient Dr. Todd Alfonso DO -Intensive Care Unit Work Phone: Start: 03-04-2025 End: 03-05-2025 observation encounter No Primary Care Physician [facility] Work Phone: Procedures Date Procedure Procedure Detail Performing Clinician Start: 05-05-2025 MRI of brain with contrast No Primary Ca re Physician Start: 05-05-2025 X-ray for foreign body of both orbits No Primary Care Physician Start: 04-10-2025 Estimated creatinine clearance No Primar y Care Physician Start: 03-23-2025 SEPIDEH measurement No Primary Care Physician Comment on above: Performed at: [facility] [id number] [place], [place] [id number] Director: Edwardo Lopez PhD, Phone: [phone] Start: 03-23-2025 Antibody to extractable nuclear antigen [...] Care Physician Comment on above: Result: c.1601G>A (p.Zsb505Slb) - Not De tectedThis result is not associated with an increased risk for venousthromboembolism. See Additional Clinical Information andComments.Additional Clinical Information:Venous thromboembolism is a multifactorial diseaseinfluenced by genetic, environmental, and circumstantialrisk factors. The c.1601G>A (p. Fgc742Lws) variant in theF5 gene, commonly referred to [...] F2 c.*97G>Avariant and Factor V Leiden (PMID: 41850617). Additionalrisk factors include but are not limited [...] for health careproviders to discuss results at [phone] ([phone]).Test Details:Variant Analyzed: c.1601G>A (p. Cxo660Klq), referred toas Factor V LeidenMethods/Limitations:DNA analysis of [...] was developed and its performance characteristicsdetermined by [employer]. It has not been cleared orapproved by the Food and Drug Administration.References:Alen Brannon, Janice CASTILLO, Jesus R, Zelda WW, Thee RUCKER; ACMGProfessional Practice and Guidelines Committee. Addendum:[employer] consensus statement onfactor V Leiden mutation testing. Yessica Med. 2020Jan 28.doi: 10.1038/k08389-354-24393-x. PMID: 37029794.Mickey SIDHU. Factor V Leiden Thrombophilia. 1998April 08(Updated 2017Nov 29). In: Joes D MP, Jaquelin HH, Miri RA,et al., editors. Faustino(R) (Internet). [place] ([place]):[facility], [place]; 9926-7468. Availablefrom: https://www.ncbi.nlm.nih.gov/books/WYV6950/Krishna Brannon, Janice CASTILLO, Mannie X, Ernesto B, Stephanie EB, Isabel P,Javi CS; ACMG Laboratory Insurance Agency Manager Committee.Venous thromboembolism laboratory testing (factor V Leidenand factor II c.*97G>A), 2018 update: a technical standardof the [employer] and [employer](ACMG). Yessica Med. 2018 Oct;20(12):4942-8749. doi:10.1038/y12438-234-5637-r. Epub 2017Aug 30. PMID: 37310366. Start: 03-23-2025 Folic acid measurement, RBC No [...] time No Primary Care Physician Start: 03-23-2025 COMMUNICATIONS EDITOR antibody measurement No Primary Care Physician Comment [...] Date Care Activity Detail Author Start: 05-05-2025 MR Brain WO and W contrast IV [facility] Start: 05-05-2025 MRI of brain with contrast Brain W/WO Contrast [facility] Start: 04-10-2025 [facility] Start: 04-10-2025 [facility] Start: 04-10-2025 Sleep electroencephalogram in sleep-deprived patient [facility] Start: 03-05-2025 Patient discharge [facility] Start: 03-04-2025 Following clinical pathway protocol [facility] Start: 03-04-2025 Ambulation without limitation [facility] Start: 03-04-2025 Assessment of risk of venous thromboembolism [facility] Start: 03-04-2025 Cardiac monitoring [facility] Start: 03-04-2025 Catheterization of vein [facility] Start: 03-04-2025 Consultation [facility] Start: 03-04-2025 Continuous pulse oximetry [facility] Start: 03-04-2025 Elevation of head of bed [facility] Start: 03-04-2025 Exercises [facility] Start: 03-04-2025 Insertion of catheter into peripheral vein [facility] Start: 03-04-2025 Measuring intake and output [facility] Start: 03-04-2025 Notification of physician [facility] Start: 03-04-2025 Oxygen therapy [facility] Start: 03-04-2025 Patient referral to dietitian [facility] Start: 03-04-2025 Providing care according to standard [facility] Start: 03-04-2025 Referral to occupational therapist [facility] Start: 03-04-2025 Referral to service [facility] Start: 03-04-2025 Speech therapy assessment [facility] Start: 03-04-2025 Telemedicine consultation with patient [facility] Start: 03-04-2025 Tobacco use cessation education [facility] Start: 03-04-2025 Vital signs measurements [facility] Start: 03-04-2025 End: 03-04-2025 [facility] Start: 03-04-2025 Verification routine [facility] Start: 03-04-2025 Admission procedure [facility] Start: 03-04-2025 Hospital admission, emergency, from emergency room, medical nature [facility] Start: 03-04-2025 Oxygen therapy [facility] Start: 03-04-2025 End: 03-04-2025 [facility] MR Brain WO and W contrast IV [facility] Patient Education Hyponatremia D c ED Fainting, Uncertain Cause [facility] Work Phone: Patient referral [facility] Work Phone: Troponin T.cardiac [Mass/volume] in Serum or Plasma by High sensitivity method [facility] Troponin T.cardiac [Mass/volume] in Serum or Plasma by High sensitivity method [facility] Vitamin B6 measurement [facility] XR Orbit - bilateral Views for foreign body [facility] Payers Date Payer Category Payer Self-pay 2024 Unknown [id number] Unknown [id number] 2.16.8 [id number] Unknown [id number] 2.16.8 40.1.421363.3.579.2.462 Unknown [id number] 2.16.8 40.1.273021.3.579.2.462 Unknown [id number] 2.16.8 40.1.557291.3.579.2.462 Unknown [id number] 2.16.8 40.1.563015.3.579.2.462 Unknown [id number] 2.16.8 40.1.081167.3.579.2.462 Unknown [id number] 2.16.8 40.1.772839.3.579.2.462 Unknown [id number] 2.16.8 40.1.997128.3.579.2.462 Unknown [id number] 2.16.8 40.1.616693.3.579.2.462 Unknown [id number] 2.16.8 40.1.019051.3.579.2.462 Unknown [id number] 2.16.8 40.1.526992.3.579.2.462 Unknown [id number] 2.16.8 40.1.657257.3.579.2.462 Unknown [id number] 2.16.8 40.1.241910.3.579.2.462 Unknown [id number] 2.16.8 40.1.380765.3.579.2.462 Unknown [id number] 2.16.8 40.1.963382.3.579.2.462 Unknown [id number] 2.16.8 40.1.781210.3.579.2.462 Social History Date Type Detail Facility Start: 03-04-2025 Tobacco smoking stat us WYIS Current Heavy tobacco smoker [facility] Start: 03-04-2025 End: 03-05-2025 Sex Male (finding) [facility] Start: 1970 Sex Assigned At Male [facility] Start: 03-05-2025 End: 04-10-2025 Tobacco smoking status NHIS Smokes tobacco daily (finding) [facility] Start: 03-05-2025 Cigarettes Cigarettes [facility] Goals Date Patient Goal Desired Activity /State Functional Status Date Assessment Result Facility 03-05-2025 Functional status Ambulates [facility] Work Phone: Mental Status Date Assessment Result Facility 04-10-2025 Cognitive function Level Of Consciousness Awake [facility] Work Phone: 03-05-2025 Cognitive function Voice/Name [facility] Work Phone: 03-04-2025 Cognitive function Voice/Name [facility] Work Phone: Clinical Notes 03-04-2025 to 05-05-2025 Note Date & Type Note Facility 05-05-2025 Radiology Diagnostic study note [facility] Imaging Services [address] [place] [address] Orbits for Foreign Body MR#: [id number] Acct: [id number] Name: MARY ALICE ESCALANTE Emily Rep #: [id number] : 1970 M 54 From: Sancho Ayon MD PCP: ROBERTA Landry Status: REG C LI Study:Orbits for Foreign Body Date of Exam: 05/05/25 Exam# [id number] Ordering Dr: Keyanna Walton PROCEDURE: ORBITS FOR FOREIGN BODY 05/05/2025 REASON FOR EXAM: HX: OF METAL TO EYES TECHNIQUE: 2 view(s) of the facial bones COMPARISON: None. FINDINGS: Bones: No acute process is seen. Sinuses: Cyst or polyp is seen in the inferolateral left maxillary sinus. The remaining visualized paranasal sinuses appear clear. Additional findings: No intraorbital metal is noted. RAD/Orbits for Foreign Body IMPRESSION: No evidence of intraorbital metal. Reading Location: [address] CC: ROBERTA Mcknight; ROBERTA Wlaton ~ E Learning Coordinator: Signed [facility] 03-05-2025 Discharge summary [facility] 03-05-2025 Note [facility] Medical Records Department [address] [place] [address] Discharge Summary 03/05/25 1333 MR#: [id number] Acct: [id number] Name: MARY ALICE ESCALANTE Rep #: [id number] : 1970 54 From: Todd Alfonso DO PCP: Care Physician,No Primary Status:ADM JEVON Location: ICU [place] [address] Providers Date of Admission: 03/04/25 Primary Care [...] PCP Performed By: Savannah Mccoy RDCS, RVT D/C Instructions Discharge Diet: Low fat [...] Visit: stroke Attend (more content not included)... [facility] 03-05-2025 Progress note [facility] 03-05-2025 Progress note Note Date/Time March 05, 2025 1:33pm [facility] Medical Records Department [address] [place] [address] Progress Note - Hospitalist 03/05/25 0723 MR#: [id number] Acct: [id number] Name: MARY ALICE ESCALANTE Rep #:[id number] : 1970 54 From: Todd Alfonso [...] % (Auto) 67.2, Lymph % (Auto) 21.5, Mcdonough % (Auto) 9.5, Eos % (Auto) 0.7, [...] mass effect or midline shift. Reading Location: [id number] Head/Neck CTA 03/04/25 07:17 IMPRESSION: No large filling defects seen within the intracranial vessels. No evidence of thrombosis. No hemodynamically significant stenosis seen within the bilateral ICA. Reading Location: [facility] Chest X-Ray 03/04/25 07:35 IMPRESSION: Mild pulmonary vascular congestion. 1 cm nodule seen within the right lower lobe. Follow-up as per Fleischner society criteria. Reading Location: [id number] Echocardiogram 03/04/25 10:24 Interpretation Summary Normal LV [...] follow up with neurology as outpt. 03/05/25 4609 <Electronically signed by Todd Alfonso DO> Cosigner Signature (if applicable): CC: ~ Signed [facility] Work Phone: 1(472) 373-551904-09-2025 Consult note Author Clayton Ruby [facility] Note Date/Time March 04, 2025 5:55 pm [facility] Medical Records Department [address] [place] [address] Consultation - Neurology 03/04/251744 MR#: [id number] Acct: [id number] Name: MARY ALICE ESCALANTE Rep #:[id number] : 1970 54 From: Clayton Ruby [...] as stroke clearly seen on CT head. 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 Goal BP < 130/80. Plan for 30 day investment executive on discharge to screen for atrial fibrillation. Follow up with neurologist as an outpatient. HPI Consult Data Date of Consult: 03/04/25 HPI Narrative HPI Narrative: MARY ALICE ESCALANTE, is a 54M w/ epilepsy, tobacco use, previously undiagnosed HTN. 03/02/25 acute dysarthria. CTH w/ L subcortical hypodensity c/w subacute infarct. CTA negative. BP 215/96 on admission. SBP is typically in the 180s at home. [facility] Medical History Epilepsy Home Medications ?Medication ?Instructions [...] or with change in RN caregiver Freq: [id number] Protocol: Activity Type Activity Date Activity User E-sign Co-sign Detail Recorded Client Recorded Date Recorded By Document 03/04/25 11:50 [facility] desktop 03/04/25 11:51 [facility] 03/04/25 11:50 NIH Stroke Scale [NIHSS] A [...] % (Auto) 67.2, Lymph % (Auto) 21.5, Mcdonough % (Auto) 9.5, Eos % (Auto) 0.7, [...] mass effect or midline shift. Reading Location: [id number]-PE Head/Neck CTA 03/04/25 07:17 IMPRESSION: No large filling defects seen within the intracranial vessels. No evidence of thrombosis. No hemodynamically significant stenosis seen within the bilateral ICA. Reading Location: [id number] Chest X-Ray 03/04/25 07:35 IMPRESSION: Mild pulmonary vascular congestion. 1 cm nodule seen within the right lower lobe. Follow-up as per Fleischner society criteria. Reading Location: [id number] Active Medications Active Medications Active Medications: Current [...] Ml Syringe IV UD PRN SALINE FLUSH 03/04/25 1755 <Electronically signed by Clayton Ruby MD> Cosigner Signature (if applicable): CC: No Primary Care Physician~ Signed [facility] Work Phone: 1(836) 829-132104-09-2025 Consult note [facility] Medical Records Department [address] [place] [address] Consultation - Neurology 03/04/25 1745 MR#: [id number] Acct: [id number] Name: MARY ALICE ESCALANTE Rep #:[id number] : 1970 54 From: Clayton Ruby [...] as stroke clearly seen on CT head. 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 Goal BP < 130/80. Plan for 30 day investment executive on discharge to screen for atrial fibrillation. Follow up with neurologist as an outpatient. HPI Consult Data Date of Consult: 03/04/25 HPI Narrative HPI Narrative: MARY ALICE ESCALANTE, is a 54M w/ epilepsy, tobacco use, previously undiagnosed HTN. 03/02/25 acute dysarthria. CTH w/ L subcortical hypodensity c/w subacute infarct. CTA negative. BP 215/96 on admission. SBP is typically in the 180s at home. [facility] Medical History Epilepsy Home Medications ?Medication ?Instructions [...] or with change in RN caregiver Freq: [id number] Protocol: Activity Type Activity Date Activity User E-sign Co-sign Detail Recorded Client Recorded Date Recorded By Document 03/04/25 11:50 [facility] desktop 03/04/25 11:51 [facility] 03/04/25 11:50 NIH Stroke Scale [NIHSS] A [...] % (Auto) 67.2, Lymph % (Auto) 21.5, Mcdonough % (Auto) 9.5, Eos % (Auto) 0.7, Baso % (Auto) 0.6, Absolute Neuts (auto) 5.6, Absolute Lymphs (auto) 1.79, Nucleated RBC % 0, PT 13.6, INR 1.0, APTT 26.0, Kodwfr454, Potassium 4.1, Chloride 100, Carbon Dioxide 23.7, [...] mass effect or midline shift. Reading Location: [facility] Head/Neck CTA 03/04/25 07:17 IMPRESSION: No large filling defects seen within the intracranial vessels. No evidence of thrombosis. No hemodynamically significant stenosis seen within the bilateral ICA. Reading Location: [facility] Chest X-Ray 03/04/25 07:35 IMPRESSION: Mild pulmonary vascular congestion. 1 cm nodule seen within the right lower lobe. Follow-up as per Fleischner society criteria. Reading Location: [facility] Active Medications Active Medications Active Medications: Current Medications Generic Name Dose Route Start Last Admin Trade Name Freq PRN Reason Stop Dose Admin Acetaminophen 650 mg 03/04/25 10:24 Acetaminophen 325 Mg Tablet PO Q6H PRN PRN Pain 1-10 Or Fever>100.7 Amlodipine Besylate 5 mg 03/04/25 10:24 03/04/25 11:28 Amlodipine 5 Mg Tablet PO 5 mg DAILY [facility] Administration Protocol Aspirin 81 mg 03/05/25 08:00 Aspirin 81 Mg Tab.Chew PO BREAKFAST [facility] Atorvastatin Calcium 80 mg 03/04/25 22:00 Atorvastatin [...] Ml Syringe IV UD PRN SALINE FLUSH 03/04/25 1755 Cosigner Signature (if applicable): CC: No Primary Care Physician~ Signed [facility]04-09-2025 History and physical note Author Todd Alfonso [facility] Note Date/Time March 04, 2025 8:51 am [facility] Medical Records Department [address] [place] [address] H&P Exam - Hospitalist 03/04/25 0845 MR#: [id number] Acct: [id number] Name: MARY ALICE ESCALANTE Rep #:[id number] : 1970 54 From: Todd Alfonso [...] denies ever having had a stroke before. [facility] Medical History Epilepsy Home Medications ?Medication ?Instructions [...] Strength 5-5 in upperand lower extremities bilaterally. Wtwfgd-zv-uqrm and cnaf-my-lqyc within normal limits. Sensation grossly intact. Patient [...] % (Auto) 67.2, Lymph % (Auto) 21.5, Mcdonough % (Auto) 9.5, Eos % (Auto) 0.7, [...] mass effect or midline shift. Reading Location: [id number] Head/Neck CTA 03/04/25 07:17 IMPRESSION: No large filling defects seen within the intracranial vessels. No evidence of thrombosis. No hemodynamically significant stenosis seen within the bilateral ICA. Reading Location: [facility] Chest X-Ray 03/04/25 07:35 IMPRESSION: Mild pulmonary vascular congestion. 1 cm nodule seen within the right lower lobe. Follow-up as per Fleischner society criteria. Reading Location: [id number]-DM Assessment & Plan Assessment/Plan (1) CVA (cerebral [...] upon discharge. Charges/Coding Visit Charges Inpatient E&M: 80110 Init Hosp L3 03/04/25 0851 <Electronically signed by Todd Alfonso DO> Cosigner Signature (if applicable): CC: Dr. Todd Alfonso, ; No Primary Care Physician~ Signed [facility] Work Phone: 1(541) 107-192104-09-2025 Evaluation note* Diagnosis Onset Date Resolution Status Admit Date Acute stroke due to ischemia acute March 04, 2025 8:40am CVA (cerebral vascular accident) acu te March 04, 2025 8:40am Slurred speech acute March 04, 2025 8:40am Hypertension chronic March 04, 025 8:40am [facility] Work Phone: 1(671) 686-640004-09-2025 Evaluation note* Diagnosis Onset Date Resolution Status Admit Date Hypertension acute March 04, 025 8:40am Slurred speech acute March 04, 2025 8:40am Acute stroke due to ischemia resolve d March 04, 2025 8:40am CVA (cerebral vascular accident) inactive March 04, 2025 8:40am Hypertension acute March 19, 2025 10:47am Ischemic stroke acute February 10:47am Nicotine dependence acute March 19, 2025 10:47am Slurred speech acute February 10:47am Epilepsy chronic March 19 10:47am [facility] Work Phone: 1([phone]) 261-348104-09-2025 Discharge summary Author Cruzito Bailey [facility] Note Date/Time March 04, 2025 8:33 am [facility] Medical Records Department [address] [place] [address] Emergency Department Summary 03/04/25 MR#: [id number] Acct: [id number] Name: MARY ALICE ESCALANTE Rep #:[id number] : 1970 54 From: Cruzito Bailey [...] all 4 extremities. 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 Dorsi plantarflexion intact. Normal strength. Normal sensation. Nontender. No edema. Back nontender. Neurologically is awake and alert. Answering questions and following commands. He is obvious slurred speech. However he is no facial droop. He has normal fingertip to nose. Normal jeui-he-kwpr. No drift. Normal rapid hand movements. NIH [...] % (Auto) 67.2 Lymph % (Auto) 21.5 Mcdonough % (Auto) 9.5 Eos % (Auto) 0.7 [...] mass effect or midline shift. Reading Location: [id number]-[id number]-UD Head/Neck CTA 03/04/25 07:17 IMPRESSION: No large filling defects seen within the intracranial vessels. No evidence of thrombosis. No hemodynamically significant stenosis seen within the bilateral ICA. Reading Location: [id number]-ZLYEUAAT-EO Chest X-Ray 03/04/25 07:35 IMPRESSION: Mild pulmonary vascular congestion. 1 cm nodule seen within the right lower lobe. Follow-up as per Fleischner society criteria. Reading Location: [facility] Chest x-ray, 2 views, AP and [...] rate of 58 no acute signs of RI or ischemia. No ST elevation. No depression. Discharge Plan Triage Chief Complaint: Neuro S/Sx ED Provider: Cruzito Bailey/Rx/DC Orders Clinical Impression: Slurred speech, Acute stroke due to ischemia, Hypertension Prescriptions: No Action NK Primary Care Provider: Care Physician,No Primary Referrals: Care Physician,No Primary [Primary Care Provider] - Print Language: Paraguayan What to do if you have Problems For any increased pain, shortness of breath, bleeding, nausea or vomiting, chestpain, or any unexpected problems, contact your Primary Care Provider. Call [facility] ([phone]) or report to the closest Emergency Room. Call 911 if necessary. 03/04/25832 <Electronically signed by Cruzito Bailey MD> Cosigner Signature (if applicable): CC: No Primary Care Physician ~ Signed [facility] Work Phone: 1(764) 203-970704-09-2025 History and physical note [facility] Medical Records Department [address] [place] [address] H&P Exam - Hospitalist 03/04/25 0845 MR#: [id number] Acct: [id number] Name: MARY ALICE ESCALANTE Rep #:[id number] : 1970 54 From: Todd Alfonso [...] denies ever having had a stroke before. [facility] Medical History Epilepsy Home Medications ?Medication ?Instructions [...] Strength 5-5 in upperand lower extremities bilaterally. Webjez-fz-ujvf and qvzq-uv-nooc within normal limits. Sensation grossly intact. Patient [...] % (Auto) 67.2, Lymph % (Auto) 21.5, Mcdonough % (Auto) 9.5, Eos % (Auto) 0.7, Baso % (Auto) 0.6, Absolute Neuts (auto) 5.6, Absolute Lymphs (auto) 1.79, Nucleated RBC % 0, Sodium 136, Potassium 4.1, Nendwdoo951, Carbon Dioxide 23.7, Anion Gap 11, BUN [...] mass effect or midline shift. Reading Location: UJT-[id number]-MC Head/Neck CTA 03/04/25 07:17 IMPRESSION: No large filling defects seen within the intracranial vessels. No evidence of thrombosis. No hemodynamically significant stenosis seen within the bilateral ICA. Reading Location: XVA-[id number]-JL Chest X-Ray 03/04/25 07:35 IMPRESSION: Mild pulmonary vascular congestion. 1 cm nodule seen within the right lower lobe. Follow-up as per Fleischner society criteria. Reading Location: [facility] Assessment & Plan Assessment/Plan (1) CVA [...] upon discharge. Charges/Coding Visit Charges Inpatient E&M: 33652 Init Hosp L3 03/04/25 0851 Cosigner Signature (if applicable): CC: Dr. Todd Alfonso, DO; No Primary Care Physician~ Signed [facility]04-09-2025 Discharge summary [facility] Medical Records Department [address] [facility] [place] [address] Emergency Department Summary 03/04/25 MR#: [id number] Acct: [id number] Name: MARY ALICE ESCALANTE Rep #:[id number] : 1970 54 From: Cruzito Bailey [...] all 4 extremities. 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 Dorsiplantarflexion intact. Normal strength. Normal sensation. Nontender. No edema. Back nontender. Neurologically is awake and alert. Answering questions and following commands. He is obvious slurred speech. However he is no facial droop. He has normal fingertip to nose. Normal lrka-yj-vrnh. No drift. Normal rapid hand movements. NIH [...] % (Auto) 67.2 Lymph % (Auto) 21.5 Mcdonough % (Auto) 9.5 Eos % (Auto) 0.7 [...] mass effect or midline shift. Reading Location: [id number]-YXGDUJCA-ZZ Head/Neck CTA 03/04/25 07:17 IMPRESSION: No large filling defects seen within the intracranial vessels. No evidence of thrombosis. No hemodynamically significant stenosis seen within the bilateral ICA. Reading Location: [facility] Chest X-Ray 03/04/25 07:35 IMPRESSION: Mild pulmonary vascular congestion. 1 cm nodule seen within the right lower lobe. Follow-up as per Fleischner society criteria. Reading Location: [facility] Chest x-ray, 2 views, AP and [...] rate of 58 no acute signs of RI or ischemia. No ST elevation. No depression. Discharge Plan Triage Chief Complaint: Neuro S/Sx ED Provider: Cruzito Bailey Dx/Rx/DC Orders Clinical Impression: Slurred speech, Acute stroke due to ischemia, Hypertension Prescriptions: No Action NK Primary Care Provider: Care Physician,No Primary Referrals: Care Physician,No Primary [Primary Care Provider] - Print Language: [place] What to do if you have Problems For any increased pain, shortness of breath, bleeding, nausea or vomiting, chestpain, or any unexpected problems, contact your Primary Care Provider. Call [facility] ([phone]) or report tothe closest Emergency Room. Call 911 if necessary. 03/04/25 0833 Cosigner Signature (if applicable): CC: No Primary Care Physician ~ Signed [facility]04-09-2025 Radiology Diagnostic study note [facility] Imaging Services [address] [place] [address] STROKE CTA Head AND Neck W/Con MR#: [id number] Acct: [id number] Name: MARY ALICE ESCALANTE Rep #: [id number] : 1970 M 54 From: Marcus Mayorga MD PCP: Care Physician,No Primary Status: REG ER Study:STROKE CTA Head AND Neck W/Con Date of Exam: 03/04/25 Exam# [id number] Ordering Dr: Shobha Bailey MD PROCEDURE: STROKE CTA HEAD AND [...] seen within the bilateral ICA. Reading Location: [id number]-QG CC: Dr. Cruzito Bailey MD; No Primary Care Physician ~ E Learning Coordinator: Signed [facility]04-09-2025 Radiology Diagnostic study note [facility] Imaging Services [address] [place] [address] STROKE Brain/Head without Cont MR#: [id number] Acct: [id number] Name: MARY ALICE ESCALANTE Rep #: [id number] 3 : 1970 M 54 From: Marcus Mayorga MD PCP: Care Physician,No Primary Status: REG ER Study:STROKE Brain/Head without Cont Date of Exam: 03/04/25 Exam# [id number] Ordering Dr: Shobha Bailey MD PROCEDURE: STROKE [...] mass effect or midline shift. Reading Location: [facility] CC: Dr. Cruzito Bailey MD; No Primary Care Physician ~ E Learning Coordinator: Signed [facility]04-09-2025 Radiology Diagnostic study note [facility] Imaging Services [address] [place] [address] [id number] Chest PA and Lateral MR#: [id number] Acct: [id number] Name: MARY ALICE ESCALANTE Rep #: [id number] 2 : 1970 M 54 From: Marcus Mayorga MD PCP: Care Physician,No Primary Status: REG ER Study:Chest PA and Lateral Date of Exam: 03/04/25 Exam# [id number] Ordering Dr: Shobha Bailey MD PROCEDURE: CHEST [...] as per Fleischner society criteria. Reading Location: [facility] CC: Dr. Cruzito Bailey MD; No Primary Care Physician ~ E Learning Coordinator: [facility]igned [facility] Cruzito [facility] Note Date/Time March 04, 2025 8:33 am [facility] Medical Records Department [address] [place] [address] Emergency Department Summary 03/04/25 MR#: [id number] Acct: [id number] Name: MARY ALICE ESCALANTE Rep #:[id number] 3 : 1970 54 From: Cruzito Bailey [...] Prior similar symptoms: No Recent Illness/Hospitalization: No [facility] Medical History Epilepsy Home Medications ?Medication ?Instructions [...] all 4 extremities. 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 Dorsi plantarflexion intact. Normal strength. Normal sensation. Nontender. No edema. Back nontender. Neurologically is awake and alert. Answering questions and following commands. He is obvious slurred speech. However he is no facial droop. He has normal fingertip to nose. Normal iuzi-cy-czeq. No drift. Normal rapid hand movements. NIH [...] % (Auto) 67.2 Lymph % (Auto) 21.5 Mcdonough % (Auto) 9.5 Eos % (Auto) 0.7 [...] mass effect or midline shift. Reading Location: [id number] Head/Neck CTA 03/04/25 07:17 IMPRESSION: No large filling defects seen within the intracranial vessels. No evidence of thrombosis. No hemodynamically significant stenosis seen within the bilateral ICA. Reading Location: [facility] Chest X-Ray 03/04/25 07:35 IMPRESSION: Mild pulmonary vascular congestion. 1 cm nodule seen within the right lower lobe. Follow-up as per Fleischner society criteria. Reading Location: [facility] Chest x-ray, 2 views, AP and [...] rate of 58 no acute signs of RI or ischemia. No ST elevation. No depression. Discharge Plan Triage Chief Complaint: Neuro S/Sx ED Provider: Cruzito Bailey Dx/Rx/DC Orders Clinical Impression: Slurred speech, Acute stroke due to ischemia, Hypertension Prescriptions: No Action NK Primary Care Provider: Care Physician,No Primary Referrals: Care Physician,No Primary [Primary Care Provider] - Print Language: Paraguayan What to do if you have Problems For any increased pain, shortness of breath, bleeding, nausea or vomiting, chestpain, or any unexpected problems, contact your Primary Care Provider. Call [facility] ([phone]) or report to the closest Emergency Room. Call 911 if necessary. 03/04/25 0833 <Electronically signed by Cruzito Bailey MD> Cosigner Signature (if applicable): CC: No Primary Care Physician ~ Signed [facility] Work Phone: Discharge summary Author Todd Alfonso [facility] Note Date/Time March 05, 2025 1:3 9pm [facility] Medical Records Department [address] [place] [address] Discharge Summary 03/05/25 1333 MR#: [id number] Acct: [id number] Name: MARY ALICE ESCALANTE Rep #:[id number] 8 : 1970 54 From: Todd Alfonso DO PCP: Care Physician,No Primary Status :ADM JEVON Location: ICU ICU05-1 Providers Date of Admission: 03/04/25 Primary Care [...] No Action NK Referrals / Follow Up: [facility] [Provider Group] - Within 1 Month [facility] [Provider Group] - Within 2 Weeks Care Physician,No Primary [Primary Care Provider] - Disposition Disposition (needs filled in before D/C Order can be placed): Home, Self Care Charges/Coding Visit Charges Inpatient E&M: 86460 Disch Hosp >30min 03/05/25 1339 <Electronically signed by Todd Alfonso DO> Cosigner Signature (if applicable): CC: Dr. Todd Alfonso DO; No Primary Care Physician~ Signed [facility] Work Phone: Evaluation note* Diagnosis Onset Date Resolution Status Admit Date Acute stroke due to ischemia acute March 04, 2025 8:40am CVA (cerebral vascular accident) acu te March 04, 2025 8:40am Slurred speech acute March 04, 2025 8:40am Hypertension chronic Leta 9th, 2 025 8:40am [facility] Work Phone: History and physical note Author Todd Alfonso [facility] Note Date/Time March 04, 2025 8:51 am [facility] Medical Records Department [address] [place] [address] H&P Exam - Hospitalist 03/04/25 0845 MR#: [id number] Acct: [id number] Name: MARY ALICE ESCALANTE Rep #:[id number] 2 : 1970 54 From: Todd Alfonso [...] denies ever having had a stroke before. [facility] Medical History Epilepsy Home Medications ?Medication ?Instructions [...] Strength 5-5 in upperand lower extremities bilaterally. Tyjodq-kh-uwub and yveq-um-wlqy within normal limits. Sensation grossly intact. Patient [...] % (Auto) 67.2, Lymph % (Auto) 21.5, Mcdonough % (Auto) 9.5, Eos % (Auto) 0.7, [...] mass effect or midline shift. Reading Location: [facility] Head/Neck CTA 03/04/25 07:17 IMPRESSION: No large filling defects seen within the intracranial vessels. No evidence of thrombosis. No hemodynamically significant stenosis seen within the bilateral ICA. Reading Location: [facility] Chest X-Ray 03/04/25 07:35 IMPRESSION: Mild pulmonary vascular congestion. 1 cm nodule seen within the right lower lobe. Follow-up as per Fleischner society criteria. Reading Location: [facility] Assessment & Plan Assessment/Plan (1) CVA [...] upon discharge. Charges/Coding Visit Charges Inpatient E&M: 00671 Init Hosp L3 03/04/25 0851 <Electronically signed by Todd Alfonso DO> Cosigner Signature (if applicable): CC: Dr. Todd Alfonso, ; No Primary Care Physician~ Signed [facility] Work Phone: Hospital Discharge instructions [...] not sleep throughout the night for your testing.[facility] Work Phone: Reason for referral (narrative)No reason for referral information availableW[facility]Green [facility] Work Phone: Chief Complaint and Reason for [...] 05 7:23am Chief Complaint Admit Date CVA March 04, [...] 47am Epilepsy March 19, 2025 10: 47am Chief Complaint Admit Date CVA March 04, 2025 8:40 am slurred speech March 04, 2025 8:45 am Cerebrovascular accident March 05 7:23am STROKE March 19, 2025 10: 47am CVA/PT HAS RX March 20, 2025 1:5 0pm EORDERS March 23, 2025 3:3 6pm I63.9 - Cerebral infarction, unspecified March 27, 2025 6:37am Cerebral infarction, unspecified March h2024 6:41am syncope April 10, 2025 7:28a m STOKE EPILEPSY May 05, 2025 3:57 pm Chief Complaint Admit Date CVA March 04, 2025 8:40 am slurred speech March 04, 2025 8:45 am Cerebrovascular accident March 05 7:23am STROKE March 19, 2025 10: 47am CVA/PT HAS RX March 20, 2025 1:5 0pm EORDERS March 23, 2025 3:3 6pm I63.9 - Cerebral infarction, unspecified March 27, 2025 6:37am 30 DAY HOLTER March 27, 2025 7:00am Cerebral infarction, unspecified March 6:41am syncope April 10, 2025 7:28a m STOKE EPILEPSY May 05, 2025 3:57 pm Chief Complaint Admit Date CVA March 04, 2025 8:40 am slurred speech March 04, 2025 8:45 am Cerebrovascular accident March 05 7:23am STROKE March 19, 2025 10: 47am CVA/PT HAS RX March 20, 2025 1:5 0pm EORDERS March 23, 2025 3:3 6pm I63.9 - Cerebral infarction, unspecified March 27, 2025 6:37am 30 DAY HOLTER March 27, 2025 7:00am Cerebral infarction, unspecified March 6:41am syncope April 10, 2025 7:28a m STOKE EPILEPSY May 05, 2025 3:57 pm 4 M FU June 30, 2025 12: 55pm Advance Directives No Advanced Directives Records Found Advance Directive Response Recorded Date/ Time Living Will No March 04, 2025 7:07am Do you have a Healthcare Power of Color Weigher? No March 04, 2025 7:07am Advance Directive Response Recorded Date/ Time Living Will No March 04, 2025 10:24am Do you have a Healthcare Power of Color Weigher? No March 04, 2025 10:24am Advance Directive Response Recorded Date/ Time Do you have a Healthcare Power of Color Weigher? No April 10, 2025 7:32am Living Will No March 04, 2025 10:24am Do you have a Healthcare Power of Color Weigher? No March 04, 2025 10:24am Summary Purpose [...] Preston Ibarra MD Other Provider Active Start: Ap 2024 End: March 05, 2025 Dr. Ilya [...] tart: March 04, 2025 Dr. Todd Alfonso , Admit Provider Active Star t: March 04, 2025 Dr. Todd Alfonso DO Attending Provider Active Start: March 04, 2025 Team Status: Inactive Member Role Status Dates No Primary Care Physician Primary Care Provider Active Start: March 19, 2025 End: March 19, 2025 No Primary Care Physician Referring Provider Active Start: March 19, 2025 End: March 19, 2025 Keyanna Walton DIRECTOR PROCESS ENGINEERING-C Attending Provider Active S tart: March 19, [...] March 23, 2025 End: March 23, 2025 Keyanna Walton , DIRECTOR PROCESS ENGINEERING-C Attending Provider Active S tart: March 23, 2025 End: March 23, 2025 Keyannaellen Walton , DIRECTOR PROCESS ENGINEERING-C Referring Provider Active S tart: March 23, 2025 End: March 23, 2025 Team Status: Active Member Role Status Dates No Primary Care Physician Primary Care Provider Active Start: March 27, 2025 Keyannaellen Linareser , DIRECTOR PROCESS ENGINEERING-C Attending Provider Active S tart: March 27, 2025 Keyannaellen Linareser , DIRECTOR PROCESS ENGINEERING-C Referring Provider Active S tart: March 27, 2025 Team Status: Active Member Role Status Dates No Primary Care Physician Primary Care Provider Active Start: April 10, 2025 Keyannaellen Walton , DIRECTOR PROCESS ENGINEERING-C Attending Provider Active S tart: April 10, 2025 Keyanna Borjosé migueler , DIRECTOR PROCESS ENGINEERING-C Referring Provider Active S tart: April 10, 2025 Team Status: Inactive Member Role Status Dates No Primary Care Physician Primary Care Provider Active Start: April 10, 2025 End: April 10, 2025 Dr. Kev Nash , Emergency Provider Active Start : April 10, 2025 End: April 10, 2025 Team Status: Inactive Member Role Status Dates No Primary Care Physician Primary Care Provider Active Start: April 10, 2025 End: April 10, 2025 Keyanna Walton DIRECTOR PROCESS ENGINEERING-C Attending Provider Active S tart: April 10, 2025 End: April 10, 2025 Keyanna Walton DIRECTOR PROCESS ENGINEERING-C Referring Provider Active S tart: April 10, 2025 End: April 10, 2025 Team Status: Inactive Member Role Status Dates No Primary Care Physician Primary Care Provider Active Start: April 10, 2025 End: April 10, 2025 Dr. Kev Nash , Attending Provider Active Start : April 10, 2025 End: April 10, 2025 Dr. Kev Nash , Emergency Provider Active Start : April 10, 2025 End: April 10, 2025 Team Status: Active Member Role Status Dates Dianne Mcknight DIRECTOR PROCESS ENGINEERING-C Primary Care Provider Active Team Status: Inactive Member Role Status Dates Dianne Mcknight NP-C Primary Care Provider Active Start: April 30, 2025 End: April 30, 2025 Dianne Mcknight DIRECTOR PROCESS ENGINEERING-C Attending Provider Active Start: April 30, 2025 End: April 30, 2025 Team Status: Active Member Role Status Dates Keyanna Walton DIRECTOR PROCESS ENGINEERING-C Attending Provider Active S tart: May 05, 2025 Keyanna Walton DIRECTOR PROCESS ENGINEERING-C Referring Provider Active S tart: May 05, 2025 Dianne Mcknight NP-C Primary Care Provider Active Start: May 05, 2025 Team Status: Active Member Role Status Dates No Primary Care Physician Primary Care Provider Active Start: March 27, 2025 Dr. Jd Buenrostro MD Attending Provider Active Start: March 27, 2025 Keyanna Walton DIRECTOR PROCESS ENGINEERING-C Referring Provider Active S tart: March 27, 2025 Team Status: Inactive Member Role Status Dates Keyanna Walton DIRECTOR PROCESS ENGINEERING-C Attending Provider Active S tart: May 05, 2025 End: May 05, 2025 Keyanna Walton DIRECTOR PROCESS ENGINEERING-C Referring Provider Active S tart: May 05, 2025 End: May 05, 2025 Dianne Mcknight DIRECTOR PROCESS ENGINEERING-C Primary Care Provider Active Start: May 05, 2025 End: May 05, 2025 Team Status: Active Member Role/Relationship Status Dates Dianne Mcknight DIRECTOR PROCESS ENGINEERING-C Primary Care Provider Active Team Status: Inactive Member Role/Relationship Status Dates No Primary Care Physician Primary [...] Preston Ibarra MD Other Provider Active Start: Ap 2024 End: March 05, 2025 Dr. Ilya [...] March 05, 2025 Team Status: Active Member Role/Relationship Status Dates No Primary Care Physician Primary Care Provider Active Start: March 04, 2025 Dr. Cruzito Bailey MD Emergency Provider Active S tart: March 04, 2025 Dr. Todd Alfonso DO Attending Provider Active Start: March 04, 2025 Team Status: Active Member Role/Relationship Status Dates No Primary Care Physician Primary Care Provider Active Start: March 04, 2025 Dr. Hiro Melendez MD Attending Provider Active S tart: March 04, 2025 Team Status: Active Member Role/Relationship Status Dates No Primary Care Physician Primary [...] Active Start: March 05, 2025 Team Status: Inactive Member Role/Relationship Status Dates No Primary Care Physician Primary Care Provider Active Start: March 19, 2025 End: March 19, 2025 No Primary Care Physician Referring Provider Active Start: March 19, 2025 End: March 19, 2025 ROBERTA Salcido Attending Provider Active S tart: March 19, 2025 End: March 19, 2025 Team Status: Inactive Member Role/Relationship Status Dates No Primary Care Physician Primary Care Provider Active Start: March 20, 2025 End: March 20, 2025 Dr. Todd Alfonso DO Attending Provider Active Start: March 20, 2025 End: March 20, 2025 Dr. Todd Alfonso DO Referring Provider Active Start: March 20, 2025 End: March 20, 2025 Team Status: Inactive Member Role/Relationship Status Dates No Primary Care Physician Primary Care Provider Active Start: March 23, 2025 End: March 23, 2025 ROBERTA Salcido Attending Provider Active S tart: March 23, 2025 End: March 23, 2025 ROBERTA Salcido Referring Provider Active S tart: March 23, 2025 End: March 23, 2025 Team Status: Active Member Role/Relationship Status Dates No Primary Care Physician Primary Care Provider Active Start: March 27, 2025 Keyanna Walton , DIRECTOR PROCESS ENGINEERING-C Attending Provider Active S tart: March 27, 2025 Keyanna Walton DIRECTOR PROCESS ENGINEERING-C Referring Provider Active S tart: March 27, 2025 Team Status: Active Member Role/Relationship Status Dates No Primary Care Physician Primary Care Provider Active Start: March 27, 2025 Dr. Jd Buenrostro MD Attending Provider Active Start: March 27, 2025 Keyanna Walton DIRECTOR PROCESS ENGINEERING-C Referring Provider Active S tart: March 27, 2025 Team Status: Inactive Member Role/Relationship Status Dates No Primary Care Physician Primary Care Provider Active Start: April 10, 2025 End: April 10, 2025 Keyanna Walton DIRECTOR PROCESS ENGINEERING-C Attending Provider Active S tart: April 10, 2025 End: April 10, 2025 Keyanna Walton , DIRECTOR PROCESS ENGINEERING-C Referring Provider Active S tart: April 10, 2025 End: April 10, 2025 Team Status: Inactive Member Role/Relationship Status Dates No Primary Care Physician Primary Care Provider Active Start: April 10, 2025 End: April 10, 2025 Dr. Kev Nash DO Attending Provider Active Start : April 10, 2025 End: April 10, 2025 Dr. Kve Nash DO Emergency Provider Active Start : April 10, 2025 End: April 10, 2025 Team Status: Inactive Member Role/Relationship Status Dates Dianne Mcknight DIRECTOR PROCESS ENGINEERING-C Primary Care Provider Active Start: April 30, 2025 End: April 30, 2025 Dianne Mcknight DIRECTOR PROCESS ENGINEERING-C Attending Provider Active Start: April 30, 2025 End: April 30, 2025 Team Status: Inactive Member Role/Relationship Status Dates Keyanna Walton , DIRECTOR PROCESS ENGINEERING-C Attending Provider Active S tart: May 05, 2025 End: May 05, 2025 Keyanna Walton DIRECTOR PROCESS ENGINEERING-C Referring Provider Active S tart: May 05, 2025 End: May 05, 2025 Dianne Mcknight DIRECTOR PROCESS ENGINEERING-C Primary Care Provider Active Start: May 05, 2025 End: May 05, 2025 Team Status: Inactive Member Role/Relationship Status Dates No Primary Care Physician Referring Provider Active Start: June 30, 2025 End: June 30, 2025 Dr. Dariel George MD Attending Provider Active Start: June 30, 2025 End: June 30, 2025 ROBERTA Landry Primary Care Provider Active Start: June 30, 2025 End: June 30, 2025 Goals (unrecognized section and content) Goals may be documented in a n alternate section (unrecognized sect ion and content) No Status Records Found INFORMATION SOURCE (unrecogn ized section and content) DATE CREATED AUTHOR 07/23/2025 [facility] FOR RECORDS PERTAINING TO PATIENTS WHO ARE [...] BE BASED ON THE PRIMARY CLINICAL RECORDS. [facility] [employer] [facility]. provides no warranty or guarantee of the accuracy or completeness of information in this document.
== END | disposition home or self-care (01) ==
PROVIDERS: PCP Nurse Practitioner Family; Referring Provider Nurse Practitioner Family; Visit Provider Nurse Practitioner Family
DX: D64.9 Anemia, unspecified (principal)
CPT/HCPCS: 82274

== ENCOUNTER 2025-10-16 07:04 | Day surgery (SDC) | payer BC, SELFPAY ==
--- NOTE | 2025-10-13 17:21 | PAT.ANESEVAL ---
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 When Was Last Pacemaker Check QUESTION #4 FULL TEXT: You/Your Family Experience fever (hyperthermia) with Anesthesia Last Oral Intake Last Oral intake: Last Oral Intake NPO since Meds taken in AM with sips of water? Meds patient instructed to take am of surgery PONV PONV - envelope folding machine adjuster: PONV - envelope folding machine adjuster Female No 10/13/25 10:27 HX of Motion Sickness No 10/13/25 10:27 HX of N/V After Surgery No 10/13/25 10:27 Non-Smoker No 10/13/25 10:27 Duration of Surgery greater No 10/13/25 10:27 than 60 minutes Number of Risk Factors PONV Score Height & Weight Height & Weight: Anesthesia: Height & Weight Height 5 ft 7 in 06/30/25 12:57 Respiratory Assessment Respiratory Assessment - envelope folding machine adjuster: Respiratory Tract Infection Hx - envelope folding machine adjuster Hx Respiratory Tract Infection No 10/13/25 10:27 STOP Sleep Apnea STOP Sleep Apnea - envelope folding machine adjuster: STOP Sleep Apnea - envelope folding machine adjuster Hx Hypertension Yes: CONTROLLED WITH MED 10/13/25 10:27 Hx Sleep Apnea No 10/13/25 10:27 CPAP BIPAP Do you snore loudly (louder No 10/13/25 10:27 than talking or can be heard Do you often feel tired/ No 10/13/25 10:27 fatigued/ sleepy during daytime? Has anyone observed you stop No 10/13/25 10:27 breathing during sleep? STOP Results Negative 10/13/25 10:27 QUESTION #5 FULL TEXT : Do you snore loudly (louder than talking or can be heard through closed doors)? Tobacco Use History Tobacco Use History - envelope folding machine adjuster: Tobacco Use History - envelope folding machine adjuster Tobacco Use Cigarettes 03/05/25 07:17 Smoking Status Current every day smoker 10/13/25 10:27 Hx Tobacco Use Yes 10/13/25 10:27 Years Smoking Packs Smoked per Day 0.5 10/13/25 10:27 Smoking Cessation Date was within the last 15 years Hx Smoking Cessation Date Hx Smoking Cessation Counseling Hematologic Medial History Hematologic Hx - envelope folding machine adjuster: Hematologic Medical Hx - retail presentation specialist Hx of Blood Transfusion No 10/13/25 10:27 Hx of Transfusion in last 3 No 10/13/25 10:27 Months Date of Last Transfusion (if within last 3 months) Ever experience any problems No 10/13/25 10:27 with transfusion(s)? Specify any problems Hx of Preganancy in last 3 N/A 10/13/25 10:27 Months Nurse Filling Out Transfusion NBUCHER 10/13/25 10:27 & Questions: Date: 10/13/25 10/13/25 10:27 Time: 10:30 10/13/25 10:27 Patient unable to answer at this time (ie. confused, unrespo /Reproduction History /Reproductive History - envelope folding machine adjuster: /Reproductive Hx- envelope folding machine adjuster Hx Now No 10/13/25 10:27 Gestational Age (in weeks): EDC: Hx Hx Para Hx Section SAB No 10/13/25 10:27 Does the father of the baby or his family experience fever w Father of the baby Malignant Hypertension history comment [facility] Medical History (Updated 10/13/25 @ 10:36 by Nancy Manuel) Alcohol use Low iron High cholesterol Marijuana use Gastric reflux History of cardiac monitoring Smoker History of echocardiogram Melena Positive fecal occult blood test Foreign body of orbit CVA (cerebral vascular accident) Hypertension Epilepsy Home Medications ?Medication ?Instructions ?Recorded ?Last Taken ?Type amlodipine 10 mg tablet 10 mg PO DAILY #30 tabs 03/05/25 Unknown Rx aspirin 81 mg chewable tablet 81 mg PO BREAKFAST #0 tabs 03/05/25 Unknown Rx atorvastatin 80 mg tablet 80 mg PO QHS #30 tabs 03/05/25 Unknown Rx lisinopril 10 mg tablet 10 mg PO QDAY 03/19/25 Unknown History peg 3350-electrolytes 236 240 ml PO Q10M #4,000 mL 09/18/25 Unknown Rx gram-22.74 gram-6.74 gram-5.86 gram solution (Golytely) Allergy/AdvReac Type Severity Reaction Status Date / Time No Known Allergies Allergy Verified 10/13/25 10:25 Family History Mother , 65 Cancer lung & brain Surgical History (Updated 10/13/25 @ 10:36 by Nancy Manuel) History of excision of lesion Social History household members: spouse current occupational 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 Normal sinus rhythm. Echo (EF%) pertinent findings: Echo 03/04/2025. Normal LV size. Left ventricular systolic function is normal. EF is 60%. Stage I diastolic dysfunction. Additional pertinent findings: Holter monitor from 03/27/2025 to 04/09/2025. Baseline sample showed sinus rhythm with a heart rate of 73.3 bpm. There were 0 critical, 0 serious, and 30 stable events that occurred. Recommendation Anesthesia Recommendation Anesthesia recommendation: OPTIMIZED for anesthesia
[2025-10-16] VITALS (8 sets, daily range): BP systolic 90–125; BP diastolic 56–70; PULSE 54–66; RESP 16; TEMP 36.1–36.6; O2SAT 97–99; BMI 25.9
--- NOTE | 2025-10-16 07:22 | PCM.HP.STD ---
[facility] - General General Date of Admission: 10/16/25 Date of Service: 10/16/25 Chief Complaint: GERD and screening colonoscopy HPI Narrative MARY ALICE NAIK, is a 55 M who presents Chief Complaint: Blood in stool Patient referred from [facility] surgery in [place] for evaluation for EGD and colonoscopy. Patient smokes marijuana and they were concerned that the amount of sedation they use would not be enough. Patient had a ischemic stroke in February 2025 secondary to hypertension. Patient with no lasting deficits but did initially have slurred speech. His primary care provider ordered blood work which revealed a low hemoglobin and a fecal occult blood test positive. He has not had any changes in his bowel habits. He has 1-2 formed bowel movements per day. He does not see blood in his stool. He denies abdominal pain, heartburn, nausea or vomiting. Prior to his stroke he had not seen a medical provider in years. Patient smokes a half a pack per day and uses marijuana. He has no history of colonoscopy. He denies family history of colon cancer. peg 3350-electrolytes 236-22.74-6.74 -5.86 gram (Golytely) until fecal effluent is clear 240 mL PO Q10M 4,000 mL 0RF ] [facility] Medical History Alcohol use Low iron High cholesterol Marijuana use Gastric reflux History of cardiac monitoring Smoker History of echocardiogram Melena Positive fecal occult blood test Foreign body of orbit CVA (cerebral vascular accident) Hypertension Epilepsy Home Medications ?Medication ?Instructions ?Recorded ?Last Taken ?Type amlodipine 10 mg tablet 10 mg PO DAILY #30 tabs 03/05/25 Unknown Rx aspirin 81 mg chewable tablet 81 mg PO BREAKFAST #0 tabs 03/05/25 Unknown Rx atorvastatin 80 mg tablet 80 mg PO QHS #30 tabs 03/05/25 Unknown Rx lisinopril 10 mg tablet 10 mg PO QDAY 03/19/25 Unknown History peg 3350-electrolytes 236 240 ml PO Q10M #4,000 mL 09/18/25 Unknown Rx gram-22.74 gram-6.74 gram-5.86 gram solution (Golytely) Allergy/AdvReac Type Severity Reaction Status Date / Time No Known Allergies Allergy Verified 10/13/25 10:25 Family History Mother , 65 Cancer lung & brain Surgical History History of excision of lesion Social History household members: spouse 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 occupational 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 pets and animals: Yes pets and animals: cat(s) and dog(s) Smoking Status: Current every day smoker tobacco type: cigarettes alcohol intake: current details: on avg 1-2 a wk substance use type: marijuana caffeine: Yes Type: coffee Number of servings: 6 do you feel safe at home: Yes ROS Constitutional Constitutional: Denies fatigue, fever(s), poor appetite, weight gain or weight loss Gastrointestinal Gastrointestinal: Denies belching, bloating, change in bowel habits, change in stool character, chewing difficulty, coffee ground emesis, constipation, cramping, diarrhea, dyspepsia, dysphagia, early satiety, excessive flatus, fecal incontinence, heartburn, hematemesis, hematochezia, hemorrhoids, loose stools, melena, nausea, odynophagia, rectal bleeding, tenesmus, vomiting or weight changes Physical Exam Const alert, oriented x3, no apparent distress and healthy appearing General Appearance: cooperative GI normal to inspection, nondistended, normoactive bowel sounds, soft to palpation, non-tender and non-distended Percussion: normal to percussion Rectal Exam: deferred Assessment & Plan Assessment/Plan (1) Anemia: (2) Encounter for screening colonoscopy: PLAN: Assessment and Plan Assessment and Plan (1) Positive fecal occult blood test: Status: Acute Plan: Mary Alice is a 55-year-old male patient with past medical history of ischemic stroke secondary to uncontrolled hypertension, epilepsy and nicotine dependence here today due to fecal occult blood test being positive. Patient was seen by general surgery at [facility] in [place] and plan was to schedule for upper and lower endoscopy however with him using marijuana there was concern that he would not be able to be sedated enough therefore he was referred to us. He denies abdominal pain, heartburn, nausea, vomiting, constipation, diarrhea or black tarry stool. Most recent hemoglobin from June 2025 was 12.6. Patient was agreeable to proceed with both lower and upper endoscopy. -EGD - Colonoscopy - Follow-up after procedures (2) Anemia: Status: Acute Medications: New
--- OUTSIDE RECORDS SUMMARY | 2025-10-16 07:25 | XMS RPT_ITS | CCD ---
Author Organization [facility] Care Team Providers Care Dye Range Feeder Name Role Phone Care Physician, No Primary Primary Care Provider Unavailable Leo DUNHAM, Dr. East Emergency Provider Dr. Todd Alfonso DO Admit Provider [phone] Dr. Todd Alfonso DO Attending Provider Preston Ibarra MD Other Provider Unavailable Dr. Ilya Brewer MD Other Provider [phone] Shelbi Talbot MD Other Provider Unavailable Dr. Tati Olmstead DO Other Provider Dr. Mary Nettles MD Other Provider Dr. Jayro Skelton MD Other Provider Dr. Caity Daniels MD Other Provider Dr. Will Schroeder MD Other Provider Dr. Davon Lopez MD Other Provider [phone] Leonard DUNHAM, Dr. Monroy Other Provider Elizabeth Arellano MD Other Provider [phone] Tung DUNHAM, Dr. Arnold Other Provider Mark DUNHAM, Dr. Orta Other Provider Shane DUNHAM, Dr. Adam Other Provider Linda DUNHAM, Dr. Danita Talbot Other Provider Emir DUNHAM, Dr. Arellano Other Provider Paulino DUNHAM, Dr. Mills Other Provider [phone] Katja DUNHAM, Dr. Youssef Other Provider Tucker DUNHAM, Dr. Mitchell Other Provider Unavailable Chloe DUNHAM, Lorelei Other Provider Unavailable Nora DUNHAM, Dr. Bosch Attending Provider Naty RUBIO, Dr. Brooks Other Provider Care Physician, No Primary Referring Provider Un available Anton GIFT BASKET PACKER-CKeyanna Attending Provider Naty RUBIO, Dr. Brooks Referring Provider Anton GIFT BASKET PACKER-C, Keyanna Referring Provider Dr. Kev Nash DO Emergency Provider Charity RUBIO, Dr. Angulo Attending Provider Tannhof GIFT BASKET PACKER-C, Dianne Primary Care Provider Tannhof GIFT BASKET PACKER-C, Dianne Attending Provider Porter DUNHAM, Dr. Miles Attending Provider Ariel DUNHAM, Dr. Vieira Attending Provider Care Physician, No Primary Primary Care Provider Unavailable Anton GIFT BASKET PACKER-CKeyanna Attending Provider Borgregg GIFT BASKET PACKER-C, Keyanna Referring Provider Care Physician, No Primary Referring Provider Un available Tannhof GIFT BASKET PACKER-C, Dianne Referring Provider Unavailable Primary Care Provider UnavailLEENA Cruz Attending Unavailable Tannhof, Dianne Primary Care Unavailable Tannhof, Dianne Attending Unavailable Pramod Prince Attending Unavailable Tannhof, Dianne Primary Care Unavailable Celia Bell Attending Unavailable Tannhof, Dianne Primary Care Unavailable Tannhof, Dianne Referring Unavailable Jd Buenrostro Attending Unavailable Care Physician, No Primary Primary Care Unava ilable Keyanna Walton Referring Unavailable Care Physician, No Primary Primary Care Unava ilable Todd Alfonso Referring Unavailable Todd Alfonso Attending Unavailable Care Physician, No Primary Primary Care Unava ilable Keyanna Walton Attending Unavailable Bordner, Keyanna Referring Unavailable Bordner, Keyanna Attending Unavailable Bordner, Keyanna Referring Unavailable Tannhof, Dianne Primary Care Unavailable Care Physician, No Primary Referring Unava ilable Tannhof, Dianne Primary Care Unavailable Dariel George Attending Unavailable Care Physician, No Primary Primary Care Unava ilable Hiro Melendez Attending Unavailable Tannhof, Dianne Primary Care Unavailable Tannhof, Dianne Attending Unavailable Tannhof, Dianne Primary Care Unavailable Tannhof, Dianne Referring Unavailable Tannhof, Dianne Attending Unavailable Tannhof, Dianne Primary Care Unavailable Tannhof, Dianne Referring Unavailable Tannhof, Dianne Attending Unavailable Care Physician, No Primary Primary Care Unava ilable Kev Nash Attending Unavailable Preston Ibarra Consulting Unavailable Care Physician, No Primary Primary Care Unava ilable Jopperi, Todd Admitting Unavailable Joppdelaney, Todd Attending Unavailable Adeli, Amir Consulting Unavailable Hinduja, Shelbi [...] Ceballos Consulting Unavailable Lorelei Corona Consulting Unavailable Care Physician, No Primary Primary Care Unava ilable Marciadner, Keyanna Attending Unavailable Bordner, Keyanna Referring Unavailable Care Physician, No Primary Primary Care Unava ilable Bordner, Keyanna Referring Unavailable Bordner, Keyanna Attending Unavailable Preston Ibarra Consulting Unavailable Care Physician, No Primary Primary Care Unava ilable Jopperi, Otdd Admitting Unavailable Jopperi, Todd Attending Unavailable Adeli, Amir Consulting Unavailable Hinduja, Shelbi Consulting Unavailable Ishan, Tati Consulting Unavailable Zha, Mary Consulting Unavailable Costa, Jayro Consulting Unavailable Jeremiah, Caity Consulting Unavailable Bittar, Will Consulting Unavailable Davon Lopez Consulting Unavailable Porfirio Valle Consulting Unavailable BeLvoe zhangaret Consulting Unavailable Clayton Ruby Consulting Unavailable Marivel Flores Consulting Unavailable Jair Lynn Consulting Unavailable Danita Mckeon Consulting UnavailAdan Gauthier Consulting Unavailable Lina Bob Consulting Unavailable Mikael Hightower Consulting Unavailable Paula Ceballos Consulting Unavailable Lorelei Corona Consulting Unavailable Todd Alfonso Consulting Unavailable Care Physician, No Primary Primary Care Unava ilable Todd Alfonso Attending Unavailable Care Physician, No Primary Primary Care Unava ilable Care Physician, No Primary Referring Unava ilable Keyanna Walton Attending Unavailable Medications Current Medications Medication Drug Class(es) Dates Sig (Normalized) Sig (Original) amLODIPine 10 mg oral tablet (11 sources) Dihydropyridine Calcium Channel Kimi Start: 03-05-2025 take 1 tablet by mouth once daily amLODIPine (NORVASC) 10 mg tablet Take 1 tablet by mouth once daily. 07/28/2025 Active aspirin 81 mg chewable tablet (9 sources) Platelet Aggregation Inhibitor, Nonsteroidal Anti-inflammatory Drug Start: 03-05-2025 take 1 tablet by mouth at breakfast Aspirin 81 mg Tablet,Chewable Active 81 mg PO WITH BREAKFAST 0 0 March 05, 2025 12:00am atorvastatin 80 mg oral tablet (11 sources) HMG-CoA Reductase Inhibitor Start: 03-05-2025 take 1 tablet by mouth once daily atorvastatin (LIPITOR) 80 mg tablet Take 1 tablet by mouth once daily. 07/28/2025 Active lisinopril 10 mg oral tablet (10 sources) Angiotensin Converting Enzyme Inhibitor Start: 03-19-2025 take 1 tablet by mouth once daily lisinopril (ZESTRIL) 10 mg tablet Take 1 tablet by mouth once daily. 07/28/2025 Active [place] (Nk) (1 source) Start: 03-04-2025 [place] (Nk) Active March 04, 2025 12:00am Completed/Discontinued Medications Medication Drug Class(es) Dates Sig (Normalized) Sig (Original) hydroCHLOROthiazide 25 mg oral tablet (9 sources) Thiazide Diuretic Start: End: take 1 tablet by mouth once daily Hydrochlorothiazide 25 mg Tablet Discontinued 25 mg PO DAILY 30 1 March 05, 2025 12:00am June 30, 2025 12:58pm Problems Active Problems Problem Classification Problem Date Documented Da te Episodic/Chronic Acute cerebrovascular disease (20 sources) Ischemic stroke; Translations: [Cerebral infarction, unspecified] Onset: 5 03-04-2025 Chronic Comment on above: Ischemic stroke in t he left subcortical white matter with symptoms of dysarthria likely occurring in the beginning of February 2025.At this point in time, the etiology of his stroke is cryptogenic. Atrial fibrillation and a hypercoagulable state will need to be ruled out. Deficiency and other anemia (1 source) Anemia, unspecified; Translations: [Anemia, unspecified] Onset: Episodic Diabetes mellitus without complication (1 source) Prediabetes; Translations: [Prediabetes] Onset: 5 Episodic Disorders of lipid metabolism (2 sources) Hyperlipidemia, unspecified; Translations: [Hyperlipidemia, unspecified] Onset: 5 Chronic Epilepsy; convulsions (15 sources) Epilepsy; Translations: [Epilepsy, unspecified, not intractable, without status epilepticus] Onset: 5 03-19-2025 Chronic Comment on above: The patient [...] Hypertensive disorder; Translations: [Essential (primary) hypertension] Onset: 5 03-04-2025 Chronic Comment on above: This is newly diagno sed as the patient has not had medical care in quite some time. His systolic blood pressure was maintaining>200 prior to starting antihypertensive medications. This is newly diagno sed as the patient has not had medical care in quite some time. His systolic blood pressure was maintaining>200 prior to starting antihypertensive medications.06/30/2025:This patient is hypertensive and is being treated by his primary care physician. Patient should continue to see primary care physician for management of hypertension. Fluid and electrolyte disorders (8 sources) Acute hyponatremia; Translations: [Hypo-osmolality and hyponatremia] 04-10-2025 Episodic Gastrointestinal hemorrhage (1 source) Melena; Translations: [Melena] 08-07-2025 Episodic Malaise and fatigue (1 source) Other fatigue; Translations: [Other fatigue] Onset: Episodic Open wounds of head; neck; and trunk (8 sources) Orbital foreign body; Translations: [Penetrating wound of orbit with or without foreign body, unspecified eye, initial encounter] 03-19-2025 Episodic Other circulatory disease (4 sources) History of cerebrovascular accident; Translations: [Personal history of transient ischemic attack (TIA), and cerebral infarction without residual deficits] 06-30-2025 Episodic Comment on above: Patient did have a s troke on or about 03/02/2025. He did have deficits associated with that stroke but appears to have resolved his deficits and now has a history of stroke without residual. Other gastrointestinal disorders (1 source) Occult blood in stools; Translations: [Other fecal abnormalities] 08-05-2025 Episodic Other gastrointestinal disorders (1 source) Other fecal abnormalities; Translations: [Positive occult stool blood test] Onset: Episodic Other nervous system disorders (20 sources) Slurred speech; Translations: [Slurred speech] 03-04-2025 Episodic Comment on above: The patient had dysa rthria after his stroke, which has nearly resolved at present time. Residual codes; unclassified (8 sources) Sleep deprivation; Translations: [Sleep deprivation] 04-10-2025 Episodic Residual codes; unclassified (4 sources) Personal history of other specified conditions; Translations: [History of seizure] 06-30-2025 Episodic Comment on above: Patient has a histor y of seizures as a child which were frequent. He is apparently improved to the point that he has not had a seizure for years. He treats himself with marijuana for his seizures and is not interested in taking antiepileptic drugs. At this point in time I would consider his seizure disorder resolved. Should his status change then follow-up would be appropriate. I note that an EEG performed and interpreted by dulac that was reported as normal. Substance-related disorders (14 sources) Nicotine dependence; Translations: [Nicotine dependence, unspecified, uncomplicated] 03-19-2025 Chronic Comment on above: The patient was smok ing up to 1 pack/day of cigarettes but he reduced to 2 cigarettes/day following his recent stroke. He also smokes marijuana daily. Past or Other Problems Problem Classification Problem Date Documented Da te Episodic/Chronic Other circulatory disease (1 source) Personal history of transient ischemic attack (TIA), and cerebral infarction without residual deficits; Translations: [Personal history of transient ischemic attack (TIA), and cerebral infarction without residual deficits] Onset: 05-12-2025 Episodic Other nervous system disorders (1 source) Slurred speech; Translations: [Slurred speech] Onset: 03-19-2025 Episodic Syncope (9 sources) Syncope; Translations: [Syncope and collapse] Onset: 04-14-2025 04-10-2025 Episodic Results Test Name Value Interpretation Reference Range Facility Gastroenterology Visit Repor ton 09-18-2025 Gastroenterology Visit Report [facility] [address] [place] [address] OFFICE VISIT Date of Service: 09/18/25 MR#: [id number] Acct: [id number] Name: GUS ESCALANTE Rep #: [id number] : 1970 Provider: BRITT Walker Age/Sex: 55/M Location: [facility] Status: Signed Intake Vital Signs 06/30/25 12:57 Height 5 ft 7 in Weight: 171 lb BMI 26.7 BP 151/85 H Blood Pressure Location Lt brachial Position Sitting Respiration 16 Pulse 75 Pulse Source Monitor Temp 98.6 F Temp Source Temporal Pulse Oximetry (%) 95 Oxygen Delivery Method room air Intake Visit Reasons: POS OCCULT STOOL BLOOD Chief Complaint: Blood in stool Eeg Technologist Required: No Accompanied by: Self Is patient in pain?: No Allergies No Known Allergies Allergy (Verified 09/18/25 07:34) Medications ???Medication ???Instructions ???Recorded ???Confirmed ???Type amlodipine 10 mg tablet 10 mg PO DAILY #30 tabs 03/05/25 1 Rx aspirin 81 mg chewable tablet 81 mg PO BREAKFAST #0 tabs 5 08/27/25 Rx atorvastatin 80 mg tablet 80 mg PO QHS #30 tabs 04/10/25 10/ 02/25 Rx lisinopril 10 mg tablet 10 mg PO QDAY 03/19/25 08/27/25 Hi story peg 3350-electrolytes 236 240 ml PO Q10M #4,000 mL 09/18/25 09/18/25 Rx gram-22.74 gram-6.74 gram-5.86 gram solution (Golytely) [facility] Medical History Melena Positive fecal occult blood test Hypertension Foreign body of orbit CVA (cerebral vascular accident) Epilepsy Family History Mother , 65 Cancer lung [...] do you feel safe at home: Yes HPI HPI Chief Complaint: Blood in stool Details: GUS ESCALANTE, is a 55 M who presents to the office today for establishment. Patient referred from [facility] general surgery in [place] for evaluation for EGD and colonoscopy. Patient smokes marijuana and they were concerned that the amount of sedation they use would not be enough. Patient had a ischemic stroke in February 2025 secondary to hypertension. Patient with no lasting deficits but did initially have slurred speech. His primary care provider ordered blood work which revealed a low hemoglobin and a fecal occult blood test positive. He has not had any changes in his bowel habits. He has 1-2 formed bowel movements per day. He does not see blood in his stool. He denies abdominal pain, heartburn, nausea or vomiting. Prior to his stroke he had not seen a medical provider in years. Patient smokes a half a pack per day and uses marijuana. He has no history of colonoscopy. He denies family history of colon cancer. ROS Const Constitutional: No fatigue, fever(s) or weight change ENT ENT: No difficulty swallowing Gastro GI: Positive for Blood in stool; No abdominal pain, belching, bloating, change in bowel habits, change in stool character, coffee ground emesis, constipation, cramping, diarrhea, heartburn, difficulty swallowing, feeling full early, excessive flatus, incontinent of stools, Vomiting blood/hematemesis, loose stools, Black,tarry stools, nausea/dyspepsia, pain with swallowing, vomiting or other Musc Musculoskeletal: Positive for back pain; No joint pain Skin Skin: No yellowing of the eye or itchy eyes Psych Psychiatric: No anxiety and No depression Endo Endocrine: No fatigue or weight change Aller/Imm Allergy/Immunologic: No itchy eyes Pablo/Lymp Hematologic/Lymphatic: No easy bleeding or easy bruising Exam Const General: cooperative and comfortable Nutritional Appearance: average body habitus Orientation: alert HENMT Head: normal to inspection Ears: hearing grossly normal bilaterally Eyes General: appearance normal, both eyes and all related structures Neck Neck: normal visual inspection Chest Chest palpation inspection: normal inspection of the chest Resp Effort Inspection: normal respiratory effort Cardio Rate: regular rate Rhythm: regular rhythm GI Inspection: normal to inspection Auscultation: normal bowel sounds Palpation: soft and nontender Assessment and Plan Assessment and Plan (1) Positive fecal occult blood test: Status: Acute Plan: Gus is a 55-year-old male patient with past medical history of ischemic stroke secondary to uncontrolled hypertension, epilepsy a (more content not included)... Normal [facility] 08-10-2025 [facility] Telephone (4CQ) GUS ESCALANTE JR. ([id number]) 1970 M Date Time Provider Department 08/10/25 LEENA SNYDER 4CQ During your visit today, we recorded the following information about you: Do Del Cid 08/10/2025 9:07 AM Signed Pt asking for referral for Colonoscopy to be sent to [facility]. Pt wishes to have done there. Please advise, thank you Dolly Fuentes, TERRENCE 08/10/2025 9:40 AM Signed Referral faxed to [facility] to Dr. Lay ofice to contact patient to schedule.Dolly Fuentes RN Allergies As of Date: 08/10/2025 (No Known Allergies) Date Reviewed: 08/07/2025 Reviewed by: Leena Snyder APRN.CNP - Fully Assessed Reason for Visit: Patient Question [1037] Prescriptions as of 08/10/2025 - lisinopril (ZESTRIL) 10 mg tablet Take 1 tablet by mouth once daily. - atorvastatin (LIPITOR) 80 mg tablet Take 1 tablet by mouth once daily. - amLODIPine (NORVASC) 10 mg tablet Take 1 tablet by mouth once daily. Problem List As Of Date: 08/10/2025 (None) Encounter Status:Closed by DOLLY FUENTES on 08/10/25 [facility] CNOVon 08-07-2025 CNOV Office Visit (GENSWS ) GUS ESCALANTE JR. ([id number]) 1970 Date Time Provider Department 08/07/25 11:30 AM LEENA SNYDER During your visit today, we recorded the following information about you: Temperature Pulse Blood pressure Weight 98 degrees 80/minute 132/68 77.1 kg Height 1.702 m Leena Snyder APRN.CNP 08/07/2025 1:58 PM Signed HISTORY AND PHYSICAL Gus Escalante : 1970 REFERRING PHYSICIAN: No referring provider defined for this encounter. CHIEF COMPLAINT: Patient presents with: Consult HPI: Gus is a 54 year old male referred for endoscopy. Gus notes +iFOBT Gus denies abdominal pain.. Gus denies diarrhea. Gus denies constipation. Gus denies a change in bowel habits. Gus notes melena. Gus denies bright red blood per rectum. Gus denies hemorrhoids. Gus denies family history of colon issues. Gus denies heartburn. Gus denies dysphagia. Gus denies a history of ulcers/ peptic ulcer disease. 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 While admitted ECHO was completed. EF: 60%- negative bubble study. Gus follows with [place] [facility] for hx of epilepsy as a child, ischemic stroke AND slurred speech. EEG was completed which was normal. Marijuana use nightly to control seizures. Gus has not undergone prior endoscopy. Current Outpatient Medications Medication Sig lisinopril (ZESTRIL) 10 mg tablet Take 1 tablet by mouth once daily. atorvastatin (LIPITOR) 80 mg tablet Take 1 tablet by mouth once daily. amLODIPine (NORVASC) 10 mg tablet Take 1 tablet by mouth once daily. No current facility-administered medications for this visit. ALLERGIES: Patient has no known allergies. PAST MEDICAL HISTORY Diagnosis Date Epilepsy (HCC) Mild anemia Stroke (cerebrum) ([facility]) 02/2025 PAST SURGICAL HISTORY Procedure Laterality Date BIOPSY OF PENIS calcium build up FAMILY HISTORY Problem Relation Age of Onset Cancer Mother No Known Problems Brother No Known Problems Brother SOCIAL HISTORY[1] REVIEW OF SYMPTOMS: REVIEW OF SYSTEMS: General: The patient denies fatigue, denies weight loss, denies weight gain, denies feeling hot, and feelings of cold. Eyes: The patient denies glaucoma, denies eye injury/surgery, denies glasses or contacts. Ear/Nose/Throat: The patient denies allergies, denies hayfever, denies ear infections, and denies bloody noses. Cardiovascular: The patient denies chest pain, denies heart disease, + high blood pressure, denies high cholesterol, and denies poor circulation. Respiratory: The patient denies tuberculosis, denies pneumonia, denies frequent cough, denies shortness of breath, and denies coughing up blood. Gastrointestinal: The patient denies difficulty swallowing, denies acid reflux, denies ulcers, denies jaundice/hepatitis, denies gallbladder problems, denies vomiting, denies black or tarry stools, denies hemorrhoids, denies bleeding from rectum, denies diverticulitis, denies constipation, denies diarrhea, denies loss of stool control, and denies hernias. Kidney/Bladder: The patient denies kidney stones, denies urine infections, and denies bloody urine. Skin: The patient denies a history of skin cancer, denies bleeding/changing moles, and denies a history of skin rash. Neurologic: The patient denies a history of epilepsy/convulsions, denies headaches, denies head/spinal injuries, and denies stroke/TIA. Psychiatric: The patient denies psychiatric medications, denies depression, and denies voices. Endocrine: The patient denies thyroid disorders, denies diabetes, and denies hormonal problems. Hematologic: The patient denies a history of bruising, denies bleeding, and denies anemia. Infections: The patient denies a history of measles and mumps, denies rheumatic fever, and denies sexually transmitted diseases. Musculoskeletal: The patient denies back pain/injury, denies back problems, denies sciatica, denies knee/foot trouble, denies arthritis, or denies gout. PHYSICAL EXAMINATION: General: The patient is 54 year old, male well nourished, well hydrated in no acute distress. The patient is oriented to time, place, and person. VITALS: Blood pressure 132/68, pulse 80, temperature 36.7 ?C (98 ?F), temperature source Temporal, height 170.2 cm (5' 7), weight 77.1 kg (170 lb), SpO2 98%. Body mass index is 26.63 kg/m?. HEENT: Normal cephalic, ataumatic, pupils are equally round, sclera are anicteric, mucous membranes are moist, oropharynx is clear. Neck has no masses or asymmetry . Respiratory: Clear to auscultation. Cardiac: Regular rate and rhythm. Abdominal exam: Soft, nontender, with no palpable masses. No hepatosplenomegaly. No palpable hernias. Extrem (more content not included)... Normal [facility] Stool Occult Blood iFOBon STOB Positive Normal [facility] Comment on above: Performed By: #### L 307.8767 #### [facility] [address], [address] Stool gastrointestinal hemog lobin detection by immunologic methodOrdered By: Dianne Mcknigth on 07-25-2025 Lower GI hemoglobin IA Ql (Stl) Positive Abnormal [facility] Absolute lymphocyte countOrd ered By: Dianne Mcknight on 07-21-2025 Lymphocytes Auto (Unsp spec) [#/Vol] 2.36 10*3/uL 0.83-4.51 [facility] Absolute neutrophil countOrd ered By: Dianne Mcknight on 07-21-2025 Neutrophils (Bld) [#/Vol] 6.6 10*3/uL 2.0-7.7 [facility] Automated lymphocyte count a s percentage of total leukocytesOrdered By: Dianne Frenchkristinmei on 07-21-2025 Lymphocytes/100 WBC Auto (Unsp spec) 23.3 % 19-41 [facility] Basophil percentageOrdered B y: Dianne Mcknight on 07-21-2025 Basophils/100 WBC (Bld) 0.5 % 0-1 [facility] CBC W/Diff, Automatedon 06-27 Absolute Lymph 2.36 X10 3/uL Normal 0.83-4.51 [facility] Comment on above: Performed By: #### L 501.4021, L500.2500, L100.0100 #### [facility] [address] [place], [address] Absolute Neut 6.6 X10 3/uL Normal 2.0-7.7 [facility] Comment on above: Performed By: #### L 501.4021, L500.2500, L100.0100 #### [facility] [address] [place], [address] Basophils/100 WBC (Bld) 0.5 % Normal 0-1 [facility] Comment on above: Performed By: #### L [id number], L500.2500, L100.0100 #### [facility] [address] [place], [address] Eosinophils/100 WBC (Bld) 1.2 % Normal 0-5 [facility] Comment on above: Performed By: #### L [id number], L500.2500, L100.0100 #### [facility] [address] [place], [address] Erythrocyte distribution width (RBC) [Ratio] 12.4 % Normal 11.6-14.6 [facility] Comment on above: Performed By: #### L [id number], L500.2500, L100.0100 #### [facility] [address] [place], [address] Hematocrit (Bld) [Volume fraction] 35.7 % Low 40-54 [facility] Comment on above: Performed By: #### L [id number], L500.2500, L100.0100 #### [facility] [address], [address] Hemoglobin (Bld) [Mass/Vol] 12.6 g/dL Low 13.0-16.5 [facility] Comment on above: Performed By: #### L 501.4021, L500.2500, L100.0100 #### [facility] [address] [facility] [place], [address] IG% 0.200 Normal 0.0-0.9 [facility] Comment on above: Result Comment: IG% - Immature Granulocytes (promyelocytes, myelocytes and metamyelocytes) > 1% indicates that a LEFT SHIFT is Present. Performed By: #### L 501.4021, L500.2500, L100.0100 #### [facility] [address] [facility] [place], [address] Lymphocytes/100 WBC (Bld) 23.3 % Normal 19-41 [facility] Comment on above: Performed By: #### L 501.4021, L500.2500, L100.0100 #### [facility] [address] [facility] [place], [address] MCH (RBC) [Entitic mass] 33.0 pg High 27.0-32.0 [facility] Comment on above: Performed By: #### L 501.4021, L500.2500, L100.0100 #### [facility] [address] [place], [address] MCHC (RBC) [Mass/Vol] 35.3 g/dL Normal 32-36 [facility] Comment on above: Performed By: #### L 501.4021, L500.2500, L100.0100 #### [facility] [address] [place], [address] MCV (RBC) [Entitic vol] 93.5 fL Normal 80-94 [facility] Comment on above: Performed By: #### L 501.4021, L500.2500, L100.0100 #### [facility] [address] [place], [address] Monocytes/100 WBC (Bld) 9.3 % Normal 0-10 [facility] Comment on above: Performed By: #### L 501.4021, L500.2500, L100.0100 #### [facility] [address] [place], [address] Neutrophils/100 WBC (Bld) 65.5 % Normal 47-70 [facility] Comment on above: Performed By: #### L 501.4021, L500.2500, L100.0100 #### [facility] [address] [place], [address] Nucleated RBC (Bld) [#/Vol] 0 10*3/uL Normal 0-5 [facility] Comment on above: Performed By: #### L 501.4021, L500.2500, L100.0100 #### [facility] [address] [place], [address] Platelet mean volume (Bld) [Entitic vol] 10.1 fL Normal 6.2-12.0 [facility] Comment on above: Performed By: #### L 501.4021, L500.2500, L100.0100 #### [facility] [address] [place], [address] Platelets (Bld) [#/Vol] 326 10*3/uL Normal 150-450 [facility] Comment on above: Performed By: #### L 501.4021, L500.2500, L100.0100 #### [facility] [address] [place], [address] RBC (Bld) [#/Vol] 3.82 10*6/uL Low 4.6-6.2 [facility] Comment on above: Performed By: #### L 501.4021, L500.2500, L100.0100 #### [facility] [address] [place], [address] RDW SD 42.8 fl Normal 35.1-43.9 [facility] Comment on above: Performed By: #### L 501.4021, L500.2500, L100.0100 #### [facility] [address] [place], [address] WBC (Bld) [#/Vol] 10.1 10*3/uL Normal 4.4-11.0 [facility] Comment on above: Performed By: #### L 501.4021, L500.2500, L100.0100 #### [facility] [address] [place], [address] Eosinophil percentageOrdered By: Dianne Mcknight on 07-21-2025 Eosinophils/100 WBC (Bld) 1.2 % 0-5 [facility] Erythrocyte distribution wid th ratioOrdered By: Dianne Mcknight on 07-21-2025 Erythrocyte distribution width (RBC) [Ratio] 12.4 % 11.6-14.6 [facility] Erythrocyte distribution wid th standard deviationOrdered By: Dianne Mcknight on 07-21-2025 Erythrocyte distribution width (RBC) [Ratio] 42.8 fl 35.1-43.9 [facility] Ferritinon 07-21-2025 Ferritin [Mass/Vol] 635 ng/mL High 37-417 [facility] Comment on above: Performed By: #### L 501.4021, L500.2500, L100.0100 #### [facility] [address] [place], [address] Hematocrit Auto (Bld) [Volum e fraction]Ordered By: Dianne Mcknight on 07-21-2025 Hematocrit (Bld) [Volume fraction] 35.7 % Low 40-54 [facility] Hemoglobin measurementOrdere d By: Dianne Mcknight on 07-21-2025 Hemoglobin (Bld) [Mass/Vol] 12.6 g/dL Low 13.0-16.5 [facility] Immature granulocytes/100 WB C Auto (Bld)Ordered By: Dianneandrea Cat on 07-21-2025 Immature granulocytes/100 WBC (Bld) 0.200 % 0.0-0.9 [facility] Comment on above: IG% - Immature Granu locytes (promyelocytes, myelocytes and metamyelocytes) > 1% indicates that a LEFT SHIFT is Present. Iron measurement (mass/mass) Ordered By: Dianne Mcknight on 07-21-2025 Iron (Unsp spec) [Mass/Mass] 57 ug/dL Low 65-175 [facility] Iron+Iron Binding Capacityon 07-21-2025 Iron [Mass/Vol] 57 ug/dL Low 65-175 [facility] Comment on above: Performed By: #### L 501.4021, L500.2500, L100.0100 #### [facility] [address] [place], [address] IRON SATURATION 23.0 Normal 9-55 [facility] Comment on above: Performed By: #### L 501.4021, L500.2500, L100.0100 #### [facility] [address] [place], [address] TIBC 253 ug/dL Normal 250-450 [facility] Comment on above: Performed By: #### L 501.4021, L500.2500, L100.0100 #### [facility] [address] [place], [address] UIBC 196 ug/dL Low 228-428 [facility] Comment on above: Performed By: #### L 501.4021, L500.2500, L100.0100 #### [facility] [address] [place], [address] MCV (mean corpuscular volume ) determinationOrdered By: Dianne Mcknight on 07-21-2025 MCV (RBC) [Entitic vol] 93.5 fL 80-94 [facility] Mean corpuscular hemoglobin (MCH) determinationOrdered By: Dianne Mcknight on 07-21-2025 MCH (RBC) [Entitic mass] 33.0 pg High 27.0-32.0 [facility] Mean corpuscular hemoglobin concentration (MCHC) determinationOrdered By: Dianne Mcknight on 07-21-2025 MCHC (RBC) [Mass/Vol] 35.3 g/dL 32-36 [facility] Mean platelet volume determi nationOrdered By: Dianne Mcknight on 07-21-2025 Platelet mean volume (Bld) [Entitic vol] 10.1 fL 6.2-12.0 [facility] Monocyte percentageOrdered B y: Dianne Mcknight on 07-21-2025 Monocytes/100 WBC (Bld) 9.3 % 0-10 [facility] Neutrophil percentageOrdered By: Dianne Mcknight on 07-21-2025 Neutrophils/100 WBC (Bld) 65.5 % 47-70 [facility] No Panel InformationOrdered By: Dianne Mcknight on 07-21-2025 Unsaturated Iron Binding Capacity 196 ug/dL Low 228-428 [facility] Nucleated red blood cell per centageOrdered By: Dianne Mcknight on 07-21-2025 Nucleated RBC/100 WBC (Bld) [Ratio] 0 % 0-5 [facility] Platelet countOrdered By: Radha Mcknight on 07-21-2025 Platelets (Bld) [#/Vol] 326 10*3/uL 150-450 [facility] RBC Auto (Bld) [#/Vol]Ordere d By: Dianne Frenchmackenzie on 07-21-2025 RBC (Bld) [#/Vol] 3.82 10*6/uL Low 4.6-6.2 [facility] Serum or plasma ferritin paulette surement (mass/volume)Ordered By: Dianne Juan Luis on 07-21-2025 Ferritin [Mass/Vol] 635 ng/mL High 37-417 [facility] Serum or plasma iron saturat ion measurement (mass fraction)Ordered By: Dianne Juan Luis on 07-21-2025 Iron saturation [Mass fraction] 23.0 % 9-55 [facility] White blood cell (WBC) count Ordered By: Dianne Juan Luis on 07-21-2025 WBC (Bld) [#/Vol] 10.1 10*3/uL 4.4-11.0 [facility] Neurology Visit Reporton Neurology Visit Report [facility] [address] [place] [address], [address] [place] [address] OFFICE VISIT Date of Service: 06/30/25 MR#: [id number] Acct: [id number] Name: GUS ESCALANTE JrEmily Rep #: [id number] : 1970 Provider: Dr. Dariel ndiaye MD Age/Sex: 54/M Location: [facility].BN Status: Signed HPI HPI Details: The patient [...] Memory is grossly intact. 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 Insight and judgment appears [...] and is (more content not included)... Normal [facility] Magnetic resonance imaging r eportOrdered By: Eleuterio Carpenter on 05-06-2025 Study report [facility] Imaging Services [address] [place], [place] [address] Brain W/WO Contrast MR#: [id number] Acct: [id number] Name: GUS ESCALANTE JrEmily Rep #: [id number] : 1970 M 54 From: Mark Carpenter MD PCP: ROBERTA Landry Status: REG C LI Study:Brain W/WO Contrast Date of Exam: 05/05/25 Exam# [id number] Ordering Dr: Keyanna Walton PROCEDURE: BRAIN W/WO [...] abnormal postcontrast enhancement is noted. Reading Location: [place] [address] CC: ROBERTA Mcknight; ROBERTA Walton ~ Estate Planner: Signed [facility] Brain W/WO Contraston 2024 Brain W/WO Contrast [facility] Imaging Services [address] [place] [address] Brain W/WO Contrast MR#: [id number] Acct: [id number] Name: GUS ESCALANTE JrEmily Rep #: [id number] : 1970 M 54 From: Eleuterio fuller MD PCP: ROBERTA Landry Status: REG CLI Study: Brain W/WO Contrast Date of Exam: 05/05/25 Exam# [id number] Ordering Dr: Keyanna Walton PROCEDURE: BRAIN W/WO [...] Location: [facility] CC: ROBERTA Mcknight; ROBERTA Walton Estate Planner: Signed Normal [facility] Orbits for Foreign Bodyon Orbits for Foreign Body [facility] Imaging Services [address] [place], [place] [id number] Orbits for Foreign Body MR#: [id number] Acct: [id number] Name: GUS ESCALANTE Jr. Rep #: [id number] : 1970 M 54 From: Miah Torres PCP: ROBERTA Landry Status: REG CLI Study: Orbits for Foreign Body Date of Exam: 05/05/25 Exam# [id number] Ordering Dr: Keyanna Walton PROCEDURE: ORBITS FOR [...] No evidence of intraorbital metal. Reading Location: [address] CC: ROBERTA Mcknight; ROBERTA Walton Estate Planner: Signed Normal [facility] Absolute lymphocyte countOrd ered By: Dianne Mcknight on 04-30-2025 Lymphocytes Auto (Unsp spec) [#/Vol] 2.95 10*3/uL 0.83-4.51 [facility] Absolute neutrophil countOrd ered By: Dianne Mcknight on 04-30-2025 Neutrophils (Bld) [#/Vol] 6.2 10*3/uL 2.0-7.7 [facility] Anion gap in Serum or Plasma Ordered By: Dianne Mcknight on 04-30-2025 Anion gap [Moles/Vol] 14 mmol/L 5-15 [facility] Automated lymphocyte count a s percentage of total leukocytesOrdered By: Dianne Mcknight on 04-30-2025 Lymphocytes/100 WBC Auto (Unsp spec) 28.1 % 19-41 [facility] BUN/creatinine ratioOrdered By: Dianne Frenchkristinmei on 04-30-2025 Urea nitrogen/Creatinine [Mass ratio] 10.7 mg/mg 10-20 [facility] Basophil percentageOrdered B y: Dianne Mcknight on 04-30-2025 Basophils/100 WBC (Bld) 0.5 % 0-1 [facility] Bilirubin, totalOrdered By: Dianne Juan Luis on 04-30-2025 Bilirubin [Mass/Vol] 0.60 mg/dL 0.00-1.30 [facility] CBC W/Diff, Automatedon Absolute Lymph 2.95 X10 3/uL Normal 0.83-4.51 [facility] Comment on above: Performed By: #### L 501.9985, L500.4100, L500.4050, L100.0100 #### [facility] [address] [place], [address] Absolute Neut 6.2 X10 3/uL Normal 2.0-7.7 [facility] Comment on above: Performed By: #### L 501.9985, L500.4100, L500.4050, L100.0100 #### [facility] [address] [place], [address] Basophils/100 WBC (Bld) 0.5 % Normal 0-1 [facility] Comment on above: Performed By: #### L 501.9985, L500.4100, L500.4050, L100.0100 #### [facility] [address] [place], [address] Eosinophils/100 WBC (Bld) 1.0 % Normal 0-5 [facility] Comment on above: Performed By: #### L 501.9985, L500.4100, L500.4050, L100.0100 #### [facility] [address] [place], [address] Erythrocyte distribution width (RBC) [Ratio] 13.4 % Normal 11.6-14.6 [facility] Comment on above: Performed By: #### L 501.9985, L500.4100, L500.4050, L100.0100 #### [facility] [address] [place], [address] Hematocrit (Bld) [Volume fraction] 34.5 % Low 40-54 [facility] Comment on above: Performed By: #### L 501.9985, L500.4100, L500.4050, L100.0100 #### [facility] [address] [place], [address] Hemoglobin (Bld) [Mass/Vol] 12.1 g/dL Low 13.0-16.5 [facility] Comment on above: Performed By: #### L 501.9985, L500.4100, L500.4050, L100.0100 #### [facility] [address] [place], [address] IG% 1.400 High 0.0-0.9 [facility] Comment on above: Result Comment: IG% - Immature Granulocytes (promyelocytes, myelocytes and metamyelocytes) > 1% indicates that a LEFT SHIFT is Present. Performed By: #### L 501.9985, L500.4100, L500.4050, L100.0100 #### [facility] [address] [place], [address] Lymphocytes/100 WBC (Bld) 28.1 % Normal 19-41 [facility] Comment on above: Performed By: #### L 501.9985, L500.4100, L500.4050, L100.0100 #### [facility] [address] [place], [address] MCH (RBC) [Entitic mass] 31.7 pg Normal 27.0-32.0 [facility] Comment on above: Performed By: #### L 501.9985, L500.4100, L500.4050, L100.0100 #### [facility] [address] [place], [address] MCHC (RBC) [Mass/Vol] 35.1 g/dL Normal 32-36 [facility] Comment on above: Performed By: #### L 501.9985, L500.4100, L500.4050, L100.0100 #### [facility] [address] [place], [address] MCV (RBC) [Entitic vol] 90.3 fL Normal 80-94 [facility] Comment on above: Performed By: #### L 501.9985, L500.4100, L500.4050, L100.0100 #### [facility] [address] [place], [address] Monocytes/100 WBC (Bld) 9.7 % Normal 0-10 [facility] Comment on above: Performed By: #### L 501.9985, L500.4100, L500.4050, L100.0100 #### [facility] [address] [place], [address] Neutrophils/100 WBC (Bld) 59.3 % Normal 47-70 [facility] Comment on above: Performed By: #### L 501.9985, L500.4100, L500.4050, L100.0100 #### [facility] [address] [place], [address] Nucleated RBC (Bld) [#/Vol] 0 10*3/uL Normal 0-5 [facility] Comment on above: Performed By: #### L 501.9985, L500.4100, L500.4050, L100.0100 #### [facility] [address] [place], [address] Platelet mean volume (Bld) [Entitic vol] 9.7 fL Normal 6.2-12.0 [facility] Comment on above: Performed By: #### L 501.9985, L500.4100, L500.4050, L100.0100 #### [facility] [address] [place], [address] Platelets (Bld) [#/Vol] 338 10*3/uL Normal 150-450 [facility] Comment on above: Performed By: #### L 501.9985, L500.4100, L500.4050, L100.0100 #### [facility] [address] [place], [address] RBC (Bld) [#/Vol] 3.82 10*6/uL Low 4.6-6.2 [facility] Comment on above: Performed By: #### L 501.9985, L500.4100, L500.4050, L100.0100 #### [facility] [address] [place], [address] RDW SD 43.9 fl Normal 35.1-43.9 [facility] Comment on above: Performed By: #### L 501.9985, L500.4100, L500.4050, L100.0100 #### [facility] [address] [place], [address] WBC (Bld) [#/Vol] 10.5 10*3/uL Normal 4.4-11.0 [facility] Comment on above: Performed By: #### L 501.9985, L500.4100, L500.4050, L100.0100 #### [facility] [address] [place], [address] Calculated very low density lipoprotein (VLDL) cholesterol measurementOrdered By: Dianne Mcknight on 04-30-2025 Calculated very low density lipoprotein (VLDL) cholesterol measurement 17 mg/dL 5-40 [facility] Carbon dioxide, total [Moles /volume] in Central venous bloodOrdered By: Dianne Mcknight on 04-30-2025 CO2 [Moles/Vol] 21.2 mmol/L 21.0-32.0 [facility] Chloride assayOrdered By: Radha Mcknight on 04-30-2025 Chloride [Moles/Vol] 102 mmol/L 98-108 [facility] Comprehensive Metabolic Prof ilon 04-30-2025 Albumin [Mass/Vol] 4.4 g/dL Normal 3.5-5.0 [facility] Comment on above: Performed By: #### L 501.9985, L500.4100, L500.4050, L100.0100 #### [facility] [address] [place], [address] Albumin/Globulin [Mass ratio] 1.6 {ratio} Normal 0.9-2.4 [facility] Comment on above: Performed By: #### L 501.9985, L500.4100, L500.4050, L100.0100 #### [facility] [address] [place], [address] ALK PHOS 74 U/L Normal 40-129 [facility] Comment on above: Performed By: #### L 501.9985, L500.4100, L500.4050, L100.0100 #### [facility] [address] [place], [address] ALT [Catalytic activity/Vol] 21 U/L Normal <=46 [facility] Comment on above: Performed By: #### L 501.9985, L500.4100, L500.4050, L100.0100 #### [facility] [address] [place], [address] AST [Catalytic activity/Vol] 24 U/L Normal <=37 [facility] Comment on above: Performed By: #### L 501.9985, L500.4100, L500.4050, L100.0100 #### [facility] [address] [place], [address] Bilirubin [Mass/Vol] 0.60 mg/dL Normal 0.00-1.30 [facility] Comment on above: Performed By: #### L 501.9985, L500.4100, L500.4050, L100.0100 #### [facility] [address] [place], [address] BUN/CRE 10.7 RATIO Normal 10-20 [facility] Comment on above: Performed By: #### L 501.9985, L500.4100, L500.4050, L100.0100 #### [facility] [address] [place], [address] Calcium [Mass/Vol] 9.0 mg/dL Normal 7.6-11.0 [facility] Comment on above: Performed By: #### L 501.9985, L500.4100, L500.4050, L100.0100 #### [facility] [address] [place], [address] Chloride [Moles/Vol] 102 mmol/L Normal 98-108 [facility] Comment on above: Performed By: #### L 501.9985, L500.4100, L500.4050, L100.0100 #### [facility] [address] [place], [address] CO2 [Moles/Vol] 21.2 mmol/L Normal 21.0-32.0 [facility] Comment on above: Performed By: #### L 501.9985, L500.4100, L500.4050, L100.0100 #### [facility] [address] [place], [address] Creatinine [Mass/Vol] 1.12 mg/dL Normal 0.70-1.20 [facility] Comment on above: Performed By: #### L 501.9985, L500.4100, L500.4050, L100.0100 #### [facility] [address] [place], [address] GAP 14 Normal 5-15 [facility] Comment on above: Performed By: #### L 501.9985, L500.4100, L500.4050, L100.0100 #### [facility] [address] [place], [address] GFR/1.73 sq M.predicted among non-blacks MDRD (S/P/Bld) [Vol rate/Area] 78 mL/min/{1.73_m2} Normal >60 [facility] Comment on above: Result Comment: mL/m in/1.73m2 CKD-EPI Creatinine Equation (2020) Performed By: #### L 501.9985, L500.4100, L500.4050, L100.0100 #### [facility] [address] [place], [address] Globulin (S) [Mass/Vol] 2.7 g/dL Normal 2.2-4.2 [facility] Comment on above: Performed By: #### L 501.9985, L500.4100, L500.4050, L100.0100 #### [facility] [address] [place], [address] Glucose [Mass/Vol] 98 mg/dL Normal 70-99 [facility] Comment on above: Performed By: #### L 501.9985, L500.4100, L500.4050, L100.0100 #### [facility] [address] [place], [address] Potassium [Moles/Vol] 3.7 mmol/L Normal 3.3-5.1 [facility] Comment on above: Performed By: #### L 501.9985, L500.4100, L500.4050, L100.0100 #### [facility] [address] [place], [address] Sodium [Moles/Vol] 137 mmol/L Normal 133-145 [facility] Comment on above: Performed By: #### L 501.9985, L500.4100, L500.4050, L100.0100 #### [facility] [address] [place], [address] T PROT 7.1 g/dL Normal 5.9-8.4 [facility] Comment on above: Performed By: #### L 501.9985, L500.4100, L500.4050, L100.0100 #### [facility] [address] [place], [address] Urea nitrogen [Mass/Vol] 12 mg/dL Normal 4-19 [facility] Comment on above: Performed By: #### L 501.9985, L500.4100, L500.4050, L100.0100 #### [facility] [address] [place], [address] Eosinophil percentageOrdered By: Dianne Mcknight on 04-30-2025 Eosinophils/100 WBC (Bld) 1.0 % 0-5 [facility] Erythrocyte distribution wid th ratioOrdered By: Dianne Mcknight on 04-30-2025 Erythrocyte distribution width (RBC) [Ratio] 13.4 % 11.6-14.6 [facility] Erythrocyte distribution wid th standard deviationOrdered By: Dianne Mcknight on 04-30-2025 Erythrocyte distribution width (RBC) [Ratio] 43.9 fl 35.1-43.9 [facility] Glomerular filtration rate ( GFR) estimation/1.73 sq m using serum, plasma, or whole bOrdered By: Dianne Mcknight on 04-30-2025 GFR/1.73 sq M.predicted among non-blacks MDRD (S/P/Bld) [Vol rate/Area] 78 mL/min/{1.73_m2} >60 [facility] Comment on above: mL/min/1.73m2 CKD-EP I Creatinine Equation (2020) Hematocrit Auto (Bld) [Volum e fraction]Ordered By: Dianne Mcknight on 04-30-2025 Hematocrit (Bld) [Volume fraction] 34.5 % Low 40-54 [facility] Hemoglobin A1con 04-30-2025 HbA1c (Bld) [Mass fraction] 6.3 % High <=5.6 [facility] Comment on above: Result Comment: Norm al < 5.7 % Prediabetic 5.7 - 6.4 % Diabetic >or= 6.5 % Please note range changes. Performed By: #### L 501.9985, L500.4100, L500.4050, L100.0100 #### [facility] [address] [place], [place], [address] Hemoglobin A1c percentageOrd ered By: Dianne Mcknight on 04-30-2025 HbA1c (Bld) [Mass fraction] 6.3 % High <5.7 [facility] Comment on above: Normal < 5.7 % Predi abetic 5.7 - 6.4 % Diabetic >or= 6.5 % Please note range changes. Hemoglobin measurementOrdere d By: Dianne Mcknight on 04-30-2025 Hemoglobin (Bld) [Mass/Vol] 12.1 g/dL Low 13.0-16.5 [facility] Immature granulocytes/100 WB C Auto (Bld)Ordered By: Dianne Mcknight on 04-30-2025 Immature granulocytes/100 WBC (Bld) 1.400 % High 0.0-0.9 [facility] Comment on above: IG% - Immature Granu locytes (promyelocytes, myelocytes and metamyelocytes) > 1% indicates that a LEFT SHIFT is Present. LDL calc ser/plasOrdered By: Dianne Mcknight on 04-30-2025 Cholesterol in LDL [Mass/Vol] 40 mg/dL [facility] Comment on above: Uptewkjaos=926-029 m g/dL & Higher Zlfa=649 mg/dL or greater Laboratory - Chemistry and C hemistry - challengeOrdered By: Dianne Mcknight on 04-30-2025 AST [Catalytic activity/Vol] 24 U/L <38 [facility] Lipid Profileon 04-30-2025 CHOL:HDL 2.11 Normal [facility] Comment on above: Performed By: #### L 501.9985, L500.4100, L500.4050, L100.0100 #### [facility] [address] [place], [address] Cholesterol [Mass/Vol] 108 mg/dL Normal <=200 [facility] Comment on above: Result Comment: Chol esterol level, Desirable <200 mg/dL Borderline high cholesterol 200-239 mg/dL High cholesterol >=240 mg/dL Recommendations of the NCEP Adult Treatment Panel for the following risk-cutoff thresholds for the [place] population. Performed By: #### L 501.9985, L500.4100, L500.4050, L100.0100 #### [facility] [address] [place], [address] Cholesterol in HDL [Mass/Vol] 51 mg/dL Normal [facility] Comment on above: Result Comment: Izabel onal Cholesterol Education Program (NCEP) guidelines: <40 mg/dL: Low HDL-cholesterol (major risk factor for CHD) >= 60 mg/dL: High HDL-cholesterol (negative risk factor for CHD) HDL-cholesterol is affected by a number of factors, e.g. smoking, exercise, hormones, sex and age. Performed By: #### L 501.9985, L500.4100, L500.4050, L100.0100 #### [facility] [address] [place], [address] Cholesterol in LDL [Mass/Vol] 40 mg/dL Normal [facility] Comment on above: Result Comment: Bord hemrcl=952-619 mg/dL Higher Cirz=191 mg/dL or greater Performed By: #### L 501.9985, L500.4100, L500.4050, L100.0100 #### [facility] [address] [place], [address] Cholesterol in VLDL [Mass/Vol] 17 mg/dL Normal 5-40 [facility] Comment on above: Performed By: #### L 501.9985, L500.4100, L500.4050, L100.0100 #### [facility] [address] [facility], [address] Triglyceride [Mass/Vol] 84 mg/dL Normal [facility] Comment on above: Result Comment: The drugs N-Acetylcysteine and Metamizole may falsely depress this assay. Normal range: <150 mg/dL Borderline High: 150-199 mg/dL High: 200-499 mg/dL Very High: >500 mg/dL Performed By: #### L 501.9985, L500.4100, L500.4050, L100.0100 #### [facility] [address] [place], [address] MCV (mean corpuscular volume ) determinationOrdered By: Dianne Mcknight on 04-30-2025 MCV (RBC) [Entitic vol] 90.3 fL 80-94 [facility] Mean corpuscular hemoglobin (MCH) determinationOrdered By: Dianne Mcknight on 04-30-2025 MCH (RBC) [Entitic mass] 31.7 pg 27.0-32.0 [facility] Mean corpuscular hemoglobin concentration (MCHC) determinationOrdered By: iDanne Mcknight on 04-30-2025 MCHC (RBC) [Mass/Vol] 35.1 g/dL 32-36 [facility] Mean platelet volume determi nationOrdered By: Dianne Mcknight on 04-30-2025 Platelet mean volume (Bld) [Entitic vol] 9.7 fL 6.2-12.0 [facility] Monocyte percentageOrdered B y: Dianne Mcknight on 04-30-2025 Monocytes/100 WBC (Bld) 9.7 % 0-10 [facility] Neutrophil percentageOrdered By: Dianne Mcknight on 04-30-2025 Neutrophils/100 WBC (Bld) 59.3 % 47-70 [facility] Nucleated red blood cell per centageOrdered By: Dianne Mcknight on 04-30-2025 Nucleated RBC/100 WBC (Bld) [Ratio] 0 % 0-5 [facility] Platelet countOrdered By: Radha Mcknight on 04-30-2025 Platelets (Bld) [#/Vol] 338 10*3/uL 150-450 [facility] Potassium measurement (mass/ volume)Ordered By: Dianne Mcknight on 04-30-2025 Potassium (Unsp spec) [Mass/Vol] 3.7 mmol/L 3.3-5.1 [facility] RBC Auto (Bld) [#/Vol]Ordere d By: Dianne Mcknight on 04-30-2025 RBC (Bld) [#/Vol] 3.82 10*6/uL Low 4.6-6.2 [facility] Screening total cholesterol/ high density lipoprotein (HDL) cholesterol ratioOrdered By: Dianne Mcknight on 04-30-2025 Cholesterol.total/Chol esterol in HDL [Mass ratio] 2.11 {ratio} [facility] Serum creatinine measurement (mass/volume)Ordered By: Dianne Mcknight on 04-30-2025 Creatinine [Mass/Vol] 1.12 mg/dL 0.70-1.20 [facility] Serum globulin measurementOr dered By: Dianne Mcknight on 04-30-2025 Globulin (S) [Mass/Vol] 2.7 g/dL 2.2-4.2 [facility] Serum glucose measurement (m ass/volume)Ordered By: Dianne Mcknight on 04-30-2025 Glucose [Mass/Vol] 98 mg/dL 70-99 [facility] Serum or plasma alanine horner otransferase (ALT) measurementOrdered By: Dianne Mcknight on 04-30-2025 ALT [Catalytic activity/Vol] 21 U/L <47 [facility] Serum or plasma albumin rachelle urement (mass/volume)Ordered By: Dianne Mcknight on 04-30-2025 Albumin [Mass/Vol] 4.4 g/dL 3.5-5.0 [facility] Serum or plasma albumin/glob ulin mass ratioOrdered By: Dianne Mcknight on 04-30-2025 Albumin/Globulin [Mass ratio] 1.6 {ratio} 0.9-2.4 [facility] Serum or plasma alkaline toy sphatase measurementOrdered By: Dianne Mcknight on 04-30-2025 ALP [Catalytic activity/Vol] 74 U/L 40-129 [facility] Serum or plasma calcium rachelel urement (mass/volume)Ordered By: Dianne Mcknight on 04-30-2025 Calcium [Mass/Vol] 9.0 mg/dL 7.6-11.0 [facility] Serum or plasma cholesterol in HDL measurement (mass/volume)Ordered By: Dianne Mcknight on 04-30-2025 Cholesterol in HDL [Mass/Vol] 51 mg/dL >40 [facility] Comment on above: National Cholesterol Education Program (NCEP) guidelines:<40 mg/dL: Low HDL-cholesterol (major risk factor for CHD)>= 60 mg/dL: High HDL-cholesterol (negative risk factor for CHD)HDL-cholesterol is affected by a number of factors, e.g. smoking, exercise, hormones, sex and age. Serum or plasma cholesterol measurement (mass/volume)Ordered By: Dianne Mcknight on 04-30-2025 Cholesterol [Mass/Vol] 108 mg/dL <201 [facility] Comment on above: Cholesterol level, D esirable <200 mg/dLBorderline high cholesterol 200-239 mg/dLHigh cholesterol >=240 mg/dLRecommendations of the NCEP Adult Treatment Panel for the following risk-cutoff thresholds for the [place] population. Serum or plasma urea nitroge n measurement (mass/volume)Ordered By: Dianne Mcknight on 04-30-2025 Urea nitrogen [Mass/Vol] 12 mg/dL 4-19 [facility] Sodium levelOrdered By: Jagdeep Mcknight on 04-30-2025 Sodium [Moles/Vol] 137 mmol/L 133-145 [facility] Total proteinOrdered By: Jean Carlos Mcknight on 04-30-2025 Protein [Mass/Vol] 7.1 g/dL 5.9-8.4 [facility] Triglycerides measurementOrd ered By: Dianne Mcknight on 04-30-2025 Triglyceride [Mass/Vol] 84 mg/dL <199 [facility] Comment on above: The drugs N-Acetylcy steine and Metamizole may falsely depress this assay. Normal range: <150 mg/dLBorderline High: 150-199 mg/dLHigh: 200-499 mg/dLVery High: >500 mg/dL White blood cell (WBC) count Ordered By: Dianne Mcknight on 04-30-2025 WBC (Bld) [#/Vol] 10.5 10*3/uL 4.4-11.0 [facility] 12 Lead EKGon 04-10-2025 12 Lead EKG [facility] [address] [place] [address] 12 Lead EKG 04/10/25 0729 MR#: [id number] Acct: [id number] Name: GUS ESCALANTE JrEmily Rep #: [id number] : 1970 54 From: Hiro Melendez MD [...] ECG Confirmed by HIRO MELENDEZ MD ([id number]), newspaper editor managing KAYLEIGH SANCHEZ ([id number]) on 04/13/2025 8:44:53 AM Referred By: TL Confirmed By: HIRO MELENDEZ MD 04/13/25 0844 Date Hiro Melendez MD CC: Dr. Kev Nash DO; No Primary Care Physician Signed Normal [facility] Absolute lymphocyte countOrd ered By: Kev Nash on 04-10-2025 Lymphocytes Auto (Unsp spec) [#/Vol] 3.09 10*3/uL 0.83-4.51 [facility] Absolute neutrophil countOrd ered By: Kev Nash on 04-10-2025 Neutrophils (Bld) [#/Vol] 7.5 10*3/uL 2.0-7.7 [facility] Anion gap in Serum or Plasma Ordered By: Kev Nash on 04-10-2025 Anion gap [Moles/Vol] 12 mmol/L 5- [facility] Automated lymphocyte count a s percentage of total leukocytesOrdered By: Kev Nash on 04-10-2025 Lymphocytes/100 WBC Auto (Unsp spec) 25.1 % - [facility] BUN/creatinine ratioOrdered By: Kev Nash on 04-10-2025 Urea nitrogen/Creatinine [Mass ratio] 11.2 mg/mg - [facility] Basic Metabolic Profile (BMP )on 04-10-2025 BUN/CRE 11.2 RATIO Normal - [facility] Comment on above: Performed By: #### L 501.4021, L500.2500, L100.0100 #### [facility] [address] [place], [address] Calcium [Mass/Vol] 9.2 mg/dL Normal 7.6-11.0 [facility] Comment on above: Performed By: #### L 501.4021, L500.2500, L100.0100 #### [facility] [address] [place], [address] Chloride [Moles/Vol] 88 mmol/L Low 98-108 [facility] Comment on above: Performed By: #### L 501.4021, L500.2500, L100.0100 #### [facility] [address] [place], [address] CO2 [Moles/Vol] 26.2 mmol/L Normal 21.0-32.0 [facility] Comment on above: Performed By: #### L 501.4021, L500.2500, L100.0100 #### [facility] [address] [place], [address] Creatinine [Mass/Vol] 1.05 mg/dL Normal 0.70-1.20 [facility] Comment on above: Performed By: #### L 501.4021, L500.2500, L100.0100 #### [facility] [address] [place], [address] ECRCL 74.32 ml/min Normal 50-250 [facility] Comment on above: Performed By: #### L 501.4021, L500.2500, L100.0100 #### [facility] [address] [place], [address] GAP 12 Normal 5-15 [facility] Comment on above: Performed By: #### L 501.4021, L500.2500, L100.0100 #### [facility] [address] [place], [address] GFR/1.73 sq M.predicted among non-blacks MDRD (S/P/Bld) [Vol rate/Area] 84 mL/min/{1.73_m2} Normal >60 [facility] Comment on above: Result Comment: mL/m in/1.73m2 CKD-EPI Creatinine Equation (2020) Performed By: #### L 501.4021, L500.2500, L100.0100 #### [facility] [address] [place], [address] Glucose [Mass/Vol] 131 mg/dL High 70-99 [facility] Comment on above: Performed By: #### L 501.4021, L500.2500, L100.0100 #### [facility] [address] [place], [address] Potassium [Moles/Vol] 3.4 mmol/L Normal 3.3-5.1 [facility] Comment on above: Performed By: #### L 501.4021, L500.2500, L100.0100 #### [facility] [address] [place], [address] Sodium [Moles/Vol] 126 mmol/L Low 133-145 [facility] Comment on above: Performed By: #### L 501.4021, L500.2500, L100.0100 #### [facility] [address] [place], [address] Urea nitrogen [Mass/Vol] 12 mg/dL Normal 4-19 [facility] Comment on above: Performed By: #### L 501.4021, L500.2500, L100.0100 #### [facility] [address] [place], [address] Basophil percentageOrdered B y: Kve Nash on 04-10-2025 Basophils/100 WBC (Bld) 0.7 % 0-1 [facility] Bedside Glucoseon 04-10-2025 FINGERSTICK GLU 133 mg/dL High 74-106 [facility] Comment on above: Result Comment: FABIÁN FERRER OF PATIENT CARE PER NURSING PROTOCOL Performed By: #### L 500.4100 #### [facility] [address] [place], [address] CBC W/Diff, Automatedon 03-26 Absolute Lymph 3.09 X10 3/uL Normal 0.83-4.51 [facility] Comment on above: Performed By: #### L 501.4021, L500.2500, L100.0100 #### [facility] [address] [place], [address] Absolute Neut 7.5 X10 3/uL Normal 2.0-7.7 [facility] Comment on above: Performed By: #### L 501.4021, L500.2500, L100.0100 #### [facility] [address] [place], [address] Basophils/100 WBC (Bld) 0.7 % Normal 0-1 [facility] Comment on above: Performed By: #### L 501.4021, L500.2500, L100.0100 #### [facility] [address] [place], [address] Eosinophils/100 WBC (Bld) 1.0 % Normal 0-5 [facility] Comment on above: Performed By: #### L 501.4021, L500.2500, L100.0100 #### [facility] [address] [place], [address] Erythrocyte distribution width (RBC) [Ratio] 11.9 % Normal 11.6-14.6 [facility] Comment on above: Performed By: #### L 501.4021, L500.2500, L100.0100 #### [facility] [address] [place], [address] Hematocrit (Bld) [Volume fraction] 39.7 % Low 40-54 [facility] Comment on above: Performed By: #### L 501.4021, L500.2500, L100.0100 #### [facility] [address] [place], [address] Hemoglobin (Bld) [Mass/Vol] 14.9 g/dL Normal 13.0-16.5 [facility] Comment on above: Performed By: #### L 501.4021, L500.2500, L100.0100 #### [facility] [address] [place], [address] IG% 0.700 Normal 0.0-0.9 [facility] Comment on above: Result Comment: IG% - Immature Granulocytes (promyelocytes, myelocytes and metamyelocytes) > 1% indicates that a LEFT SHIFT is Present. Performed By: #### L 501.4021, L500.2500, L100.0100 #### [facility] [address] [place], [address] Lymphocytes/100 WBC (Bld) 25.1 % Normal 19-41 [facility] Comment on above: Performed By: #### L 501.4021, L500.2500, L100.0100 #### [facility] [address] [place], [address] MCH (RBC) [Entitic mass] 31.5 pg Normal 27.0-32.0 [facility] Comment on above: Performed By: #### L 501.4021, L500.2500, L100.0100 #### [facility] [address] [place], [address] MCHC (RBC) [Mass/Vol] 37.5 g/dL High 32-36 [facility] Comment on above: Performed By: #### L 501.4021, L500.2500, L100.0100 #### [facility] [address] [place], [address] MCV (RBC) [Entitic vol] 83.9 fL Normal 80-94 [facility] Comment on above: Performed By: #### L 501.4021, L500.2500, L100.0100 #### [facility] [address] [place], [address] Monocytes/100 WBC (Bld) 11.2 % High 0-10 [facility] Comment on above: Performed By: #### L 501.4021, L500.2500, L100.0100 #### [facility] [address] [place], [address] Neutrophils/100 WBC (Bld) 61.3 % Normal 47-70 [facility] Comment on above: Performed By: #### L 501.4021, L500.2500, L100.0100 #### [facility] [address] [place], [address] Nucleated RBC (Bld) [#/Vol] 0 10*3/uL Normal 0-5 [facility] Comment on above: Performed By: #### L 501.4021, L500.2500, L100.0100 #### [facility] [address] [place], [address] Platelet mean volume (Bld) [Entitic vol] 8.7 fL Normal 6.2-12.0 [facility] Comment on above: Performed By: #### L 501.4021, L500.2500, L100.0100 #### [facility] [address] [place], [address] Platelets (Bld) [#/Vol] 416 10*3/uL Normal 150-450 [facility] Comment on above: Performed By: #### L 501.4021, L500.2500, L100.0100 #### [facility] [address] [place], [address] RBC (Bld) [#/Vol] 4.73 10*6/uL Normal 4.6-6.2 [facility] Comment on above: Performed By: #### L 501.4021, L500.2500, L100.0100 #### [facility] [address] [place], [address] RDW SD 36.2 fl Normal 35.1-43.9 [facility] Comment on above: Performed By: #### L 501.4021, L500.2500, L100.0100 #### [facility] [address] [place], [address] WBC (Bld) [#/Vol] 12.3 10*3/uL High 4.4-11.0 [facility] Comment on above: Performed By: #### L 501.4021, L500.2500, L100.0100 #### [facility] [address] [place], [address] Carbon dioxide, total [Moles /volume] in Central venous bloodOrdered By: Kev Nash on 04-10-2025 CO2 [Moles/Vol] 26.2 mmol/L 21.0-32.0 [facility] Chloride assayOrdered By: Jaya Nash on 04-10-2025 Chloride [Moles/Vol] 88 mmol/L Low 98-108 [facility] Emergency Department Summary on 04-10-2025 Emergency Department Summary [facility] Medical Records Department [address] [place] [address] Emergency Department Summary 04/10/25 MR#: [id number] Acct: [id number] Name: GUS ESCALANTE Jr. Rep #: [id number] : 1970 54 From: Kev Conklin PCP: [...] sensory deficits (more content not included)... Normal [facility] Eosinophil percentageOrdered By: Kev Nash on 04-10-2025 Eosinophils/100 WBC (Bld) 1.0 % 0-5 [facility] Erythrocyte distribution wid th ratioOrdered By: Kev Nash on 04-10-2025 Erythrocyte distribution width (RBC) [Ratio] 11.9 % 11.6-14.6 [facility] Erythrocyte distribution wid th standard deviationOrdered By: Kev Nash on 04-10-2025 Erythrocyte distribution width (RBC) [Ratio] 36.2 fl 35.1-43.9 [facility] Glomerular filtration rate ( GFR) estimation/1.73 sq m using serum, plasma, or whole bOrdered By: Kev Nash on 04-10-2025 GFR/1.73 sq M.predicted among non-blacks MDRD (S/P/Bld) [Vol rate/Area] 84 mL/min/{1.73_m2} >60 [facility] Comment on above: mL/min/1.73m2 CKD-EP I Creatinine Equation (2020) [facility] deOrdered By: Kev Nash on 04-10-2025 Glucose [Mass/Vol] 133 mg/dL High 74-106 [facility] Comment on above: MANAGEMENT OF PATIEN T CARE PER NURSING PROTOCOL Hematocrit Auto (Bld) [Volum e fraction]Ordered By: Kev Nash on 04-10-2025 Hematocrit (Bld) [Volume fraction] 39.7 % Low 40-54 [facility] Hemoglobin measurementOrdere d By: Kev Nash on 04-10-2025 Hemoglobin (Bld) [Mass/Vol] 14.9 g/dL 13.0-16.5 [facility] Immature granulocytes/100 WB C Auto (Bld)Ordered By: Kev Nash on 04-10-2025 Immature granulocytes/100 WBC (Bld) 0.700 % 0.0-0.9 [facility] Comment on above: IG% - Immature Granu locytes (promyelocytes, myelocytes and metamyelocytes) > 1% indicates that a LEFT SHIFT is Present. L499.0042on 04-10-2025 Trop T High Sen 7 ng/L Normal <=22 [facility] Comment on above: Performed By: #### L 500.4100 #### [facility] [address] [place], [address] L499.0043on 04-10-2025 Trop T High Sen Normal <=22 [facility] Comment on above: Result Comment: Canc elled via OM: Order cancelled - Patient discharged Performed By: #### L 499.0043 #### [facility] [address] [place], [address] L501.4021on 04-10-2025 Trop T High Sen 7 ng/L Normal <=22 [facility] Comment on above: Performed By: #### L 501.4021, L500.2500, L100.0100 #### [facility] [address] [place], [address] MCV (mean corpuscular volume ) determinationOrdered By: Kev Nash on 04-10-2025 MCV (RBC) [Entitic vol] 83.9 fL 80-94 [facility] Mean corpuscular hemoglobin (MCH) determinationOrdered By: Kev Nash on 04-10-2025 MCH (RBC) [Entitic mass] 31.5 pg 27.0-32.0 [facility] Mean corpuscular hemoglobin concentration (MCHC) determinationOrdered By: Kev Nash on 04-10-2025 MCHC (RBC) [Mass/Vol] 37.5 g/dL High 32-36 [facility] Mean platelet volume determi nationOrdered By: Kev Nash on 04-10-2025 Platelet mean volume (Bld) [Entitic vol] 8.7 fL 6.2-12.0 [facility] Monocyte percentageOrdered B y: Kev Nash on 04-10-2025 Monocytes/100 WBC (Bld) 11.2 % High 0-10 [facility] Neutrophil percentageOrdered By: Kev Nash on 04-10-2025 Neutrophils/100 WBC (Bld) 61.3 % 47-70 [facility] Nucleated red blood cell per centageOrdered By: Kev Nash on 04-10-2025 Nucleated RBC/100 WBC (Bld) [Ratio] 0 % 0-5 [facility] Platelet countOrdered By: Jaya Nash on 04-10-2025 Platelets (Bld) [#/Vol] 416 10*3/uL 150-450 [facility] Potassium measurement (mass/ volume)Ordered By: Kev Nash on 04-10-2025 Potassium (Unsp spec) [Mass/Vol] 3.4 mmol/L 3.3-5.1 [facility] RBC Auto (Bld) [#/Vol]Ordere d By: Kev Nash on 04-10-2025 RBC (Bld) [#/Vol] 4.73 10*6/uL 4.6-6.2 [facility] Serum creatinine measurement (mass/volume)Ordered By: Kev Nash on 04-10-2025 Creatinine [Mass/Vol] 1.05 mg/dL 0.70-1.20 [facility] Serum glucose measurement (m ass/volume)Ordered By: Kev Nash on 04-10-2025 Glucose [Mass/Vol] 131 mg/dL High 70-99 [facility] Serum or plasma calcium rachelle urement (mass/volume)Ordered By: Kev Nash on 04-10-2025 Calcium [Mass/Vol] 9.2 mg/dL 7.6-11.0 [facility] Serum or plasma urea nitroge n measurement (mass/volume)Ordered By: Kev Nash on 04-10-2025 Urea nitrogen [Mass/Vol] 12 mg/dL 4-19 [facility] Sodium levelOrdered By: Kev Nash on 04-10-2025 Sodium [Moles/Vol] 126 mmol/L Low 133-145 [facility] Troponin T.cardiac [Mass/vol ume] in Serum or Plasma by High sensitivity methodOrdered By: Kev Nash on 04-10-2025 Troponin T.cardiac High sensitivity method [Mass/Vol] 7 ng/L <22 [facility] Troponin T.cardiac High sensitivity method [Mass/Vol] 7 ng/L <22 [facility] Comment on above: Delta: 11 on 5-0722 White blood cell (WBC) count Ordered By: Kev Nash on 04-10-2025 WBC (Bld) [#/Vol] 12.3 10*3/uL High 4.4-11.0 [facility] AT III Func / Immunolon 05-0 AT3 AG, IMMUNOL 104 Normal 72-124 [facility] Comment on above: Order Comment: Test( s) 055116-Pgbngudyiywp Antigenwas developed and its performance characteristicsdetermined by [facility]. It has not been cleared or approvedby the Food and Drug Administration. Performed By: #### L 501.4021, L500.2500, L100.0100 #### [facility] [address] [place], [address] AT3 FUNCTIONAL 116 Normal 75-135 [facility] Comment on above: Order Comment: Test( s) 837805-Tncamebssmwp Antigenwas developed and its performance characteristicsdetermined by [facility]. It has not been cleared or approvedby the Food and Drug Administration. Result Comment: Dire ct Xa inhibitor anticoagulants such as rivaroxaban, apixaban and edoxaban will lead to spuriously elevated antithrombin activity levels possibly masking a deficiency. Performed By: #### L 501.4021, L500.2500, L100.0100 #### [facility] [address] [place], [address] Anticardiolipin IgA,G,Mon ANTICARDIO IgA < 9 Normal 0-11 [facility] Comment on above: Order Comment: Test( s) 691485-Rnobafyevefc Antigenwas developed and its performance characteristicsdetermined by [facility]. It has not been cleared or approvedby the Food and Drug Administration. Result Comment: Nega tive: <12 Indeterminate: 12 - 20 Low-Med Positive: >20 - 80 High Positive: >80 Performed By: #### L 501.4021, L500.2500, L100.0100 #### [facility] [address] [place], [address] ANTICARDIO IgG < 9 Normal 0-14 [facility] Comment on above: Order Comment: Test( s) 736229-Pkumnxvlufdp Antigenwas developed and its performance characteristicsdetermined by [facility]. It has not been cleared or approvedby the Food and Drug Administration. Result Comment: Nega tive: <15 Indeterminate: 15 - 20 Low-Med Positive: >20 - 80 High Positive: >80 Performed By: #### L 501.4021, L500.2500, L100.0100 #### [facility] [address] [place], [address] Anticardio.IgM 14 MPL U/mL High 0-12 [facility] Comment on above: Order Comment: Test( s) 607379-Jphpuopaubco Antigenwas developed and its performance characteristicsdetermined by [facility]. It has not been cleared or approvedby the Food and Drug Administration. Result Comment: Nega tive: <13 Indeterminate: 13 - 20 Low-Med Positive: >20 - 80 High Positive: >80 Performed By: #### L 501.4021, L500.2500, L100.0100 #### [facility] [address] [place], [address] Complement C3on 03-30-2025 COMP C3 114 mg/dL Normal 82-167 [facility] Comment on above: Order Comment: Test( s) 983988-Hinfyqeuwamk Antigenwas developed and its performance characteristicsdetermined by [employer]. It has not been cleared or approvedby the Food and Drug Administration. Performed By: #### L 501.4021, L500.2500, L100.0100 #### [facility] [address] [place], [address] Complement C4on 03-30-2025 COMPLEMENT, C4 20 mg/dL Normal 12-38 [facility] Comment on above: Order Comment: Test( s) 730305-Ewmpgshdkkuw Antigenwas developed and its performance characteristicsdetermined by [facility]. It has not been cleared or approvedby the Food and Drug Administration. Performed By: #### L 501.4021, L500.2500, L100.0100 #### [facility] [address] [place], [address] Complement CH50on 03-30-2025 COMPLEMENT,CH50 54 U/mL Normal >41 [facility] Comment on above: Order Comment: Test( s) 114480-Nxytkhkalweb Antigenwas developed and its performance characteristicsdetermined by [facility]. It has not been cleared or [...] By: #### L 501.4021, L500.2500, L100.0100 #### [facility] [address] [place], [address] Fact V Leiden Mutationon FACTOR V LEIDEN Comment Normal . [facility] Comment on above: Order Comment: Test( s) 938628-Xwddxpxiruae Antigenwas developed and its performance characteristicsdetermined by [facility]. It has not been cleared or approvedby the Food and Drug Administration. Result Comment: Resu lt: c.1601G>A (p.[id number]) - Not Detected This result is not associated with an increased risk for venous thromboembolism. See Additional Clinical Information and Comments. Additional Clinical Information: Venous thromboembolism is a multifactorial disease influenced by genetic, environmental, and circumstantial risk factors. The c.1601G>A (p. [id number]) variant in the F5 gene, commonly referred [...] c.*97G>A variant and Factor V Leiden (PMID: 46942163). Additional risk factors include but are not [...] health care providers to discuss results at [phone] ([phone]). Test Details: Variant Analyzed: c.1601G>A (p. [id number]), referred to as Factor V Leiden Methods/Limitations: [...] developed and its performance characteristics determined by [facility]. It has not been cleared or approved by the Food and Drug Administration. References: Alen S, Janice AK, Jesus R, Zelda WW, Thee RUCKER; [employer] Professional Practice and Guidelines Committee. Addendum: [employer] consensus statement on factor V Leiden mutation testing. [employer]. 2020Jan 28. doi: 10.1038/q39883-555-73840-f. PMID: 53005017. Mickey SIDHU. Factor V Leiden Thrombophilia. 1998April 08 (Updated 2017Nov 29). In: Jose D MP, Jaquelin HH, Miri RA, et al., editors. Indu) (Internet). [place] ([place]): [facility]; 7617-9702. Available from: https://www.ncbi.nlm.nih.gov/books/EXE1279/ Krishna S, Janice AK, Chand X, Ernesto B, Stephanie EB, Isabel P, Javi CS; [employer] Laboratory Education Sales Consultant Committee. Venous thromboembolism laboratory testing (factor V Leiden and factor II c.*97G>A), 2018 update: a technical standard of the [employer] (ACMG). Yessica Med. 2018 Oct;20(12):2751-2773. doi: 10.1038/[id number]-n. Epub 2017Aug 30. PMID: 24025759. Performed By: #### L 501.4021, L500.2500, L100.0100 #### [facility] [address] [place], [address] Reviewed By Comment Normal . [facility] Comment on above: Order Comment: Test( s) 474549-Qbhxvreianxv Antigenwas developed and its performance characteristicsdetermined by [facility]. It has not been cleared or approvedby the Food and Drug Administration. Result Comment: Tech nical Component performed at [facility] RT Professional Component performed by: Martha Kaufman, PhD, [facility] [id number], [facility], [address] [place] [address] Performed By: #### L 501.4021, L500.2500, L100.0100 #### [facility] [address] [place], [address] Factor II, DNA Analysison FACTOR II, DNA Comment Normal . [facility] Comment on above: Order Comment: Test( s) 550246-Ttyvzxkefdzc Antigenwas developed and its performance characteristicsdetermined by [facility]. It has not been cleared or [...] the F2 gene and a c.1601G>A (p. Yuo056Wea) variant in the F5 gene (commonly referred to as Factor V Leiden) have an approximately 20- fold increased risk for venous thromboembolism. Risks are likely to be even higher in more complex genotype combinations involving the F2 c.*97G>A variant and Factor V Leiden (PMID: 21824015). Additional risk factors include but are not [...] health care providers to discuss results at [phone] ([phone]). Test Details: Variant analyzed: c.*97G>A, previously referred to as [id number] Methods/Limitations: DNA analysis of the F2 gene [...] developed and its performance characteristics determined by [facility]. It has not been cleared or approved by the Food and Drug Administration. References: Alen Brannon, Janice CASTILLO, Jesus R, Zelda WW, Thee JH; ACMG Professional Practice and Guidelines Committee. Addendum: [employer] consensus statement on factor V Leiden mutation testing. Yessica Med. 2020Jan 28. doi: 10.1038/[id number]-h. PMID: 17625531. Mickey SIDHU. Prothrombin Thrombophilia. 2005Jun 19 [Updated 2020Dec 30]. In: Jose D MP, Jaquelin HH, Miri RA, et al., editors. Faustino(R) [Internet]. [place] ([place]): [facility]; 4352-4684. Available from: https://www.ncbi.nlm.nih.gov/books/WCH5362/ Krishna Brannon, Janice CASTILLO, Mannie X, Ernesto B, Stephanie EB, Isabel P, Javi CS; ACMG Laboratory Education Sales Consultant Committee. Venous thromboembolism laboratory testing (factor V Leiden and factor II c.*97G>A), 2018 update: a technical standard of the [employer] (ACMG). Yessica Med. 2018 Oct;20(12):2235-5534. doi: 10.1038/[id number]-v. Epub 2017Aug 30. PMID: 16521978. Performed By: #### L 501.4021, L500.2500, L100.0100 #### [facility] [address] [place], [place], [address] Folates, RBCon 03-30-2025 Fol.,Hemolysate 289.0 ng/mL Normal Not Estab. [facility] Comment on above: Order Comment: Test( s) 153242-Hlwjkdvehdbs Antigenwas developed and its performance characteristicsdetermined by [facility]. It has not been cleared or approvedby the Food and Drug Administration. Performed By: #### L 501.4021, L500.2500, L100.0100 #### [facility] [address] [place], [address] Folate, RBC 626 ng/mL Normal >498 [facility] Comment on above: Order Comment: Test( s) 955441-Uixexwufjlmg Antigenwas developed and its performance characteristicsdetermined by [facility]. It has not been cleared or approvedby the Food and Drug Administration. Performed By: #### L 501.4021, L500.2500, L100.0100 #### [facility] [address] [place], [address] Hematocrit (Bld) [Volume fraction] 46.2 % Normal 37.5-51.0 [facility] Comment on above: Order Comment: Test( s) 343168-Psetbowfbwlp Antigenwas developed and its performance characteristicsdetermined by [facility]. It has not been cleared or approvedby the Food and Drug Administration. Performed By: #### L 501.4021, L500.2500, L100.0100 #### [facility] [address] [place], [address] Lupus Anticoagulant Compon 0 - aPTT Coag (Bld) [Time] 35.5 s Normal 0.0-43.5 [facility] Comment on above: Order Comment: Test( s) 635951-Huqihedjfjcz Antigenwas developed and its performance characteristicsdetermined by [facility]. It has not been cleared or approvedby the Food and Drug Administration. Performed By: #### L 501.4021, L500.2500, L100.0100 #### [facility] [address] [place], [address] DILUTE PT (dPT) 37.5 sec Normal 0.0-47.6 [facility] Comment on above: Order Comment: Test( s) 272281-Jbwtxpyxckos Antigenwas developed and its performance characteristicsdetermined by [facility]. It has not been cleared or approvedby the Food and Drug Administration. Performed By: #### L 501.4021, L500.2500, L100.0100 #### [facility] [address] [place], [place], [address] dPT Conf. Ratio 1.19 Ratio Normal 0.00-1.34 [facility] Comment on above: Order Comment: Test( s) 161667-Wkgiorcurzxg Antigenwas developed and its performance characteristicsdetermined by [facility]. It has not been cleared or approvedby the Food and Drug Administration. Performed By: #### L 501.4021, L500.2500, L100.0100 #### [facility] [address] [place], [place], [address] DRVVT 40.9 sec Normal 0.0-47.0 [facility] Comment on above: Order Comment: Test( s) 406681-Gjwtuqjcbluh Antigenwas developed and its performance characteristicsdetermined by [facility]. It has not been cleared or approvedby the Food and Drug Administration. Performed By: #### L 501.4021, L500.2500, L100.0100 #### [facility] [address] [place], [place], [address] Interpretation Comment: Normal . [facility] Comment on above: Order Comment: Test( s) 957020-Dwwzqquxzypf Antigenwas developed and its performance characteristicsdetermined by [facility]. It has not been cleared or approvedby the Food and Drug Administration. Result Comment: No l upus anticoagulant was detected. Performed By: #### L 501.4021, L500.2500, L100.0100 #### [facility] [address] [place], [address] THROMBIN TIME 19.6 sec Normal 0.0-23.0 [facility] Comment on above: Order Comment: Test( s) 888161-Bblfeacoertk Antigenwas developed and its performance characteristicsdetermined by [facility]. It has not been cleared or approvedby the Food and Drug Administration. Performed By: #### L 501.4021, L500.2500, L100.0100 #### [facility] [address] [place], [address] Protein C Antigenon 03-30-20 25 PROTEIN C Ag 92 Normal 60-150 [facility] Comment on above: Order Comment: Test( s) 634242-Ctsdxjhyiuih Antigenwas developed and its performance characteristicsdetermined by [facility]. It has not been cleared or approvedby the Food and Drug Administration. Performed By: #### L 501.4021, L500.2500, L100.0100 #### [facility] [address] [place], [address] Protein C, Functionalon PROTEIN C,FUNC 93 Normal 73-180 [facility] Comment on above: Order Comment: Test( s) 632218-Qrijwjncezhw Antigenwas developed and its performance characteristicsdetermined by [facility]. It has not been cleared or approvedby the Food and Drug Administration. Result Comment: Perf ormed at: BN - [address] [id number] [employer] Reamer: Kajal Butler MD, Phone: [phone] Performed at: - [address] [id number] [employer] Reamer: Edwardo Lopez PhD, Phone: [phone] Performed at: [facility] [address] [id number] Steel Barrel Reamer: Ekta Adler [facility], Phone: [phone] Performed By: #### L 501.4021, L500.2500, L100.0100 #### [facility] [address] [place], [place], [address] Protein S Antigenon 03-30-20 25 PROTEIN S, FREE 129 Normal 61-136 [facility] Comment on above: Order Comment: Test( s) 865615-Odshvawcmqlo Antigenwas developed and its performance characteristicsdetermined by [facility]. It has not been cleared or approvedby the Food and Drug Administration. Performed By: #### L 501.4021, L500.2500, L100.0100 #### [facility] [address] [place], [address] PROTEIN S,TOTAL 90 Normal 60-150 [facility] Comment on above: Order Comment: Test( s) 571358-Pkwvmziajtzt Antigenwas developed and its performance characteristicsdetermined by [facility]. It has not been cleared or approvedby the Food and Drug Administration. Result Comment: This test was developed and its performance characteristics determined by [facility]. It has not been cleared or approved by the Food and Drug Administration. Performed By: #### L 501.4021, L500.2500, L100.0100 #### [facility] [address] [place], [address] Protein S, Functionalon 05-0 PROTEIN S, FUNC 110 Normal 63-140 [facility] Comment on above: Order Comment: Test( s) 947131-Icepbbomyppv Antigenwas developed and its performance characteristicsdetermined by [...] By: #### L 501.4021, L500.2500, L100.0100 #### [facility] [address] [place], [address] Vitamin B1, Thiamineon 03-30 VIT B1 THIAMINE 124.4 nmol/L Normal 66.5-200.0 [facility] Comment on above: Order Comment: Test( s) 417725-Brqlrtzaylkw Antigenwas developed and its performance characteristicsdetermined by [facility]. It has not been cleared or approvedby the Food and Drug Administration. Performed By: #### L 501.4021, L500.2500, L100.0100 #### [facility] [address] [place], [address] SEPIDEH w/ Reflex Mult Confirmon 03-26-2025 ANTI-DNA (DS)AB TNP Normal [facility] Comment on above: Order Comment: Reaso n for Exam: Cryptogenic stroke Performed By: #### L 501.4021, L500.2500, L100.0100 #### [facility] [address] [place], [address] L803.0600on 03-25-2025 HOMOCYSTEINE 27.3 umol/L Abnormal 0.0-14.5 [facility] Comment on above: Order Comment: Reaso n for Exam: Cryptogenic stroke Performed By: #### L 501.4021, L500.2500, L100.0100 #### [facility] [address] [place], [address] Blood or tissue coagulation factor II targeted mutation analysis by molecular geneticOrdered By: Keyanna Walton on 03-23-2025 F2 gene targeted mutation analysis Mol[employer] Nom (Bld/Tiss) Comment . [facility] Comment on above: Result: c.*97G>A - [...] in theF2 gene and a c.1601G>A (p. Mld651Swm) variant in the F5 gene(commonly referred to as Factor V Leiden) have an approximately 20-fold increased risk for venous thromboembolism. Risks are likely celia even higher in more complex genotype combinations involving theF2 c.*97G>A variant and Factor V Leiden (PMID: 40816544). Additionalrisk factors include but are not limited [...] for health care providers to discussresults at [phone] ([phone]).Test Details:Variant analyzed: c.*97G>A, previously referred to as B62563UQhsdskg/Limitations:DNA analysis of the F2 gene (NM_000506.5) was [...] was developed and its performance characteristics determinedby [facility]. It has not been cleared or approved by the Food and DrugAdministration.References:Alen S, Janice AK, Jesus R, Zelda WW, Thee JH; ACMG ProfessionalPractice and Guidelines Committee. Addendum: [employer] consensus statement on factor V Leiden mutationtesting. Yessica Med. 2020Jan 28. doi: 10.1038/[id number]-n.PMID: 01915728.Mickey SIDHU. Prothrombin Thrombophilia. 2005Jun 19[Updated 2020Dec 30]. In: Jose D MP, Jaquelin HH, Miri RA, et al.,editors. Faustino(R) [Internet]. [place] ([place]): [facility]; 4821-7602. Available from:https://www.ncbi.nlm.nih.gov/books/USX6082/Krishna S, Janice AK, Chand X, Ernesto B, Stephanie EB, Isabel P, Javi CS;[facility] Laboratory Education Sales Consultant Committee. Venous thromboembolismlaboratory testing (factor V Leiden and factor II c.*97G>A),2018 update: a technical standard of the [employer] (ACMG). Yessica Med. 2018 Oct;20(12):4915-7781.doi: 10.1038/[id number]-q. Epub 2017Aug 30. PMID: 46963132. CRPon 03-23-2025 C-REACTIVE PROT 3.17 mg/L High 0.0-3.0 [facility] Comment on above: Performed By: #### L 501.4021, L500.2500, L100.0100 #### [facility] [address] [place], [place], [address] Dilute Venkatesh's viper venom timeOrdered By: Keyanna Walton on 03-23-2025 dRVVT Coag (PPP) [Time] 40.9 s 0.0-47.0 [facility] Erythrocyte Sed Rateon 03-23 SED RATE 3 mm/hr Normal 0-20 [facility] Comment on above: Performed By: #### L 501.4021, L500.2500, L100.0100 #### [facility] [address] [facility] [place], [place], [address] Erythrocyte folate measureme nt with hematocritOrdered By: Keyannaellen Walton on 03-23-2025 Hematocrit (Bld) [Volume fraction] 46.2 % 37.5-51.0 [facility] Erythrocyte sedimentation ra teOrdered By: Keyannaellen Walton on 03-23-2025 ESR (Bld) [Velocity] 3 mm/h 0-20 [facility] Functional protein C measure mentOrdered By: Keyannaellen Walton on 03-23-2025 Protein C actual/normal Chromogenic method (PPP) [Rel catalytic activity/Vol] 93 % 73-180 [facility] Comment on above: Performed at: [facility] - [facility] [address] [id number] Director: Kajal Butler MD, Phone: [phone] at: CB - [facility] [address] [place], [place] [id number] Director: Edwardo Lopez PhD, Phone: [phone] at: TG - [facility] [address] [place], [place] [id number] Director: Ekta Adler [facility], Phone: [phone] Hemoglobin A1con 03-23-2025 HbA1c (Bld) [Mass fraction] 5.8 % High <=5.6 [facility] Comment on above: Result Comment: Norm al < 5.7 % Prediabetic 5.7 - 6.4 % Diabetic >or= 6.5 % Please note range changes. Performed By: #### L 501.4021, L500.2500, L100.0100 #### [facility] [address] [place], [address] Hemoglobin A1c percentageOrd ered By: Keyanna Walton on 03-23-2025 HbA1c (Bld) [Mass fraction] 5.8 % High <5.7 [facility] Comment on above: Normal < 5.7 % Predi abetic 5.7 - 6.4 % Diabetic >or= 6.5 % Please note range changes. Platelet poor plasma antithr ombin actual/normal ratio by chromogenic method (relativeOrdered By: Keyanna Walton on 03-23-2025 Antithrombin actual/normal Chromogenic method (PPP) [Rel catalytic activity/Vol] 116 % 75-135 [facility] Comment on above: Direct Xa inhibitor anticoagulants such as rivaroxaban,apixaban and edoxaban will lead to spuriously elevatedantithrombin activity levels possibly masking a deficiency. Platelet poor plasma antithr ombin antigen detection by immunoassayOrdered By: Keyanna Walton on 03-23-2025 Antithrombin Ag IA Ql (PPP) 104 % 72-124 [facility] Platelet poor plasma protein S actual/normal ratio (relative time)Ordered By: Keyanna Walton on 03-23-2025 Protein S actual/normal Coag (PPP) [Relative time] 110 % 63-140 [facility] Comment on above: Protein S activity m ay be falsely increased (masking anabnormal, low result) in patients receiving direct Xainhibitor (e.g., rivaroxaban, apixaban, edoxaban) or adirect thrombin inhibitor (e.g., dabigatran) anticoagulanttreatment due to assay interference by these drugs. Protein C antigen assayOrder ed By: Keyanna Walton on 03-23-2025 Protein C Ag actual/normal IA (PPP) [Relative mass conc] 92 % 60-150 [facility] Protein S measurement in sonja telet poor plasma by coagulation assay (units/volume)Ordered By: Keyanna Walton on 03-23-2025 Protein S Coag Qn (PPP) 90 % 60-150 [facility] Comment on above: This test was develo ped and its performance characteristicsdetermined by [facility]. It has not been cleared orapproved by the Food and Drug Administration. Protein S, freeOrdered By: Rhys Walton on 03-23-2025 Protein S Free Ag IA Qn (PPP) 129 % 61-136 [facility] Serum DNA double strand anti body assay (units/volume)Ordered By: Keyanna Walton on 03-23-2025 DNA double strand Ab Qn (S) [facility] Comment on above: Test not performed Serum Scl-70 antibody assay (units/volume)Ordered By: Keyanna Walton on 03-23-2025 SCL-70 extractable nuclear Ab Qn (S) [facility] Comment on above: Test not performed Serum cardiolipin IgG antibo dy assay by immunoassay (units/volume)Ordered By: Keyanna Walton on 03-23-2025 Cardiolipin IgG IA Qn (S) < 9 GPL U/mL 0-14 [facility] Comment on above: Negative: <15 Indete rminate: 15 - 20 Low-Med Positive: >20 - 80 High Positive: >80 Serum or plasma C reactive p rotein measurement (mass/volume)Ordered By: Keyanna Walton on 04-28-2025 CRP [Mass/Vol] 3.17 mg/L High 0.0-3.0 [facility] Serum or plasma cardiolipin IgA antibody assay (units/volume)Ordered By: Keyanna Walton on 03-23-2025 Cardiolipin IgA Qn < 9 APL U/mL 0-11 [facility] Comment on above: Negative: <12 Indete rminate: 12 - 20 Low-Med Positive: >20 - 80 High Positive: >80 Serum or plasma complement C 4 measurement (mass/volume)Ordered By: Keyanna Walton on 03-23-2025 Complement C4 [Mass/Vol] 20 mg/dL 12-38 [facility] Serum or plasma thiamine paulette surement (mass/volume)Ordered By: Keyanna Walton on 03-23-2025 Thiamine [Mass/Vol] 124.4 nmol/L 66.5-200.0 [facility] TSH DL <= 0.005 mIU/L QnOrde red By: Keyanna Walton on 03-23-2025 TSH Qn 1.160 uIU/mL 0.300-4.200 [facility] Thrombin timeOrdered By: Sanya Walton on 03-23-2025 Thrombin time Coag (PPP) [Time] 19.6 sec 0.0-23.0 [facility] Thyroid Stim Hormone (TSH)on 03-23-2025 TSH 1.160 uIU/mL Normal 0.300-4.200 [facility] Comment on above: Performed By: #### L 501.4021, L500.2500, L100.0100 #### [facility] [address] [place], [address] Total hemolytic (CH50) compl ement assayOrdered By: Keyanna Walton on 03-23-2025 Total hemolytic (CH50) complement assay 54 U/mL >41 [facility] Comment on above: Age Male Female [...] (Vitamin B12) [Mass/Vol] 408 pg/mL Normal 180-914 [facility] Comment on above: Performed By: #### L 501.4021, L500.2500, L100.0100 #### [facility] [address] [place], [address] Vitamin B12 ser/plasOrdered By: Keyanna Walton on 03-23-2025 Cobalamin (Vitamin B12) [Mass/Vol] 408 pg/mL 180-914 [facility] SP/HP.SP.Andra 03-20-2025 SP/HP.SP.EV [facility] spital Speech Pathology [facility] [address] [facility] [address] [place] [address] / REHABILITATION SERVICES INITIAL EVALUATION MR#: [id number] Acct: [id number] Name: GUS ESCALANTE JR Rep #: [id number] : 1970 54 From: Keo Raya Referring Dr.: Dr. Todd Alfonso, DO Status: REG R Insurance: [facility] SELF PAY INSURANCE Visit History Visit Info Date of Eval: 03/20/25 Visit: 1 Credit Verification Clerk: AVIVA History Attending Doctor: Referring Doctor: Reason for Referral: CVA/PT HAS RX Medical Diagnosis: CVA; Dysarthria Date of Onset of Diagnosis: 03/04/25 Previous speech therapy: Yes Smoking Status: Former smoker Diagnosis Diagnosis: CVA; dysarthria Pain Is pain an issue with your current prescribed condition?: No Personal Preferred language: Cook Islander Patient Allergies Allergies Allergies: Allergies No Known Allergies Allergy (Verified 03/19/25 10:51) N-SCARLET [place] Dysarthria Assessment Tool Intelligibility:: Intelligible w/some difficulty Phonation: Phonation: Adequate Pitch: Adequate Maximum Phonation Time: 13 S/Z Ratio: 1 Sustained Volume: Able Pitch [place]: Able Pitch Range: Adequate Pitch Glides: Adequate [...] Discussion Response to teaching: Verbalize Understanding 03/20/25 5998 CC: Dr. Todd Alfonso, DO; No Primary Care Physician MCA Signed Normal [facility] Neurology Visit Reporton Neurology Visit Report [facility] [address] [place] [address], [address] [place] [address] OFFICE VISIT Date of Service: 03/19/25 MR#: [id number] Acct: [id number] Name: GUS ESCALANTE JR Rep #: [id number] : 1970 Provider: ROBERTA carlos Age/Sex: 54/M Location: [facility]. Status: Signed HPI HPI Chief Complaint: Establish Care Details: Mr. Escalante is a 54-year-old male who presents to neurology today to establish care following an ischemic stroke.??? He was referred by [facility] on 03/05/2025.??? He is accompanied by his significant other. The symptom onset was 03/02/2025 of acute dysarthria.??? His symptoms did not improve and he ultimately decided to present to the emergency room at [facility] on 03/04/2025.??? A CT brain was [...] no teeth (more content not included)... Normal [facility] Calculated very low density lipoprotein (VLDL) cholesterol measurementOrdered By: Todd Alfonso on 03-05-2025 Calculated very low density lipoprotein (VLDL) cholesterol measurement 23 mg/dL [facility] VLDL Cholesterol 23 mg/dL [facility] Electrocardiogram reportOrde red By: Hiro Melendez on 03-05-2025 EKG study [facility] Cardiovascular Services [address] [place] [address] 12 Lead EKG 03/04/25 0742 MR#: [id number] Acct: [id number] Name: GUS ESCALANTE Rep #:[id number] : 1970 54 From: Hiro Melendez [...] lateral ischemia Abnormal ECG Confirmed by HIRO EMLENDEZ MD ([id number]), newspaper editor managing JE NG ([id number]) on 58:36:03 AM Referred By: Confirmed By: HIRO MELENDEZ MD 03/05/25 0836 Date _ Hiro Melendez MD CC: Dr. Todd Alfonso DO; Dr. Cruzito Bailey MD; No Primary Care Physician ~ Signed [facility] Work Phone: LDL calc ser/plasOrdered By: Todd Alfonso on 03-05-2025 Cholesterol in LDL [Mass/Vol] 116 mg/dL [facility] Comment on above: Mzmnwyvxuj=056-866 m g/dL & Higher Grvz=150 mg/dL or greater LDL Cholesterol, Calculated 116 mg/dL [facility] Comment on above: Oimoztjheg=601-291 m g/dL & Higher Nvtx=163 mg/dL or greater Lipid Profileon 03-05-2025 CHOL:HDL 4.34 Normal [facility] Comment on above: Order Comment: Comme nts: NPO at MN prior to lipid panel Performed By: #### L 500.4100 #### [facility] [address] [place], [address] Cholesterol [Mass/Vol] 181 mg/dL Normal <=200 [facility] Comment on above: Order Comment: Comme nts: NPO at MN prior to lipid panel Result Comment: Chol esterol level, Desirable <200 mg/dL Borderline high cholesterol 200-239 mg/dL High cholesterol >=240 mg/dL Recommendations of the NCEP Adult Treatment Panel for the following risk-cutoff thresholds for the [place] population. Performed By: #### L 500.4100 #### [facility] [address] [place], [address] Cholesterol in HDL [Mass/Vol] 42 mg/dL Normal [facility] Comment on above: Order Comment: Comme [...] age. Performed By: #### L 500.4100 #### [facility] [address] [place], [address] Cholesterol in LDL [Mass/Vol] 116 mg/dL Normal [facility] Comment on above: Order Comment: Comme nts: NPO at MN prior to lipid panel Result Comment: Bord vwptqa=773-230 mg/dL Higher Lyfl=434 mg/dL or greater Performed By: #### L 500.4100 #### [facility] [address] [place], [address] Cholesterol in VLDL [Mass/Vol] 23 mg/dL Normal 5-40 [facility] Comment on above: Order Comment: Comme nts: NPO at MN prior to lipid panel Performed By: #### L 500.4100 #### [facility] [address] [facility] [place], [place], [id number] Triglyceride [Mass/Vol] 116 mg/dL Normal [facility] Comment on above: Order Comment: Comme nts: NPO at MN prior to lipid panel Result Comment: The drugs N-Acetylcysteine and Metamizole may falsely depress this assay. Normal range: <150 mg/dL Borderline High: 150-199 mg/dL High: 200-499 mg/dL Very High: >500 mg/dL Performed By: #### L 500.4100 #### [facility] [address] [place], [address] Screening total cholesterol/ high density lipoprotein (HDL) cholesterol ratioOrdered By: Todd Alfonso on 03-05-2025 Cholesterol.total/Chol esterol in HDL [Mass ratio] 4.34 {ratio} [facility] Serum or plasma cholesterol in HDL measurement (mass/volume)Ordered By: Todd Alfonso on 03-05-2025 Cholesterol in HDL [Mass/Vol] 42 mg/dL >40 [facility] Comment on above: National Cholesterol Education Program (NCEP) guidelines:<40 mg/dL: Low HDL-cholesterol (major risk factor for CHD)>= 60 mg/dL: High HDL-cholesterol (negative risk factor for CHD)HDL-cholesterol is affected by a number of factors, e.g. smoking, exercise, hormones, sex and age. Serum or plasma cholesterol measurement (mass/volume)Ordered By: Todd Alfonso on 03-05-2025 Cholesterol [Mass/Vol] 181 mg/dL <201 [facility] Comment on above: Cholesterol level, D esirable <200 mg/dLBorderline high cholesterol 200-239 mg/dLHigh cholesterol >=240 mg/dLRecommendations of the NCEP Adult Treatment Panel for the following risk-cutoff thresholds for the [place] population. Triglycerides measurementOrd ered By: Todd Alfonso on 03-05-2025 Triglyceride [Mass/Vol] 116 mg/dL <199 [facility] Comment on above: The drugs N-Acetylcy steine and Metamizole may falsely depress this assay. Normal range: <150 mg/dLBorderline High: 150-199 mg/dLHigh: 200-499 mg/dLVery High: >500 mg/dL 12 Lead EKGon 03-04-2025 12 Lead EKG [facility] [address] [place] [address] 12 Lead EKG 03/04/25 0742 MR#: [id number] Acct: [id number] Name: GUS ESCALANTE Rep #: [id number] : 1970 54 From: Hiro Melendez MD [...] ECG Confirmed by HIRO MELENDEZ MD ([id number]), newspaper editor managing JE NG ([id number]) on 03/05/2025 8:36:03 AM Referred By: Confirmed By: HIRO MELENDEZ MD 03/05/25 0836 Date Hiro Melendez MD CC: Dr. Todd Alfonso DO; Dr. Cruzito Bailey MD; No Primary Care Physician Signed Normal [facility] Absolute lymphocyte countOrd ered By: Cruzito Bailey on 03-04-2025 Lymphocytes Auto (Unsp spec) [#/Vol] 1.79 10*3/uL 0.83-4.51 [facility] Absolute neutrophil countOrd ered By: Cruizto Bailey on 04-09-2025 Neutrophils (Bld) [#/Vol] 5.6 10*3/uL 2.0-7.7 [facility] Activated partial thrombopla stin time (aPTT) in platelet poor plasma by coagulation aOrdered By: Cruzito Bailey on 03-04-2025 aPTT Coag (PPP) [Time] 26.0 s 24.1-36.2 [facility] Anion gap in Serum or Plasma Ordered By: Cruzito Bailey on 03-04-2025 Anion gap [Moles/Vol] 11 mmol/L - [facility] Automated lymphocyte count a s percentage of total leukocytesOrdered By: Cruzito Bailey on 03-04-2025 Lymphocytes/100 WBC Auto (Unsp spec) 21.5 % [facility] BUN/creatinine ratioOrdered By: Cruzito Bailey on 03-04-2025 Urea nitrogen/Creatinine [Mass ratio] 12.0 mg/mg - [facility] Basic Metabolic Profile (BMP )on 03-04-2025 BUN/CRE 12.0 RATIO Normal 09-14 [facility] Comment on above: Performed By: #### L 501.4021, L500.2500, L100.0100 #### [facility] [address] [place], [address] Calcium [Mass/Vol] 9.2 mg/dL Normal 7.6-11.0 [facility] Comment on above: Performed By: #### L 501.4021, L500.2500, L100.0100 #### [facility] [address] [place], [address] Chloride [Moles/Vol] 100 mmol/L Normal 98-108 [facility] Comment on above: Performed By: #### L 501.4021, L500.2500, L100.0100 #### [facility] [address] [place], [address] CO2 [Moles/Vol] 23.7 mmol/L Normal 21.0-32.0 [facility] Comment on above: Performed By: #### L 501.4021, L500.2500, L100.0100 #### [facility] [address] [place], [address] Creatinine [Mass/Vol] 1.00 mg/dL Normal 0.70-1.20 [facility] Comment on above: Performed By: #### L 501.4021, L500.2500, L100.0100 #### [facility] [address] [place], [address] ECRCL 78.03 ml/min Normal 50-250 [facility] Comment on above: Performed By: #### L 501.4021, L500.2500, L100.0100 #### [facility] [address] [place], [address] GAP 11 Normal 5-15 [facility] Comment on above: Performed By: #### L 501.4021, L500.2500, L100.0100 #### [facility] [address] [place], [address] GFR/1.73 sq M.predicted among non-blacks MDRD (S/P/Bld) [Vol rate/Area] 89 mL/min/{1.73_m2} Normal >60 [facility] Comment on above: Result Comment: mL/m in/1.73m2 CKD-EPI Creatinine Equation (2020) Performed By: #### L 501.4021, L500.2500, L100.0100 #### [facility] [address] [place], [address] Glucose [Mass/Vol] 110 mg/dL High 70-99 [facility] Comment on above: Performed By: #### L 501.4021, L500.2500, L100.0100 #### [facility] [address] [place], [address] Potassium [Moles/Vol] 4.1 mmol/L Normal 3.3-5.1 [facility] Comment on above: Performed By: #### L 501.4021, L500.2500, L100.0100 #### [facility] [address] [place], [address] Sodium [Moles/Vol] 136 mmol/L Normal 133-145 [facility] Comment on above: Performed By: #### L 501.4021, L500.2500, L100.0100 #### [facility] [address] [place], [address] Urea nitrogen [Mass/Vol] 12 mg/dL Normal 4-19 [facility] Comment on above: Performed By: #### L 501.4021, L500.2500, L100.0100 #### [facility] [address] [place], [address] Basophil percentageOrdered B y: Cruzito Bailey on 03-04-2025 Basophils/100 WBC (Bld) 0.6 % 0-1 [facility] CBC W/Diff, Automatedon 0 Absolute Lymph 1.79 X10 3/uL Normal 0.83-4.51 [facility] Comment on above: Performed By: #### L 501.4021, L500.2500, L100.0100 #### [facility] [address] [place], [address] Absolute Neut 5.6 X10 3/uL Normal 2.0-7.7 [facility] Comment on above: Performed By: #### L 501.4021, L500.2500, L100.0100 #### [facility] [address] [place], [address] Basophils/100 WBC (Bld) 0.6 % Normal 0-1 [facility] Comment on above: Performed By: #### L 501.4021, L500.2500, L100.0100 #### [facility] [address] [place], [address] Eosinophils/100 WBC (Bld) 0.7 % Normal 0-5 [facility] Comment on above: Performed By: #### L 501.4021, L500.2500, L100.0100 #### [facility] [address] [place], [address] Erythrocyte distribution width (RBC) [Ratio] 13.5 % Normal 11.6-14.6 [facility] Comment on above: Performed By: #### L 501.4021, L500.2500, L100.0100 #### [facility] [address] [place], [address] Hematocrit (Bld) [Volume fraction] 46.2 % Normal 40-54 [facility] Comment on above: Performed By: #### L 501.4021, L500.2500, L100.0100 #### [facility] [address] [place], [address] Hemoglobin (Bld) [Mass/Vol] 16.3 g/dL Normal 13.0-16.5 [facility] Comment on above: Performed By: #### L 501.4021, L500.2500, L100.0100 #### [facility] [address] [place], [address] IG% 0.500 Normal 0.0-0.9 [facility] Comment on above: Result Comment: IG% - Immature Granulocytes (promyelocytes, myelocytes and metamyelocytes) > 1% indicates that a LEFT SHIFT is Present. Performed By: #### L 501.4021, L500.2500, L100.0100 #### [facility] [address] [place], [address] Lymphocytes/100 WBC (Bld) 21.5 % Normal 19-41 [facility] Comment on above: Performed By: #### L 501.4021, L500.2500, L100.0100 #### [facility] [address] [place], [address] MCH (RBC) [Entitic mass] 32.1 pg High 27.0-32.0 [facility] Comment on above: Performed By: #### L 501.4021, L500.2500, L100.0100 #### [facility] [address] [place], [address] MCHC (RBC) [Mass/Vol] 35.3 g/dL Normal 32-36 [facility] Comment on above: Performed By: #### L 501.4021, L500.2500, L100.0100 #### [facility] [address] [place], [address] MCV (RBC) [Entitic vol] 91.1 fL Normal 80-94 [facility] Comment on above: Performed By: #### L 501.4021, L500.2500, L100.0100 #### [facility] [address] [place], [address] Monocytes/100 WBC (Bld) 9.5 % Normal 0-10 [facility] Comment on above: Performed By: #### L 501.4021, L500.2500, L100.0100 #### [facility] [address] [place], [address] Neutrophils/100 WBC (Bld) 67.2 % Normal 47-70 [facility] Comment on above: Performed By: #### L 501.4021, L500.2500, L100.0100 #### [facility] [address] [place], [address] Nucleated RBC (Bld) [#/Vol] 0 10*3/uL Normal 0-5 [facility] Comment on above: Performed By: #### L 501.4021, L500.2500, L100.0100 #### [facility] [address] [place], [address] Platelet mean volume (Bld) [Entitic vol] 10.1 fL Normal 6.2-12.0 [facility] Comment on above: Performed By: #### L 501.4021, L500.2500, L100.0100 #### [facility] [address] [place], [address] Platelets (Bld) [#/Vol] 258 10*3/uL Normal 150-450 [facility] Comment on above: Performed By: #### L 501.4021, L500.2500, L100.0100 #### [facility] [address] [place], [address] RBC (Bld) [#/Vol] 5.07 10*6/uL Normal 4.6-6.2 [facility] Comment on above: Performed By: #### L 501.4021, L500.2500, L100.0100 #### [facility] [address] [place], [address] RDW SD 44.8 fl High 35.1-43.9 [facility] Comment on above: Performed By: #### L 501.4021, L500.2500, L100.0100 #### [facility] [address] [place], [address] WBC (Bld) [#/Vol] 8.3 10*3/uL Normal 4.4-11.0 [facility] Comment on above: Performed By: #### L 501.4021, L500.2500, L100.0100 #### [facility] [address] [place], [address] Carbon dioxide, total [Moles /volume] in Central venous bloodOrdered By: Cruzito Bailey on 03-04-2025 CO2 [Moles/Vol] 23.7 mmol/L 21.0-32.0 [facility] Chest PA and Lateralon 03-04 Chest PA and Lateral [facility] [address] [place] [address] Chest PA and Lateral MR#: [id number] Acct: [id number] Name: GUS ESCALANTE Rep #: [id number] : 1970 M 54 From: Shan Reyna i, MD PCP: Care Physician,No Primary Status: REG ER Study: Chest PA and Lateral Date of Exam: 03/04/25 Exam# [id number] Ordering Dr: Cruzito Bailey MD PROCEDURE: CHEST [...] as per Fleischner society criteria. Reading Location: [id number] CC: Dr. Cruzito Bailey MD; No Primary Care Physician Estate Planner: Signed Normal [facility] Chloride assayOrdered By: Omer Bailey on 03-04-2025 Chloride [Moles/Vol] 100 mmol/L 98-108 [facility] Echo Completeon 03-04-2025 Echo Complete [facility] [address] [place] [address] Echo Complete 03/04/25 1516 MR#: [id number] Acct: [id number] Name: GUS ESCALANTE Rep #: [id number] : 1970 54 From: Hiro Melendez MD Attending Dr: Dr. Todd Alfonso, Status: ADM JEVON Ordering Dr: Todd Alfonso [...] By: Savannah Mccoy, EM, RVT 03/04/251826 Date Hiro Melendez MD CC: Dr. Todd Alfonso DO; No Primary Care Physician Date Dictated: 03/04/251515 Date Transcribed: 03/04/251826 Estate Planner: Signed Normal [facility] Echocardiogram study reportO rdered By: Hiro Melendez on 03-04-2025 Study report [facility] [address] [place] [address] Echo Complete 03/04/25 1516 MR#: [id number] Acct: [id number] Name: GUS ESCALANTE Rep #:[id number] : 1970 54 From: Hiro Torres Attending Dr: Dr. Todd Alfonso, DO Status: [...] Alfonso Referring Physician: NO PCP Performed By: Darius, Savannah, RDCS, RVT 03/04/251826 Date _ Hiro Melendez MD CC: Dr. Todd Alfonso, DO; No Primary Care Physician ~ Date Dictated: 03/04/25 1516 Date Transcribed: 03/04/251826 Estate Planner: Signed [facility] Work Phone: Emergency Department Summary on 03-04-2025 Emergency Department Summary [facility] Medical Records Department [address] [place] [address] Emergency Department Summary 03/04/25 MR#: [id number] Acct: [id number] Name: GUS ESCALANTE Rep #: [id number] : 1970 54 From: Cruzito Bailey MD [...] Prior similar symptoms: No Recent Illness/Hospitalization: No [facility] Medical History Epilepsy Home Medications ???Medication ???Instructions [...] all 4 extremities. 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 Dorsi plantarflexion intact. Normal strength. Normal sensation. Nontender. No edema. Back nontender. Neurologically is awake and alert. Answering questions and following commands. He is obvious slurred speech. However he is no facial droop. He has normal fingertip to nose. Normal vzjq-ap-rwuv. No drift. Normal rapid hand movements. NIH [...] or dimini (more content not included)... Normal [facility] Eosinophil percentageOrdered By: Cruzito Bailey on 03-04-2025 Eosinophils/100 WBC (Bld) 0.7 % 0-5 [facility] Erythrocyte distribution wid th (RBC) [Ratio]Ordered By: Cruzito Bailey on 03-04-2025 Erythrocyte distribution width (RBC) [Entitic vol] 44.8 fL High 35.1-43.9 [facility] Erythrocyte distribution wid th ratioOrdered By: Cruzito Bailey on 03-04-2025 Erythrocyte distribution width (RBC) [Ratio] 13.5 % 11.6-14.6 [facility] Erythrocyte distribution wid th standard deviationOrdered By: Cruzito Bailey on 03-04-2025 Erythrocyte distribution width (RBC) [Ratio] 44.8 fl High 35.1-43.9 [facility] Estimation of creatinine germán aranceOrdered By: Cruzito Bailey on 03-04-2025 Estimated Creatinine Clearance Calc 78.03 ml/min 50-250 [facility] GFR/1.73 sq M.predicted guillermina g non-blacks MDRD (S/P/Bld) [Vol rate/Area]Ordered By: Cruzito Bailey on 03-04-2025 Estimated GFR (MDRD) Non-Af Amer 89 >60 [facility] Comment on above: mL/min/1.73m2 CKD-EP I Creatinine Equation (2020) Glomerular filtration rate ( GFR) estimation/1.73 sq m using serum, plasma, or whole bOrdered By: Cruzito Bailey on 03-04-2025 GFR/1.73 sq M.predicted among non-blacks MDRD (S/P/Bld) [Vol rate/Area] 89 mL/min/{1.73_m2} >60 [facility] Comment on above: mL/min/1.73m2 CKD-EP I Creatinine Equation (2020) H AND P Exam - [facility] 03-04-2025 H&P Exam - Hospitalist [facility] Medical Records Department [address] [place] [address] H P Exam - Hospitalist 03/04/25 0845 MR#: [id number] Acct: [id number] Name: GUS ESCALANTE Rep #: [id number] : 1970 54 From: Todd Alfonso DO PCP: Care Physician,No Primary Status:REG ER Location: ED HPI - General General Date of Service: 03/04/25 Chief Complaint: slurred speech HPI Narrative GUS ESCALANTE, is a 54 M who presents [...] denies ever having had a stroke before. [facility] Medical History Epilepsy Home Medications ???Medication [...] 5-5 in upper and lower extremities bilaterally. Hpjhbm-zi-tjpa and qgls-pr-ianw within normal limits. Sensation grossly intact. Patient [...] % (Auto) 67.2, Lymph % (Auto) 21.5, [place] % (Auto) 9.5, Eos % (Auto) 0.7, [...] mass effect or midline shift. Reading Location: [id number] Head/Neck CTA 03/04/25 07:17 IMPRESSION: No large filling defects seen within the intracranial vessels. No evidence of thrombosis. No hemodynamically significant stenosis seen within the bilateral ICA. Reading Loc (more content not included)... Normal [facility] Hematocrit Auto (Bld) [Volum e fraction]Ordered By: Cruzito Bailey on 03-04-2025 Hematocrit (Bld) [Volume fraction] 46.2 % 40-54 [facility] Hemoglobin measurementOrdere d By: Cruzito Bailey on 03-04-2025 Hemoglobin (Bld) [Mass/Vol] 16.3 g/dL 13.0-16.5 [facility] Immature granulocytes/100 WB C Auto (Bld)Ordered By: Cruzito Bailey on 03-04-2025 Immature granulocytes/100 WBC (Bld) 0.500 % 0.0-0.9 [facility] Comment on above: IG% - Immature Granu locytes (promyelocytes, myelocytes and metamyelocytes) > 1% indicates that a LEFT SHIFT is Present. International normalized rat io (INR) calculationOrdered By: Cruzito Bailey on 03-04-2025 INR Coag (Bld) [Relative time] 1.0 {INR} [facility] L499.0042on 03-04-2025 Trop T High Sen 10 ng/L Normal <=22 [facility] Comment on above: Performed By: #### L 499.0042 #### [facility] [address] [place], [address] L499.0043on 03-04-2025 Trop T High Sen Normal <=22 [facility] Comment on above: Result Comment: REQU EST TO CANCEL PER ICU STAFF Performed By: #### L 501.4021, L500.2500, L100.0100 #### [facility] [address] [place], [address] L501.4021on 03-04-2025 Trop T High Sen 11 ng/L Normal <=22 [facility] Comment on above: Performed By: #### L 501.4021, L500.2500, L100.0100 #### [facility] [address] [place], [address] Lymphocytes Auto (Unsp spec) [#/Vol]Ordered By: Cruzito Bailey on 03-04-2025 Lymphocytes (Bld) [#/Vol] 1.79 10*3/uL 0.83-4.51 [facility] Lymphocytes/100 WBC Auto (Un sp spec)Ordered By: Cruzito Bailey on 03-04-2025 Lymphocytes/100 WBC (Bld) 21.5 % 19-41 [facility] MCV (mean corpuscular volume ) determinationOrdered By: Cruzito Bailey on 03-04-2025 MCV (RBC) [Entitic vol] 91.1 fL 80-94 [facility] MR/CON.PCM.NEon 03-04-2025 MR/CON.PCM.NE [facility] Medical Records Department [address] [place] [address] Consultation - Neurology 03/04/251744 MR#: [id number] Acct: [id number] Name: GUS ESCALANTE Rep #: [id number] : 1970 54 From: Clayton Ruby MD [...] as stroke clearly seen on CT head. 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 Goal BP < 130/80. Plan for 30 day radiation monitor on discharge to screen for atrial fibrillation. Follow up with neurologist as an outpatient. HPI Consult Data Date of Consult: 03/04/25 HPI Narrative HPI Narrative: GUS ESCALANTE, is a 54M w/ epilepsy, tobacco use, previously undiagnosed HTN. 03/02/25 acute dysarthria. CTH w/ L subcortical hypodensity c/w subacute infarct. CTA negative. BP 215/96 on admission. SBP is typically in the 180s at home. [facility] Medical History Epilepsy Home Medications ???Medication [...] EEG Results Procedure Details EEG Procedure Details: GUS ESCALANTE is a 54 year old M with a past medical history of , who presents for evaluation of Electroencephalogram on DATE at TIME NIHSS NIHSS Nursing Documentation NIHSS Nursing Documentation: NIHSS: Ischemic Stroke/TIA Start: 03/04/25 10:24 Text: For ICU Patients: NIH sroke scale at Status: Complete presentation and every 2 hours or with change in RN caregiver Freq: [id number] Protocol: Activity Type Activity Date Activity User E-sign Co-sign Detail Recorded Client Recorded Date Recorded By Document 03/04/25 11:50 [facility] desktop 03/04/25 11:51 [facility] 03/04/25 11:50 [facility] Stro (more content not included)... Normal [facility] Mean corpuscular hemoglobin (MCH) determinationOrdered By: Cruzito Bailey on 03-04-2025 MCH (RBC) [Entitic mass] 32.1 pg High 27.0-32.0 [facility] Mean corpuscular hemoglobin concentration (MCHC) determinationOrdered By: Cruzito Bailey on 03-04-2025 MCHC (RBC) [Mass/Vol] 35.3 g/dL 32-36 [facility] Mean platelet volume determi nationOrdered By: Cruzito Bailey on 03-04-2025 Platelet mean volume (Bld) [Entitic vol] 10.1 fL 6.2-12.0 [facility] Monocyte percentageOrdered B y: Cruzito Bailey on 03-04-2025 Monocytes/100 WBC (Bld) 9.5 % 0-10 [facility] Neutrophil percentageOrdered By: Cruzito Bailey on 03-04-2025 Neutrophils/100 WBC (Bld) 67.2 % 47-70 [facility] Nucleated red blood cell per centageOrdered By: Cruzito Bailey on 03-04-2025 Nucleated RBC/100 WBC (Bld) [Ratio] 0 % 0-5 [facility] Partial Thromboplast Timeon 03-04-2025 aPTT Coag (Bld) [Time] 26.0 s Normal 24.1-36.2 [facility] Comment on above: Performed By: #### L 501.4021, L500.2500, L100.0100 #### [facility] [address] [place], [address] Platelet countOrdered By: Omer Bailey on 03-04-2025 Platelets (Bld) [#/Vol] 258 10*3/uL 150-450 [facility] Potassium (Unsp spec) [Mass/ Vol]Ordered By: Cruzito Bailey on 03-04-2025 Potassium [Moles/Vol] 4.1 mmol/L 3.3-5.1 [facility] Potassium measurement (mass/ volume)Ordered By: Cruzito Bailey on 03-04-2025 Potassium (Unsp spec) [Mass/Vol] 4.1 mmol/L 3.3-5.1 [facility] Prothrombin Time w/INRon INR Coag (PPP) [Relative time] 1.0 {INR} Normal [facility] Comment on above: Performed By: #### L 501.4021, L500.2500, L100.0100 #### [facility] [address] [place], [address] PT Coag (PPP) [Time] 13.6 s Normal 11.7-14.9 [facility] Comment on above: Performed By: #### L 501.4021, L500.2500, L100.0100 #### [facility] [address] [place], [address] Prothrombin timeOrdered By: Cruzito Bailey on 03-04-2025 PT Coag (PPP) [Time] 13.6 s 11.7-14.9 [facility] RBC Auto (Bld) [#/Vol]Ordere d By: Cruzito Bailey on 03-04-2025 RBC (Bld) [#/Vol] 5.07 10*6/uL 4.6-6.2 [facility] STROKE Brain/Head without Co nton 03-04-2025 STROKE Brain/Head without Cont [facility] Imaging Services [address] [place] [address] STROKE Brain/Head without Cont MR#: [id number] Acct: [id number] Name: GUS ESCALANTE Rep #: [id number] : 1970 M 54 From: Shan Reyna i, MD PCP: Care Physician,No Primary Status: REG ER Study: STROKE Brain/Head without Cont Date of Exam: 0 03/04/25 Exam# [id number] Ordering Dr: Cruzito Bailey MD PROCEDURE: STROKE [...] mass effect or midline shift. Reading Location: [id number] CC: Dr. Cruzito Bailey MD; No Primary Care Physician Estate Planner: Signed Normal [facility] STROKE CTA Head AND Neck W/C onon 03-04-2025 STROKE CTA Head AND Neck W/Con [facility] Imaging Services [address] [place] [address] STROKE CTA Head AND Neck W/Con MR#: [id number] Acct: [id number] Name: GUS ESCALANTE Rep #: [id number] : 1970 M 54 From: Shan Reyna i, MD PCP: Care Physician,No Primary Status: REG ER Study: STROKE CTA Head AND Neck W/Con Date of Exam: 0 03/04/25 Exam# [id number] Ordering Dr: Cruzito Bailey MD PROCEDURE: STROKE [...] seen within the bilateral ICA. Reading Location: [id number] CC: Dr. Cruzito Bailey MD; No Primary Care Physician Estate Planner: Signed Normal [facility] Serum creatinine measurement (mass/volume)Ordered By: Cruzito Bailey on 03-04-2025 Creatinine [Mass/Vol] 1.00 mg/dL 0.70-1.20 [facility] Serum glucose measurement (m ass/volume)Ordered By: Cruzito Bailey on 03-04-2025 Glucose [Mass/Vol] 110 mg/dL High 70-99 [facility] Serum or plasma calcium rachelle urement (mass/volume)Ordered By: Cruzito Bailey on 03-04-2025 Calcium [Mass/Vol] 9.2 mg/dL 7.6-11.0 [facility] Serum or plasma urea nitroge n measurement (mass/volume)Ordered By: Cruzito Bailey on 03-04-2025 Urea nitrogen [Mass/Vol] 12 mg/dL 4-19 [facility] Sodium levelOrdered By: Cruzito Bailey on 03-04-2025 Sodium [Moles/Vol] 136 mmol/L 133-145 [facility] Troponin T.cardiac High sens itivity method [Mass/Vol]Ordered By: Cruzito Bailey on 03-04-2025 Troponin T High Sensitivity 2 Hour 10 ng/L <22 [facility] Troponin T High Sensitivity 11 ng/L <22 [facility] Troponin T.cardiac [Mass/vol ume] in Serum or Plasma by High sensitivity methodOrdered By: Cruzito Bailey on 03-04-2025 Troponin T.cardiac High sensitivity method [Mass/Vol] 10 ng/L <22 [facility] Troponin T.cardiac High sensitivity method [Mass/Vol] 11 ng/L <22 [facility] White blood cell (WBC) count Ordered By: Cruzito Bailey on 03-04-2025 WBC (Bld) [#/Vol] 8.3 10*3/uL 4.4-11.0 [facility] aPTT Coag (PPP) [Time]Ordere d By: Cruzito Bailey on 03-04-2025 aPTT Coag (Bld) [Time] 26.0 s 24.1-36.2 [facility] Vital Signs Date Time Vital Sign Value Performing Clinician Facility 08-07-2025 11:45-0400 Body height 170.2 cm Leena Snyder SCRAPER LOADER OPERATOR.TEXTILE COLORIST FORMULATOR Work Phone: [facility] 08-07-2025 11:45-0400 Body mass index (BMI) [Ratio] 26.63 kg/m2 Leena Barretoir SCRAPER LOADER OPERATOR.TEXTILE COLORIST FORMULATOR Work Phone: [facility] 08-07-2025 11:45-0400 Body temperature 98.01 [degF] Leena Georgi SCRAPER LOADER OPERATOR.TEXTILE COLORIST FORMULATOR Work Phone: [facility] 08-07-2025 11:45-0400 Body weight 77.11 kg Leena Barretoir SCRAPER LOADER OPERATOR.TEXTILE COLORIST FORMULATOR Work Phone: [facility] 08-07-2025 11:45-0400 Diastolic blood pressure 68 mm[Hg] Leena Georgi SCRAPER LOADER OPERATOR.TEXTILE COLORIST FORMULATOR Work Phone: [facility] 08-07-2025 11:45-0400 Heart rate 80 /min Leena Braretoir SCRAPER LOADER OPERATOR.TEXTILE COLORIST FORMULATOR Work Phone: [facility] 08-07-2025 11:45-0400 SaO2% (BldA) [Mass fraction] 98 % Leena Georgi SCRAPER LOADER OPERATOR.TEXTILE COLORIST FORMULATOR Work Phone: [facility] 08-07-2025 11:45-0400 Systolic blood pressure 132 mm[Hg] Leena Georgi SCRAPER LOADER OPERATOR.TEXTILE COLORIST FORMULATOR Work Phone: [facility] 06-30-2025 12:57-0400 Body height 170.18 cm No Primary Care Physician [facility] 06-30-2025 12:57-0400 Body mass index (BMI) [Ratio] 26.7 kg/m2 No Primary Care Physician [facility] 06-30-2025 12:57-0400 Body temperature 98.6 [degF] No Primary Care Physician [facility] 06-30-2025 12:57-0400 Body weight 77.56 kg No Primary Care Physician [facility] 06-30-2025 12:57-0400 Diastolic blood pressure 85 mm[Hg] No Primary Care Physician [facility] 06-30-2025 12:57-0400 Heart rate 75 /min No Primary Care Physician [facility] 06-30-2025 12:57-0400 Respiratory rate 16 /min No Primary Care Physician [facility] 06-30-2025 12:57-0400 SaO2% (BldA) [Mass fraction] 95 % No Primary Care Physician [facility] 06-30-2025 12:57-0400 Systolic blood pressure 151 mm[Hg] No Primary Care Physician [facility] 04-10-2025 10:00-0400 Diastolic blood pressure 81 mm[Hg] No Primary Care Physician [facility] 04-10-2025 10:00-0400 Heart rate 73 /min No Primary Care Physician [facility] 04-10-2025 10:00-0400 Respiratory rate 14 /min No Primary Care Physician [facility] 04-10-2025 10:00-0400 SaO2% (BldA) [Mass fraction] 98 % No Primary Care Physician [facility] 04-10-2025 10:00-0400 Systolic blood pressure 101 mm[Hg] No Primary Care Physician [facility] 04-10-2025 07:28-0400 Body height 170.18 cm No Primary Care Physician [facility] 04-10-2025 07:28-0400 Body mass index (BMI) [Ratio] 26.4 kg/m2 No Primary Care Physician [facility] 04-10-2025 07:28-0400 Body temperature 97.6 [degF] No Primary Care Physician [facility] 04-10-2025 07:28-0400 Body weight 76.5 kg No Primary Care Physician [facility] 03-19-2025 10:47-0400 Body mass index (BMI) [Ratio] 26.3 kg/m2 No Primary Care Physician [facility] 03-19-2025 10:47-0400 Body temperature 98.6 [degF] No Primary Care Physician [facility] 03-19-2025 10:47-0400 Body weight 76.2 kg No Primary Care Physician [facility] 03-19-2025 10:47-0400 Diastolic blood pressure 78 mm[Hg] No Primary Care Physician [facility] 03-19-2025 10:47-0400 Heart rate 76 /min No Primary Care Physician [facility] 03-19-2025 10:47-0400 Respiratory rate 16 /min No Primary Care Physician [facility] 03-19-2025 10:47-0400 SaO2% (BldA) [Mass fraction] 97 % No Primary Care Physician [facility] 03-19-2025 10:47-0400 Systolic blood pressure 136 mm[Hg] No Primary Care Physician [facility] 03-05-2025 13:28-0400 Body temperature 97.8 [degF] No Primary Care Physician [facility] 03-05-2025 13:28-0400 Diastolic blood pressure 86 mm[Hg] No Primary Care Physician [facility] 03-05-2025 13:28-0400 Heart rate 51 /min No Primary Care Physician [facility] 03-05-2025 13:28-0400 Respiratory rate 15 /min No Primary Care Physician [facility] 03-05-2025 13:28-0400 SaO2% (BldA) [Mass fraction] 98 % No Primary Care Physician [facility] 03-05-2025 13:28-0400 Systolic blood pressure 173 mm[Hg] No Primary Care Physician [facility] 03-05-2025 07:17-0400 Body mass index (BMI) [Ratio] 26.1 kg/m2 No Primary Care Physician [facility] 03-04-2025 14:12-0400 Body height 170.18 cm No Primary Care Physician [facility] 03-04-2025 14:12-0400 Body weight 75.56 kg No Primary Care Physician [facility] 03-04-2025 10:00-0400 Diastolic blood pressure 61 mm[Hg] No Primary Care Physician [facility] 03-04-2025 10:00-0400 Heart rate 50 /min No Primary Care Physician [facility] 03-04-2025 10:00-0400 Respiratory rate 14 /min No Primary Care Physician [facility] 03-04-2025 10:00-0400 SaO2% (BldA) [Mass fraction] 99 % No Primary Care Physician [facility] 03-04-2025 10:00-0400 Systolic blood pressure 183 mm[Hg] No Primary Care Physician [facility] 03-04-2025 09:46-0400 Body temperature 98.7 [degF] No Primary Care Physician [facility] 03-04-2025 07:07-0400 Body height 170.18 cm No Primary Care Physician [facility] 03-04-2025 07:07-0400 Body mass index (BMI) [Ratio] 27.1 kg/m2 No Primary Care Physician [facility] 03-04-2025 07:07-0400 Body weight 78.8 kg No Primary Care Physician [facility] Encounters Encounter Date Encounter Type Care Provider Facility Start: 10-16-2025 ambulatory Pramod Friend Facility :[facility] Start: 09-25-2025 ambulatory Dianne Mcknight Facility :[facility] Start: 09-18-2025 End: 09-18-2025 ambulatory Celia Miketerry Facility:[facility] Start: 08-10-2025 End: 08-10-2025 Telephone encounter Leena Snyder APRN.TEXTILE COLORIST FORMULATOR Work Phone: [address] [place] [address] Comment on above: Patient Question Start: 08-07-2025 End: 08-07-2025 ambulatory LEENA SNYDER Facility:[facility] Start: 08-07-2025 End: 08-07-2025 Patient encounter procedure Leena Snyder APRN.CNP Work Phone: General Surgery Comment on above: Positive occult stoo l blood test (Primary Dx); Melena Start: 07-25-2025 End: 07-25-2025 ambulatory No Primary Care Physician -Laboratory Specimen Start: 07-25-2025 End: 07-25-2025 Patient encounter procedure Dianne Mcknight [employer] -Laboratory Specimen Work Phone: Start: 07-25-2025 End: 07-25-2025 ambulatory [facility] Facility:[facility] Start: 07-21-2025 End: 07-21-2025 ambulatory No Primary Care Physician -Laboratory Yudy Madrigal Start: 07-21-2025 End: 07-21-2025 Patient encounter procedure Dianne Mcknight [employer] -Laboratory Yudy Madrigal Start: 07-21-2025 End: 07-21-2025 ambulatory [facility] Facility:[facility] Start: 06-30-2025 End: 06-30-[address] Dariel George MD -[facility] Work Phone: Start: 06-30-2025 End: 06-30-2025 ambulatory No Primary Care Physician -[facility] Start: 05-05-2025 End: 05-05-2025 ambulatory No Primary Care Physician [facility] Work Phone: Start: 05-05-2025 End: 05-05-2025 Patient encounter procedure Keyanna Walton [employer] -MRI - [facility] Work Phone: Start: 05-05-2025 End: 05-05-2025 ambulatory Keyanna Walton Facility:[facility] Start: 04-30-2025 End: 04-30-2025 ambulatory No Primary Care Physician [facility] Work Phone: Start: 04-30-2025 End: 04-30-2025 Patient encounter procedure Dianne Mcknight [employer] -Laboratory Yudy Madrigal Start: 04-30-2025 End: 04-30-2025 ambulatory [facility] Facility:[facility] Start: 04-10-2025 End: 04-10-2025 Emergency department patient visit No Primary Care Physician -Emergency Department Work Phone: Start: 04-10-2025 End: 04-10-2025 ambulatory No Primary Care Physician [facility] Work Phone: Start: 04-10-2025 End: 04-10-2025 Patient encounter procedure Keyanna GRANADOS -Pulmonary Services/Neurology Work Phone: Start: 04-10-2025 End: 04-10-2025 ambulatory No Primary Care Physician Facility:[facility] Start: 03-27-2025 Non-patient / Non-visit Dr. Jd yang MD -[facility] Work Phone: Start: 03-27-2025 ambulatory Jd Porter Facility:[facility] Start: 03-27-2025 Registered Referred Keyanna Berrios -Cardiovascular Services Work Phone: Start: 03-23-2025 End: 03-23-2025 Patient encounter procedure Keyanna GRANADOS -Laboratory [place] Work Phone: Start: 03-23-2025 End: 03-23-2025 ambulatory No Primary Care Physician Facility:[facility] Start: 03-20-2025 End: 03-20-[address] Todd Alfonso DO -Speech Therapy Work Phone: Start: 03-20-[address] Todd Hale i DO -Speech Therapy Work Phone: Start: 03-20-2025 End: 03-20-2025 ambulatory No Primary Care Physician -Speech Therapy Start: 03-19-2025 End: 03-19-2025 Patient encounter procedure Keyanna GRANADOS -[facility] Work Phone: Start: 03-19-2025 End: 03-19-2025 ambulatory No Primary Care Physician Facility:[facility] Start: 03-05-2025 Non-patient / Non-visit Dr. Todd casey DO -[facility] Work Phone: Start: 03-04-2025 ambulatory No Primary Car e Physician Facility:[facility] Start: 03-04-2025 Non-patient / Non-visit Dr. Wilmar DUNHAM -[facility] Start: 03-04-2025 Non-patient / Non-visit Dr. Todd casey DO -[facility] Work Phone: Start: 03-04-2025 End: 03-05-2025 ambulatory Preston Ibarra Facility:[facility] Start: 03-04-2025 End: 03-05-2025 Evaluation and management of inpatient Dr. Todd Alfonso DO -Intensive Care Unit Work Phone: Start: 03-04-2025 End: 03-05-2025 observation encounter No Primary Care Physician [facility] Work Phone: Procedures Date Procedure Procedure Detail Performing Clinician Start: 07-25-2025 Measurement of occult blood in stool specimen using immunoassay No Primary Care Physician Start: 07-21-2025 Total iron binding capacity measurement No Primary Care Physician Start: 05-05-2025 MRI of brain with contrast No Primary Ca re Physician Start: 05-05-2025 X-ray for foreign body of both orbits No Primary Care Physician Start: 04-10-2025 Estimated creatinine clearance No Primar y Care Physician Start: 03-23-2025 SEPIDEH measurement No Primary Care Physician Comment on above: Performed at: [facility] [address] [id number] Director: Edwardo Lopez PhD, Phone: [phone] Start: 03-23-2025 Antibody to extractable nuclear antigen [...] Care Physician Comment on above: Result: c.1601G>A (p.Fri221Xfw) - Not De tectedThis result is not associated with an increased risk for venousthromboembolism. See Additional Clinical Information andComments.Additional Clinical Information:Venous thromboembolism is a multifactorial diseaseinfluenced by genetic, environmental, and circumstantialrisk factors. The c.1601G>A (p. [id number]) variant in theF5 gene, commonly referred to [...] F2 c.*97G>Avariant and Factor V Leiden (PMID: 20451531). Additionalrisk factors include but are not limited [...] for health careproviders to discuss results at [phone] ([phone]).Test Details:Variant Analyzed: c.1601G>A (p. Jzh147Xzo), referred toas Factor V LeidenMethods/Limitations:DNA analysis of [...] was developed and its performance characteristicsdetermined by [facility]. It has not been cleared orapproved by the Food and Drug Administration.References:Alen Brannon, Janice CASTILLO, Jesus R, Zelda WW, Thee JH; ACMGProfessional Practice and Guidelines Committee. Addendum:[employer] consensus statement onfactor V Leiden mutation testing. Yessica Med. 2020Jan 28.doi: 10.1038/g59943-887-84181-q. PMID: 57216675.Mickey SIDHU. Factor V Leiden Thrombophilia. 1998April 08(Updated 2017Nov 29). In: Jose D MP, Jaquelin HH, Miri RA,et al., editors. Faustino(R) (Internet). [place] ([place]):[facility]; 1738-5689. Availablefrom: https://www.ncbi.nlm.nih.gov/books/HYB4898/Krishna Brannon, Janice CASTILLO, Mannie X, Ernesto B, Stephanie EB, Isabel P,Javi CS; ACMG Laboratory Education Sales Consultant Committee.Venous thromboembolism laboratory testing (factor V Leidenand factor II c.*97G>A), 2018 update: a technical standardof the [employer] and Genomics(ACMG). Yessica Med. 2018 Oct;20(12):8423-4813. doi:10.1038/u94687-905-6141-c. Epub 2017Aug 30. PMID: 28525756. Start: 03-23-2025 Folic acid measurement, RBC No [...] time No Primary Care Physician Start: 03-23-2025 UNIT CONTROL CLERK antibody measurement No Primary Care Physician Comment [...] without contrast No Primary C are Physician Start: 06-14-2005 Lipid 1996 panel - Serum or Plasma Fito Snyder APRN.TEXTILE COLORIST FORMULATOR Work Phone: Plan of Treatment Date Care Activity Detail Author Start: 07-27-2025 Influenza vaccination Influenza Vaccine (#1) [facility] Start: 05-05-2025 MR Brain WO and W contrast IV [facility] Start: 05-05-2025 MRI of brain with contrast Brain W/WO Contrast [facility] Start: 04-10-2025 [facility] Start: 04-10-2025 [facility] Start: 04-10-2025 Sleep electroencephalogram in sleep-deprived patient [facility] Start: 03-05-2025 Patient discharge [facility] Start: 03-04-2025 Following clinical pathway protocol [facility] Start: 03-04-2025 Ambulation without limitation [facility] Start: 03-04-2025 Assessment of risk of venous thromboembolism [facility] Start: 03-04-2025 Cardiac monitoring [facility] Start: 03-04-2025 Catheterization of vein [facility] Start: 03-04-2025 Consultation [facility] Start: 03-04-2025 Continuous pulse oximetry [facility] Start: 03-04-2025 Elevation of head of bed [facility] Start: 03-04-2025 Exercises [facility] Start: 03-04-2025 Insertion of catheter into peripheral vein [facility] Start: 03-04-2025 Measuring intake and output [facility] Start: 03-04-2025 Notification of physician [facility] Start: 03-04-2025 Oxygen therapy [facility] Start: 03-04-2025 Patient referral to dietitian [facility] Start: 03-04-2025 Providing care according to standard [facility] Start: 03-04-2025 Referral to occupational therapist [facility] Start: 03-04-2025 Referral to service [facility] Start: 03-04-2025 Speech therapy assessment [facility] Start: 03-04-2025 Telemedicine consultation with patient [facility] Start: 03-04-2025 Tobacco use cessation education [facility] Start: 03-04-2025 Vital signs measurements [facility] Start: 03-04-2025 End: 03-04-2025 [facility] Start: 03-04-2025 Verification routine [facility] Start: 03-04-2025 Admission procedure [facility] Start: 03-04-2025 Hospital admission, emergency, from emergency room, medical nature [facility] Start: 03-04-2025 Oxygen therapy [facility] Start: 03-04-2025 End: 03-04-2025 [facility] Start: 2019 Shingrix Vaccine (1 of 2) Shingrix Vaccine (1 of 2) [facility] Start: 06-14-2015 Urine microalbumin profile DTaP,Tdap,Td Vaccine (2 - Tdap) [facility] Start: 2014 Diabetes Screening Diabetes Screening [facility] Start: 2014 Prostate specific antigen measurement Prostate Cancer Screening Discussion [facility] Start: 2014 Screening for malignant neoplasm of colon [facility] Start: 06-14-2010 Lipid panel Lipid Screening [facility] Start: 1988 Hepatitis B Vaccine (1 of 3 - 19+ 3-dose series) Hepatitis B Vaccine (1 of 3 - 19+ 3-dose series) [facility] Start: 1988 Pneumococcal Vaccine: 50+ (1 of 2 - PCV) Pneumococcal Vaccine: 50+ (1 of 2 - PCV) [facility] Start: 1987 Anxiety Screening Anxiety Screening [facility] Start: 1987 Depression Screening Depression Screening [facility] Start: 1987 Hepatitis C screening Hepatitis C Screening [facility] Start: 1987 HIV screening HIV Screening [facility] MR Brain WO and W contrast IV [facility] Patient Education Hyponatremia D c ED Fainting, Uncertain Cause [facility] Work Phone: Patient referral [facility] Work Phone: Troponin T.cardiac [Mass/volume] in Serum or Plasma by High sensitivity method [facility] Troponin T.cardiac [Mass/volume] in Serum or Plasma by High sensitivity method [facility] Vitamin B6 measurement [facility] XR Orbit - bilateral Views for foreign body [facility] Immunizations Immunization Date Immunization Notes Care Provider Annie bundy 06-14-2005 diphtheria and tetan us toxoids, adsorbed for pediatric use Leena Snyder APRN.CNP Work Phone: [facility] Payers Date Payer Category Payer Self-pay 2022 [employer] Blue [employer] BLUE CARD PPO OOS [id number] 2022 Unknown [id number] Unknown [id number] 9.2.462 Unknown [id number] [id number] 9.2.462 Unknown [id number] [id number] 9.2.462 Unknown [id number] [id number] 9.2.462 Unknown [id number] [id number] 9.2.462 Unknown [id number] [id number] 9.2.462 Unknown [id number] 2.16.840.1.261756.3.57 9.2.462 Unknown [id number] 2.16.840.1.129201.3.57 9.2.462 Unknown [id number] 2.16.840.1.282660.3.57 9.2.462 Unknown [id number] 2.16.840.1.044285.3.57 9.2.462 Unknown [id number] 2.16.840.1.741541.3.57 9.2.462 Unknown [id number] 2.16.840.1.478313.3.57 9.2.462 Unknown [id number] 2.16.840.1.038122.3.57 9.2.462 Unknown [id number] 2.16.840.1.842193.3.57 9.2.462 Unknown [id number] 2.16.840.1.308141.3.57 9.2.462 Unknown [id number] 2.16.840.1.909306.3.57 9.2.462 Unknown [id number] 2.16.840.1.170987.3.57 9.2.462 Unknown [id number] 2.16.840.1.530806.3.57 9.2.462 Unknown [id number] [id number] 9.2.462 Social History Date Type Detail Facility Start: 03-04-2025 Tobacco smoking stat us AKIS Current Heavy tobacco smoker [facility] Start: 03-04-2025 End: 03-05-2025 Sex Male (finding) [facility] Start: 1970 Sex Assigned At Male [facility] Start: 03-05-2025 End: 08-07-2025 Tobacco smoking status AKIS Smokes tobacco daily (finding) [facility] Start: 03-05-2025 Cigarettes Cigarettes [facility] History of tobacco use Cigarette Smoker [facility] Start: 08-07-2025 Cigarettes smoked current (pack per day) - Reported 0.8 [facility] Start: 08-07-2025 Tobacco use and exposure Smokeless tobacco non-user [facility] Start: 08-07-2025 Alcoholic beverage intake Current drinker of alcohol (finding) [facility] Start: 08-07-2025 Tobacco use panel [facility] Start: 10-27-2012 National Score (1-10 0), lower number is lower risk 99 [facility] Start: 08-07-2025 Gender identity Identifies as male gender (finding) [facility] Start: 08-07-2025 Sexual orientation Heterosexual (fin william) [facility] Goals Date Patient Goal Desired Activity /State Functional Status Date Assessment Result Facility 03-05-2025 Functional status Ambulates [facility] Work Phone: Mental Status Date Assessment Result Facility 04-10-2025 Cognitive function Level Of Consciousness Awake [facility] Work Phone: 03-05-2025 Cognitive function Voice/Name [facility] Work Phone: 03-04-2025 Cognitive function Voice/Name [facility] Work Phone: Clinical Notes 03-04-2025 to 08-10-2025 Telephone Encounter - Dolly Fuentes RN - 08/10/2025 9:39 AM EDTTelephone Encounter - Dolly Fuentes RN - 08/10/2025 9:39 AM EDTTelephone Encounter - Do Del Cid - 08/10/2025 9:06 AM EDT Note Date & Type Note Facility 08-10-2025 Telephone encount er Note Referral faxed to [facility] to Dr. Rosanne shah to contact patient to schedule.Dolly Fuentes RN [facility] 08-10-2025 Miscellaneous Notes Formattin g of this note might be different from the original. Referral faxed to [facility] to Dr. Friend's ofice to contact patient to schedule.Dolly Fuentes, RN Pt asking for referral for Colonoscopy to be sent to [facility]. Pt wishes to have done there. Please advise, thank you documented in this encounter [facility] 08-10-2025 Telephone encount er Note Pt asking for referral for Colonoscopy to be sent to [facility]. Pt wishes to have done there. Please advise, thank you [facility] 08-07-2025 History of Presen t illness Narrative HISTORY AND PHYSICAL Gus Torres [facility] : 1970 REFERRING PHYSICIAN: No referring provider defined for this encounter. CHIEF COMPLAINT: Patient presents with: Consult HPI: Gus is a 54 year old male referred for endoscopy. Gus notes +iFOBT Gus denies abdominal pain.. Gus denies diarrhea. Gus denies constipation. Gus denies a change in bowel habits. Gus notes melena. Gus denies bright red blood per rectum. Gus denies hemorrhoids. Gus denies family history of colon issues. Gus denies heartburn. Gus denies dysphagia. Gus denies a history of ulcers/ peptic ulcer disease. 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 While admitted ECHO was completed. EF: 60%- negative bubble study. Gus follows with [facility] for hx of epilepsy as a child, ischemic stroke & slurred speech. EEG was completed which was normal. Marijuana use nightly to control seizures. Gus has not undergone prior endoscopy. Current Outpatient Medications Medication Sig lisinopril (ZESTRIL) 10 mg tablet Take 1 tablet by mouth once daily. atorvastatin (LIPITOR) 80 mg tablet Take 1 tablet by mouth once daily. amLODIPine (NORVASC) 10 mg tablet Take 1 tablet by mouth once daily. No current facility-administered medications for this visit. ALLERGIES: Patient has no known allergies. PAST MEDICAL HISTORY Diagnosis Date Epilepsy (HCC) Mild anemia Stroke (cerebrum) (HCC) 02/2025 PAST SURGICAL HISTORY Procedure Laterality Date BIOPSY OF PENIS calcium build up FAMILY HISTORY Problem Relation Age of Onset Cancer Mother No Known Problems Brother No Known Problems Brother SOCIAL HISTORY[1] REVIEW OF SYMPTOMS: REVIEW OF SYSTEMS: General: The patient denies fatigue, denies weight loss, denies weight gain, denies feeling hot, and feelings of cold. Eyes: The patient denies glaucoma, denies eye injury/surgery, denies glasses or contacts. Ear/Nose/Throat: The patient denies allergies, denies hayfever, denies ear infections, and denies bloody noses. Cardiovascular: The patient denies chest pain, denies heart disease, + high blood pressure, denies high cholesterol, and denies poor circulation. Respiratory: The patient denies tuberculosis, denies pneumonia, denies frequent cough, denies shortness of breath, and denies coughing up blood. Gastrointestinal: The patient denies difficulty swallowing, denies acid reflux, denies ulcers, denies jaundice/hepatitis, denies gallbladder problems, denies vomiting, denies black or tarry stools, denies hemorrhoids, denies bleeding from rectum, denies diverticulitis, denies constipation, denies diarrhea, denies loss of stool control, and denies hernias. Kidney/Bladder: The patient denies kidney stones, denies urine infections, and denies bloody urine. Skin: The patient denies a history of skin cancer, denies bleeding/changing moles, and denies a history of skin rash. Neurologic: The patient denies a history of epilepsy/convulsions, denies headaches, denies head/spinal injuries, and denies stroke/TIA. Psychiatric: The patient denies psychiatric medications, denies depression, and denies voices. Endocrine: The patient denies thyroid disorders, denies diabetes, and denies hormonal problems. Hematologic: The patient denies a history of bruising, denies bleeding, and denies anemia. Infections: The patient denies a history of measles and mumps, denies rheumatic fever, and denies sexually transmitted diseases. Musculoskeletal: The patient denies back pain/injury, denies back problems, denies sciatica, denies knee/foot trouble, denies arthritis, or denies gout. PHYSICAL EXAMINATION: General: The patient is 54 year old, male well nourished, well hydrated in no acute distress. The patient is oriented to time, place, and person. VITALS: Blood pressure 132/68, pulse 80, temperature 36.7 C (98 F), temperature source Temporal, height 170.2 cm (5' 7), weight 77.1 kg (170 lb), SpO2 98%. Body mass index is 26.63 kg/m . HEENT: Normal cephalic, ataumatic, pupils are equally round, sclera are anicteric, mucous membranes are moist, oropharynx is clear. Neck has no masses or asymmetry . Respiratory: Clear to auscultation. Cardiac: Regular rate and rhythm. Abdominal exam: Soft, nontender, with no palpable masses. No hepatosplenomegaly. No palpable hernias. Extremities: no clubbing or cyanosis LABORATORY VALUES: As Noted RADIOLOGIC STUDIES: As Noted Assessment IMPRESSION: +iFOBT, melena PLAN: I have reviewed my findings with the surgeon. Will plan for upper and lower endoscopy. We discussed the risks and benefits of the planned endoscopy in terms understandable to the patient. I have informed the patient that complications can occur including failure to complete the endoscopy and perforation. Gus had the opportunity to ask questions concerning the planned endoscopy. Gus freely consents to surgery. Discussed the risk of under sedation d/t marijuana and alcohol use and recommendation for MAC. Pt does not want to travel to have this complete. We discussed sending referral to [facility] with Dr. Prince. He is going to talk to his over the weekend & let me know. I plan to use Golytely bowel preparation I have explained to the patient the difference between IV conscious sedation and MAC anesthesia - and I have offered either, according to the patient's wishes. I have explained that with IV conscious sedation there is no anesthesia provider available and therefore there is a limitation of the amount of IV medications that can be given and that the patient may wake up in the middle of the procedure and/or experience pain/discomfort during the procedure. Further discussion was done and the patient was given the opportunity to ask questions and all questions were answered. MAC anesthesia. Gus was counseled that if there are changes in his/her medical condition, to let the office know if surgery should proceed. If there are changes in patient's medical condition from time of this encounter to the day of the procedure that preclude anesthesia, patient may have procedure cancelled for patient's safety. Diagnoses: (R19.5) Positive occult stool blood test (primary encounter diagnosis) (K92.1) Melena Portions of this documentation were copied and pasted from previous office visit notes in order to provide a cohesive continuity of the history. The note has been reviewed and edited and updated as necessary. Leena Snyder APRN.DWAYNE [1] Social History Tobacco Use Smoking status: Every Day Current packs/day: 0.75 Average packs/day: 0.8 packs/day for 19.0 years (14.3 ttl pk-yrs) Types: Cigarettes Smokeless tobacco: Never Vaping Use Vaping status: Never Used Substance Use Topics Alcohol use: Yes Comment: average 6 pack per day Drug use: Yes Types: Marijuana Comment: OCCASIONAL MARIJUANA Smokes documented in this encounter [facility] 08-07-2025 Note HNO ID: [id number] Author: LEENA SNYDER APRN.CNP Service: ? Author Type: Nurse Practitioner Type: Progress Notes Filed: 08/07/2025 13:58 Note Text: HISTORY AND PHYSICAL Gus Melissa [facility] : 1970 REFERRING PHYSICIAN: No referring provider defined for this encounter. CHIEF COMPLAINT: Patient presents with: Consult HPI: Gus is a 54 year old male referred for endoscopy. Gus notes +iFOBT Gus denies abdominal pain.. Gus denies diarrhea. Gus denies constipation. Gus denies a change in bowel habits. Gus notes melena. Gus denies bright red blood per rectum. Gus denies hemorrhoids. Gus denies family history of colon issues. Gus denies heartburn. Gus denies dysphagia. Gus denies a history of ulcers/ peptic ulcer disease. 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 While admitted ECHO was completed. EF: 60%- negative bubble study. Gus follows with [facility] for hx of epilepsy as a child, ischemic stroke AND slurred speech. EEG was completed which was normal. Marijuana use nightly to control seizures. Gus has not undergone prior endoscopy. Current Outpatient Medications Medication Sig lisinopril (ZESTRIL) 10 mg tablet Take 1 tablet by mouth once daily. atorvastatin (LIPITOR) 80 mg tablet Take 1 tablet by mouth once daily. amLODIPine (NORVASC) 10 mg tablet Take 1 tablet by mouth once daily. No current facility-administered medications for this visit. ALLERGIES: Patient has no known allergies. PAST MEDICAL HISTORY Diagnosis Date Epilepsy (HCC) Mild anemia Stroke (cerebrum) ([facility]) 02/2025 PAST SURGICAL HISTORY Procedure Laterality Date BIOPSY OF PENIS calcium build up FAMILY HISTORY Problem Relation Age of Onset Cancer Mother No Known Problems Brother No Known Problems Brother SOCIAL HISTORY[1] REVIEW OF SYMPTOMS: REVIEW OF SYSTEMS: General: The patient denies fatigue, denies weight loss, denies weight gain, denies feeling hot, and feelings of cold. Eyes: The patient denies glaucoma, denies eye injury/surgery, denies glasses or contacts. Ear/Nose/Throat: The patient denies allergies, denies hayfever, denies ear infections, and denies bloody noses. Cardiovascular: The patient denies chest pain, denies heart disease, + high blood pressure, denies high cholesterol, and denies poor circulation. Respiratory: The patient denies tuberculosis, denies pneumonia, denies frequent cough, denies shortness of breath, and denies coughing up blood. Gastrointestinal: The patient denies difficulty swallowing, denies acid reflux, denies ulcers, denies jaundice/hepatitis, denies gallbladder problems, denies vomiting, denies black or tarry stools, denies hemorrhoids, denies bleeding from rectum, denies diverticulitis, denies constipation, denies diarrhea, denies loss of stool control, and denies hernias. Kidney/Bladder: The patient denies kidney stones, denies urine infections, and denies bloody urine. Skin: The patient denies a history of skin cancer, denies bleeding/changing moles, and denies a history of skin rash. Neurologic: The patient denies a history of epilepsy/convulsions, denies headaches, denies head/spinal injuries, and denies stroke/TIA. Psychiatric: The patient denies psychiatric medications, denies depression, and denies voices. Endocrine: The patient denies thyroid disorders, denies diabetes, and denies hormonal problems. Hematologic: The patient denies a history of bruising, denies bleeding, and denies anemia. Infections: The patient denies a history of measles and mumps, denies rheumatic fever, and denies sexually transmitted diseases. Musculoskeletal: The patient denies back pain/injury, denies back problems, denies sciatica, denies knee/foot trouble, denies arthritis, or denies gout. PHYSICAL EXAMINATION: General: The patient is 54 year old, male well nourished, well hydrated in no acute distress. The patient is oriented to time, place, and person. VITALS: Blood pressure 132/68, pulse 80, temperature 36.7 ?C (98 ?F), temperature source Temporal, height 170.2 cm (5' 7), weight 77.1 kg (170 lb), SpO2 98%. Body mass index is 26.63 kg/m?. HEENT: Normal cephalic, ataumatic, pupils are equally round, sclera are anicteric, mucous membranes are moist, oropharynx is clear. Neck has no masses or asymmetry . Respiratory: Clear to auscultation. Cardiac: Regular rate and rhythm. Abdominal exam: Soft, nontender, with no palpable masses. No hepatosplenomegaly. No palpable hernias. Extremities: no clubbing or cyanosis LABORATORY VALUES: As Noted RADIOLOGIC STUDIES: As Noted Assessment IMPRESSION: +iFOBT, melena PLAN: I have reviewed my findings with the surgeon. Will plan for upper and lower endoscopy. We discussed the risks and benefits of the planned endosc (more content not included)... [facility] 06-30-2025 Evaluation note Diagnosis Onset Date Resolution Hypertension chronic June 30, 2025 12:55pm History of seizures resolved Augus t 2024 12:55pm History of stroke resolved June 30, 2025 12:55pm [facility] Work Phone: 1(194) 124-681606-10-2025 Radiology Diagnostic study note [facility] Imaging Services [address] [place] [address] Orbits for Foreign Body MR#: [id number] Acct: [id number] Name: GUS ESCALANTE Jr. Rep #: [id number] : 1970 M 54 From: Sancho Ayon MD PCP: ROBERTA Landry Status: REG C LI Study:Orbits for Foreign Body Date of Exam: 05/05/25 Exam# [id number] Ordering Dr: Keyanna Walton PROCEDURE: ORBITS FOR [...] No evidence of intraorbital metal. Reading Location: [address] CC: ROBERTA Mcknight; ROBERTA Walton ~ Estate Planner: Signed [facility]04-10-2025 Discharge summary [facility] Medical Records Department [facility] [place] [address] Discharge Summary 03/05/25 1333 MR#: [id number] Acct: [id number] Name: GUS ESCALANTE Rep #:[id number] : 1970 54 From: Todd Alfonso DO PCP: Care Physician,No Primary Status :ADM JEVON Location: ICU ICU- Providers Date of Admission: 03/04/25 Primary Care [...] to establish upon discharge.As well as follow upwith neurology as outpt. Medications at Discharge Home [...] 181, LDL Cholesterol, Calc 116, VLDL Cholesterol 23,HDL Cholesterol 42, Cholesterol/HDL Ratio 4.34 Radiography Diagnostic [...] No Action NK Referrals / Follow Up: [facility] [Provider Group] - Within 1 Month [facility] [Provider Group] - Within 2 Weeks Care Physician,No Primary [Primary Care Provider] - Disposition Disposition (needs filled in before D/C Order can be placed): Home, Self Care Charges/Coding Visit Charges Inpatient E&M: 09529 Disch Hosp >30min 03/05/25 1339 Cosigner Signature (if applicable): CC: Dr. Todd Alfonso DO; No Primary Care Physician~ Signed [facility]04-10-2025 [facility] Medical Records Department [address] [place] [address] Discharge Summary 03/05/25 1333 MR#: [id number] Acct: [id number] Name: GUS ESCALANTE Rep #: [id number] : 1970 54 From: Todd Alfonso DO PCP: Care Physician,No Primary Status:ADM JEVON Location: ICU ICU05-1 Providers Date of [...] Your Visit: stroke Attend (more content not included)...[facility]04-10-2025 Progress note [facility] Medical Records Department [address] [place] [address] Progress Note - Hospitalist 03/05/25 0723 MR#: [id number] Acct: [id number] Name: GUS ESCALANTE Rep #:[id number] 8 : 1970 54 From: Todd Alfonso [...] % (Auto) 67.2, Lymph % (Auto) 21.5, [place] % (Auto) 9.5, Eos % (Auto) 0.7, Baso % (Auto) 0.6, Absolute Neuts (auto) 5.6, Absolute Lymphs (auto) 1.79, Nucleated RBC % 0, PT 13.6, INR 1.0, APTT 26.0, Exlbvt892, Potassium 4.1, Chloride 100, Carbon Dioxide 23.7, Anion Gap 11, BUN 12, Creatinine 1.00, EstimCreat Clear Calc 78.03, Est GFR (MDRD) Non-Af89, BUN/Creatinine Ratio 12.0, Glucose 110 H, Calcium 9.2, Troponin T High Sens 11 03/04/25 09:55: Troponin T Hi Sens 2 Hr 10 03/05/25 04:12: Triglycerides 116, Cholesterol 181, LDL Cholesterol, Calc 116, VLDL Cholesterol 23,HDL Cholesterol 42, Cholesterol/HDL Ratio 4.34 Radiography Diagnostic [...] Fleischner society criteria. Reading Location: [facility] Echocardiogram 03/04/25 10:24 Interpretation Summary Normal [...] hours after presentation, will start initiating treatment.Patient's admission blood pressure in the 190s, since [...] to establish upon discharge.As well as follow upwith neurology as outpt. 03/05/25 1333 Cosigner Signature (if applicable): CC: ~ Signed [facility]04-10-2025 Progress note Author Todd Alfonso [facility] Note Date/Time March 05, 2025 1:3 3pm [facility] Medical Records Department [address] [place] [address] Progress Note - Hospitalist 03/05/25 0723 MR#: [id number] Acct: [id number] Name: GUS ESCALANTE Rep #:[id number] 8 : 1970 54 From: Todd Alfonso DO PCP: Care Physician,No Primary Status :ADM JEVON Location: ICU ICU-1 Reason for Visit Reason for Visit: Diagnoses [...] % (Auto) 67.2, Lymph % (Auto) 21.5, [place] % (Auto) 9.5, Eos % (Auto) 0.7, [...] mass effect or midline shift. Reading Location: [id number] Head/Neck CTA 03/04/25 07:17 IMPRESSION: No large filling defects seen within the intracranial vessels. No evidence of thrombosis. No hemodynamically significant stenosis seen within the bilateral ICA. Reading Location: [id number] Chest X-Ray 03/04/25 07:35 IMPRESSION: Mild pulmonary vascular congestion. 1 cm nodule seen within the right lower lobe. Follow-up as per Fleischner society criteria. Reading Location: [id number] Echocardiogram 03/04/25 10:24 Interpretation Summary Normal LV [...] Cosigner Signature (if applicable): CC: ~ Signed [facility] Work Phone: 1(330) 757-165504-09-2025 Consult note Author Clayton Ruby [facility] Note Date/Time March 04, 2025 5:55 pm [facility] Medical Records Department [address] [place] [address] Consultation - Neurology 03/04/251744 MR#: [id number] Acct: [id number] Name: GUS ESCALANTE Rep #:[id number] 1 : 1970 54 From: Clayton Ruby MD PCP: Care Physician,No Primary Status :ADM JEVON Location: ICU ICU-1 Assessment and Plan: Stroke Assessment/Plan Ischemic stroke, [...] as stroke clearly seen on CT head. 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 Goal BP < 130/80. Plan for 30 day radiation monitor on discharge to screen for atrial fibrillation. Follow up with neurologist as an outpatient. HPI Consult Data Date of Consult: 03/04/25 HPI Narrative HPI Narrative: GUS ESCALANTE, is a 54M w/ epilepsy, tobacco use, previously undiagnosed HTN. 03/02/25 acute dysarthria. CTH w/ L subcortical hypodensity c/w subacute infarct. CTA negative. BP 215/96 on admission. SBP is typically in the 180s at home. [facility] Medical History Epilepsy Home Medications ?Medication [...] EEG Results Procedure Details EEG Procedure Details: GUS ESCALANTE is a 54 year old M with a past medical history of , who presents for evaluation of Electroencephalogram on DATE at TIME NIHSS NIHSS Nursing Documentation NIHSS Nursing Documentation: NIHSS: Ischemic Stroke/TIA Start: 03/04/25 10:24 Text: For ICU Patients: NIH sroke scale at Status: Complete presentation and every 2 hours or with change in RN caregiver Freq: [id number] Protocol: Activity Type Activity Date Activity User E-sign Co-sign Detail Recorded Client Recorded Date Recorded By Document 03/04/25 11:50 [facility] desktop 03/04/25 11:51 [facility] 03/04/25 11:50 NIH Stroke Scale [NIHSS] A [...] % (Auto) 67.2, Lymph % (Auto) 21.5, [place] % (Auto) 9.5, Eos % (Auto) 0.7, [...] mass effect or midline shift. Reading Location: [id number] Head/Neck CTA 03/04/25 07:17 IMPRESSION: No large [...] 08:00 Aspirin 81 Mg Tab.Chew PO BREAKFAST [facility] Atorvastatin Calcium 80 mg 03/04/25 22:00 Atorvastatin [...] applicable): CC: No Primary Care Physician~ Signed [facility] Work Phone: 1(223) 113-464704-09-2025 Consult note [facility] Medical Records Department [address] [place] [address] Consultation - Neurology 03/04/25 7884 MR#: [id number] Acct: [id number] Name: GUS ESCALANTE Rep #:[id number] 1 : 1970 54 From: Clayton Ruby MD PCP: Care Physician,No Primary Status :ADM JEVON Location: ICU ICU-1 Assessment and Plan: Stroke Assessment/Plan Ischemic stroke, [...] as stroke clearly seen on CT head. 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 Goal BP < 130/80. Plan for 30 day radiation monitor on discharge to screen for atrial fibrillation. Follow up with neurologist as an outpatient. HPI Consult Data Date of Consult: 03/04/25 HPI Narrative HPI Narrative: GUS ESCALANTE, is a 54M w/ epilepsy, tobacco use, previously undiagnosed HTN. 03/02/25 acute dysarthria. CTH w/ L subcortical hypodensity c/w subacute infarct. CTA negative. BP 215/96 on admission. SBP is typically in the 180s at home. [facility] Medical History Epilepsy Home Medications ?Medication [...] EEG Results Procedure Details EEG Procedure Details: GUS ESCALANTE is a 54 year old M with a past medical history of , who presents for evaluation of Electroencephalogram on DATE at TIME NIHSS NIHSS Nursing Documentation NIHSS Nursing Documentation: NIHSS: Ischemic Stroke/TIA Start: 03/04/25 10:24 Text: For ICU Patients: NIH sroke scale at Status: Complete presentation and every 2 hours or with change in RN caregiver Freq: [id number] Protocol: Activity Type Activity Date Activity User E-sign Co-sign Detail Recorded Client Recorded Date Recorded By Document 03/04/25 11:50 [facility] desktop 03/04/25 11:51 [facility] 03/04/25 11:50 NIH Stroke Scale [NIHSS] A [...] % (Auto) 67.2, Lymph % (Auto) 21.5, [place] % (Auto) 9.5, Eos % (Auto) 0.7, Baso % (Auto) 0.6, Absolute Neuts (auto) 5.6, Absolute Lymphs (auto) 1.79, Nucleated RBC % 0, PT 13.6, INR 1.0, APTT 26.0, Djnara543, Potassium 4.1, Chloride 100, Carbon Dioxide 23.7, [...] mass effect or midline shift. Reading Location: [id number] Head/Neck CTA 03/04/25 07:17 IMPRESSION: No large filling defects seen within the intracranial vessels. No evidence of thrombosis. No hemodynamically significant stenosis seen within the bilateral ICA. Reading Location: [facility] Chest X-Ray 03/04/25 07:35 IMPRESSION: Mild pulmonary vascular congestion. 1 cm nodule seen within the right lower lobe. Follow-up as per Fleischner society criteria. Reading Location: [id number] Active Medications Active Medications Active Medications: Current Medications Generic Name Dose Route Start Last Admin Trade Name Freq PRN Reason Stop Dose Admin Acetaminophen 650 mg 03/04/25 10:24 Acetaminophen 325 Mg Tablet PO Q6H PRN PRN Pain 1-10 Or Fever>100.7 Amlodipine Besylate 5 mg 03/04/25 10:24 03/04/25 11:28 Amlodipine 5 Mg Tablet PO 5 mg DAILY [facility] Administration Protocol Aspirin 81 mg 03/05/25 08:00 Aspirin 81 Mg Tab.Chew PO BREAKFAST [facility] Atorvastatin Calcium 80 mg 03/04/25 22:00 Atorvastatin Calcium 80 Mg Tablet PO QHS [facility] Hydralazine HCl 5 mg 03/04/25 10:24 Hydralazine [...] applicable): CC: No Primary Care Physician~ Signed [facility]04-09-2025 History and physical note Author Todd Alfonso [facility] Note Date/Time March 04, 2025 8:51 am [facility] Medical Records Department [address] [place] [address] H&P Exam - Hospitalist 03/04/2545 MR#: [id number] Acct: [id number] Name: GUS ESCALANTE Rep #:[id number] 2 : 1970 54 From: Todd Alfonso DO PCP: Care Physician,No Primary Status :REG ER Location: ED HPI - General General Date of Service: 03/04/25 Chief Complaint: slurred speech HPI Narrative GUS ESCALANTE, is a 54 M who presents [...] denies ever having had a stroke before. [facility] Medical History Epilepsy Home Medications ?Medication [...] Strength 5-5 in upperand lower extremities bilaterally. Crcaub-tm-tdty and rouk-ve-ofic within normal limits. Sensation grossly intact. Patient [...] % (Auto) 67.2, Lymph % (Auto) 21.5, [place] % (Auto) 9.5, Eos % (Auto) 0.7, [...] mass effect or midline shift. Reading Location: [id number] Head/Neck CTA 03/04/25 07:17 IMPRESSION: No large [...] upon discharge. Charges/Coding Visit Charges Inpatient E&M: 10182 Init Hosp L3 03/04/25 0851 <Electronically signed by Todd Alfonso DO> Cosigner Signature (if applicable): CC: Dr. Todd Alfonso, ; No Primary Care Physician~ Signed [facility] Work Phone: 1(707) 607-812404-09-2025 Evaluation note* Diagnosis Onset Date Resolution Status Admit Date Acute stroke due to ischemia acute March 04, 2025 8:40am CVA (cerebral vascular accident) acu te March 04, 2025 8:40am Slurred speech acute March 04, 2025 8:40am Hypertension chronic March 04, 025 8:40am [facility] Work Phone: 1(643) 842-995604-09-2025 Evaluation note* Diagnosis Onset Date Resolution Status [...] February 10:47am Epilepsy chronic March 19 10:47am [facility] Work Phone: 1(810) 943-593604-09-2025 Discharge summary Author Cruzito Bailey [facility] Note Date/Time March 04, 2025 8:33 am [facility] Medical Records Department [address] [place] [address] Emergency Department Summary 03/04/25 MR#: [id number] Acct: [id number] Name: GUS ESCALANTE Rep #:[id number] : 1970 54 From: Cruzito Bailey [...] Prior similar symptoms: No Recent Illness/Hospitalization: No [facility] Medical History Epilepsy Home Medications ?Medication [...] all 4 extremities. 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 Dorsi plantarflexion intact. Normal strength. Normal sensation. Nontender. No edema. Back nontender. Neurologically is awake and alert. Answering questions and following commands. He is obvious slurred speech. However he is no facial droop. He has normal fingertip to nose. Normal vfoo-qi-adpd. No drift. Normal rapid hand movements. NIH [...] % (Auto) 67.2 Lymph % (Auto) 21.5 [place] % (Auto) 9.5 Eos % (Auto) 0.7 [...] Primary [Primary Care Provider] - Print Language: [place] Islander What to do if you have Problems For any increased pain, shortness of breath, bleeding, nausea or vomiting, chestpain, or any unexpected problems, contact your Primary Care Provider. Call [facility] ([phone]) or report to the closest Emergency Room. Call 911 if necessary. 03/04/25 0833 <Electronically signed by Cruzito Bailey MD> Cosigner Signature (if applicable): CC: No Primary Care Physician ~ Signed [facility] Work Phone: 1(964) 626-962004-09-2025 History and physical note [facility] Medical Records Department [address] [place] [address] H&P Exam - Hospitalist 03/04/2545 MR#: [id number] Acct: [id number] Name: GUS ESCALANTE Rep #:[id number] 2 : 1970 54 From: Todd Alfonso DO PCP: Care Physician,No Primary Status :REG ER Location: ED HPI - General General Date of Service: 03/04/25 Chief Complaint: slurred speech HPI Narrative GUS ESCALANTE, is a 54 M who presents [...] denies ever having had a stroke before. [facility] Medical History Epilepsy Home Medications ?Medication [...] Strength 5-5 in upperand lower extremities bilaterally. Cbtsms-as-xitc and ikpa-bx-jqfz within normal limits. Sensation grossly intact. Patient [...] % (Auto) 67.2, Lymph % (Auto) 21.5, [place] % (Auto) 9.5, Eos % (Auto) 0.7, Baso % (Auto) 0.6, Absolute Neuts (auto) 5.6, Absolute Lymphs (auto) 1.79, Nucleated RBC % 0, Sodium 136, Potassium 4.1, [id number], Carbon Dioxide 23.7, Anion Gap 11, BUN [...] seen within the bilateral ICA. Reading Location: [id number] Chest X-Ray 03/04/25 07:35 IMPRESSION: Mild pulmonary [...] upon discharge. Charges/Coding Visit Charges Inpatient E&M: 81235 Init Hosp L3 03/04/25 0851 Cosigner Signature (if applicable): CC: Dr. Todd Alfonso, ; No Primary Care Physician~ Signed [facility]04-09-2025 Discharge summary [facility] Medical Records Department [address] [place] [address] Emergency Department Summary 03/04/25 MR#: [id number] Acct: [id number] Name: GUS ESCALANTE Rep #:[id number] 3 : 1970 54 From: Cruzito Bailey [...] all 4 extremities. 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 Dorsiplantarflexion intact. Normal strength. Normal sensation. Nontender. No edema. Back nontender. Neurologically is awake and alert. Answering questions and following commands. He is obvious slurred speech. However he is no facial droop. He has normal fingertip to nose. Normal xblm-ye-sdku. No drift. Normal rapid hand movements. NIH [...] % (Auto) 67.2 Lymph % (Auto) 21.5 [place] % (Auto) 9.5 Eos % (Auto) 0.7 [...] Primary [Primary Care Provider] - Print Language: Cook Islander What to do if you have Problems For any increased pain, shortness of breath, bleeding, nausea or vomiting, chestpain, or any unexpected problems, contact your Primary Care Provider. Call [facility] ([phone]) or report tothe closest Emergency Room. Call 911 if necessary. 03/04/25 0833 Cosigner Signature (if applicable): CC: No Primary Care Physician ~ Signed [facility]04-09-2025 Radiology Diagnostic study note [facility] Imaging Services [address] [place] [address] STROKE CTA Head AND Neck W/Con MR#: [id number] Acct: [id number] Name: GUS ESCALANTE Rep #: [id number] 4 : 1970 M 54 From: [place] Mayorga MD PCP: Care Physician,No Primary Status: REG ER Study:STROKE CTA Head AND Neck W/Con Date of Exam: 03/04/25 Exam# [id number] Ordering Dr: Shobha Bailey MD PROCEDURE: STROKE [...] seen within the bilateral ICA. Reading Location: [id number] CC: Dr. Cruzito Bailey MD; No Primary Care Physician ~ Estate Planner: Signed [facility]04-09-2025 Radiology Diagnostic study note [facility] Imaging Services [address] [place] [id number] STROKE Brain/Head without Cont MR#: [id number] Acct: [id number] Name: GUS ESCALANTE Rep #: [id number] 3 : 1970 M 54 From: [place] Mayorga MD PCP: Care Physician,No Primary Status: REG ER Study:STROKE Brain/Head without Cont Date of Exam: 03/04/25 Exam# [id number] Ordering Dr: Shobha Bailey MD PROCEDURE: STROKE [...] mass effect or midline shift. Reading Location: [id number] CC: Dr. Cruzito Bailey MD; No Primary Care Physician ~ Estate Planner: Signed [facility]04-09-2025 Radiology Diagnostic study note [facility] Imaging Services [address] [place] [address] [id number] Chest PA and Lateral MR#: [id number] Acct: [id number] Name: GUS ESCALANTE Rep #: [id number] 2 : 1970 M 54 From: [place] Mayorga MD PCP: Care Physician,No Primary Status: REG ER Study:Chest PA and Lateral Date of Exam: 03/04/25 Exam# [id number] Ordering Dr: Shobha Bailey MD PROCEDURE: CHEST [...] as per Fleischner society criteria. Reading Location: [id number] CC: Dr. Cruzito Bailey MD; No Primary Care Physician ~ Estate Planner: [facility] Cruzito Bailey [facility] Note Date/Time March 04, 2025 8:33 am [facility] Medical Records Department [address] [place] [address] Emergency Department Summary 03/04/25 MR#: [id number] Acct: [id number] Name: GUS ESCALANTE Rep #:[id number] 3 : 1970 54 From: Cruzito Bailey MD PCP: Care Physician,No Primary Status :[facility] ER Location: ED HPI History of Present [...] all 4 extremities. 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 Dorsi plantarflexion intact. Normal strength. Normal sensation. Nontender. No edema. Back nontender. Neurologically is awake and alert. Answering questions and following commands. He is obvious slurred speech. However he is no facial droop. He has normal fingertip to nose. Normal rfxi-pj-ujxf. No drift. Normal rapid hand movements. NIH [...] % (Auto) 67.2 Lymph % (Auto) 21.5 [place] % (Auto) 9.5 Eos % (Auto) 0.7 [...] seen within the bilateral ICA. Reading Location: [id number] Chest X-Ray 03/04/25 07:35 IMPRESSION: Mild pulmonary vascular congestion. 1 cm nodule seen within the right lower lobe. Follow-up as per Fleischner society criteria. Reading Location: [id number] Chest x-ray, 2 views, AP and lateral, [...] Primary [Primary Care Provider] - Print Language: [place] Islander What to do if you have Problems For any increased pain, shortness of breath, bleeding, nausea or vomiting, chestpain, or any unexpected problems, contact your Primary Care Provider. Call [facility] ([phone]) or report to the closest Emergency Room. Call 911 if necessary. 03/04/25 5706 <Electronically signed by Cruzito Bailey MD> Cosigner Signature (if applicable): CC: No Primary Care Physician ~ Signed [facility] Work Phone: Discharge summary Author Todd Alfonso [facility] Note Date/Time March 05, 2025 1:3 9pm [facility] Medical Records Department [address] [place] [address] Discharge Summary 03/05/25 1333 MR#: [id number] Acct: [id number] Name: GUS ESCALANTE Rep #:[id number] 8 : 1970 54 From: Todd Alfonso [...] No Action NK Referrals / Follow Up: [facility] [Provider Group] - Within 1 Month [facility] [Provider Group] - Within 2 Weeks Care Physician,No Primary [Primary Care Provider] - Disposition Disposition (needs filled in before D/C Order can be placed): Home, Self Care Charges/Coding Visit Charges Inpatient E&M: 48534 Disch Hosp >30min 03/05/25 133 <Electronically signed by Todd Alfonso DO> Cosigner Signature (if applicable): CC: Dr. Todd Alfonso DO; No Primary Care Physician~ Signed [facility] Work Phone: Evaluation note* Diagnosis Onset Date Resolution Status Admit Date Acute stroke due to ischemia acute March 04, 2025 8:40am CVA (cerebral vascular accident) acu te March 04, 2025 8:40am Slurred speech acute March 04, 2025 8:40am Hypertension chronic March 04, 025 8:40am [facility] Work Phone: Evaluation note* Diagnosis Positive occult stool blood test- Primary Nonspecific abnormal finding in stool contents Melena Blood in stool documented [facility] Author Todd Alfonso [facility] Note Date/Time March 04, 2025 8:51 am [facility] Medical Records Department [address] [place] [address] H&P Exam - Hospitalist 03/04/25 0845 MR#: [id number] Acct: [id number] Name: GUS ESCALANTE Rep #:[id number] 2 : 1970 54 From: Todd Alfonso DO PCP: Care Physician,No Primary Status :REG ER Location: ED HPI - General General Date of Service: 03/04/25 Chief Complaint: slurred speech HPI Narrative GUS ESCALANTE, is a 54 M who presents [...] denies ever having had a stroke before. [facility] Medical History Epilepsy Home Medications ?Medication [...] Strength 5-5 in upperand lower extremities bilaterally. Wgmgus-ja-jtqy and jnhe-tn-azhx within normal limits. Sensation grossly intact. Patient [...] % (Auto) 67.2, Lymph % (Auto) 21.5, [place] % (Auto) 9.5, Eos % (Auto) 0.7, [...] upon discharge. Charges/Coding Visit Charges Inpatient E&M: 14934 Init Hosp L3 03/04/25 0851 <Electronically signed by Todd Alfonso DO> Cosigner Signature (if applicable): CC: Dr. Todd Alfonso, ; No Primary Care Physician~ Signed [facility] Work Phone: Hospital Discharge instructions Additional [...] not sleep throughout the night for your testing.[facility] Work Phone: Reason for referral (narrative)No reason for referral information availableWKettering [facility] Work Phone: Chief Complaint and Reason for [...] 27, 2025 7:00am Cerebral infarction, unspecified March 16t h2024 6:41am syncope April 10, 2025 7:28a m STOKE EPILEPSY May 05, 2025 3:57 pm 4 M FU June 30, 2025 12: 55pm Chief Complaint Admit Date Cerebral infarction, unspecified March h2024 6:41am syncope April 10, 2025 7:28a m STOKE EPILEPSY May 05, 2025 3:57 pm 4 M FU June 30, 2025 12: 55pm LAB SPEC July 25, 2025 11 :13am Reason for Visit Admit Date Hypertension June 30, 2025 12: 55pm History of seizures June 30, 2025 12: 55pm History of stroke June 30, 2025 12: 55pm Advance Directives No Advanced Directives Records Found Advance Directive Response Recorded Date/ Time Living Will No March 04, 2025 7:07am Do you have a Healthcare Power of Orthodontic Technician? No March 04, 2025 7:07am Advance Directive Response Recorded Date/ Time Living Will No March 04, 2025 10:24am Do you have a Healthcare Power of Orthodontic Technician? No March 04, 2025 10:24am Advance Directive Response Recorded Date/ Time Do you have a Healthcare Power of Orthodontic Technician? No April 10, 2025 7:32am Living Will No March 04, 2025 10:24am Do you have a Healthcare Power of Orthodontic Technician? No March 04, 2025 10:24am Advance Directive Response Recorded Date/ Time Do you have a Healthcare Power of Orthodontic Technician? No April 10, 2025 7:32am Summary Purpose Family History No Family History [...] Active Start : March 05, 2025 Dr. aTti Olmstead DO Other Provider Active St art: [...] Active Start: March 20, 2025 Dr. Todd Alfonos DO Referring Provider Active Start: March 20, 2025 Team Status: Inactive Member Role Status Dates No Primary Care Physician Primary Care Provider Active Start: March 23, 2025 End: March 23, 2025 Keyanna Walton [employer] Attending Provider Active S tart: March 23, 2025 End: March 23, 2025 Keyanna Walton [employer] Referring Provider Active S tart: March 23, 2025 End: March 23, 2025 Team Status: Active Member Role Status Dates No Primary Care Physician Primary Care Provider Active Start: March 27, 2025 Keyanna Walton [employer]-C Attending Provider Active S tart: March 27, 2025 Keyanna Walton [employer] Referring Provider Active S tart: March 27, 2025 Team Status: Active Member Role Status Dates No Primary Care Physician Primary Care Provider Active Start: April 10, 2025 Keyanna Walton [employer]-C Attending Provider Active S tart: April 10, 2025 Keyanna Walton [employer] Referring Provider Active S tart: April 10, [...] 2025 End: April 10, 2025 Keyanna Walton [employer]-C Attending Provider Active S tart: April 10, 2025 End: April 10, 2025 Keyanna Walton [employer] Referring Provider Active S tart: April 10, [...] Active Member Role Status Dates Dianne Mcknight [employer] P[employer]ER-C Primary Care Provider Active Team Status: Inactive Member Role Status Dates Dianne Mcknight G[employer]-C Primary Care Provider Active Start: April 30, 2025 End: April 30, 2025 Dianne Tannhof , [employer]ER-C Attending Provider Active Start: April 30, 2025 End: April 30, 2025 Team Status: Active Member Role Status Dates Keyanna Walton [employer]-C Attending Provider Active S tart: May 05, 2025 Keyanna Walton , [employer]C Referring Provider Active S tart: May 05, 2025 Dianne Mcknight , G[employer] B[employer] P[employer]ER-C Primary Care Provider Active Start: May 05, 2025 Team Status: Active Member Role Status Dates No Primary Care Physician Primary Care Provider Active Start: March 27, 2025 Dr. Jd Buenrostro MD Attending Provider Active Start: March 27, 2025 Keyanna Walton [employer]-C Referring Provider Active S tart: March 27, 2025 Team Status: Inactive Member Role Status Dates Keyanna Walton [employer]C Attending Provider Active S tart: May 05, 2025 End: May 05, 2025 Keyanna Walton , [employer]C Referring Provider Active S tart: May 05, 2025 End: May 05, 2025 Dianne Mcknight , [employer] P[employer]-C Primary Care Provider Active Start: May 05, 2025 End: May 05, 2025 Team Status: Active Member Role/Relationship Status Dates Dianne Mcknight , GIFT BASKET PACKER-C Primary Care Provider Active Team Status: Inactive [...] 04, 2025 End: March 05, 2025 Dr. Mraivel Flores MD Other Provider Active Start : [...] Active Sta rt: March 05, 2025 Dr. Daniat Mckeon MD Other Provider Active Start: March 05, 2025 Dr. Adan Field MD Other Provider Active St art: March 05, 2025 Dr. Lina Bob MD Other Provider Active Star t: March 05, 2025 Dr. Mikael Hightower MD Other Provider Active St art: March 05, 2025 Dr. Palua Ceballos MD Other Provider Active Start: March 05, 2025 Lorelei Corona MD Other Provider Active Start: March 05, 2025 Team Status: Inactive Member Role/Relationship Status Dates No Primary Care Physician Primary Care Provider Active Start: March 19, 2025 End: March 19, 2025 No Primary Care Physician Referring Provider Active Start: March 19, 2025 End: March 19, 2025 Keyanna Walton [employer]-C Attending Provider Active S tart: March 19, [...] 2025 End: March 23, 2025 Keyanna Walton [employer] Attending Provider Active S tart: March 23, 2025 End: March 23, 2025 Keyanna Walton [employer]-C Referring Provider Active S tart: March 23, 2025 End: March 23, 2025 Team Status: Active Member Role/Relationship Status Dates No Primary Care Physician Primary Care Provider Active Start: March 27, 2025 Keyanna Walton [employer] P[employer]-C Attending Provider Active S tart: March 27, 2025 Keyanna Walton [employer]-C Referring Provider Active S tart: March 27, 2025 Team Status: Active Member Role/Relationship Status Dates No Primary Care Physician Primary Care Provider Active Start: March 27, 2025 Dr. Jd Buenrostro MD Attending Provider Active Start: March 27, 2025 Keyanna Walton G[employer]-C Referring Provider Active S tart: March 27, 2025 Team Status: Inactive Member Role/Relationship Status Dates No Primary Care Physician Primary Care Provider Active Start: April 10, 2025 End: April 10, 2025 Keyanna Walton [employer]-C Attending Provider Active S tart: April 10, 2025 End: April 10, 2025 Keyanna Walton [employer]-C Referring Provider Active S tart: April 10, 2025 End: April 10, 2025 Team Status: Inactive Member Role/Relationship Status Dates No Primary Care Physician Primary Care Provider Active Start: April 10, 2025 End: April 10, 2025 Dr. Kev Nsah , Attending Provider Active Start : April 10, 2025 End: April 10, 2025 Dr. Kev Nash , DO Emergency Provider Active Start : April 10, 2025 End: April 10, 2025 Team Status: Inactive Member Role/Relationship Status Dates Dianne Mcknight , G[employer] P[employer]ER-C Primary Care Provider Active Start: April 30, 2025 End: April 30, 2025 Dianne Mcknight G[employer] P[employer]ER-C Attending Provider Active Start: April 30, 2025 End: April 30, 2025 Team Status: Inactive Member Role/Relationship Status Dates Keyanna Walton G[employer] P[employer]ER-C Attending Provider Active S tart: May 05, 2025 End: May 05, 2025 Keyanna Walton [employer]-C Referring Provider Active S tart: May 05, 2025 End: May 05, 2025 Dianne Mcknight G[employer] P[employer]ER-C Primary Care Provider Active Start: May 05, 2025 End: May 05, 2025 Team Status: Inactive Member Role/Relationship Status Dates No Primary Care Physician Referring Provider Active Start: June 30, 2025 End: June 30, 2025 Dr. Dariel George MD Attending Provider Active Start: June 30, 2025 End: June 30, 2025 Dianne Mcknight G[employer] P[employer]ER-C Primary Care Provider Active Start: June 30, 2025 End: June 30, 2025 Team Status: Inactive Member Role/Relationship Status Dates No Primary Care Physician Primary Care Provider Active Start: April 10, 2025 End: April 10, 2025 Keyanna Walton G[employer] P[employer]-C Attending Provider Active S tart: April 10, 2025 End: April 10, 2025 Keyanna Walton [employer] Referring Provider Active S tart: April 10, [...] Inactive Member Role/Relationship Status Dates Dianne Mcknight , G[employer] BASKET P[employer]ER-C Primary Care Provider Active Start: April 30, 2025 End: April 30, 2025 Dianne Mcknight , G[employer] P[employer]ER-C Attending Provider Active Start: April 30, 2025 End: April 30, 2025 Team Status: Inactive Member Role/Relationship Status Dates Keyanna Walton G[employer] B[employer]ET P[employer]ER-C Attending Provider Active S tart: May 05, 2025 End: May 05, 2025 Keyanna Walton G[employer]ER-C Referring Provider Active S tart: May 05, 2025 End: May 05, 2025 Dianne Mcknight , [employer]ER-C Primary Care Provider Active Start: May 05, 2025 End: May 05, 2025 Team Status: Inactive Member Role/Relationship Status Dates No Primary Care Physician Referring Provider Active Start: June 30, 2025 End: June 30, 2025 Dr. Dariel George MD Attending Provider Active Start: June 30, 2025 End: June 30, 2025 Dianne Mcknight , G[employer]ER-C Primary Care Provider Active Start: June 30, 2025 End: June 30, 2025 Team Status: Inactive Member Role/Relationship Status Dates Dianne Mcknight G[employer] B[employer]ET P[employer]ER-C Primary Care Provider Active Start: July 21, 2025 End: July 21, 2025 Dianne Mcknight , [employer] P[employer]ER-C Attending Provider Active Start: July 21, 2025 End: July 21, 2025 Dianne Mcknight , G[employer] B[employer] P[employer]ER-C Referring Provider Active Start: July 21, 2025 End: July 21, 2025 Team Status: Active Member Role/Relationship Status Dates Dianne Mcknight , G[employer] B[employer]ET P[employer]ER-C Primary Care Provider Active Start: July 25, 2025 Dianne Mcknight , G[employer] B[employer]ET P[employer]ER-C Attending Provider Active Start: July 25, 2025 Dianne Mcknight , G[employer] B[employer] P[employer]ER-C Referring Provider Active Start: July 25, 2025 Team Status: Inactive Member Role/Relationship Status Dates Dianne Mcknight , G[employer] BASKET PACKER-C Primary Care Provider Active Start: July 25, 2025 End: July 25, 2025 Dianne Mcknight , GIFT BASKET PACKER-C Attending Provider Active Start: July 25, 2025 End: July 25, 2025 Dianne Mcknight , [employer] B[employer]ET P[employer]ER-C Referring Provider Active Start: July 25, 2025 End: July 25, 2025 Goals (unrecognized section and content) Goals may be documented in a n alternate sectionGoals may be documented in an alternate sectionGoals may be documented in an alternate section Source Comments (unrecognize d section and content) In the event this informatio n is protected by the Federal Confidentiality of Alcohol and Drug Abuse Patient Records regulations: The Federal rules restrict any use of the information to criminally investigate or prosecute any alcohol or drug abuse patient.[facility] the event this information is protected by the Federal Confidentiality of Alcohol and Drug Abuse Patient Records regulations: The Federal rules restrict any use of the information to criminally investigate or prosecute any alcohol or drug abuse patient.[facility] Reason for Visit (unrecogniz ed section and content) Reason Comments Consult Reason Comments Patient Question (unrecognized sect ion and content) No Status Records FoundNo Status Records Found INFORMATION SOURCE (unrecogn ized section and content) DATE CREATED AUTHOR 08/11/2025 [facility] DATE CREATED AUTHOR AUTHOR'S LUISANA HOPE 10/05/2025 [facility] FOR RECORDS PERTAINING TO PATIENTS WHO [...] BE BASED ON THE PRIMARY CLINICAL RECORDS. [employer] [facility]. provides no warranty or guarantee of the accuracy or completeness of information in this document.
[2025-10-16] MEDS: Lactated Ringers 1,000 ML 15 ML IV (07:42)
--- NOTE | 2025-10-16 08:01 | PCM.PRE.AN2 ---
ASA Classification* ASA Classification ASA Classification: 3 Assessment & Plan Anesthesia* Anesthesia Assessment Anesthesia Assessment: Discussed sedation and/or anesthesia options, risks, benefits, and alternatives with patient/parents/legal guardian/POA. Questions invited. The patient/parents/legal guardian/POA seems to understand and agrees to proceed with anesthesia plan. Reviewed the physical assessment, medical history, allergy history and patient home medications list prior to surgery/procedure/anesthetic and documented any changes. Performed airway and anesthesia risk assessments. Anesthesia Type Anesthesia Type: MAC Anesthesia Focused Assessment* Temperature: 97.9 F Pulse Rate: 65 Blood Pressure: 125/70 Respiratory Rate: 16 Pulse Ox: 98 Airway Assessment Mouth opens: >3 cm Mallampati Score: II Labs Anesthesia Preop lab: CBC WBC, (4.4-11.0) 10.1 K/mm3 07/21/25, 15:26 RBC, (4.6-6.2) 3.82 M/mm3 L 07/21/25, 15:26 Hgb, (13.0-16.5) 12.6 g/dL L 07/21/25, 15:26 Hct, (40-54) 35.7 % L 07/21/25, 15:26 Plt Count, (150-450) 326 K/mm3 07/21/25, 15:26 CHEMISTRY Potassium, (3.3-5.1) 3.7 mmol/L 04/30/25, 15:31 Sodium, (133-145) 137 mmol/L 04/30/25, 15:31 BUN, (4-19) 12 mg/dL 04/30/25, 15:31 Creatinine, (0.70-1.20) 1.12 mg/dL 04/30/25, 15:31 Glucose, (70-99) 98 mg/dL 04/30/25, 15:31 POC Glucose, (74-106) 133 mg/dL H 04/10/25, 07:30 TSH, (0.300-4.200) 1.160 uIU/mL 03/23/25, 15:52 COAG PT, (11.7-14.9) 13.6 SECONDS 03/04/25, 07:22 Pre-Assessment Diagnosis/Proposed Procedure Planned Operative Procedure(s): EGD, CSCOPE Anesthesia History Anesthesia History - pack changer: Anesthesia History - pack changer Hx Hospitalization Yes: 02/2025 CVA 10/13/25 10:27 Any Problems With Anesthesia No 10/13/25 10:27 Cholinesterase deficiency No 10/13/25 10:27 You/Your Family Experience No 10/13/25 10:27 fever (hyperthermia) with Relationship Recent Exposure to Contagious No 10/16/25 07:31 Disease Does patient have nerve No 10/13/25 10:27 stimulator Patient instructed to have device shut off --Does patient have Pacemaker No 10/16/25 07:31 or ICD? When Was Last Pacemaker Check QUESTION #4 FULL TEXT: You/Your Family Experience fever (hyperthermia) with Anesthesia Last Oral Intake Last Oral intake: Last Oral Intake NPO since 20:30 10/16/25 07:31 Meds taken in AM with sips of Yes 10/16/25 07:31 water? Meds patient instructed to see med list 10/16/25 07:31 take am of surgery PONV PONV - pack changer: PONV - pack changer Female No 10/13/25 10:27 HX of Motion Sickness No 10/13/25 10:27 HX of N/V After Surgery No 10/13/25 10:27 Non-Smoker No 10/13/25 10:27 Duration of Surgery greater No 10/13/25 10:27 than 60 minutes Number of Risk Factors PONV Score Height & Weight Height & Weight: Anesthesia: Height & Weight Height 5 ft 7 in 10/16/25 07:31 Weight: 75.2 kg 10/16/25 07:31 Body Mass Index (BMI) 25.9 10/16/25 07:31 Respiratory Assessment Respiratory Assessment - pack changer: Respiratory Tract Infection Hx - pack changer Hx Respiratory Tract Infection No 10/13/25 10:27 STOP Sleep Apnea STOP Sleep Apnea - pack changer: STOP Sleep Apnea - pack changer Hx Hypertension Yes: CONTROLLED WITH MED 10/13/25 10:27 Hx Sleep Apnea No 10/13/25 10:27 CPAP BIPAP Do you snore loudly (louder No 10/13/25 10:27 than talking or can be heard Do you often feel tired/ No 10/13/25 10:27 fatigued/ sleepy during daytime? Has anyone observed you stop No 10/13/25 10:27 breathing during sleep? STOP Results Negative 10/13/25 10:27 QUESTION #5 FULL TEXT : Do you snore loudly (louder than talking or can be heard through closed doors)? 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 Specify any problems Hx of Preganancy in last 3 N/A 10/13/25 10:27 Months Nurse Filling Out Transfusion NBUCHER 10/13/25 10:27 & Questions: Date: 10/13/25 10/13/25 10:27 Time: 10:30 10/13/25 10:27 Patient unable to answer at this time (ie. confused, unrespo /Reproduction History /Reproductive History - pack changer: /Reproductive Hx- pack changer Hx Now No 10/13/25 10:27 Gestational Age (in weeks): EDC: Hx Hx Para Hx Section SAB No 10/13/25 10:27 Does the father of the baby or his family experience fever w Father of the baby Malignant Hypertension history comment Active Medications Active Medications: Current Medications Generic Name Dose Route Start Last Admin Trade Name Freq PRN Reason Stop Dose Admin Lactated Ringer's 1,000 mls @ 15 mls/hr 10/16/25 07:30 10/16/25 07:42 IV 15 mls/hr .Q48H ISHAN Administration PFSH Medical History Alcohol use Low iron High cholesterol Marijuana use Gastric reflux History of cardiac monitoring Smoker History of echocardiogram Melena Positive fecal occult blood test Foreign body of orbit CVA (cerebral vascular accident) Hypertension Epilepsy Home Medications ?Medication ?Instructions ?Recorded ?Last Taken ?Type amlodipine 10 mg tablet 10 mg PO DAILY #30 tabs 03/05/25 10/16/25 06:30 Rx aspirin 81 mg chewable tablet 81 mg PO BREAKFAST #0 tabs 03/05/25 10/12/25 Rx atorvastatin 80 mg tablet 80 mg PO QHS #30 tabs 03/05/25 Unknown Rx lisinopril 10 mg tablet 10 mg PO QDAY 03/19/25 Unknown History peg 3350-electrolytes 236 240 ml PO Q10M #4,000 mL 09/18/25 Unknown Rx gram-22.74 gram-6.74 gram-5.86 gram solution (Golytely) Allergy/AdvReac Type Severity Reaction Status Date / Time No Known Allergies Allergy Verified 10/16/25 07:30 Family History Mother , 65 Cancer lung & brain Surgical History History of excision of lesion Social History household members: spouse current occupational 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
--- NOTE | 2025-10-16 08:15 | COLBX_PTH ---
PATIENT: MARY ALICE NAIK Jr. LOC: EN U#:[id number] AGE/SX: 55/M ROOM: RE10/16/[address]: Dr. Pramod Prince DO : 1970 BED: DIS: 10/16/2025 SPEC #: [id number] RECD: 10/16/25 10:36 STATUS: LIBRADO REQ #: [id number] RISSA: 10/16/25 08:[address]: Pramod Prince DEPT: SURGICAL PATHOLOGY RECD BY: Renny Acosta ENTERED: 10/16/25 13:47 SP TYPE: COLON BX OTHR DR: Dianne Mcknight, HEAD SOFT SUGAR OPERATOR-C Tissues: A - Esophagus, NOS B - Gastric mucous membrane C - Duodenum, NOS D - Transverse colon E - Sigmoid colon biopsy Procedures: Immunohistochemical Stains Surgery Specimen Level IV HEADER OPERATION: Colonoscopy with polypectomy hot snare and biopsies, EGD PRE-OP DIAGNOSIS: Positive fecal occult blood test, anemia TISSUE SUBMITTED: A- Distal esophagus biopsy, B- Gastric body biopsy, C- Duodenum biopsy,D- Transverse colon polyp, E- Sigmoid polyp biopsy MICROSCOPIC DIAGNOSIS A. Esophagus, distal, biopsy: * Benign squamous epithelium * Oxyntocardiac type mucosa with mild chronic inflammation, negative for goblet cells B. Stomach, body, biopsy: * Oxyntic mucosa with mild chronic focal active inflammation with reactive changes * No morphologic evidence of Helicobacter pylori organisms is identified on H&E or immunostained sections C. Small intestine, duodenum, biopsy: * Small bowel muocsa with no pathologic change D. Colon, transverse, polypectomy: * Tubular adenoma E. Colon, sigmoid, polypectomy: * Colonic mucosa with hyperplastic features MICROSCOPIC DESCRIPTION Slides are reviewed. All matched controls reacted appropriately. These tests were developed and their performance characteristics determined by [facility]. They may not have been cleared or approved by the U.S. Food and Drug Administration. The FDA has determined that such clearance or approval is not necessary. The above immunohistochemical markers are viewed by the Pathologist. GROSS DESCRIPTION A. Received in fixative is one container labeled with the patient's name and designated Distal esophagus biopsy. The specimen consists of two irregular fragments of harvey tissue that measure 0.4 and 0.5 cm. The specimen is totally submitted in one cassette. B. Received in fixative is one container labeled with the patient's name and designated Gastric body biopsy. The specimen consists of one irregular fragment of harvey tissue that measures 0.6 cm. The specimen is totally submitted in one cassette. C. Received in fixative is one container labeled with the patient's name and designated Duodenum biopsy. The specimen consists of two irregular fragments of harvey tissue that measure 0.4 and 0.5 cm. The specimen is totally submitted in one cassette. D. Received in fixative is one container labeled with the patient's name and designated Transverse colon polyp. The specimen consists of multiple irregular fragments of harvey tissue that in aggregate measure 0.6 x 0.6 x 0.1 cm, admixed with flocculent material. The specimen is totally submitted in one cassette. E. Received in fixative is one container labeled with the patient's name and designated Sigmoid polyp biopsy. The specimen consists of one irregular fragment of harvey tissue that measures 0.3 cm. The specimen is totally submitted in one cassette. AK 10/16/2025 CPT:[id number]
--- NOTE | 2025-10-16 09:29 | PCM.POST.ANE ---
Anesthesia: Postop Eval I Current Vital Signs Temperature: 97 F Pulse Rate: 57 Blood Pressure: 90/56 Respiratory Rate: 16 Pulse Ox: 97 Oxygen Delivery Method: Room Air Assessment Airway patent: Yes Spontaneous unlabored respirations: Yes Mental status: Asleep nausea: No Vomiting: No Anesthesia Complication: No Fluid Hydration Crystalloid volume administer (ml): 800 Total IV fluid infused: 800 Progress Note Anesthesia document: Postop Eval 1 completed: Yes
--- NOTE | 2025-10-16 09:35 | OP.PROVAT_ITS ---
10/16/2025 Wlaly Landry Re : Upper GI endoscopy procedure for Gus Escalante Dear Juan Luis This procedure was performed on Thursday, October 16, 2025. My impressions and recommendations are as follows: Impressions : - LA Grade A reflux esophagitis with no bleeding. Biopsied. - Chronic gastritis. Biopsied. - Acute duodenitis. Biopsied. Recommendations : - Discharge patient to home. - Resume previous diet. - Use Protonix (pantoprazole) 40 mg PO BID for 2 months. - Continue present medications. My findings are described in the full procedure note, which is enclosed. If I can be of further assistance, please feel free to contact me at . Sincerely, Pramod Prince, 10/16/2025 9:34:33 AM This report has been signed electronically.
--- NOTE | 2025-10-16 09:35 | OP.EGD_ITS ---
Patient Name: Gus Escalante Procedure Date: 10/16/2025 8:47 AM Date of : 1970 Age: 55 Procedure: Upper GI endoscopy Indications: Epigastric abdominal pain, Iron deficiency anemia, Heartburn Providers: Pramod Prince DO Referring MD: Wally Landry Medicines: Monitored Anesthesia Care Patient Profile: This is a 55 year old male. Refer to note in patient chart for documentation of history and physical. Patient has symptoms. Complications: No immediate complications. Procedure: Pre-Anesthesia Assessment: - Prior to the procedure, a History and Physical was performed, and patient medications and allergies were reviewed. The patient is competent. The risks and benefits of the procedure and the sedation options and risks were discussed with the patient. All questions were answered and informed consent was obtained. Patient identification and proposed procedure were verified by the physician in the pre-procedure area. Mental Status Examination: alert and oriented. Airway Examination: normal oropharyngeal airway and neck mobility. Respiratory Examination: clear to auscultation. CV Examination: normal. ASA Grade Assessment: II - A patient with mild systemic disease. After reviewing the risks and benefits, the patient was deemed in satisfactory condition to undergo the procedure. The anesthesia plan was to use monitored anesthesia care (MAC). Immediately prior to administration of medications, the patient was re-assessed for adequacy to receive sedatives. The heart rate, respiratory rate, oxygen saturations, blood pressure, adequacy of pulmonary ventilation, and response to care were monitored throughout the procedure. The physical status of the patient was re-assessed after the procedure. After obtaining informed consent, the endoscope was passed under direct vision. Throughout the procedure, the patient's blood pressure, pulse, and oxygen saturations were monitored continuously. The Colonoscope was introduced through the mouth, and advanced to the third part of the duodenum. Small bowel enteroscopy was deemed necessary. The upper GI endoscopy was accomplished without difficulty. The patient tolerated the procedure well. Scope In: 9:00:31 AM Scope Out: 9:04:44 AM Total Procedure Duration Time 0 hours 4 minutes 13 seconds Findings: LA Grade A (one or more mucosal breaks less than 5 mm, not extending between tops of 2 mucosal folds) esophagitis with no bleeding was found 37 to 40 cm from the incisors. Biopsies were taken with a cold forceps for histology. Verification of patient identification for the specimen was done. Estimated blood loss: none. Patchy mild inflammation characterized by erythema was found in the gastric body. Biopsies were taken with a cold forceps for histology. Biopsies were taken with a cold forceps for Helicobacter pylori testing. Verification of patient identification for the specimen was done. Estimated blood loss was minimal. Patchy moderate inflammation characterized by erosions and erythema was found in the duodenal bulb. Biopsies were taken with a cold forceps for histology. Verification of patient identification for the specimen was done. Estimated blood loss was minimal. Impression: - LA Grade A reflux esophagitis with no bleeding. Biopsied. - Chronic gastritis. Biopsied. - Acute duodenitis. Biopsied. Recommendation: - Discharge patient to home. - Resume previous diet. - Use Protonix (pantoprazole) 40 mg PO BID for 2 months. - Continue present medications. Procedure Code(s): --- Professional --- 42641, Small intestinal endoscopy, enteroscopy beyond second portion of duodenum, not including ileum; with biopsy, single or multiple CPT copyright 2021 [employer]. All rights reserved. The codes documented in this report are preliminary and upon rig superintendent review may be revised to meet current compliance requirements. Pramod Prince DO 10/16/2025 9:34:33 AM This report has been signed electronically. Number of Addenda: 0 Note Initiated On: 10/16/2025 8:47 AM
--- NOTE | 2025-10-16 09:38 | OP.PROVAT_ITS ---
10/16/2025 Wally Landry Re : Colonoscopy procedure for Gus Escalante Dear Juan Luis This procedure was performed on Thursday, October 16, 2025. My impressions and recommendations are as follows: Impressions : - One 10 mm polyp in the transverse colon, removed with a hot snare. Resected and retrieved. - One 5 mm polyp in the sigmoid colon, removed with a jumbo cold forceps. Resected and retrieved. - Diverticulosis in the recto-sigmoid colon and in the sigmoid colon. Recommendations : - Discharge patient to home. - Resume previous diet. - Continue present medications. - Await pathology results. - Repeat colonoscopy in 5 years for surveillance. My findings are described in the full procedure note, which is enclosed. If I can be of further assistance, please feel free to contact me at . Sincerely, Pramod Prince, 10/16/2025 9:37:32 AM This report has been signed electronically.
--- NOTE | 2025-10-16 09:38 | OP.COLON_ITS ---
Patient Name: Gus Escalante Procedure Date: 10/16/2025 9:04 AM Date of : 1970 Age: 55 Procedure: Colonoscopy Indications: Screening for colorectal malignant neoplasm, This is the patient's first colonoscopy Providers: Pramod Prince DO Referring MD: Wally Landry Medicines: Monitored Anesthesia Care Patient Profile: This is a 55 year old male. Refer to note in patient chart for documentation of history and physical. Patient has symptoms. Last Colonoscopy: none. The patient's first colonoscopy is today. Complications: No immediate complications. Procedure: Pre-Anesthesia Assessment: - Prior to the procedure, a History and Physical was performed, and patient medications and allergies were reviewed. The patient is competent. The risks and benefits of the procedure and the sedation options and risks were discussed with the patient. All questions were answered and informed consent was obtained. Patient identification and proposed procedure were verified by the physician in the pre-procedure area. Mental Status Examination: alert and oriented. Airway Examination: normal oropharyngeal airway and neck mobility. Respiratory Examination: clear to auscultation. CV Examination: normal. ASA Grade Assessment: II - A patient with mild systemic disease. After reviewing the risks and benefits, the patient was deemed in satisfactory condition to undergo the procedure. The anesthesia plan was to use monitored anesthesia care (MAC). Immediately prior to administration of medications, the patient was re-assessed for adequacy to receive sedatives. The heart rate, respiratory rate, oxygen saturations, blood pressure, adequacy of pulmonary ventilation, and response to care were monitored throughout the procedure. The physical status of the patient was re-assessed after the procedure. After I obtained informed consent, the scope was passed under direct vision. Throughout the procedure, the patient's blood pressure, pulse, and oxygen saturations were monitored continuously. The Colonoscope was introduced through the anus and advanced to the cecum, identified by appendiceal orifice and ileocecal valve. The colonoscopy was performed without difficulty. The patient tolerated the procedure well. The quality of the bowel preparation was adequate. The ileocecal valve, appendiceal orifice, and rectum were photographed. Scope In: 9:05:48 AM Scope Withdrawal Time 0 hours 11 minutes 39 seconds Scope Out: 9:19:09 AM Total Procedure Duration Time 0 hours 13 minutes 21 seconds Findings: The perianal and digital rectal examinations were normal. A 10 mm polyp was found in the transverse colon. The polyp was sessile. The polyp was removed with a hot snare. Resection and retrieval were complete. Verification of patient identification for the specimen was done. Estimated blood loss was minimal. A 5 mm polyp was found in the sigmoid colon. The polyp was sessile. The polyp was removed with a jumbo cold forceps. Resection and retrieval were complete. Verification of patient identification for the specimen was done. Estimated blood loss was minimal. A few small-mouthed diverticula were found in the recto-sigmoid colon and sigmoid colon. Impression: - One 10 mm polyp in the transverse colon, removed with a hot snare. Resected and retrieved. - One 5 mm polyp in the sigmoid colon, removed with a jumbo cold forceps. Resected and retrieved. - Diverticulosis in the recto-sigmoid colon and in the sigmoid colon. Recommendation: - Discharge patient to home. - Resume previous diet. - Continue present medications. - Await pathology results. - Repeat colonoscopy in 5 years for surveillance. Procedure Code(s): --- Professional --- 45640, Colonoscopy, flexible; with removal of tumor(s), polyp(s), or other lesion(s) by snare technique 41824, 59, Colonoscopy, flexible; with biopsy, single or multiple CPT copyright 2021 [employer]. All rights reserved. The codes documented in this report are preliminary and upon bus aide review may be revised to meet current compliance requirements. Pramod Prince DO 10/16/2025 9:37:32 AM This report has been signed electronically. Number of Addenda: 0 Note Initiated On: 10/16/2025 9:04 AM
--- NOTE | 2025-10-16 12:50 | PCM.POSTANE2 ---
Anesthesia Postop Eval I Sum Postop Eval Completion status Anesthesia document: Postop Eval 1 completed: Yes Anesthesia Postop Eval I Summary Anesthesia Postop Eval I Summary: Anesthesia Postop Eval I: Assessment Summary Airway patent Yes 10/16/25 09:30 [email or web address] Spontaneous unlabored Yes 10/16/25 09:30 [email or web address] respirations Mental status Asleep 10/16/25 09:30 [email or web address] nausea No 10/16/25 09:30 [email or web address] Vomiting No 10/16/25 09:30 [email or web address] Anesthesia Postop Eval I: Fluid Summary Crystalloid volume administer 800 10/16/25 09:30 [email or web address] (ml) Colloids volume administered ( ml) Blood Product volume administered (ml) Total IV fluid infused 800 10/16/25 09:30 [email or web address] Anesthesia Postop Eval I: Summary Notes Anesthesia Complication No 10/16/25 09:30 [email or web address] Anesthesia Complication Comment: Post-operative progress note Anesthesia: Postop Eval II Evaluation Mental status: Awake Pain Level: 0 nausea: No Vomiting: No
== END 2025-10-16 10:17 | disposition home or self-care (01) ==
LOC: EN 07:05 → AC 07:06
PROVIDERS: PCP Nurse Practitioner Family; Referring Provider Nurse Practitioner Family; Visit Provider Internal Medicine Gastroenterology
PROC: 0DJD8ZZ Inspection of Lower Intestinal Tract, Via Natural or Artificial Opening Endoscopic (ICD-10-PCS; CPT 45378; principal; 2025-10-16 08:10)
DX: Z12.11 Encounter for screening for malignant neoplasm of colon (principal); K21.00 Gastro-esophageal reflux disease with esophagitis, without bleeding; E78.00 Pure hypercholesterolemia, unspecified; I10 Essential (primary) hypertension; K29.50 Unspecified chronic gastritis without bleeding; F17.210 Nicotine dependence, cigarettes, uncomplicated; K57.30 Diverticulosis of large intestine without perforation or abscess without bleeding; K29.80 Duodenitis without bleeding; D64.9 Anemia, unspecified; Z86.73 Personal history of transient ischemic attack (TIA), and cerebral infarction without residual deficits; D12.3 Benign neoplasm of transverse colon; Z79.899 Other long term (current) drug therapy; Z79.82 Long term (current) use of aspirin
CPT/HCPCS: 44361; 45380; 45385; 88305; 88342; J2405